=== PATIENT | male | born 1935 | race Caucasian/White ===

== ENCOUNTER 2019-06-03 00:05 | Inpatient (IN) ==
[2019-06-03] MEDS ORDERED: RAPID SEQUENCE INDUCTION BAG ONE (00:14)
[2019-06-03] MEDS ORDERED: FUROSEMIDE 40 MG/4 ML VIAL IV STA (00:21)
[2019-06-03] MEDS ORDERED: PROPOFOL IV EMULSION 10 MG/ML 100 ML VIAL IV ONE (00:23)
[2019-06-03] MEDS ORDERED: NITROGLYCERIN/D5W 100MCG/ML 250 ML IV SCH (00:30)
[2019-06-03 00:42] LABS: iSTAT Creatinine 1.4 mg/dl (0.6-1.3); iSTAT Hemoglobin 9.9 g/dl (14.0-18.0); iSTAT Ionized Calcium 1.07 mmol/l (1.12-1.32); iSTAT Potassium 4.6 mEq/L (3.3-5.0)
[2019-06-03] MEDS: fentaNYL citrate 100 MCG/2 ML VIAL IV PRN ×3 (00:52→12:24)
[2019-06-03 01:09] LABS: INR 1.2 (0.9-1.1); Prothrombin Time 12.4 Seconds (9.0-12.0)
[2019-06-03 01:23] LABS: Alanine Aminotransferase 19 U/L (12-78); Aspartate Aminotransferase 37 U/L (15-37); BUN Creatinine Ratio 28.3 (10-20); Blood Urea Nitrogen 41 mg/dl (7-18); Calcium 7.8 mg/dl (8.5-10.1); Carbon Dioxide 30 mmol/L (21-32); Chloride 108 mmol/L (98-107); Est GFR (African American) 51.2; Est GFR (Non-African American) 44.2; Glucose 177 mg/dl (70-99); Lipase 38 U/L (73-393); Magnesium 2.7 mg/dl (1.8-2.4); Potassium 4.4 mmol/L (3.5-5.1); Sodium 145 mmol/L (136-145)
[2019-06-03 01:24] LABS: Hematocrit (blood only) 32.5 % (42-52); Hemoglobin 9.6 g/dL (14.0-18.0); Mean Corpuscular Hemoglobin 31.9 pg (25-34); Mean Corpuscular Hgb Conc 29.5 g/dL (32-36); Platelet Count 308 K/uL (130-400); Red Blood Count 3.01 M/uL (4.7-6.1); White Blood Count 15.62 K/uL (4.8-10.8)
[2019-06-03 01:38] LABS: Albumin Globulin Ratio 0.5 (0.9-2); Alkaline Phosphatase 201 U/L (45-117); Bilirubin,Total 0.4 mg/dl (0.2-1); Globulin 4.1 gm/dl (2.5-4.0); NT Pro B Type Natriuretic Pept > 35000 pg/ml (0-1800); Total Protein 6.1 gm/dl (6.4-8.2); Troponin I 0.136 ng/ml (0-0.045)
[2019-06-03 01:41] LABS: ALC (manual) 7.87 K/uL (1.2-3.4); ANC (manual) 6.94 K/uL (1.4-6.5); Basophils # (manual) 0.14 K/uL (0-0.2); Basophils % (manual) 0.9 %; Eosinophils # (manual) 0.41 K/uL (0-0.5); Eosinophils % (manual) 2.6 %; Large Granular Lymph # (manua 4.48 K/uL; Large Granular Lymph % (manual) 28.7 %; Lymphocytes # (manual) 3.39 K/uL (1.2-3.4); Lymphocytes % (manual) 21.7 %; Monocytes # (manual) 0.27 K/uL (0.11-0.59); Monocytes % (manual) 1.7 %; Neutrophils # (manual) 6.94 K/uL (1.4-6.5); Neutrophils % (manual) 44.4 %; Polychromasia 1+
[2019-06-03] MEDS ORDERED: VANCOMYCIN CONSULT ACTIVE PRN (01:41)
[2019-06-03] MEDS ORDERED: CEFEPIME 2,000 MG/20 ML VIAL IV STA (01:41)
[2019-06-03] MEDS ORDERED: VANCOMYCIN CONSULT ACTIVE ONE (01:41)
[2019-06-03] MEDS ORDERED: VANCOMYCIN HCL 1,750 MG in SODIUM CHLORIDE 0.9% 500 ML IV ONE (01:41)
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
[2019-06-03] MEDS ORDERED: OPTIRAY 320 125ml IV PRN (03:46)
[2019-06-03] MEDS ORDERED: ICU PROTOCOL FOR HYPERGLYCEMIA PRN (04:07)
[2019-06-03] MEDS ORDERED: ALBUMIN 5% 250 ML IV ONE (04:07)
[2019-06-03] MEDS ORDERED: LIDOCAINE 2% JELLY 5 ML TUBE ONE (04:28)
[2019-06-03] MEDS ORDERED: CEFEPIME CONSULT ACTIVE PRN (04:54)
[2019-06-03] MEDS: PROPOFOL 1,000 MG/100 ML VIAL IV SCH ×3 (05:02→12:12)
[2019-06-03] MEDS ORDERED: ALBUMIN 25% 50 ML IV ONE (05:13)
--- NOTE | 2019-06-03 05:59 | XRay Report ---
XR chest 1V portable CLINICAL HISTORY: 83 years-old Male presenting with post intubation. TECHNIQUE: Portable supine AP view of the chest was obtained. COMPARISON: 04/19/2019. FINDINGS: Endotracheal tube terminates in the midthoracic trachea over 5 cm from the erwin. Prominence of the superior mediastinal contour may in part relate to supine technique. Atherosclerosis and prominence o f the thoracic aorta. Cardiac silhouette mildly enlarged. Severe diffuse opacities in both lungs. Mod erate bilateral pleural effusions. No pneumothorax. Degenerative changes of the thoracic spine. IMPRESSION: 1. Appropriately positioned endotracheal tube. 2. Severe bilateral pulmonary infiltrates. This could represent severe edema, multifocal pneumonia, or diffuse alveolar damage. 3. Moderate bilateral pleural effusions. Electronically signed by: Ivan Estrada M.D. 06/03/2019 5:58 AM
--- NOTE | 2019-06-03 06:51 | Critical Care Consultation ---
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 (Manual) (0-0.2) K/uL Large Granular Lymphs % # Lrg Granular Lymphs K/uL Blood Smear Review Polychromasia PT (9.0-12.0) Seconds INR (0.9-1.1) Sample Site POC pH (7.35-7.45) POC pCO2 (35-46) mmHg POC pO2 (80-95) mmHg POC HCO3 (19-24) jocelyn/L POC Base Excess (-9-1.8) jocelyn/L ABG pH (Temp Correct) (7.35-7.45) ABG pCO2 (Temp Corrct (35-46) mmHg POC ABG pO2 at Pt Temp POC ABG O2 Sat (90-95) % Jose Test O2 Delivery Device POC O2 Rate Minute Ventilation Tidal Volume PEEP POC Sodium (135-144) mEq/L Sodium (136-145) mmol/L POC Potassium (3.3-5.0) mEq/L Potassium (3.5-5.1) mmol/L POC Chloride (101-112) mEq/L Chloride (98-107) mmol/L Carbon Dioxide (21-32) mmol/L POC Total CO2 (24-31) mEq/l Anion Gap (3-11) POC Anion Gap (16-25) mmol/L POC BUN (7-18) mg/dl BUN (7-18) mg/dl Creatinine (0.6-1.4) mg/dl POC Creatinine (0.6-1.3) mg/dl Est Cr Clr Drug Dosing Est GFR ( Amer) Est GFR (Non-Af Amer) BUN/Creatinine Ratio (10-20) Glucose (70-99) mg/dl POC Glucose (70-99) POC Glucose (other) (70-99) mg/dl POC Lactic Acid Steve (0.90-1.70) mmol/L Lactate (0.4-2.0) mmol/L Calcium (8.5-10.1) mg/dl POC Ioniz Calcium Ca (1.12-1.32) mmol/l Phosphorus (2.5-4.9) mg/dl Magnesium (1.8-2.4) mg/dl Iron 24 L (35-175) mcg/dl TIBC 115 L (250-450) mcg/dl Transferrin 99 L (200-360) mg/dl Ferritin 632.8 H (8-388) ng/ml Total Bilirubin (0.2-1) mg/dl AST (15-37) U/L ALT (12-78) U/L Alkaline Phosphatase (45-117) U/L Lactate Dehydrogenase (87-241) U/L Troponin I (0-0.045) ng/ml NT-Pro-B Natriuret Pep (0-1800) pg/ml Total Protein (6.4-8.2) gm/dl Albumin (3.4-5.0) gm/dl Globulin (2.5-4.0) gm/dl Albumin/Globulin Ratio (0.9-2) Prealbumin (20-40) mg/dl Lipase (73-393) U/L Vitamin B12 466 (211-911) pg/ml Folate (>5.38) ng/ml TSH (0.300-4.500) uIu/ml Free T4 (0.8-1.6) ng/dl Free T3 (2.3-4.2) pg/ml Random Cortisol mcg/dl Pleural Fluid Source Pleural Color Pleural Appearance Pleural pH (7.3-7.4) Pleural WBC /uL Pleural RBC /uL Pleural Polynuclear % % Pleural Mononuclear % % Pleural Total Protein g/dl Pleural LDH U/L Pleural Glucose mg/dl Nasal Screen MRSA (PCR) (Negative) Thyroid Antimicrosomal Thyroglobulin Antibody Blood Type Antibody Screen 06/03/19 06/03/19 06/03/19 Range/Units 11:29 11:29 11:13 WBC (4.8-10.8) K/uL RBC (4.7-6.1) M/uL Hgb (14.0-18.0) g/dL POC Hgb (14.0-18.0) g/dl Hct (42-52) % POC Hct (42-52) % MCV (80-100) fL MCH (25-34) pg MCHC (32-36) g/dL RDW Std Deviation (36.4-46.3) fL RDW Coeff of Roger (11.5-14.5) % Plt Count (130-400) K/uL MPV (7.4-10.4) fL Immature Gran % (Auto) % Neut % (Auto) % Lymph % (Auto) % [place] % (Auto) % Eos % (Auto) % Baso % (Auto) % Reticulocyte % (Auto) (0.5-2.0) % Immature Gran # (Auto) (0.00-0.02) K/uL Neut # (Auto) (1.4-6.5) K/uL Lymph # (Auto) (1.2-3.4) K/uL [place] # (Auto) (0.11-0.59) K/uL Eos # (Auto) (0-0.5) K/uL Baso # (Auto) (0-0.2) K/uL Reticulocyte # (0.02-0.10) 10^6/uL Neutrophils % (Manual) % Lymphocytes % (Manual) % Monocytes % (Manual) % Eosinophils % (Manual) % Basophils % (Manual) % Neutrophils # (Manual) (1.4-6.5) K/uL Total Absolute Neuts (1.4-6.5) K/uL Lymphocytes # (Manual) (1.2-3.4) K/uL Total Abs Lymphocytes (1.2-3.4) K/uL Monocytes # (Manual) (0.11-0.59) K/uL Eosinophils # (Manual) (0-0.5) K/uL Basophils # (Manual) (0-0.2) K/uL Large Granular Lymphs % # Lrg Granular Lymphs K/uL Blood Smear Review Polychromasia PT (9.0-12.0) Seconds INR (0.9-1.1) Sample Site POC pH (7.35-7.45) POC pCO2 (35-46) mmHg POC pO2 (80-95) mmHg POC HCO3 (19-24) jocelyn/L POC Base Excess (-9-1.8) jocelyn/L ABG pH (Temp Correct) (7.35-7.45) ABG pCO2 (Temp Corrct (35-46) mmHg POC ABG pO2 at Pt Temp POC ABG O2 Sat (90-95) % Jose Test O2 Delivery Device POC O2 Rate Minute Ventilation Tidal Volume PEEP POC Sodium (135-144) mEq/L Sodium (136-145) mmol/L POC Potassium (3.3-5.0) mEq/L Potassium (3.5-5.1) mmol/L POC Chloride (101-112) mEq/L Chloride (98-107) mmol/L Carbon Dioxide (21-32) mmol/L POC Total CO2 (24-31) mEq/l Anion Gap (3-11) POC Anion Gap (16-25) mmol/L POC BUN (7-18) mg/dl BUN (7-18) mg/dl Creatinine (0.6-1.4) mg/dl POC Creatinine (0.6-1.3) mg/dl Est Cr Clr Drug Dosing Est GFR ( Amer) Est GFR (Non-Af Amer) BUN/Creatinine Ratio (10-20) Glucose (70-99) mg/dl POC Glucose 96 (70-99) POC Glucose (other) (70-99) mg/dl POC Lactic Acid Steve (0.90-1.70) mmol/L Lactate (0.4-2.0) mmol/L Calcium (8.5-10.1) mg/dl POC Ioniz Calcium Ca (1.12-1.32) mmol/l Phosphorus 4.4 (2.5-4.9) mg/dl Magnesium (1.8-2.4) mg/dl Iron (35-175) mcg/dl TIBC (250-450) mcg/dl Transferrin (200-360) mg/dl Ferritin (8-388) ng/ml Total Bilirubin (0.2-1) mg/dl AST (15-37) U/L ALT (12-78) U/L Alkaline Phosphatase (45-117) U/L Lactate Dehydrogenase (87-241) U/L Troponin I 0.190 H* (0-0.045) ng/ml NT-Pro-B Natriuret Pep (0-1800) pg/ml Total Protein (6.4-8.2) gm/dl Albumin (3.4-5.0) gm/dl Globulin (2.5-4.0) gm/dl Albumin/Globulin Ratio (0.9-2) Prealbumin (20-40) mg/dl Lipase (73-393) U/L Vitamin B12 (211-911) pg/ml Folate 8.88 (>5.38) ng/ml TSH (0.300-4.500) uIu/ml Free T4 0.56 L (0.8-1.6) ng/dl Free T3 (2.3-4.2) pg/ml Random Cortisol mcg/dl Pleural Fluid Source Pleural Color Pleural Appearance Pleural pH (7.3-7.4) Pleural WBC /uL Pleural RBC /uL Pleural Polynuclear % % Pleural Mononuclear % % Pleural Total Protein g/dl Pleural LDH U/L Pleural Glucose mg/dl Nasal Screen MRSA (PCR) (Negative) Thyroid Antimicrosomal Thyroglobulin Antibody Blood Type Antibody Screen 06/03/19 06/03/19 06/03/19 Range/Units 10:53 10:53 07:23 WBC (4.8-10.8) K/uL RBC (4.7-6.1) M/uL Hgb (14.0-18.0) g/dL POC Hgb (14.0-18.0) g/dl Hct (42-52) % POC Hct (42-52) % MCV (80-100) fL MCH (25-34) pg MCHC (32-36) g/dL RDW Std Deviation (36.4-46.3) fL RDW Coeff of Roger (11.5-14.5) % Plt Count (130-400) K/uL MPV (7.4-10.4) fL Immature Gran % (Auto) % Neut % (Auto) % Lymph % (Auto) % [place] % (Auto) % Eos % (Auto) % Baso % (Auto) % Reticulocyte % (Auto) (0.5-2.0) % Immature Gran # (Auto) (0.00-0.02) K/uL Neut # (Auto) (1.4-6.5) K/uL Lymph # (Auto) (1.2-3.4) K/uL [place] # (Auto) (0.11-0.59) K/uL Eos # (Auto) (0-0.5) K/uL Baso # (Auto) (0-0.2) K/uL Reticulocyte # (0.02-0.10) 10^6/uL Neutrophils % (Manual) % Lymphocytes % (Manual) % Monocytes % (Manual) % Eosinophils % (Manual) % Basophils % (Manual) % Neutrophils # (Manual) (1.4-6.5) K/uL Total Absolute Neuts (1.4-6.5) K/uL Lymphocytes # (Manual) (1.2-3.4) K/uL Total Abs Lymphocytes (1.2-3.4) K/uL Monocytes # (Manual) (0.11-0.59) K/uL Eosinophils # (Manual) (0-0.5) K/uL Basophils # (Manual) (0-0.2) K/uL Large Granular Lymphs % # Lrg Granular Lymphs K/uL Blood Smear Review Polychromasia PT (9.0-12.0) Seconds INR (0.9-1.1) Sample Site Art Line POC pH 7.49 H (7.35-7.45) POC pCO2 37 (35-46) mmHg POC pO2 67 L (80-95) mmHg POC HCO3 28 H (19-24) jocelyn/L POC Base Excess 5.0 H (-9-1.8) jocelyn/L ABG pH (Temp Correct) 7.521 H* (7.35-7.45) ABG pCO2 (Temp Corrct 34 L (35-46) mmHg POC ABG pO2 at Pt Temp 58 POC ABG O2 Sat 95.0 (90-95) % Jose Test NA O2 Delivery Device Ventilator POC O2 Rate 14 Minute Ventilation 7.0 Tidal Volume 550 PEEP 5 POC Sodium (135-144) mEq/L Sodium (136-145) mmol/L POC Potassium (3.3-5.0) mEq/L Potassium (3.5-5.1) mmol/L POC Chloride (101-112) mEq/L Chloride (98-107) mmol/L Carbon Dioxide (21-32) mmol/L POC Total CO2 29 (24-31) mEq/l Anion Gap (3-11) POC Anion Gap (16-25) mmol/L POC BUN (7-18) mg/dl BUN (7-18) mg/dl Creatinine (0.6-1.4) mg/dl POC Creatinine (0.6-1.3) mg/dl Est Cr Clr Drug Dosing Est GFR ( Amer) Est GFR (Non-Af Amer) BUN/Creatinine Ratio (10-20) Glucose (70-99) mg/dl POC Glucose (70-99) POC Glucose (other) (70-99) mg/dl POC Lactic Acid Steve (0.90-1.70) mmol/L Lactate (0.4-2.0) mmol/L Calcium (8.5-10.1) mg/dl POC Ioniz Calcium Ca (1.12-1.32) mmol/l Phosphorus (2.5-4.9) mg/dl Magnesium (1.8-2.4) mg/dl Iron (35-175) mcg/dl TIBC (250-450) mcg/dl Transferrin (200-360) mg/dl Ferritin (8-388) ng/ml Total Bilirubin (0.2-1) mg/dl AST (15-37) U/L ALT (12-78) U/L Alkaline Phosphatase (45-117) U/L Lactate Dehydrogenase (87-241) U/L Troponin I (0-0.045) ng/ml NT-Pro-B Natriuret Pep (0-1800) pg/ml Total Protein (6.4-8.2) gm/dl Albumin (3.4-5.0) gm/dl Globulin (2.5-4.0) gm/dl Albumin/Globulin Ratio (0.9-2) Prealbumin (20-40) mg/dl Lipase (73-393) U/L Vitamin B12 (211-911) pg/ml Folate (>5.38) ng/ml TSH (0.300-4.500) uIu/ml Free T4 (0.8-1.6) ng/dl Free T3 (2.3-4.2) pg/ml Random Cortisol 37.69 mcg/dl Pleural Fluid Source Pleural Color Pleural Appearance Pleural pH (7.3-7.4) Pleural WBC /uL Pleural RBC /uL Pleural Polynuclear % % Pleural Mononuclear % % Pleural Total Protein g/dl Pleural LDH U/L Pleural Glucose mg/dl Nasal Screen MRSA (PCR) (Negative) Thyroid Antimicrosomal Pending Thyroglobulin Antibody Pending Blood Type Antibody Screen 06/03/19 06/03/19 06/03/19 Range/Units 07:00 06:50 06:50 WBC 8.47 (4.8-10.8) K/uL RBC 2.39 L (4.7-6.1) M/uL Hgb 7.5 L (14.0-18.0) g/dL POC Hgb (14.0-18.0) g/dl Hct 24.9 L (42-52) % POC Hct (42-52) % MCV 104.2 H (80-100) fL MCH 31.4 (25-34) pg MCHC 30.1 L (32-36) g/dL RDW Std Deviation 65.6 H (36.4-46.3) fL RDW Coeff of Roger 17.2 H (11.5-14.5) % Plt Count 188 (130-400) K/uL MPV 10.9 H (7.4-10.4) fL Immature Gran % (Auto) 0.9 % Neut % (Auto) 75.7 % Lymph % (Auto) 17.4 % [place] % (Auto) 5.7 % Eos % (Auto) 0.1 % Baso % (Auto) 0.2 % Reticulocyte % (Auto) (0.5-2.0) % Immature Gran # (Auto) 0.08 H (0.00-0.02) K/uL Neut # (Auto) 6.41 (1.4-6.5) K/uL Lymph # (Auto) 1.47 (1.2-3.4) K/uL [place] # (Auto) 0.48 (0.11-0.59) K/uL Eos # (Auto) 0.01 (0-0.5) K/uL Baso # (Auto) 0.02 (0-0.2) K/uL Reticulocyte # (0.02-0.10) 10^6/uL Neutrophils % (Manual) % Lymphocytes % (Manual) % Monocytes % (Manual) % Eosinophils % (Manual) % Basophils % (Manual) % Neutrophils # (Manual) (1.4-6.5) K/uL Total Absolute Neuts (1.4-6.5) K/uL Lymphocytes # (Manual) (1.2-3.4) K/uL Total Abs Lymphocytes (1.2-3.4) K/uL Monocytes # (Manual) (0.11-0.59) K/uL Eosinophils # (Manual) (0-0.5) K/uL Basophils # (Manual) (0-0.2) K/uL Large Granular Lymphs % # Lrg Granular Lymphs K/uL Blood Smear Review Polychromasia PT (9.0-12.0) Seconds INR (0.9-1.1) Sample Site POC pH (7.35-7.45) POC pCO2 (35-46) mmHg POC pO2 (80-95) mmHg POC HCO3 (19-24) jocelyn/L POC Base Excess (-9-1.8) jocelyn/L ABG pH (Temp Correct) (7.35-7.45) ABG pCO2 (Temp Corrct (35-46) mmHg POC ABG pO2 at Pt Temp POC ABG O2 Sat (90-95) % Jose Test O2 Delivery Device POC O2 Rate Minute Ventilation Tidal Volume PEEP POC Sodium (135-144) mEq/L Sodium 147 H (136-145) mmol/L POC Potassium (3.3-5.0) mEq/L Potassium 4.5 (3.5-5.1) mmol/L POC Chloride (101-112) mEq/L Chloride 110 H (98-107) mmol/L Carbon Dioxide 32 (21-32) mmol/L POC Total CO2 (24-31) mEq/l Anion Gap 5.0 (3-11) POC Anion Gap (16-25) mmol/L POC BUN (7-18) mg/dl BUN 44 H (7-18) mg/dl Creatinine 1.38 (0.6-1.4) mg/dl POC Creatinine (0.6-1.3) mg/dl Est Cr Clr Drug Dosing 45.7 Est GFR ( Amer) 54.8 Est GFR (Non-Af Amer) 47.3 BUN/Creatinine Ratio 31.8 H (10-20) Glucose 110 H (70-99) mg/dl POC Glucose (70-99) POC Glucose (other) (70-99) mg/dl POC Lactic Acid Steve (0.90-1.70) mmol/L Lactate 1.8 (0.4-2.0) mmol/L Calcium 8.0 L (8.5-10.1) mg/dl POC Ioniz Calcium Ca (1.12-1.32) mmol/l Phosphorus (2.5-4.9) mg/dl Magnesium (1.8-2.4) mg/dl Iron (35-175) mcg/dl TIBC (250-450) mcg/dl Transferrin (200-360) mg/dl Ferritin (8-388) ng/ml Total Bilirubin 0.4 (0.2-1) mg/dl AST 28 (15-37) U/L ALT 14 (12-78) U/L Alkaline Phosphatase 159 H (45-117) U/L Lactate Dehydrogenase (87-241) U/L Troponin I (0-0.045) ng/ml NT-Pro-B Natriuret Pep (0-1800) pg/ml Total Protein 5.1 L (6.4-8.2) gm/dl Albumin 1.9 L (3.4-5.0) gm/dl Globulin 3.2 (2.5-4.0) gm/dl Albumin/Globulin Ratio 0.6 L (0.9-2) Prealbumin (20-40) mg/dl Lipase (73-393) U/L Vitamin B12 (211-911) pg/ml Folate (>5.38) ng/ml TSH (0.300-4.500) uIu/ml Free T4 (0.8-1.6) ng/dl Free T3 (2.3-4.2) pg/ml Random Cortisol mcg/dl Pleural Fluid Source Pleural Color Pleural Appearance Pleural pH (7.3-7.4) Pleural WBC /uL Pleural RBC /uL Pleural Polynuclear % % Pleural Mononuclear % % Pleural Total Protein g/dl Pleural LDH U/L Pleural Glucose mg/dl Nasal Screen MRSA (PCR) (Negative) Thyroid Antimicrosomal Thyroglobulin Antibody Blood Type Antibody Screen 06/03/19 06/03/19 06/03/19 Range/Units 00:30 00:26 00:25 WBC (4.8-10.8) K/uL RBC (4.7-6.1) M/uL Hgb (14.0-18.0) g/dL POC Hgb 9.9 L (14.0-18.0) g/dl Hct (42-52) % POC Hct 29 L (42-52) % MCV (80-100) fL MCH (25-34) pg MCHC (32-36) g/dL RDW Std Deviation (36.4-46.3) fL RDW Coeff of Roger (11.5-14.5) % Plt Count (130-400) K/uL MPV (7.4-10.4) fL Immature Gran % (Auto) % Neut % (Auto) % Lymph % (Auto) % [place] % (Auto) % Eos % (Auto) % Baso % (Auto) % Reticulocyte % (Auto) (0.5-2.0) % Immature Gran # (Auto) (0.00-0.02) K/uL Neut # (Auto) (1.4-6.5) K/uL Lymph # (Auto) (1.2-3.4) K/uL [place] # (Auto) (0.11-0.59) K/uL Eos # (Auto) (0-0.5) K/uL Baso # (Auto) (0-0.2) K/uL Reticulocyte # (0.02-0.10) 10^6/uL Neutrophils % (Manual) % Lymphocytes % (Manual) % Monocytes % (Manual) % Eosinophils % (Manual) % Basophils % (Manual) % Neutrophils # (Manual) (1.4-6.5) K/uL Total Absolute Neuts (1.4-6.5) K/uL Lymphocytes # (Manual) (1.2-3.4) K/uL Total Abs Lymphocytes (1.2-3.4) K/uL Monocytes # (Manual) (0.11-0.59) K/uL Eosinophils # (Manual) (0-0.5) K/uL Basophils # (Manual) (0-0.2) K/uL Large Granular Lymphs % # Lrg Granular Lymphs K/uL Blood Smear Review Polychromasia PT (9.0-12.0) Seconds INR (0.9-1.1) Sample Site POC pH (7.35-7.45) POC pCO2 (35-46) mmHg POC pO2 (80-95) mmHg POC HCO3 (19-24) jocelyn/L POC Base Excess (-9-1.8) jocelyn/L ABG pH (Temp Correct) (7.35-7.45) ABG pCO2 (Temp Corrct (35-46) mmHg POC ABG pO2 at Pt Temp POC ABG O2 Sat (90-95) % Jose Test O2 Delivery Device POC O2 Rate Minute Ventilation Tidal Volume PEEP POC Sodium 142 (135-144) mEq/L Sodium (136-145) mmol/L POC Potassium 4.6 (3.3-5.0) mEq/L Potassium (3.5-5.1) mmol/L POC Chloride 105 (101-112) mEq/L Chloride (98-107) mmol/L Carbon Dioxide (21-32) mmol/L POC Total CO2 29 (24-31) mEq/l Anion Gap (3-11) POC Anion Gap 13.0 L (16-25) mmol/L POC BUN 54 H (7-18) mg/dl BUN (7-18) mg/dl Creatinine (0.6-1.4) mg/dl POC Creatinine 1.4 H (0.6-1.3) mg/dl Est Cr Clr Drug Dosing Est GFR ( Amer) Est GFR (Non-Af Amer) BUN/Creatinine Ratio (10-20) Glucose (70-99) mg/dl POC Glucose (70-99) POC Glucose (other) 179 H (70-99) mg/dl POC Lactic Acid Steve 3.22 H (0.90-1.70) mmol/L Lactate (0.4-2.0) mmol/L Calcium (8.5-10.1) mg/dl POC Ioniz Calcium Ca 1.07 L (1.12-1.32) mmol/l Phosphorus (2.5-4.9) mg/dl Magnesium (1.8-2.4) mg/dl Iron (35-175) mcg/dl TIBC (250-450) mcg/dl Transferrin (200-360) mg/dl Ferritin (8-388) ng/ml Total Bilirubin (0.2-1) mg/dl AST (15-37) U/L ALT (12-78) U/L Alkaline Phosphatase (45-117) U/L Lactate Dehydrogenase (87-241) U/L Troponin I (0-0.045) ng/ml NT-Pro-B Natriuret Pep (0-1800) pg/ml Total Protein (6.4-8.2) gm/dl Albumin (3.4-5.0) gm/dl Globulin (2.5-4.0) gm/dl Albumin/Globulin Ratio (0.9-2) Prealbumin (20-40) mg/dl Lipase (73-393) U/L Vitamin B12 (211-911) pg/ml Folate (>5.38) ng/ml TSH (0.300-4.500) uIu/ml Free T4 (0.8-1.6) ng/dl Free T3 (2.3-4.2) pg/ml Random Cortisol mcg/dl Pleural Fluid Source Pleural Color Pleural Appearance Pleural pH (7.3-7.4) Pleural WBC /uL Pleural RBC /uL Pleural Polynuclear % % Pleural Mononuclear % % Pleural Total Protein g/dl Pleural LDH U/L Pleural Glucose mg/dl Nasal Screen MRSA (PCR) (Negative) Thyroid Antimicrosomal Thyroglobulin Antibody Blood Type A Positive Antibody Screen NEGATIVE 06/03/19 06/03/19 06/03/19 Range/Units 00:24 00:24 00:24 WBC 15.62 H (4.8-10.8) K/uL RBC 3.01 L (4.7-6.1) M/uL Hgb 9.6 L (14.0-18.0) g/dL POC Hgb (14.0-18.0) g/dl Hct 32.5 L (42-52) % POC Hct (42-52) % MCV 108.0 H (80-100) fL MCH 31.9 (25-34) pg MCHC 29.5 L (32-36) g/dL RDW Std Deviation (36.4-46.3) fL RDW Coeff of Roger (11.5-14.5) % Plt Count 308 (130-400) K/uL MPV (7.4-10.4) fL Immature Gran % (Auto) % Neut % (Auto) % Lymph % (Auto) % [place] % (Auto) % Eos % (Auto) % Baso % (Auto) % Reticulocyte % (Auto) (0.5-2.0) % Immature Gran # (Auto) (0.00-0.02) K/uL Neut # (Auto) (1.4-6.5) K/uL Lymph # (Auto) (1.2-3.4) K/uL [place] # (Auto) (0.11-0.59) K/uL Eos # (Auto) (0-0.5) K/uL Baso # (Auto) (0-0.2) K/uL Reticulocyte # (0.02-0.10) 10^6/uL Neutrophils % (Manual) 44.4 % Lymphocytes % (Manual) 21.7 % Monocytes % (Manual) 1.7 % Eosinophils % (Manual) 2.6 % Basophils % (Manual) 0.9 % Neutrophils # (Manual) 6.94 H (1.4-6.5) K/uL Total Absolute Neuts 6.94 H (1.4-6.5) K/uL Lymphocytes # (Manual) 3.39 (1.2-3.4) K/uL Total Abs Lymphocytes 7.87 H (1.2-3.4) K/uL Monocytes # (Manual) 0.27 (0.11-0.59) K/uL Eosinophils # (Manual) 0.41 (0-0.5) K/uL Basophils # (Manual) 0.14 (0-0.2) K/uL Large Granular Lymphs 28.7 % # Lrg Granular Lymphs 4.48 K/uL Blood Smear Review Pending Polychromasia 1+ PT 12.4 H (9.0-12.0) Seconds INR 1.2 H (0.9-1.1) Sample Site POC pH (7.35-7.45) POC pCO2 (35-46) mmHg POC pO2 (80-95) mmHg POC HCO3 (19-24) jocelyn/L POC Base Excess (-9-1.8) jocelyn/L ABG pH (Temp Correct) (7.35-7.45) ABG pCO2 (Temp Corrct (35-46) mmHg POC ABG pO2 at Pt Temp POC ABG O2 Sat (90-95) % Jose Test O2 Delivery Device POC O2 Rate Minute Ventilation Tidal Volume PEEP POC Sodium (135-144) mEq/L Sodium 145 (136-145) mmol/L POC Potassium (3.3-5.0) mEq/L Potassium 4.4 (3.5-5.1) mmol/L POC Chloride (101-112) mEq/L Chloride 108 H (98-107) mmol/L Carbon Dioxide 30 (21-32) mmol/L POC Total CO2 (24-31) mEq/l Anion Gap 7.0 (3-11) POC Anion Gap (16-25) mmol/L POC BUN (7-18) mg/dl BUN 41 H (7-18) mg/dl Creatinine 1.46 H (0.6-1.4) mg/dl POC Creatinine (0.6-1.3) mg/dl Est Cr Clr Drug Dosing Not Reportable Est GFR ( Amer) 51.2 Est GFR (Non-Af Amer) 44.2 BUN/Creatinine Ratio 28.3 H (10-20) Glucose 177 H (70-99) mg/dl POC Glucose (70-99) POC Glucose (other) (70-99) mg/dl POC Lactic Acid Steve (0.90-1.70) mmol/L Lactate (0.4-2.0) mmol/L Calcium 7.8 L (8.5-10.1) mg/dl POC Ioniz Calcium Ca (1.12-1.32) mmol/l Phosphorus (2.5-4.9) mg/dl Magnesium 2.7 H (1.8-2.4) mg/dl Iron (35-175) mcg/dl TIBC (250-450) mcg/dl Transferrin (200-360) mg/dl Ferritin (8-388) ng/ml Total Bilirubin 0.4 (0.2-1) mg/dl AST 37 (15-37) U/L ALT 19 (12-78) U/L Alkaline Phosphatase 201 H (45-117) U/L Lactate Dehydrogenase (87-241) U/L Troponin I 0.136 H* (0-0.045) ng/ml NT-Pro-B Natriuret Pep > 16226 H (0-1800) pg/ml Total Protein 6.1 L (6.4-8.2) gm/dl Albumin 2.0 L (3.4-5.0) gm/dl Globulin 4.1 H (2.5-4.0) gm/dl Albumin/Globulin Ratio 0.5 L (0.9-2) Prealbumin (20-40) mg/dl Lipase 38 L (73-393) U/L Vitamin B12 (211-911) pg/ml Folate (>5.38) ng/ml TSH 59.900 H (0.300-4.500) uIu/ml Free T4 (0.8-1.6) ng/dl Free T3 (2.3-4.2) pg/ml Random Cortisol mcg/dl Pleural Fluid Source Pleural Color Pleural Appearance Pleural pH (7.3-7.4) Pleural WBC /uL Pleural RBC /uL Pleural Polynuclear % % Pleural Mononuclear % % Pleural Total Protein g/dl Pleural LDH U/L Pleural Glucose mg/dl Nasal Screen MRSA (PCR) (Negative) Thyroid Antimicrosomal Thyroglobulin Antibody Blood Type Antibody Screen Medications Administered Current Inpatient Medications Enoxaparin Sodium (Lovenox) 40 mg SQ Q24H [facility] Stop: 07/03/19 07:59 Last Admin: 06/03/19 08:42 Dose: 40 mg Documented by: Fentanyl Citrate (Fentanyl Citrate) 50 mcg IV Q15M PRN PRN Reason: Pain Stop: 06/17/19 00:35 Last Admin: 06/03/19 12:24 Dose: 50 mcg Documented by: Propofol (Diprivan) 1,000 mg in 100 mls @ 10.764 mls/hr IV .Q9H18M [facility]; Protocol Stop: 06/06/19 00:29 Last Titration: 06/03/19 17:48 Dose: 12 mcg/kg/min, 6.5 mls/hr Documented by: Nitroglycerin/Dextrose (Nitroglycerin/D5w 100 Mcg/Ml) 250 mls @ 0 mls/hr IV .Q0M [facility]; Protocol Stop: 07/03/19 00:29 Last Titration: 06/03/19 10:24 Dose: 0 mcg/min, 0 mls/hr Documented by: Famotidine 20 mg/ Syringe 5 mls @ 2.5 mls/min IV BID [facility] Stop: 07/03/19 08:59 Last Admin: 06/03/19 10:17 Dose: 2.5 mls/min Documented by: Vancomycin HCl 1,500 mg/ (Sodium Chloride) 530 mls @ 200 mls/hr IV Q24H [facility]; Protocol Stop: 06/09/19 21:59 Cefepime HCl 2,000 mg/ Syringe 20 mls @ 5 mls/min IV Q12H [facility]; Protocol Stop: 06/10/19 13:59 Last Admin: 06/03/19 14:48 Dose: 5 mls/min Documented by: Levothyroxine Sodium 200 mcg/ (Syringe) 10 mls @ 5 mls/min IV ONE ONE Stop: 06/04/19 11:01 Last Admin: 06/03/19 12:55 Dose: 5 mls/min Documented by: Levothyroxine Sodium 50 mcg/ (Syringe) 2.5 mls @ 2 mls/min IV DAILY@0900 [facility] Stop: 07/04/19 08:59 Ioversol (Optiray 320 125ml) 119 ml IV ONCE PRN PRN Reason: Interaction Checking Stop: 06/07/19 03:45 Last Admin: 06/03/19 03:48 Dose: 119 ml Documented by: Liothyronine Sodium (Cytomel) 5 mcg PO QAM [facility] Stop: 07/03/19 11:14 Last Admin: 06/03/19 14:47 Dose: 5 mcg Documented by: Miscellaneous (Icu Protocol For Hyperglycemia) 1 ea N/A PRN PRN; Protocol PRN Reason: Hyperglycemia Protocol Stop: 06/05/19 04:06 Miscellaneous Information (Consult) 1 ea N/A UD PRN PRN Reason: Consult Stop: 07/03/19 01:40 Miscellaneous Information (Cefepime Consult Active) 1 ea N/A UD PRN PRN Reason: Consult Stop: 07/03/19 04:53 Nutritional Formula (Peptamen Intense Vhp 1.0 Niranjan) 1,000 ml OG UD [facility]; Protocol Stop: 07/03/19 11:14 PG Care Time/CCT Total # of Minutes Spent Total Time Spent with Patient: Total time spent is greater than 50% in coordination of care (as documented) at patient's floor/unit and/or counseling patient: Critical Care Time: Yes Total Critical Care Time: 85 Resident Activity Tracking Resident Involvement: Resident Care Provided Care Provided: Adult Hospital Medicine (ICU: Myxedema coma, intubated, anasarca)
[2019-06-03] MEDS ORDERED: methylPREDNISolone 80 MG in SYRINGE 0 ML IV ONE (07:00)
[2019-06-03 07:10] LABS: Mean Corpuscular Hgb Conc 30.1 g/dL (32-36); Mean Platelet Volume 10.9 fL (7.4-10.4); Platelet Count 188 K/uL (130-400)
--- NOTE | 2019-06-03 07:31 | CT Scan Report ---
CT angio chest PE protocol CLINICAL HISTORY: 83 years-old Male presenting with shortness of breath, respiratory distress, intuba tion, clinical concern for pulmonary embolus. TECHNIQUE: Multidetector CT angiography of the chest was performed after administration of intravenou s contrast. 3-D volumetric and/or maximum intensity projection (MIP) images were subsequently reconst ructed for review. IV contrast: 119 mL of Optiray 320. One or more dose lowering techniques were used consistent with the principles of ALARA (as low as reasonably achievable), including automatic expos ure control, mA or kV adjustment to individual patient size, and/or use of iterative reconstruction. COMPARISON: Noncontrast CT chest from 04/19/2019. CT DOSE (mGy.cm): The estimated cumulative dose is 690.05 mGy.cm. FINDINGS: Formal Service Waiter topogram: Diffuse pulmonary opacities. Endotracheal tube terminates in the midthoracic trachea. Nasogastric tube descends below the diaphragm terminating in the proximal stomach. Cholecystectomy c lips. Pulmonary vasculature: The study is suboptimal for the assessment of the pulmonary vascular tree secondary to respiratory mo tion artifact. Allowing for limited image quality, no central filling defect to suggest pulmonary emb olus. Main pulmonary artery is not enlarged. No flattening of the interventricular septum. No intraca rdiac filling defect. No reflux of contrast into the hepatic veins. Remaining chest: Soft tissues: Grossly normal thyroid. Diffuse body wall edema, which is severe. No gross lymphadenopa thy. The degree of diffuse edema degrades evaluation for lymphadenopathy. Atherosclerosis of the aort a. Multichamber enlargement of the heart. Coronary artery and aortic valve calcification. Large bilat eral simple-appearing pleural effusions. Extensive calcifications in the liver suggest a history of g ranulomatous disease. Pneumobilia may relate to prior cholecystectomy. Lungs and airways: No pneumothorax. Endotracheal tube terminates in the midthoracic trachea. Debris n oted in the right bronchus intermedius. Narrow caliber bronchi may in part relate to an expiratory ph ase of respiration. Prominence of pulmonary vasculature relative to to adjacent bronchi. No interlobu lar septal thickening at the aerated upper lobes. Extensive consolidation volume loss most pronounced in the lower lobes, which are almost completely collapsed. There is also significant dependent conso lidation in the posterior apical upper lobes, right greater than left. Remaining aerated lung demonst rates scattered groundglass opacity. Musculoskeletal: Degenerative changes of the spine. IMPRESSION: 1. Allowing for suboptimal image quality, no evidence of pulmonary embolus. 2. Large bilateral pleural effusions with severe passive atelectasis resulting in limited lung aerat ion. 3. Cardiomegaly with volume overload and congestive change. Moderate pulmonary edema. 4. Severe body wall edema relates to volume overload. 5. It is not possible to exclude pneumonia in the more dense focal consolidation in the posterior ap ical right upper lobe. 6. Appropriately positioned tubes. 7. Debris in the bronchus intermedius. This could raise concern for aspiration. Electronically signed by: Ivan Estrada M.D. 06/03/2019 7:30 AM
[2019-06-03 07:37] LABS: iSTAT Art Bld Gas pCO2 Correct 34 mmHg (35-46); iSTAT Art Bld Gas pH Corrected 7.521 (7.35-7.45); iSTAT Arterial Blood Gas HCO3 28 meg/L (19-24); iSTAT Arterial Blood Gas pCO2 37 mmHg (35-46); iSTAT Arterial Blood Gas pH 7.49 (7.35-7.45); iSTAT Arterial Blood Gas pO2 67 mmHg (80-95); iSTAT Arterial Blood Gas pO2 C 58; iSTAT Carbon Dioxide 29 mEq/l (24-31); iSTAT Site Art Line
[2019-06-03 07:44] LABS: Albumin Level 1.9 gm/dl (3.4-5.0); BUN Creatinine Ratio 31.8 (10-20); Creatinine Clr Calc Pharmacy 45.7 ml/min; Est GFR (African American) 54.8; Est GFR (Non-African American) 47.3; Potassium 4.5 mmol/L (3.5-5.1)
[2019-06-03 07:47] LABS: Albumin Globulin Ratio 0.6 (0.9-2); Bilirubin,Total 0.4 mg/dl (0.2-1); Globulin 3.2 gm/dl (2.5-4.0); Total Protein 5.1 gm/dl (6.4-8.2)
[2019-06-03 08:00] LABS: Basophils # (auto) 0.02 K/uL (0-0.2); Basophils % (auto) 0.2 %; Eosinophils # (auto) 0.01 K/uL (0-0.5); Eosinophils % (auto) 0.1 %; Hematocrit (blood only) 24.9 % (42-52); Hemoglobin 7.5 g/dL (14.0-18.0); Immature Granulocytes # (auto) 0.08 K/uL (0.00-0.02); Immature Granulocytes % (auto) 0.9 %; Lymphocytes # (auto) 1.47 K/uL (1.2-3.4); Lymphocytes % (auto) 17.4 %; Mean Corpuscular Hemoglobin 31.4 pg (25-34); Mean Corpuscular Volume 104.2 fL (80-100); Monocytes # (auto) 0.48 K/uL (0.11-0.59); Monocytes % (auto) 5.7 %; Neutrophils # (auto) 6.41 K/uL (1.4-6.5); Neutrophils % (auto) 75.7 %; RDW Coefficient of Variation 17.2 % (11.5-14.5); RDW Standard Deviation 65.6 fL (36.4-46.3); Red Blood Count 2.39 M/uL (4.7-6.1); White Blood Count 8.47 K/uL (4.8-10.8)
--- NOTE | 2019-06-03 08:38 | XRay Report ---
XR chest 1V portable CLINICAL HISTORY: 83 years-old Male presenting with pulmonary edema. TECHNIQUE: Portable upright AP view of the chest was obtained. COMPARISON: 06/03/2019. FINDINGS: Endotracheal tube again terminates in the midthoracic trachea approximately 4 cm from the erwin. Kody ogastric tube descends below the diaphragm, terminus not visualized. Numerous overlying external lead s degrade image quality. The cardiac silhouette is largely obscured. Lung volumes have decreased from prior with increasing large bilateral pleural effusions. Severe diffuse pulmonary opacities bilatera lly. Degenerative changes of the thoracic spine. Upper abdomen normal. IMPRESSION: 1. Appropriately positioned tubes. 2. Severe diffuse pulmonary infiltrates, likely pulmonary edema versus less likely multifocal pneumo thu or diffuse alveolar damage. 3. Increasing large bilateral pleural effusions with worsening lung aeration. Electronically signed by: Ivan Estrada M.D. 06/03/2019 8:36 AM
[2019-06-03] MEDS: ENOXAPARIN INJ 40 MG/0.4 ML SYR SQ SCH (08:42)
--- NOTE | 2019-06-03 08:46 | Pharmacy Report ---
Pharmacy Abx Initial Consult - Date of Service June 03, 2019 - Pharmacy Dosing Scope Date of Consult: 06/03/19 Consultation requested by: Dr. David Kidd Pharmacy is consulted to initiate Vancomycin and Cefepime IV/PO dosing therapy, order appropriate labs and adjust drug dose/frequency. - Subjective The patient is a 83 year old M admitted on 06/03/19 02:55. - Objective Height: 5 ft 9 in Weight: 89.7 kg Vital Signs (Past 12hrs): Vital Signs Temp Pulse Resp BP Pulse Ox 06/03/19 07:46 53 L 14 97 06/03/19 07:01 49 L 129/70 95 06/03/19 07:00 47 L 94 06/03/19 06:46 46 L 136/66 94 06/03/19 06:31 48 L 130/74 94 06/03/19 06:30 48 L 93 06/03/19 06:16 49 L 140/73 94 06/03/19 06:01 50 L 130/72 92 06/03/19 06:00 51 L 92 06/03/19 05:52 50 L 139/70 98 06/03/19 05:45 45 L 130/66 98 06/03/19 05:43 34.7 C L 06/03/19 05:30 52 L 92 06/03/19 05:05 51 L 14 96 06/03/19 05:00 50 L 96 06/03/19 04:55 55 L 124/71 90 06/03/19 04:42 52 L 125/67 95 06/03/19 04:30 51 L 93 06/03/19 04:03 69 128/76 90 06/03/19 04:01 62 14 93 06/03/19 04:00 64 86 L 06/03/19 03:57 14 06/03/19 03:53 61 06/03/19 03:15 53 L 101/63 99 06/03/19 03:00 56 L 102/61 99 06/03/19 02:45 60 93/62 L 99 06/03/19 02:30 64 127/76 97 06/03/19 02:20 72 98 06/03/19 02:15 62 115/68 99 06/03/19 02:10 62 99/63 L 98 06/03/19 02:05 62 98/60 L 97 06/03/19 02:00 65 89/61 L 97 06/03/19 01:58 67 14 100 06/03/19 01:55 68 92/61 L 97 06/03/19 01:50 67 100/64 98 06/03/19 01:45 67 102/63 100 06/03/19 01:40 65 126/70 100 06/03/19 01:35 77 104/72 100 06/03/19 01:30 66 14 107/62 98 06/03/19 01:25 72 0 L 91/59 L 95 06/03/19 01:20 78 0 L 90/58 L 98 06/03/19 01:15 75 20 106/61 100 06/03/19 01:10 73 16 101/61 100 06/03/19 01:05 75 9 L 110/62 100 06/03/19 01:00 78 16 112/62 100 06/03/19 00:55 83 16 128/69 100 06/03/19 00:50 101 H 20 142/86 H 96 06/03/19 00:45 85 22 136/76 100 06/03/19 00:40 96 H 17 144/80 H 100 06/03/19 00:37 107 H 19 90 06/03/19 00:35 114 H 21 149/88 H 89 L 06/03/19 00:34 109 H 19 143/85 H 06/03/19 00:30 107 H 21 135/76 100 06/03/19 00:25 104 H 18 130/80 99 06/03/19 00:22 117 H 13 89 L 06/03/19 00:20 120 H 17 143/87 H 93 06/03/19 00:19 121 H 17 149/91 H 95 06/03/19 00:16 190 H 29 H 91 06/03/19 00:14 116 H 15 158/83 H 38 L 06/03/19 00:13 119 H 12 46 L 06/02/19 23:59 36.3 C L 118 H 15 140/89 52 L Lab Results (24hrs): Laboratory Tests (24 Hours) 06/03/19 06/03/19 06/03/19 07:00 06:50 00:24 WBC 8.47 Neut # (Auto) 6.41 Creatinine 1.38 1.46 H Est Cr Clr Drug Dosing 45.7 Not Reportable 06/03/19 00:24 WBC 15.62 H Neut # (Auto) Creatinine Est Cr Clr Drug Dosing Micro Results: Laboratory Tests 06/03/19 Unknown Nasal Screen MRSA (PCR) Negative 06/03/19 00:24 Aerobic Blood Culture - Pending Blood Anaerobic Blood Culture - Pending 06/03/19 00:26 Aerobic Blood Culture - Pending Blood Anaerobic Blood Culture - Pending - Risk Factors for Resistance * Hospitalization for 48 hours or more within the past 90 days * Immunocompromised (chemotherapy) - Assessment & Plan Assessment 83 year old M admitted for ARDS vs PNA PMHx significant for pancreatic cancer s/p Whipple in 10/2018, R CORINNE in 03/2019 Patient is currently receiving chemotherapy MRSA nasal swab is negative, will continue vanc for now in case of false negative WBCs down (15.6-->8.5) Blood cultures pending Plan Vancomycin and Cefepime for treatment of ARDS vs PNA Vancomycin IV * Estimated PK Parameters: Vd 0.65 L/kg, Tai 0.042 hr-1, t1/2 16.5 hr * Loading dose: 1750 mg (19.5 mg/kg) * Maintenance dose: 1500 mg IV (16.7 mg/kg) every 24 hours * Goal trough level for PNA : 15 to 20 mcg/mL * No labs ordered as of now in case patient's renal function improves and necessitates a frequency change Cefepime * 2 g dose received in ED. Will continue 2 g IV every 12 hours. Target dose is 2 g IV every 8 hours to cover Pseudomonas. Renal function between CrCl 30 - 60 mL/min changes interval to q12h. Pharmacy will continue to follow and will adjust dose/frequency as necessary. Thank you.
[2019-06-03] MEDS ORDERED: FAMOTIDINE 20 MG TAB PO SCH (09:00)
[2019-06-03] MEDS ORDERED: ETOMIDATE 2 MG/ML 20 ML VIAL IV ONE (09:29)
[2019-06-03] MEDS: FAMOTIDINE 20 MG in SYRINGE 3 ML IV SCH ×2 (10:17→21:40)
[2019-06-03] MEDS ORDERED: HYDROCORTISONE SOD SUCCINATE 100 MG/2 ML VIAL IV STA (10:30)
[2019-06-03] MEDS ORDERED: CONSULT PHARMACY STA (10:32)
[2019-06-03] MEDS ORDERED: HYDROCORTISONE SOD 100 MG in SYRINGE 0 ML IV ONE (11:05)
--- NOTE | 2019-06-03 11:06 | Family Medicine Progress Note ---
Date of Service June 03, 2019 Assessment & Plan (1) Respiratory failure: Patient is an 83 year old male with PMHx Pancreatic cancer that presented initially with worsening SOB and increasing O2 demand. Acute Hypoxic Respiratory Failure -Patient O2 dependant at home on 2L -Intubated with PEEP of 10 titrating down. -Propofol for sedation. -Currently intubated, Vent settings at 14 BPM, 2L, 40% FIO2, PEEP 5. -Continue IV Vanc/Cefepime, ?aminoglycoside secondary to recent hospitalization at end of March for right hip arthroplasty. -Currently in ICU, will continue to follow. Bilateral Pleural Effusion -CTA in AM revealed Large bilateral pleural effusions with severe passive atelectasis resulting in limited lung aeration. -Leukocytosis of 15.6 in ED, trending down, currently 5.83 -Lactic acid 3.2 in ED, continue to trend. -ICU plan for Pleural drainage. 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 -ICU repleting with IV T4 and oral T3 currently. -Random cortisol pending. -100mg IV hydrocortisone empirically administered with 50mg q8h. -Will continue to follow ICU. Elevated Troponin -0.136 on presentation, 0.190 at 11:29 - continue to trend. -Nitroglycerin drip currently running -JESSIE conducted -Left ventricular systolic function moderately reduced -Mild Aortic regurgitation -Mild Mitral regurgitation -Mild to moderate tricuspid regurgitation -RV pressure elevated -Large left pleural effusion -EF 30-35% Hypoalbuminemia -History of known poor PO intake. -Albumin of 2.0 on presentation -Was given albumin this AM. -Nutrition consult was placed. -Will follow ICU for protein replenishment with Peptamen VHP. Hx Pancreatic Cancer -Had Whipple procedure in October of 2018 -Currently undergoing chemotherapy HLD -currently holding statin HTN -currently holding antihypertensives FEN/GI - Intubated DVT - Enoxaparin Code - Full (2) Bilateral pleural effusion: (3) Myxedema coma: (4) Elevated troponin: (5) Hypoalbuminemia: (6) Pancreatic cancer: (7) HTN (hypertension): (8) HLD (hyperlipidemia): Supervising Physician Co-Signing Physician Notes I saw the patient concurrent with the resident physician and discussed the plan of care. I confirmed ca portions of the history and physical exam. I agree with the impression and plan as noted above. Also discussed the case with the critical care team. In sum critically ill 83-year-old male with past medical history significant for pancreatic cancer status post Whipple procedure presenting to the hospital overnight with hypoxic respiratory failure as well as hypothermia, inappropriate bradycardia, diffuse anasarca, marked TSH elevation beyond that of expected for acute illness, low T3/T4 all suggestive of exiting coma. He also has a markedly low pre-albumin which I suspect is secondary to cachexia of malignancy. Intravenous levothyroxine and stress dose steroids have been started; thoracentesis has been recommended pending informed consent from family. Patient is being actively managed by critical care team; will continue to follow. Subjective Patient is an 83 year old male with PMHx Pancreatic Cancer s/p Whipple Procedure 11/01/18 and undergoing chemotherapy who presented initially with respiratory failure. He is O2 dependant at home, requiring 2L and according to previous notes and his son's account the patient was complaining of Dyspnea and SOB the day prior. Increase in his O2 had no effect and EMS was alerted bringing the patient into the ED on CPAP. Patient reportedly lost consciousness shortly after arrival and was intubated. He is currently intubated in the ICU and sedated with propofol. Patient also has ongoing hypothermic protocol as his temps had decreased to 34.7C. Review of Systems Review of Systems: Unobtainable due to endotracheal tube and Unobtainable due to reduced consciousness Physical Exam Constitutional: + altered mental status (Sedated and Intubated) Respiratory: Auscultation: + diminished lung sounds Vent Settings: 14BPM, 2L 40% FIO2, PEEP 5. Cardiovascular: Rate/Rhythm: regular rate and + bradycardic Heart Sounds: no murmur Skin: no jaundice Psychiatric: Orientation: + not alert Results & Data Vital Signs (Past 12 Hours) Vital Signs Temp Pulse Resp BP BP Pulse Ox 06/03/19 09:46 52 L 102/63 97 06/03/19 09:45 52 L 97 06/03/19 09:31 51 L 114/55 L 98 06/03/19 09:30 51 L 97 06/03/19 09:16 49 L 115/57 L 98 06/03/19 09:15 51 L 98 06/03/19 09:01 50 L 119/59 L 98 06/03/19 09:00 49 L 99 06/03/19 08:46 52 L 138/67 99 06/03/19 08:45 52 L 98 06/03/19 08:31 51 L 128/65 99 06/03/19 08:30 49 L 99 06/03/19 08:16 47 L 126/64 98 06/03/19 08:15 48 L 98 06/03/19 08:01 50 L 123/65 97 06/03/19 08:00 34.8 C L 50 L 14 134/90 97 06/03/19 07:46 47 L 14 122/63 97 06/03/19 07:45 49 L 98 06/03/19 07:31 46 L 134/68 97 06/03/19 07:30 47 L 97 06/03/19 07:16 49 L 134/70 97 06/03/19 07:15 46 L 96 06/03/19 07:01 49 L 129/70 95 06/03/19 07:00 47 L 94 06/03/19 06:46 46 L 136/66 94 06/03/19 06:31 48 L 130/74 94 06/03/19 06:30 48 L 93 06/03/19 06:16 49 L 140/73 94 06/03/19 06:01 50 L 130/72 92 06/03/19 06:00 51 L 92 06/03/19 05:52 50 L 139/70 98 06/03/19 05:45 45 L 130/66 98 06/03/19 05:43 34.7 C L 06/03/19 05:30 52 L 92 06/03/19 05:05 51 L 14 96 06/03/19 05:00 50 L 96 06/03/19 04:55 55 L 124/71 90 06/03/19 04:42 52 L 125/67 95 06/03/19 04:30 51 L 93 06/03/19 04:03 69 128/76 90 06/03/19 04:01 62 14 93 06/03/19 04:00 64 86 L 06/03/19 03:57 14 06/03/19 03:53 61 06/03/19 03:15 53 L 101/63 99 06/03/19 03:00 56 L 102/61 99 06/03/19 02:45 60 93/62 L 99 06/03/19 02:30 64 127/76 97 06/03/19 02:20 72 98 06/03/19 02:15 62 115/68 99 06/03/19 02:10 62 99/63 L 98 06/03/19 02:05 62 98/60 L 97 06/03/19 02:00 65 89/61 L 97 06/03/19 01:58 67 14 100 06/03/19 01:55 68 92/61 L 97 06/03/19 01:50 67 100/64 98 06/03/19 01:45 67 102/63 100 06/03/19 01:40 65 126/70 100 06/03/19 01:35 77 104/72 100 06/03/19 01:30 66 14 107/62 98 06/03/19 01:25 72 0 L 91/59 L 95 06/03/19 01:20 78 0 L 90/58 L 98 06/03/19 01:15 75 20 106/61 100 06/03/19 01:10 73 16 101/61 100 06/03/19 01:05 75 9 L 110/62 100 06/03/19 01:00 78 16 112/62 100 06/03/19 00:55 83 16 128/69 100 06/03/19 00:50 101 H 20 142/86 H 96 06/03/19 00:45 85 22 136/76 100 06/03/19 00:40 96 H 17 144/80 H 100 06/03/19 00:37 107 H 19 90 06/03/19 00:35 114 H 21 149/88 H 89 L 06/03/19 00:34 109 H 19 143/85 H 06/03/19 00:30 107 H 21 135/76 100 06/03/19 00:25 104 H 18 130/80 99 06/03/19 00:22 117 H 13 89 L 06/03/19 00:20 120 H 17 143/87 H 93 06/03/19 00:19 121 H 17 149/91 H 95 06/03/19 00:16 190 H 29 H 91 06/03/19 00:14 116 H 15 158/83 H 38 L 06/03/19 00:13 119 H 12 46 L 06/02/19 23:59 36.3 C L 118 H 15 140/89 52 L Laboratory Results Abnormal lab results 06/03/19 06/03/19 06/03/19 Range/Units 00:24 00:24 00:24 WBC 15.62 H (4.8-10.8) K/uL RBC 3.01 L (4.7-6.1) M/uL Hgb 9.6 L (14.0-18.0) g/dL POC Hgb (14.0-18.0) g/dl Hct 32.5 L (42-52) % POC Hct (42-52) % MCV 108.0 H (80-100) fL MCHC 29.5 L (32-36) g/dL RDW Std Deviation (36.4-46.3) fL RDW Coeff of Roger (11.5-14.5) % MPV (7.4-10.4) fL Immature Gran # (Auto) (0.00-0.02) K/uL Neutrophils # (Manual) 6.94 H (1.4-6.5) K/uL Total Absolute Neuts 6.94 H (1.4-6.5) K/uL Total Abs Lymphocytes 7.87 H (1.2-3.4) K/uL PT 12.4 H (9.0-12.0) Seconds INR 1.2 H (0.9-1.1) POC pH (7.35-7.45) POC pO2 (80-95) mmHg POC HCO3 (19-24) jocelyn/L POC Base Excess (-9-1.8) jocelyn/L ABG pH (Temp Correct) (7.35-7.45) ABG pCO2 (Temp Corrct (35-46) mmHg Sodium (136-145) mmol/L Chloride 108 H (98-107) mmol/L POC Anion Gap (16-25) mmol/L POC BUN (7-18) mg/dl BUN 41 H (7-18) mg/dl Creatinine 1.46 H (0.6-1.4) mg/dl POC Creatinine (0.6-1.3) mg/dl BUN/Creatinine Ratio 28.3 H (10-20) Glucose 177 H (70-99) mg/dl POC Glucose (other) (70-99) mg/dl POC Lactic Acid Steve (0.90-1.70) mmol/L Calcium 7.8 L (8.5-10.1) mg/dl POC Ioniz Calcium Ca (1.12-1.32) mmol/l Magnesium 2.7 H (1.8-2.4) mg/dl Alkaline Phosphatase 201 H (45-117) U/L Troponin I 0.136 H* (0-0.045) ng/ml NT-Pro-B Natriuret Pep > 47121 H (0-1800) pg/ml Total Protein 6.1 L (6.4-8.2) gm/dl Albumin 2.0 L (3.4-5.0) gm/dl Globulin 4.1 H (2.5-4.0) gm/dl Albumin/Globulin Ratio 0.5 L (0.9-2) Lipase 38 L (73-393) U/L TSH 59.900 H (0.300-4.500) uIu/ml Free T3 (2.3-4.2) pg/ml 06/03/19 06/03/19 06/03/19 Range/Units 00:26 00:30 06:50 WBC (4.8-10.8) K/uL RBC 2.39 L (4.7-6.1) M/uL Hgb 7.5 L (14.0-18.0) g/dL POC Hgb 9.9 L (14.0-18.0) g/dl Hct 24.9 L (42-52) % POC Hct 29 L (42-52) % MCV 104.2 H (80-100) fL MCHC 30.1 L (32-36) g/dL RDW Std Deviation 65.6 H (36.4-46.3) fL RDW Coeff of Roger 17.2 H (11.5-14.5) % MPV 10.9 H (7.4-10.4) fL Immature Gran # (Auto) 0.08 H (0.00-0.02) K/uL Neutrophils # (Manual) (1.4-6.5) K/uL Total Absolute Neuts (1.4-6.5) K/uL Total Abs Lymphocytes (1.2-3.4) K/uL PT (9.0-12.0) Seconds INR (0.9-1.1) POC pH (7.35-7.45) POC pO2 (80-95) mmHg POC HCO3 (19-24) jocelyn/L POC Base Excess (-9-1.8) jocelyn/L ABG pH (Temp Correct) (7.35-7.45) ABG pCO2 (Temp Corrct (35-46) mmHg Sodium (136-145) mmol/L Chloride (98-107) mmol/L POC Anion Gap 13.0 L (16-25) mmol/L POC BUN 54 H (7-18) mg/dl BUN (7-18) mg/dl Creatinine (0.6-1.4) mg/dl POC Creatinine 1.4 H (0.6-1.3) mg/dl BUN/Creatinine Ratio (10-20) Glucose (70-99) mg/dl POC Glucose (other) 179 H (70-99) mg/dl POC Lactic Acid Steve 3.22 H (0.90-1.70) mmol/L Calcium (8.5-10.1) mg/dl POC Ioniz Calcium Ca 1.07 L (1.12-1.32) mmol/l Magnesium (1.8-2.4) mg/dl Alkaline Phosphatase (45-117) U/L Troponin I (0-0.045) ng/ml NT-Pro-B Natriuret Pep (0-1800) pg/ml Total Protein (6.4-8.2) gm/dl Albumin (3.4-5.0) gm/dl Globulin (2.5-4.0) gm/dl Albumin/Globulin Ratio (0.9-2) Lipase (73-393) U/L TSH (0.300-4.500) uIu/ml Free T3 (2.3-4.2) pg/ml 06/03/19 06/03/19 06/03/19 Range/Units 07:00 07:23 Unknown WBC (4.8-10.8) K/uL RBC (4.7-6.1) M/uL Hgb (14.0-18.0) g/dL POC Hgb (14.0-18.0) g/dl Hct (42-52) % POC Hct (42-52) % MCV (80-100) fL MCHC (32-36) g/dL RDW Std Deviation (36.4-46.3) fL RDW Coeff of Roger (11.5-14.5) % MPV (7.4-10.4) fL Immature Gran # (Auto) (0.00-0.02) K/uL Neutrophils # (Manual) (1.4-6.5) K/uL Total Absolute Neuts (1.4-6.5) K/uL Total Abs Lymphocytes (1.2-3.4) K/uL PT (9.0-12.0) Seconds INR (0.9-1.1) POC pH 7.49 H (7.35-7.45) POC pO2 67 L (80-95) mmHg POC HCO3 28 H (19-24) jocelyn/L POC Base Excess 5.0 H (-9-1.8) jocelyn/L ABG pH (Temp Correct) 7.521 H* (7.35-7.45) ABG pCO2 (Temp Corrct 34 L (35-46) mmHg Sodium 147 H (136-145) mmol/L Chloride 110 H (98-107) mmol/L POC Anion Gap (16-25) mmol/L POC BUN (7-18) mg/dl BUN 44 H (7-18) mg/dl Creatinine (0.6-1.4) mg/dl POC Creatinine (0.6-1.3) mg/dl BUN/Creatinine Ratio 31.8 H (10-20) Glucose 110 H (70-99) mg/dl POC Glucose (other) (70-99) mg/dl POC Lactic Acid Steve (0.90-1.70) mmol/L Calcium 8.0 L (8.5-10.1) mg/dl POC Ioniz Calcium Ca (1.12-1.32) mmol/l Magnesium (1.8-2.4) mg/dl Alkaline Phosphatase 159 H (45-117) U/L Troponin I (0-0.045) ng/ml NT-Pro-B Natriuret Pep (0-1800) pg/ml Total Protein 5.1 L (6.4-8.2) gm/dl Albumin 1.9 L (3.4-5.0) gm/dl Globulin (2.5-4.0) gm/dl Albumin/Globulin Ratio 0.6 L (0.9-2) Lipase (73-393) U/L TSH (0.300-4.500) uIu/ml Free T3 1.70 L (2.3-4.2) pg/ml Medications Administered Current Inpatient Medications Enoxaparin Sodium (Lovenox) 40 mg SQ Q24H FOR[facility], [facility]1983 Stop: 07/03/19 07:59 Last Admin: 06/03/19 08:42 Dose: 40 mg Documented by: Fentanyl Citrate (Fentanyl Citrate) 50 mcg IV Q15M PRN PRN Reason: Pain Stop: 06/17/19 00:35 Last Admin: 06/03/19 02:31 Dose: 50 mcg Documented by: Propofol (Diprivan) 1,000 mg in 100 mls @ 10.764 mls/hr IV .Q9H18M DELIO; Protocol Stop: 06/06/19 00:29 Last Titration: 06/03/19 07:10 Dose: 20 mcg/kg/min, 10.8 mls/hr Documented by: Nitroglycerin/Dextrose (Nitroglycerin/D5w 100 Mcg/Ml) 250 mls @ 0 mls/hr IV .Q0M DELIO; Protocol Stop: 07/03/19 00:29 Last Titration: 06/03/19 10:24 Dose: 0 mcg/min, 0 mls/hr Documented by: Famotidine 20 mg/ Syringe 5 mls @ 2.5 mls/min IV BID DELIO Stop: 07/03/19 08:59 Last Admin: 06/03/19 10:17 Dose: 2.5 mls/min Documented by: Vancomycin HCl 1,500 mg/ (Sodium Chloride) 530 mls @ 200 mls/hr IV Q24H DELIO; Protocol Stop: 06/09/19 21:59 Cefepime HCl 2,000 mg/ Syringe 20 mls @ 5 mls/min IV Q12H DELIO; Protocol Stop: 06/10/19 13:59 Levothyroxine Sodium 200 mcg/ (Syringe) 10 mls @ 5 mls/min IV ONE ONE Stop: 06/04/19 11:01 Levothyroxine Sodium 50 mcg/ (Syringe) 2.5 mls @ 2 mls/min IV DAILY@0900 [facility], [facility]1983 Stop: 07/04/19 08:59 Hydrocortisone Sodium (Succinate 50 mg/ Syringe) 1 mls @ 4 mls/min IV Q8H DELIO Stop: 07/03/19 19:59 Ioversol (Optiray 320 125ml) 119 ml IV ONCE PRN PRN Reason: Interaction Checking Stop: 06/07/19 03:45 Last Admin: 06/03/19 03:48 Dose: 119 ml Documented by: Liothyronine Sodium (Cytomel) 5 mcg PO QAM DELIO Stop: 07/03/19 11:14 Miscellaneous (Icu Protocol For Hyperglycemia) 1 ea N/A PRN PRN; Protocol PRN Reason: Hyperglycemia Protocol Stop: 06/05/19 04:06 Miscellaneous Information (Consult) 1 ea N/A UD PRN PRN Reason: Consult Stop: 07/03/19 01:40 Miscellaneous Information (Cefepime Consult Active) 1 ea N/A UD PRN PRN Reason: Consult Stop: 07/03/19 04:53 Nutritional Formula (Peptamen Intense Vhp 1.0 Niranjan) 1,000 ml OG UD [facility], [facility]; Protocol Stop: 07/03/19 11:14 PG Care Time/CCT Total # of Minutes Spent Total Time Spent with Patient: Total time spent is greater than 50% in coordination of care (as documented) at patient's floor/unit and/or counseling patient: Resident Activity Tracking Resident Involvement: Resident Care Provided Care Provided: Adult Hospital Medicine (1) Respiratory failure Chronicity: acute Respiratory failure complication: hypoxia Qualified Code(s): J96.01 - Acute respiratory failure with hypoxia
[2019-06-03] MEDS ORDERED: PEPTAMEN INTENSE VHP 1.0 CAL 1,000 ML BAG OG SCH (11:15)
[2019-06-03 11:38] LABS: Reticulocyte % 1.9 % (0.5-2.0); Reticulocytes # 0.05 10^6/uL (0.02-0.10)
[2019-06-03 12:00] LABS: Ferritin 632.8 ng/ml (8-388)
[2019-06-03 12:11] LABS: Phosphorus 4.4 mg/dl (2.5-4.9); T4 Free Thyroxine 0.56 ng/dl (0.8-1.6); Troponin I 0.19 ng/ml (0-0.045)
--- NOTE | 2019-06-03 13:30 | Procedure Note ---
Procedure Note Date of Service June 03, 2019 Procedure Date: Noted above Critical Care Medicine Point of Care Bedside Ultrasound Procedure: Limited Bedside Lung Ultrasound Indication: Hypoxic respiratory failure Attending: Winter Mcgee DO Resident/Physician Enterprise Integration Architect: Winter Post Organs Examined: Lung BLUE point (upper), BLUE point (lower), Phrenic Point (axillary), PLAPS point (posterior) A lines visualized: Absent, Hemithorax: Bilateral B lines visualized: Present, Hemithorax: Bilateral posterior lung Lung Sliding: Present, Hemithorax: Bilateral Tissue-like Sign: Present, Hemithorax: Bilateral Shred Sign: Absent, Hemithorax: Bilateral Quad Sign: Present, Hemithorax: Bilateral Sinusoid Sign: Present, Hemithorax: Bilateral Type of effusions: Simple, Hemithorax: Bilateral Interpleural distance: Greater than 2 cm Impression: Bilateral simple appearing pleural effusions with significant compression of lung tissue with greater than 2 cm interpleural distance Images obtained are saved for permanent record Coding CPT Codes Pulmonary/Thoracic - Pulmonary and Thoracic: US, Chest, real time with imaging documentation ([id number])
--- NOTE | 2019-06-03 13:36 | Procedure Note ---
Procedure Note Date of Service June 03, 2019 Procedure Date: noted above Procedure: Thoracentesis with subsequent pleural drainage Pre-procedure Diagnosis: Acute hypoxic respiratory failure, bilateral pleural effusions, known pancreatic cancer without metastases history Post-procedure Diagnosis: same as above Prior to Procedure: Informed Consent: The risks, benefits, indications, potential complications, and alternatives were explained to the patient's son, Lincoln via telephone and informed consent obtained. Attending Staff: Espinoza Mcgee DO Resident/Physician Urgent Care Nurse Practitioner: Sincere Indications: The patient is a 83-year-old male patient with acute hypoxia, compressive atelectasis, pancreatitis status post Whipple without known me tastatic disease of his underlying pancreatic cancer requiring thoracentesis The identity of the patient was confirmed and a bedside time out was performed. Description of Procedure: Patient positioned, the right posterior axillary line was prepped with chlorhexidine and draped in usual sterile fashion. Ultrasound guidance was used and appropriate fluid pocket was identified. 4 mL of 1% Lidocaine without epinephrine was used to anesthetize the area. A needle was introduced into the pleural space and fluid removed, to send for analysis. After introduction of a 8.5 Sudanese tube the remainder of the chest cavity was drained of fluid Total Fluid Removed: 2000 ml Color of Fluid: Light yellow Sent for: Gram Stain, culture, cell count, glucose, protein, LDH, pleural pH Complications: None Estimated blood loss: Trace Images obtained are saved for permanent record Post procedure chest x-ray has been ordered Coding CPT Codes Pulmonary/Thoracic - Pulmonary and Thoracic: Thoracentesis w/o imaging ([id number]) Pulmonary/Thoracic - Pulmonary and Thoracic: Pleural drainage w/o imaging ([id number])
--- NOTE | 2019-06-03 13:58 | Procedure Note ---
Procedure Note Date of Service June 03, 2019 Procedure Date: noted above Procedure: Thoracentesis with subsequent pleural drainage Pre-procedure Diagnosis: Acute hypoxic respiratory failure, bilateral pleural effusions, known pancreatic cancer without metastases history Post-procedure Diagnosis: same as above Prior to Procedure: Informed Consent: The risks, benefits, indications, potential complications, and alternatives were explained to the patient's son, Lincoln via telephone and informed consent obtained. Attending Staff: Espinoza Mcgee DO Resident/Physician Cloth Coverer: Sincere Indications: The patient is a 83-year-old male patient with acute hypoxia, compressive atelectasis, pancreatitis status post Whipple without known met astatic disease of his underlying pancreatic cancer requiring thoracentesis The identity of the patient was confirmed and a bedside time out was performed. Description of Procedure: Patient positioned, the left posterior axillary line was prepped with chlorhexidine and draped in usual sterile fashion. Ultrasound guidance was used and appropriate fluid pocket was identified. 4 mL of 1% Lidocaine without epinephrine was used to anesthetize the area. A needle was introduced into the pleural space and fluid removed, to send for analysis. After introduction of a 8.5 Frisian tube the remainder of the chest cavity was drained of fluid Total Fluid Removed: 300 ml Color of Fluid: yellow Sent for: Cytology Complications: None Estimated blood loss: Trace Images obtained are saved for permanent record Post procedure chest x-ray has been ordered Supervising Physician Co-Signing Physician Notes I was physically present and assisted with the entire procedure. Coding CPT Codes Pulmonary/Thoracic - Pulmonary and Thoracic: Thoracentesis w/o imaging ([id number]) Pulmonary/Thoracic - Pulmonary and Thoracic: Pleural drainage w/o imaging ([id number]) Resident Activity Tracking Resident Involvement: Resident Care Provided Care Provided: Adult Hospital Medicine (ICU Procedure. thoracocentisis and pleural fluid drainage )
[2019-06-03 14:00] LABS: Glucose Pleural Fluid 105 mg/dl
--- NOTE | 2019-06-03 14:00 | XRay Report ---
XR chest 1V portable CLINICAL HISTORY: 83 years-old Male presenting with s/p right thoracentesis. TECHNIQUE: Portable upright AP view of the chest was obtained. COMPARISON: 06/03/2019 at 7:01 AM. FINDINGS: Endotracheal tube terminates in the midthoracic trachea approximately 6 cm from the erwin. Nasogastr ic tube terminates below the diaphragm. Atherosclerosis of the aortic arch. Cardiac silhouette mildly enlarged. Small left pleural effusion significantly decreased in size from prior. Resolved right ple ural effusion. No pneumothorax. Significantly improved aeration of the lungs and significantly decrea sed bilateral pulmonary opacities. Degenerative changes of the thoracic spine. IMPRESSION: 1. No pneumothorax status post right thoracentesis. Resolved right pleural effusion. 2. Small layering left pleural effusion with left basilar atelectasis. 3. Resolved prior additional bilateral pulmonary opacities. 4. Mild cardiomegaly. Electronically signed by: Ivan Estrada M.D. 06/03/2019 1:59 PM
[2019-06-03 14:07] LABS: LDH Pleural Fluid 88 U/L; Total Protein Pleural Fluid 1.2 g/dl
[2019-06-03 14:22] LABS: Appearance Pleural Fluid CLEAR; Color Pleural Fluid STRAW; Mononuclear WBC Pleural 75.8 %; Polynuclear WBC Pleural 24.2 %; RBC Pleural Fluid (A) < 3000 /uL; Source Pleural Fluid RIGHT LUNG; WBC Pleural Fluid (A) 100 /uL
[2019-06-03 14:33] LABS: Basophils # (auto) 0.01 K/uL (0-0.2); Basophils % (auto) 0.2 %; Eosinophils # (auto) 0.01 K/uL (0-0.5); Eosinophils % (auto) 0.2 %; Hematocrit (blood only) 25.7 % (42-52); Immature Granulocytes # (auto) 0.03 K/uL (0.00-0.02); Immature Granulocytes % (auto) 0.5 %; Lymphocytes # (auto) 0.94 K/uL (1.2-3.4); Lymphocytes % (auto) 16.1 %; Mean Corpuscular Hemoglobin 32.3 pg (25-34); Mean Corpuscular Hgb Conc 31.1 g/dL (32-36); Mean Corpuscular Volume 103.6 fL (80-100); Mean Platelet Volume 11.1 fL (7.4-10.4); Monocytes # (auto) 0.14 K/uL (0.11-0.59); Monocytes % (auto) 2.4 %; Neutrophils % (auto) 80.6 %; Platelet Count 218 K/uL (130-400); RDW Coefficient of Variation 17.4 % (11.5-14.5); RDW Standard Deviation 66.5 fL (36.4-46.3); Red Blood Count 2.48 M/uL (4.7-6.1); White Blood Count 5.83 K/uL (4.8-10.8)
[2019-06-03] MEDS: LIOTHYRONINE SODIUM 5 MCG TAB PO SCH (14:47)
[2019-06-03] MEDS: CEFEPIME 2,000 MG in SYRINGE 7.5 ML IV SCH (14:48)
--- NOTE | 2019-06-03 17:23 | XRay Report ---
XR chest 1V portable CLINICAL HISTORY: 83 years-old Male presenting with S/P Thoracentesis. TECHNIQUE: Portable upright AP view of the chest was obtained. COMPARISON: 06/03/2019 at 1:27 PM. FINDINGS: Nasogastric tube descends below the diaphragm terminating in the stomach, side hole likely at or abov e the GE junction. Interval placement of a weighted feeding catheter, which is located within the rig ht lung. External leads project over the thorax to grating evaluation. Cardiac silhouette remains enl arged. Right lung and pleural space grossly clear. Small left pleural effusion with left basilar opac ity. No pneumothorax. Degenerative changes of the thoracic spine. Cholecystectomy clips noted. IMPRESSION: 1. Weighted feeding catheter within the right lung. Repositioning is necessary immediately. 2. Nasogastric tube terminates proximally in the stomach; advancement recommended. 3. Left pleural effusion and basilar atelectasis. 4. Cardiomegaly with mild volume overload. Electronically signed by: Ivan Estrada M.D. 06/03/2019 5:21 PM
--- NOTE | 2019-06-03 17:42 | XRay Report ---
XR KUB/Abdomen 1 view CLINICAL HISTORY: 83 years-old Male presenting with feeding tube (coresafe) placement.. TECHNIQUE: Single supine view of the abdomen was obtained. COMPARISON: Chest x-ray performed earlier the same day at 5:00 PM. FINDINGS: There has been repositioning of the weighted feeding catheter, which is now appropriately positioned within the gastric lumen. The nasogastric tube is also positioned within the gastric lumen with sideh ole at the GE junction or just within the gastric lumen. Cardiac silhouette remains enlarged. Left pleural effusion and left basilar opacity. Cholecystectomy clips. Calcifications projecting over the left upper quadrant likely splenic granulom as. Degenerative changes of the spine. IMPRESSION: 1. Intragastric location of the weighted feeding catheter after repositioning. 2. Nasogastric tube and sidehole likely within the gastric lumen. 3. Left pleural effusion and left basilar atelectasis. Electronically signed by: Ivan Estrada M.D. 06/03/2019 5:40 PM
[2019-06-03] MEDS ORDERED: HYDROCORTISONE SOD 50 MG in SYRINGE 0 ML IV SCH (20:00)
[2019-06-03 21:20] LABS: Phosphorus 5.7 mg/dl (2.5-4.9); Troponin I 0.103 ng/ml (0-0.045)
[2019-06-03] MEDS ORDERED: VANCOMYCIN HCL 1,500 MG in SODIUM CHLORIDE 0.9% 500 ML IV SCH (22:00)
[2019-06-04] MEDS: CEFEPIME 2,000 MG in SYRINGE 7.5 ML IV SCH (01:25)
--- NOTE | 2019-06-04 01:56 | Critical Care Progress Note ---
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 Pleural Appearance Pleural pH (7.3-7.4) Pleural WBC /uL Pleural RBC /uL Pleural Polynuclear % % Pleural Mononuclear % % Pleural Total Protein g/dl Pleural LDH U/L Pleural Glucose mg/dl Nasal Screen MRSA (PCR) (Negative) Thyroid Antimicrosomal Thyroglobulin Antibody Bld Cult Staph aureus PCR Blood Culture MRSA PCR Blood Type Antibody Screen 06/03/19 06/03/19 06/03/19 Range/Units 10:53 10:53 07:23 WBC (4.8-10.8) K/uL RBC (4.7-6.1) M/uL Hgb (14.0-18.0) g/dL Hct (42-52) % MCV (80-100) fL MCH (25-34) pg MCHC (32-36) g/dL RDW Std Deviation (36.4-46.3) fL RDW Coeff of Roger (11.5-14.5) % Plt Count (130-400) K/uL MPV (7.4-10.4) fL Immature Gran % (Auto) % Neut % (Auto) % Lymph % (Auto) % [place] % (Auto) % Eos % (Auto) % Baso % (Auto) % Reticulocyte % (Auto) (0.5-2.0) % Immature Gran # (Auto) (0.00-0.02) K/uL Neut # (Auto) (1.4-6.5) K/uL Lymph # (Auto) (1.2-3.4) K/uL [place] # (Auto) (0.11-0.59) K/uL Eos # (Auto) (0-0.5) K/uL Baso # (Auto) (0-0.2) K/uL Reticulocyte # (0.02-0.10) 10^6/uL Sample Site Art Line POC pH 7.49 H (7.35-7.45) POC pCO2 37 (35-46) mmHg POC pO2 67 L (80-95) mmHg POC HCO3 28 H (19-24) jocelyn/L POC Total CO2 29 (24-31) mEq/l POC Base Excess 5.0 H (-9-1.8) jocelyn/L ABG pH (Temp Correct) 7.521 H* (7.35-7.45) ABG pCO2 (Temp Corrct 34 L (35-46) mmHg POC ABG pO2 at Pt Temp 58 POC ABG O2 Sat 95.0 (90-95) % Jose Test NA O2 Delivery Device Ventilator POC O2 Rate 14 Minute Ventilation 7.0 Tidal Volume 550 PEEP 5 Sodium (136-145) mmol/L Potassium (3.5-5.1) mmol/L Chloride (98-107) mmol/L Carbon Dioxide (21-32) mmol/L Anion Gap (3-11) BUN (7-18) mg/dl Creatinine (0.6-1.4) mg/dl Est Cr Clr Drug Dosing ml/min Est GFR ( Amer) Est GFR (Non-Af Amer) BUN/Creatinine Ratio (10-20) Glucose (70-99) mg/dl POC Glucose (70-99) Lactate (0.4-2.0) mmol/L Calcium (8.5-10.1) mg/dl Phosphorus (2.5-4.9) mg/dl Iron (35-175) mcg/dl TIBC (250-450) mcg/dl Transferrin (200-360) mg/dl Ferritin (8-388) ng/ml Total Bilirubin (0.2-1) mg/dl AST (15-37) U/L ALT (12-78) U/L Alkaline Phosphatase (45-117) U/L Lactate Dehydrogenase (87-241) U/L Troponin I (0-0.045) ng/ml Total Protein (6.4-8.2) gm/dl Albumin (3.4-5.0) gm/dl Globulin (2.5-4.0) gm/dl Albumin/Globulin Ratio (0.9-2) Prealbumin (20-40) mg/dl Vitamin B12 (211-911) pg/ml Folate (>5.38) ng/ml Free T4 (0.8-1.6) ng/dl Free T3 (2.3-4.2) pg/ml Random Cortisol 37.69 mcg/dl Pleural Fluid Source Pleural Color Pleural Appearance Pleural pH (7.3-7.4) Pleural WBC /uL Pleural RBC /uL Pleural Polynuclear % % Pleural Mononuclear % % Pleural Total Protein g/dl Pleural LDH U/L Pleural Glucose mg/dl Nasal Screen MRSA (PCR) (Negative) Thyroid Antimicrosomal Pending Thyroglobulin Antibody Pending Bld Cult Staph aureus PCR Blood Culture MRSA PCR Blood Type Antibody Screen 06/03/19 06/03/19 06/03/19 Range/Units 07:00 06:50 06:50 WBC 8.47 (4.8-10.8) K/uL RBC 2.39 L (4.7-6.1) M/uL Hgb 7.5 L (14.0-18.0) g/dL Hct 24.9 L (42-52) % MCV 104.2 H (80-100) fL MCH 31.4 (25-34) pg MCHC 30.1 L (32-36) g/dL RDW Std Deviation 65.6 H (36.4-46.3) fL RDW Coeff of Roger 17.2 H (11.5-14.5) % Plt Count 188 (130-400) K/uL MPV 10.9 H (7.4-10.4) fL Immature Gran % (Auto) 0.9 % Neut % (Auto) 75.7 % Lymph % (Auto) 17.4 % [place] % (Auto) 5.7 % Eos % (Auto) 0.1 % Baso % (Auto) 0.2 % Reticulocyte % (Auto) (0.5-2.0) % Immature Gran # (Auto) 0.08 H (0.00-0.02) K/uL Neut # (Auto) 6.41 (1.4-6.5) K/uL Lymph # (Auto) 1.47 (1.2-3.4) K/uL [place] # (Auto) 0.48 (0.11-0.59) K/uL Eos # (Auto) 0.01 (0-0.5) K/uL Baso # (Auto) 0.02 (0-0.2) K/uL Reticulocyte # (0.02-0.10) 10^6/uL Sample Site POC pH (7.35-7.45) POC pCO2 (35-46) mmHg POC pO2 (80-95) mmHg POC HCO3 (19-24) jocelyn/L POC Total CO2 (24-31) mEq/l POC Base Excess (-9-1.8) jocelyn/L ABG pH (Temp Correct) (7.35-7.45) ABG pCO2 (Temp Corrct (35-46) mmHg POC ABG pO2 at Pt Temp POC ABG O2 Sat (90-95) % Jose Test O2 Delivery Device POC O2 Rate Minute Ventilation Tidal Volume PEEP Sodium 147 H (136-145) mmol/L Potassium 4.5 (3.5-5.1) mmol/L Chloride 110 H (98-107) mmol/L Carbon Dioxide 32 (21-32) mmol/L Anion Gap 5.0 (3-11) BUN 44 H (7-18) mg/dl Creatinine 1.38 (0.6-1.4) mg/dl Est Cr Clr Drug Dosing 45.7 ml/min Est GFR ( Amer) 54.8 Est GFR (Non-Af Amer) 47.3 BUN/Creatinine Ratio 31.8 H (10-20) Glucose 110 H (70-99) mg/dl POC Glucose (70-99) Lactate 1.8 (0.4-2.0) mmol/L Calcium 8.0 L (8.5-10.1) mg/dl Phosphorus (2.5-4.9) mg/dl Iron (35-175) mcg/dl TIBC (250-450) mcg/dl Transferrin (200-360) mg/dl Ferritin (8-388) ng/ml Total Bilirubin 0.4 (0.2-1) mg/dl AST 28 (15-37) U/L ALT 14 (12-78) U/L Alkaline Phosphatase 159 H (45-117) U/L Lactate Dehydrogenase (87-241) U/L Troponin I (0-0.045) ng/ml Total Protein 5.1 L (6.4-8.2) gm/dl Albumin 1.9 L (3.4-5.0) gm/dl Globulin 3.2 (2.5-4.0) gm/dl Albumin/Globulin Ratio 0.6 L (0.9-2) Prealbumin (20-40) mg/dl Vitamin B12 (211-911) pg/ml Folate (>5.38) ng/ml Free T4 (0.8-1.6) ng/dl Free T3 (2.3-4.2) pg/ml Random Cortisol mcg/dl Pleural Fluid Source Pleural Color Pleural Appearance Pleural pH (7.3-7.4) Pleural WBC /uL Pleural RBC /uL Pleural Polynuclear % % Pleural Mononuclear % % Pleural Total Protein g/dl Pleural LDH U/L Pleural Glucose mg/dl Nasal Screen MRSA (PCR) (Negative) Thyroid Antimicrosomal Thyroglobulin Antibody Bld Cult Staph aureus PCR Blood Culture MRSA PCR Blood Type Antibody Screen 06/03/19 06/03/19 Range/Units 00:26 00:25 WBC (4.8-10.8) K/uL RBC (4.7-6.1) M/uL Hgb (14.0-18.0) g/dL Hct (42-52) % MCV (80-100) fL MCH (25-34) pg MCHC (32-36) g/dL RDW Std Deviation (36.4-46.3) fL RDW Coeff of Roger (11.5-14.5) % Plt Count (130-400) K/uL MPV (7.4-10.4) fL Immature Gran % (Auto) % Neut % (Auto) % Lymph % (Auto) % [place] % (Auto) % Eos % (Auto) % Baso % (Auto) % Reticulocyte % (Auto) (0.5-2.0) % Immature Gran # (Auto) (0.00-0.02) K/uL Neut # (Auto) (1.4-6.5) K/uL Lymph # (Auto) (1.2-3.4) K/uL [place] # (Auto) (0.11-0.59) K/uL Eos # (Auto) (0-0.5) K/uL Baso # (Auto) (0-0.2) K/uL Reticulocyte # (0.02-0.10) 10^6/uL Sample Site POC pH (7.35-7.45) POC pCO2 (35-46) mmHg POC pO2 (80-95) mmHg POC HCO3 (19-24) jocelyn/L POC Total CO2 (24-31) mEq/l POC Base Excess (-9-1.8) jocelyn/L ABG pH (Temp Correct) (7.35-7.45) ABG pCO2 (Temp Corrct (35-46) mmHg POC ABG pO2 at Pt Temp POC ABG O2 Sat (90-95) % Jose Test O2 Delivery Device POC O2 Rate Minute Ventilation Tidal Volume PEEP Sodium (136-145) mmol/L Potassium (3.5-5.1) mmol/L Chloride (98-107) mmol/L Carbon Dioxide (21-32) mmol/L Anion Gap (3-11) BUN (7-18) mg/dl Creatinine (0.6-1.4) mg/dl Est Cr Clr Drug Dosing ml/min Est GFR ( Amer) Est GFR (Non-Af Amer) BUN/Creatinine Ratio (10-20) Glucose (70-99) mg/dl POC Glucose (70-99) Lactate (0.4-2.0) mmol/L Calcium (8.5-10.1) mg/dl Phosphorus (2.5-4.9) mg/dl Iron (35-175) mcg/dl TIBC (250-450) mcg/dl Transferrin (200-360) mg/dl Ferritin (8-388) ng/ml Total Bilirubin (0.2-1) mg/dl AST (15-37) U/L ALT (12-78) U/L Alkaline Phosphatase (45-117) U/L Lactate Dehydrogenase (87-241) U/L Troponin I (0-0.045) ng/ml Total Protein (6.4-8.2) gm/dl Albumin (3.4-5.0) gm/dl Globulin (2.5-4.0) gm/dl Albumin/Globulin Ratio (0.9-2) Prealbumin (20-40) mg/dl Vitamin B12 (211-911) pg/ml Folate (>5.38) ng/ml Free T4 (0.8-1.6) ng/dl Free T3 (2.3-4.2) pg/ml Random Cortisol mcg/dl Pleural Fluid Source Pleural Color Pleural Appearance Pleural pH (7.3-7.4) Pleural WBC /uL Pleural RBC /uL Pleural Polynuclear % % Pleural Mononuclear % % Pleural Total Protein g/dl Pleural LDH U/L Pleural Glucose mg/dl Nasal Screen MRSA (PCR) (Negative) Thyroid Antimicrosomal Thyroglobulin Antibody Bld Cult Staph aureus PCR Pending Blood Culture MRSA PCR Pending Blood Type A Positive Antibody Screen NEGATIVE Medications Administered Current Inpatient Medications Enoxaparin Sodium (Lovenox) 40 mg SQ Q24H [facility] Stop: 07/03/19 07:59 Last Admin: 06/03/19 08:42 Dose: 40 mg Documented by: Fentanyl Citrate (Fentanyl Citrate) 50 mcg IV Q15M PRN PRN Reason: Pain Stop: 06/17/19 00:35 Last Admin: 06/03/19 12:24 Dose: 50 mcg Documented by: Propofol (Diprivan) 1,000 mg in 100 mls @ 10.764 mls/hr IV .Q9H18M [facility]; Protocol Stop: 06/06/19 00:29 Last Titration: 06/03/19 21:59 Dose: Infused Documented by: Nitroglycerin/Dextrose (Nitroglycerin/D5w 100 Mcg/Ml) 250 mls @ 0 mls/hr IV .Q0M [facility]; Protocol Stop: 07/03/19 00:29 Last Titration: 06/03/19 18:42 Dose: Infused Documented by: Famotidine 20 mg/ Syringe 5 mls @ 2.5 mls/min IV BID [facility]IO Stop: 07/03/19 08:59 Last Admin: 06/03/19 21:40 Dose: 2.5 mls/min Documented by: Vancomycin HCl 1,500 mg/ (Sodium Chloride) 530 mls @ 200 mls/hr IV Q24H [facility]; Protocol Stop: 06/09/19 21:59 Last Infusion: 06/04/19 00:19 Dose: Infused Documented by: Cefepime HCl 2,000 mg/ Syringe 20 mls @ 5 mls/min IV Q12H [facility]; Protocol Stop: 06/10/19 13:59 Last Admin: 06/04/19 01:25 Dose: 5 mls/min Documented by: Levothyroxine Sodium 200 mcg/ (Syringe) 10 mls @ 5 mls/min IV ONE ONE Stop: 06/04/19 11:01 Last Admin: 06/03/19 12:55 Dose: 5 mls/min Documented by: Levothyroxine Sodium 50 mcg/ (Syringe) 2.5 mls @ 2 mls/min IV DAILY@0900 [facility] Stop: 07/04/19 08:59 Ioversol (Optiray 320 125ml) 119 ml IV ONCE PRN PRN Reason: Interaction Checking Stop: 06/07/19 03:45 Last Admin: 06/03/19 03:48 Dose: 119 ml Documented by: Liothyronine Sodium (Cytomel) 5 mcg PO QAM [facility] Stop: 07/03/19 11:14 Last Admin: 06/03/19 14:47 Dose: 5 mcg Documented by: Miscellaneous ([facility] Protocol For Hyperglycemia) 1 ea N/A PRN PRN; Protocol PRN Reason: Hyperglycemia Protocol Stop: 06/05/19 04:06 Miscellaneous Information (Consult) 1 ea N/A UD PRN PRN Reason: Consult Stop: 07/03/19 01:40 Miscellaneous Information (Cefepime Consult Active) 1 ea N/A UD PRN PRN Reason: Consult Stop: 07/03/19 04:53 Nutritional Formula (Peptamen Intense Vhp 1.0 Niranjan) 1,000 ml OG UD [facility]IO; Protocol Stop: 07/03/19 11:14 PG Care Time/CCT Total # of Minutes Spent Total Time Spent with Patient: Total time spent is greater than 50% in coordination of care (as documented) at patient's floor/unit and/or counseling patient: Resident Activity Tracking Resident Involvement: Resident Care Provided Care Provided: Adult Hospital Medicine ([facility] )
[2019-06-04 02:56] LABS: Basophils # (auto) 0.01 K/uL (0-0.2); Basophils % (auto) 0.1 %; Hemoglobin 9.3 g/dL (14.0-18.0); Immature Granulocytes # (auto) 0.11 K/uL (0.00-0.02); Immature Granulocytes % (auto) 1.3 %; Lymphocytes # (auto) 1.11 K/uL (1.2-3.4); Lymphocytes % (auto) 13.6 %; Mean Corpuscular Hemoglobin 32.2 pg (25-34); Mean Corpuscular Volume 103.8 fL (80-100); Monocytes # (auto) 0.21 K/uL (0.11-0.59); Monocytes % (auto) 2.6 %; Neutrophils # (auto) 6.72 K/uL (1.4-6.5); Neutrophils % (auto) 82.4 %; Platelet Count 248 K/uL (130-400); RDW Coefficient of Variation 17.4 % (11.5-14.5); RDW Standard Deviation 66.8 fL (36.4-46.3); Red Blood Count 2.89 M/uL (4.7-6.1); White Blood Count 8.16 K/uL (4.8-10.8)
[2019-06-04 03:15] LABS: Albumin Level 1.7 gm/dl (3.4-5.0); BUN Creatinine Ratio 31.7 (10-20); Calcium 7.8 mg/dl (8.5-10.1); Creatinine Clr Calc Pharmacy 40.7 ml/min; Est GFR (African American) 47.6; Est GFR (Non-African American) 41.1; Potassium 5.3 mmol/L (3.5-5.1)
[2019-06-04 03:21] LABS: Albumin Globulin Ratio 0.5 (0.9-2); Bilirubin,Total 0.4 mg/dl (0.2-1); Globulin 3.3 gm/dl (2.5-4.0); Phosphorus 6.1 mg/dl (2.5-4.9)
[2019-06-04 04:33] LABS: Appearance Urine Cloudy (Clear); Bilirubin Urine Negative (Negative); Blood Urine 2+ (Negative); Color Urine Yellow; Epithelial Cell Urine Auto >30 /lpf (0-5); Glucose Urine UA Negative (Negative); Ketones Urine 1+ (Negative); Leukocyte Esterase Urine 2+ (Negative); Nitrite Urine Negative (Negative); Protein Urine 1+ (Negative); Specific Gravity Urine 1.042 (1.000-1.030); Urobilinogen Urine Negative (Negative); WBC Urine Automated >30 /hpf (0-5)
[2019-06-04 04:52] LABS: Bacteria Urine Automated 1+ (Negative)
[2019-06-04] MEDS ORDERED: IMPACT LIQD 1.0 CAL 1,000 ML BAG NG SCH (06:30)
[2019-06-04] MEDS ORDERED: PHARMACY GLYCEMIC MGMT CONSULT PRN (06:51)
--- NOTE | 2019-06-04 08:28 | Emergency Department Note ---
Entered by Iglesia Perez acting as a scribe for Mitzi Ybarra DO History of Present Illness General Chief complaint: Respiratory Distress Stated complaint: respiratory distress, fluid retention Time Seen by Provider: 06/03/19 00:21 Source: EMS (soil sampler) History of Present Illness Onset (ago): hour(s) (prior to arrival) Location: chest (respiratory issues) Pain Consistency: + other (worsening) Relieved By: + none Associated symptoms: + shortness of breath Treatments prior to arrival: other (CPAP) The patient is an 83 year old M who presents to the Emergency Room with complaints of worsening respiratory issues that started prior to arrival. The HPI was provided by the soil sampler. The soil sampler states that the patient is normally on 2L of oxygen at home. He adds that the patients son increased the patients oxygen to 3L due to the patient experiencing worsening shortness of breath. The soil sampler adds that the patient was originally talking to him and was awake. He notes that the patient now, on CPAP, has an oxygen saturation of 50-60%. The soil sampler adds that the patient has a systolic pressure of 170 in the ambulance. The soil sampler states that the patient has a history of a hip fracture, pancreatic cancer, and fluid retention. 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 The soil sampler adds that the patient is now cancer free after receiving chemotherapy. The patients HPI is limited due to his current condition. Home Medications Home Medications Medication Instructions Recorded Confirmed Type amlodipine 5 mg PO DAILY 09/12/18 06/03/19 History lisinopril 20 mg PO DAILY 09/12/18 06/03/19 History simvastatin 40 mg PO HS 09/12/18 06/03/19 History furosemide 40 mg PO DAILY 04/19/19 06/03/19 History ferrous sulfate 325 mg PO TID 06/03/19 06/03/19 History torsemide 50 mg PO DAILY 06/03/19 06/03/19 History Allergies Allergy/AdvReac Type Severity Reaction Status Date / Time No Known Allergies Allergy Unverified 06/03/19 01:31 Past Med/Surg History Medical History HTN (hypertension) (Chronic) HLD (hyperlipidemia) (Chronic) Fluid retention (Chronic) Pancreatic cancer (Resolved) Family History Other Family history non-contributory Social History Preferred Language: Congolese Communication Ability: Unable Beliefs That Will Affect Care: None Current Living Situation: Alone Other Information That Helps Us Care for You: No Feels Safe at Home: Yes Smoking Status: Light tobacco smoker Hx Alcohol Use: No Hx Substance Use: No Review of Systems See HPI for pertinent positives & negatives. The patients ROS is limited due to his current condition. Physical Exam Vital Signs Vital Signs - 24 hr 06/02/19 23:59 06/03/19 00:13 06/03/19 00:14 Temperature 97.3 F L Temperature Source Oral Sepsis Recent Fever Within 48 Hours No Sepsis New/Unexplained Change in Mental Status Yes Sepsis Action Taken by Nursing No Action Required End-Tidal CO2 Pulse Rate 118 H 119 H 116 H Pulse Rate from SpO2 Sensor 119 H 116 H Respiratory Rate 15 12 15 Respiratory Effort / Characteristics Other Respiratory Depth Shallow Respiratory Pattern Irregular Blood Pressure 140/89 158/83 H Blood Pressure Mean 106 108 Blood Pressure Position Lying Pulse Oximetry 52 L 46 L 38 L Oxygen Delivery Method Mechanical Vent Fraction of Inspired Oxygen 06/03/19 00:16 06/03/19 00:19 06/03/19 00:20 Temperature Temperature Source Sepsis Recent Fever Within 48 Hours Sepsis New/Unexplained Change in Mental Status Sepsis Action Taken by Nursing End-Tidal CO2 Pulse Rate 190 H 121 H 120 H Pulse Rate from SpO2 Sensor 104 H 121 H 119 H Respiratory Rate 29 H 17 17 Respiratory Effort / Characteristics Respiratory Depth Respiratory Pattern Blood Pressure 149/91 H 143/87 H Blood Pressure Mean 110 105 Blood Pressure Position Pulse Oximetry 91 95 93 Oxygen Delivery Method Fraction of Inspired Oxygen 06/03/19 00:22 06/03/19 00:25 06/03/19 00:30 Temperature Temperature Source Sepsis Recent Fever Within 48 Hours Sepsis New/Unexplained Change in Mental Status Sepsis Action Taken by Nursing End-Tidal CO2 Pulse Rate 117 H 104 H 107 H Pulse Rate from SpO2 Sensor 118 H 104 H 107 H Respiratory Rate 13 18 21 Respiratory Effort / Characteristics Respiratory Depth Respiratory Pattern Blood Pressure 130/80 135/76 Blood Pressure Mean 96 95 Blood Pressure Position Pulse Oximetry 89 L 99 100 Oxygen Delivery Method Fraction of Inspired Oxygen 06/03/19 00:34 06/03/19 00:35 06/03/19 00:37 Temperature Temperature Source Sepsis Recent Fever Within 48 Hours Sepsis New/Unexplained Change in Mental Status Sepsis Action Taken by Nursing End-Tidal CO2 Pulse Rate 109 H 114 H 107 H Pulse Rate from SpO2 Sensor 109 H 115 H 107 H Respiratory Rate 19 21 19 Respiratory Effort / Characteristics Respiratory Depth Respiratory Pattern Blood Pressure 143/85 H 149/88 H Blood Pressure Mean 104 108 Blood Pressure Position Pulse Oximetry 89 L 90 Oxygen Delivery Method Fraction of Inspired Oxygen 06/03/19 00:40 06/03/19 00:45 06/03/19 00:50 Temperature Temperature Source Sepsis Recent Fever Within 48 Hours Sepsis New/Unexplained Change in Mental Status Sepsis Action Taken by Nursing End-Tidal CO2 Pulse Rate 96 H 85 101 H Pulse Rate from SpO2 Sensor 97 H 85 101 H Respiratory Rate 17 22 20 Respiratory Effort / Characteristics Respiratory Depth Respiratory Pattern Blood Pressure 144/80 H 136/76 142/86 H Blood Pressure Mean 101 96 104 Blood Pressure Position Pulse Oximetry 100 100 96 Oxygen Delivery Method Fraction of Inspired Oxygen 06/03/19 00:55 06/03/19 01:00 06/03/19 01:05 Temperature Temperature Source Sepsis Recent Fever Within 48 Hours Sepsis New/Unexplained Change in Mental Status Sepsis Action Taken by Nursing End-Tidal CO2 Pulse Rate 83 78 75 Pulse Rate from SpO2 Sensor 83 78 75 Respiratory Rate 16 16 9 L Respiratory Effort / Characteristics Respiratory Depth Respiratory Pattern Blood Pressure 128/69 112/62 110/62 Blood Pressure Mean 88 78 78 Blood Pressure Position Pulse Oximetry 100 100 100 Oxygen Delivery Method Fraction of Inspired Oxygen 06/03/19 01:10 06/03/19 01:15 06/03/19 01:20 Temperature Temperature Source Sepsis Recent Fever Within 48 Hours Sepsis New/Unexplained Change in Mental Status Sepsis Action Taken by Nursing End-Tidal CO2 Pulse Rate 73 75 78 Pulse Rate from SpO2 Sensor 72 74 78 Respiratory Rate 16 20 0 L Respiratory Effort / Characteristics Respiratory Depth Respiratory Pattern Blood Pressure 101/61 106/61 90/58 L Blood Pressure Mean 74 76 68 Blood Pressure Position Pulse Oximetry 100 100 98 Oxygen Delivery Method Fraction of Inspired Oxygen 06/03/19 01:25 06/03/19 01:30 06/03/19 01:35 Temperature Temperature Source Sepsis Recent Fever Within 48 Hours Sepsis New/Unexplained Change in Mental Status Sepsis Action Taken by Nursing End-Tidal CO2 47 Pulse Rate 72 66 77 Pulse Rate from SpO2 Sensor 73 65 77 Respiratory Rate 0 L 14 Respiratory Effort / Characteristics Respiratory Depth Respiratory Pattern Blood Pressure 91/59 L 107/62 104/72 Blood Pressure Mean 69 77 82 Blood Pressure Position Pulse Oximetry 95 98 100 Oxygen Delivery Method Fraction of Inspired Oxygen 06/03/19 01:40 06/03/19 01:45 06/03/19 01:50 Temperature Temperature Source Sepsis Recent Fever Within 48 Hours Sepsis New/Unexplained Change in Mental Status Sepsis Action Taken by Nursing End-Tidal CO2 44 35 33 Pulse Rate 65 67 67 Pulse Rate from SpO2 Sensor 66 68 69 Respiratory Rate Respiratory Effort / Characteristics Respiratory Depth Respiratory Pattern Blood Pressure 126/70 102/63 100/64 Blood Pressure Mean 88 76 76 Blood Pressure Position Pulse Oximetry 100 100 98 Oxygen Delivery Method Fraction of Inspired Oxygen 06/03/19 01:55 06/03/19 01:58 06/03/19 02:00 Temperature Temperature Source Sepsis Recent Fever Within 48 Hours Sepsis New/Unexplained Change in Mental Status Sepsis Action Taken by Nursing End-Tidal CO2 35 38 35 Pulse Rate 68 67 65 Pulse Rate from SpO2 Sensor 67 64 Respiratory Rate 14 Respiratory Effort / Characteristics Respiratory Depth Respiratory Pattern Blood Pressure 92/61 L 89/61 L Blood Pressure Mean 71 70 Blood Pressure Position Pulse Oximetry 97 100 97 Oxygen Delivery Method Fraction of Inspired Oxygen 50 06/03/19 02:05 06/03/19 02:10 06/03/19 02:15 Temperature Temperature Source Sepsis Recent Fever Within 48 Hours Sepsis New/Unexplained Change in Mental Status Sepsis Action Taken by Nursing End-Tidal CO2 34 34 35 Pulse Rate 62 62 62 Pulse Rate from SpO2 Sensor 63 62 62 Respiratory Rate Respiratory Effort / Characteristics Respiratory Depth Respiratory Pattern Blood Pressure 98/60 L 99/63 L 115/68 Blood Pressure Mean 72 75 83 Blood Pressure Position Pulse Oximetry 97 98 99 Oxygen Delivery Method Fraction of Inspired Oxygen 06/03/19 02:20 06/03/19 02:30 06/03/19 02:45 Temperature Temperature Source Sepsis Recent Fever Within 48 Hours Sepsis New/Unexplained Change in Mental Status Sepsis Action Taken by Nursing End-Tidal CO2 33 37 32 Pulse Rate 72 64 60 Pulse Rate from SpO2 Sensor 59 L 62 61 Respiratory Rate Respiratory Effort / Characteristics Respiratory Depth Respiratory Pattern Blood Pressure 127/76 93/62 L Blood Pressure Mean 93 72 Blood Pressure Position Pulse Oximetry 98 97 99 Oxygen Delivery Method Fraction of Inspired Oxygen 06/03/19 03:00 06/03/19 03:15 Temperature Temperature Source Sepsis Recent Fever Within 48 Hours Sepsis New/Unexplained Change in Mental Status Sepsis Action Taken by Nursing End-Tidal CO2 31 30 Pulse Rate 56 L 53 L Pulse Rate from SpO2 Sensor 55 L 52 L Respiratory Rate Respiratory Effort / Characteristics Respiratory Depth Respiratory Pattern Blood Pressure 102/61 101/63 Blood Pressure Mean 74 75 Blood Pressure Position Pulse Oximetry 99 99 Oxygen Delivery Method Fraction of Inspired Oxygen GENERAL: alert, well appearing, well nourished, no distress, non-toxic EYE EXAM: normal conjunctiva, PERRL and EOM's grossly intact OROPHARYNX: no exudate, no erythema, lips, buccal mucosa, and tongue normal and mucous membranes are moist NECK: supple, no nuchal rigidity, no adenopathy, non-tender LUNGS: Diffuse bilateral rales, irregular almost agonal breathing. Normal chest wall mechanics, irregular breathing, almost agonal HEART: no murmurs, S1 normal and S2 normal ABDOMEN: abdomen soft, non-tender, normo-active bowel sounds, no masses, no rebound or guarding. Well healed surgical scars. : penile and scrotal edema noted BACK: Back is symmetrical on inspection and there is no deformity, no midline tenderness, no CVA tenderness. SKIN: no rashes and no bruising, no petechiae UPPER EXTREMITIES: upper extremities are grossly normal. Edema noted bilaterally, normal distal pulses. LOWER EXTREMITIES: Edema noted bilaterally, normal distal pulses. No deformities or evidence of trauma. NEURO EXAM: GCS 3 Procedures Intubation Time out performed: No sedative: Etomidate Mg Given: 20 Laryngoscope: Osvaldo ET Tube Size: 7.5 ET Tube Uncuffed: No Tube Secured Depth (cm): 24 Tube Secured Location: lips Tube Placement Confirmation: visualized tube passing through cords, equal breath sounds bilaterally, no breath sounds over epigastrium and confirmation by capnometry Patient Tolerated Procedure: no complications Course 0008: The patient was evaluated in room A1. A complete history and physical exam was performed. 0040: I talked with the patient's son in the ED waiting room. 0050: I re-checked the patient. 0149: I re-checked the patient and he is looking better. 0201: I reviewed the patient's case with Dr. Gimenez, [facility] Hospitalist. He will evaluate the patient for further management. 0331: I reviewed the patient's case with Dr. Mcgee, [employer] [place] [facility]. Consultations Consultation #1: I reviewed the patient's case with Dr. Gimenez, [facility] Hospitalist. He will evaluate the patient for further management. Time: 02:01 Consultation #2: I reviewed the patient's case with Dr. Mcgee, [employer] [place] [facility]. Time: 03:31 Administered Medications Enoxaparin Sodium (Lovenox) 40 mg SQ Q24H DELIO Stop: 07/03/19 07:59 Last Admin: 06/03/19 08:42 Dose: 40 mg Documented by: [id number] Fentanyl Citrate (Fentanyl Citrate) 50 mcg IV Q15M PRN PRN Reason: Pain Stop: 06/17/19 00:35 Last Admin: 06/03/19 12:24 Dose: 50 mcg Documented by: [id number] Admin: 06/03/19 02:31 Dose: 50 mcg Documented by: [id number] Admin: 06/03/19 00:52 Dose: 50 mcg Documented by: [id number] Propofol (Diprivan) 1,000 mg in 100 mls @ 10.764 mls/hr IV .Q9H18M DELOI; Protocol Stop: 06/06/19 00:29 Last Titration: 06/03/19 21:59 Dose: 0 mcg/kg/min, 0 mls/hr Documented by: [id number] Titration: 06/03/19 18:34 Dose: 0 mcg/kg/min, 0 mls/hr Documented by: [id number] Titration: 06/03/19 18:28 Dose: 5 mcg/kg/min, 2.7 mls/hr Documented by: [id number] Titration: 06/03/19 17:48 Dose: 12 mcg/kg/min, 6.5 mls/hr Documented by: [id number] Admin: 06/03/19 12:12 Dose: 20 mcg/kg/min, 10.8 mls/hr Documented by: [id number] Cosigned by: [id number] Titration: 06/03/19 12:12 Dose: 20 mcg/kg/min, 10.8 mls/hr Documented by: [id number] Cosigned by: [id number] Titration: 06/03/19 07:10 Dose: 20 mcg/kg/min, 10.8 mls/hr Documented by: [id number] Titration: 06/03/19 06:00 Dose: 20 mcg/kg/min, 10.8 mls/hr Documented by: [id number] Admin: 06/03/19 05:27 Dose: 35 mcg/kg/min, 18.8 mls/hr Documented by: [id number] Cosigned by: [id number] Admin: 06/03/19 05:02 Dose: Not Given Documented by: [id number] Nitroglycerin/Dextrose (Nitroglycerin/D5w 100 Mcg/Ml) 250 mls @ 0 mls/hr IV .Q0M DELIO; Protocol Stop: 07/03/19 00:29 Last Titration: 06/03/19 18:42 Dose: 0 mcg/min, 0 mls/hr Documented by: [id number] Titration: 06/03/19 10:24 Dose: 0 mcg/min, 0 mls/hr Documented by: [id number] Titration: 06/03/19 07:10 Dose: 5 mcg/min, 3 mls/hr Documented by: [id number] Cosigned by: [id number] Admin: 06/03/19 01:22 Dose: 5 mcg/min, 3 mls/hr Documented by: [id number] Cosigned by: [id number] Famotidine 20 mg/ Syringe 5 mls @ 2.5 mls/min IV BID DELIO Stop: 07/03/19 08:59 Last Admin: 06/03/19 21:40 Dose: 2.5 mls/min Documented by: [id number] Admin: 06/03/19 10:17 Dose: 2.5 mls/min Documented by: [id number] Vancomycin HCl 1,500 mg/ (Sodium Chloride) 530 mls @ 200 mls/hr IV Q24H DELIO; Protocol Stop: 06/09/19 21:59 Last Infusion: 06/04/19 00:19 Dose: 0 mls/hr Documented by: [id number] Admin: 06/03/19 21:40 Dose: 200 mls/hr Documented by: [id number] Cefepime HCl 2,000 mg/ Syringe 20 mls @ 5 mls/min IV Q12H DELIO; Protocol Stop: 06/10/19 13:59 Last Admin: 06/04/19 01:25 Dose: 5 mls/min Documented by: [id number] Admin: 06/03/19 14:48 Dose: 5 mls/min Documented by: [id number] Levothyroxine Sodium 200 mcg/ (Syringe) 10 mls @ 5 mls/min IV ONE ONE Stop: 06/04/19 11:01 Last Admin: 06/03/19 12:55 Dose: 5 mls/min Documented by: [id number] Ioversol (Optiray 320 125ml) 119 ml IV ONCE PRN PRN Reason: Interaction Checking Stop: 06/07/19 03:45 Last Admin: 06/03/19 03:48 Dose: 119 ml Documented by: [id number] Liothyronine Sodium (Cytomel) 5 mcg PO QAM DELIO Stop: 07/03/19 11:14 Last Admin: 06/03/19 14:47 Dose: 5 mcg Documented by: [id number] Discontinued Medications Furosemide (Lasix) 40 mg IV NOW STA Stop: 06/03/19 00:22 Last Admin: 06/03/19 01:21 Dose: 40 mg Documented by: [id number] Vancomycin HCl 1,750 mg/ (Sodium Chloride) 535 mls @ 200 mls/hr IV NOW ONE Stop: 06/03/19 04:21 Last Infusion: 06/03/19 05:00 Dose: 0 mls/hr Documented by: [id number] Admin: 06/03/19 02:15 Dose: 200 mls/hr Documented by: [id number] Cefepime HCl (Maxipime) 2,000 mg in 20 mls @ 5 mls/min IV NOW STA; Protocol Stop: 06/03/19 01:44 Last Admin: 06/03/19 02:05 Dose: 5 mls/min Documented by: [id number] Albumin Human (Albumin 5%) 250 mls @ 50 mls/hr IV ONE ONE Stop: 06/03/19 09:06 Last Admin: 06/03/19 05:40 Dose: Not Given Documented by: [id number] Albumin Human (Albumin 25%) 50 mls @ 50 mls/hr IV ONE ONE Stop: 06/03/19 06:12 Last Infusion: 06/03/19 06:23 Dose: 0 mls/hr Documented by: [id number] Admin: 06/03/19 05:26 Dose: 50 mls/hr Documented by: [id number] Methylprednisolone 80 mg/ (Syringe) 1.28 mls @ 1.5 mls/min IV ONCE ONE Stop: 06/03/19 07:01 Last Admin: 06/03/19 08:42 Dose: 1.5 mls/min Documented by: [id number] Hydrocortisone Sodium (Succinate 100 mg/ Syringe) 2 mls @ 4 mls/min IV ONE ONE Stop: 06/03/19 11:06 Last Admin: 06/03/19 12:23 Dose: 4 mls/min Documented by: [id number] Lidocaine HCl (Xylocaine Jely 2%) Confirm Administered Dose 5 ml .ROUTE .STK-MED ONE Stop: 06/03/19 04:29 Last Admin: 06/03/19 05:27 Dose: 5 ml Documented by: [id number] Miscellaneous () Confirm Administered Dose 1 ea .ROUTE .STK-MED ONE Stop: 06/03/19 00:15 Last Admin: 06/03/19 01:17 Dose: 1 ea Documented by: [id number] Miscellaneous Information (Consult) 1 ea N/A UD ONE Stop: 06/03/19 01:42 Last Admin: 06/03/19 05:02 Dose: Not Given Documented by: [id number] Propofol (Diprivan) Confirm Administered Dose 1,000 mg IV .STK-MED ONE Stop: 06/03/19 00:24 Last Admin: 06/03/19 01:19 Dose: 1,000 mg Documented by: [id number] Cosigned by: [id number] Medical Decision Making Differential Diagnosis Differential diagnosis: Etiologies such as infections, reactive airway disease, pneumonia, pneumothorax, COPD, CHF, cardiac ischemia, pulmonary embolism, musculoskeletal, gastrointestinal, as well as others were entertained. Medical Records Attestation: I reviewed the patient's medical records. Home Medications Current Medication List: was personally reviewed by ma Laboratory Data Attestation: I reviewed the patient's lab results. Result diagrams: 06/04/19 02:39 06/04/19 02:39 Lab Results 06/03/19 06/03/19 06/03/19 Range/Units 00:24 00:24 00:24 WBC 15.62 H (4.8-10.8) K/uL RBC 3.01 L (4.7-6.1) M/uL Hgb 9.6 L (14.0-18.0) g/dL POC Hgb (14.0-18.0) g/dl Hct 32.5 L (42-52) % POC Hct (42-52) % MCV 108.0 H (80-100) fL MCH 31.9 (25-34) pg MCHC 29.5 L (32-36) g/dL Plt Count 308 (130-400) K/uL Neutrophils % (Manual) 44.4 % Lymphocytes % (Manual) 21.7 % Monocytes % (Manual) 1.7 % Eosinophils % (Manual) 2.6 % Basophils % (Manual) 0.9 % Neutrophils # (Manual) 6.94 H (1.4-6.5) K/uL Total Absolute Neuts 6.94 H (1.4-6.5) K/uL Lymphocytes # (Manual) 3.39 (1.2-3.4) K/uL Total Abs Lymphocytes 7.87 H (1.2-3.4) K/uL Monocytes # (Manual) 0.27 (0.11-0.59) K/uL Eosinophils # (Manual) 0.41 (0-0.5) K/uL Basophils # (Manual) 0.14 (0-0.2) K/uL Large Granular Lymphs 28.7 % # Lrg Granular Lymphs 4.48 K/uL Polychromasia 1+ PT 12.4 H (9.0-12.0) Seconds INR 1.2 H (0.9-1.1) POC Sodium (135-144) mEq/L Sodium 145 (136-145) mmol/L POC Potassium (3.3-5.0) mEq/L Potassium 4.4 (3.5-5.1) mmol/L POC Chloride (101-112) mEq/L Chloride 108 H (98-107) mmol/L Carbon Dioxide 30 (21-32) mmol/L POC Total CO2 (24-31) mEq/l Anion Gap 7.0 (3-11) POC Anion Gap (16-25) mmol/L POC BUN (7-18) mg/dl BUN 41 H (7-18) mg/dl Creatinine 1.46 H (0.6-1.4) mg/dl POC Creatinine (0.6-1.3) mg/dl Est Cr Clr Drug Dosing Not Reportable Est GFR ( Amer) 51.2 Est GFR (Non-Af Amer) 44.2 BUN/Creatinine Ratio 28.3 H (10-20) Glucose 177 H (70-99) mg/dl POC Glucose (other) (70-99) mg/dl POC Lactic Acid Steve (0.90-1.70) mmol/L Calcium 7.8 L (8.5-10.1) mg/dl POC Ioniz Calcium Ca (1.12-1.32) mmol/l Magnesium 2.7 H (1.8-2.4) mg/dl Total Bilirubin 0.4 (0.2-1) mg/dl AST 37 (15-37) U/L ALT 19 (12-78) U/L Alkaline Phosphatase 201 H (45-117) U/L Troponin I 0.136 H* (0-0.045) ng/ml NT-Pro-B Natriuret Pep > 06860 H (0-1800) pg/ml Total Protein 6.1 L (6.4-8.2) gm/dl Albumin 2.0 L (3.4-5.0) gm/dl Globulin 4.1 H (2.5-4.0) gm/dl Albumin/Globulin Ratio 0.5 L (0.9-2) Lipase 38 L (73-393) U/L TSH 59.900 H (0.300-4.500) uIu/ml Bld Cult Staph aureus PCR (Negative) Blood Culture MRSA PCR (Negative) Blood Type Antibody Screen 06/03/19 06/03/19 06/03/19 Range/Units 00:25 00:26 00:26 WBC (4.8-10.8) K/uL RBC (4.7-6.1) M/uL Hgb (14.0-18.0) g/dL POC Hgb 9.9 L (14.0-18.0) g/dl Hct (42-52) % POC Hct 29 L (42-52) % MCV (80-100) fL MCH (25-34) pg MCHC (32-36) g/dL Plt Count (130-400) K/uL Neutrophils % (Manual) % Lymphocytes % (Manual) % Monocytes % (Manual) % Eosinophils % (Manual) % Basophils % (Manual) % Neutrophils # (Manual) (1.4-6.5) K/uL Total Absolute Neuts (1.4-6.5) K/uL Lymphocytes # (Manual) (1.2-3.4) K/uL Total Abs Lymphocytes (1.2-3.4) K/uL Monocytes # (Manual) (0.11-0.59) K/uL Eosinophils # (Manual) (0-0.5) K/uL Basophils # (Manual) (0-0.2) K/uL Large Granular Lymphs % # Lrg Granular Lymphs K/uL Polychromasia PT (9.0-12.0) Seconds INR (0.9-1.1) POC Sodium 142 (135-144) mEq/L Sodium (136-145) mmol/L POC Potassium 4.6 (3.3-5.0) mEq/L Potassium (3.5-5.1) mmol/L POC Chloride 105 (101-112) mEq/L Chloride (98-107) mmol/L Carbon Dioxide (21-32) mmol/L POC Total CO2 29 (24-31) mEq/l Anion Gap (3-11) POC Anion Gap 13.0 L (16-25) mmol/L POC BUN 54 H (7-18) mg/dl BUN (7-18) mg/dl Creatinine (0.6-1.4) mg/dl POC Creatinine 1.4 H (0.6-1.3) mg/dl Est Cr Clr Drug Dosing Est GFR ( Amer) Est GFR (Non-Af Amer) BUN/Creatinine Ratio (10-20) Glucose (70-99) mg/dl POC Glucose (other) 179 H (70-99) mg/dl POC Lactic Acid Steve (0.90-1.70) mmol/L Calcium (8.5-10.1) mg/dl POC Ioniz Calcium Ca 1.07 L (1.12-1.32) mmol/l Magnesium (1.8-2.4) mg/dl Total Bilirubin (0.2-1) mg/dl AST (15-37) U/L ALT (12-78) U/L Alkaline Phosphatase (45-117) U/L Troponin I (0-0.045) ng/ml NT-Pro-B Natriuret Pep (0-1800) pg/ml Total Protein (6.4-8.2) gm/dl Albumin (3.4-5.0) gm/dl Globulin (2.5-4.0) gm/dl Albumin/Globulin Ratio (0.9-2) Lipase (73-393) U/L TSH (0.300-4.500) uIu/ml Bld Cult Staph aureus PCR Negative (Negative) Blood Culture MRSA PCR Negative (Negative) Blood Type A Positive Antibody Screen NEGATIVE 06/03/19 Range/Units 00:30 WBC (4.8-10.8) K/uL RBC (4.7-6.1) M/uL Hgb (14.0-18.0) g/dL POC Hgb (14.0-18.0) g/dl Hct (42-52) % POC Hct (42-52) % MCV (80-100) fL MCH (25-34) pg MCHC (32-36) g/dL Plt Count (130-400) K/uL Neutrophils % (Manual) % Lymphocytes % (Manual) % Monocytes % (Manual) % Eosinophils % (Manual) % Basophils % (Manual) % Neutrophils # (Manual) (1.4-6.5) K/uL Total Absolute Neuts (1.4-6.5) K/uL Lymphocytes # (Manual) (1.2-3.4) K/uL Total Abs Lymphocytes (1.2-3.4) K/uL Monocytes # (Manual) (0.11-0.59) K/uL Eosinophils # (Manual) (0-0.5) K/uL Basophils # (Manual) (0-0.2) K/uL Large Granular Lymphs % # Lrg Granular Lymphs K/uL Polychromasia PT (9.0-12.0) Seconds INR (0.9-1.1) POC Sodium (135-144) mEq/L Sodium (136-145) mmol/L POC Potassium (3.3-5.0) mEq/L Potassium (3.5-5.1) mmol/L POC Chloride (101-112) mEq/L Chloride (98-107) mmol/L Carbon Dioxide (21-32) mmol/L POC Total CO2 (24-31) mEq/l Anion Gap (3-11) POC Anion Gap (16-25) mmol/L POC BUN (7-18) mg/dl BUN (7-18) mg/dl Creatinine (0.6-1.4) mg/dl POC Creatinine (0.6-1.3) mg/dl Est Cr Clr Drug Dosing Est GFR ( Amer) Est GFR (Non-Af Amer) BUN/Creatinine Ratio (10-20) Glucose (70-99) mg/dl POC Glucose (other) (70-99) mg/dl POC Lactic Acid Steve 3.22 H (0.90-1.70) mmol/L Calcium (8.5-10.1) mg/dl POC Ioniz Calcium Ca (1.12-1.32) mmol/l Magnesium (1.8-2.4) mg/dl Total Bilirubin (0.2-1) mg/dl AST (15-37) U/L ALT (12-78) U/L Alkaline Phosphatase (45-117) U/L Troponin I (0-0.045) ng/ml NT-Pro-B Natriuret Pep (0-1800) pg/ml Total Protein (6.4-8.2) gm/dl Albumin (3.4-5.0) gm/dl Globulin (2.5-4.0) gm/dl Albumin/Globulin Ratio (0.9-2) Lipase (73-393) U/L TSH (0.300-4.500) uIu/ml Bld Cult Staph aureus PCR (Negative) Blood Culture MRSA PCR (Negative) Blood Type Antibody Screen Imaging Data Attestation: I personally reviewed and interpreted this imaging study as fol lows: My Impression: XR Chest: ET tube is in good position, diffuse bilateral pulmonary edema ECG Data Attestation: I personally reviewed and interpreted this ECG as follows: Indication: SOB/dyspnea Rate (beats per minute): 99 Rhythm: sinus rhythm Findings: + other (normal axis, normal intervals); no ectopy Blood Pressure Blood Pressure Findings: Normal blood pressure Blood Pressure Disposition: did not require urgent referral MDM Narrative This is an elderly male who presented via EMS with CPAP in place who was still hypoxic with abnormal respirations and increased respiratory effort and was unresponsive. Patient emergently intubated successfully and oxygenation began to improve. Upon the addition of medications, patient's blood pressure improved also. Patient's chest x-ray appears markings most consistent with bilateral pulmonary edema. Patient with multiple other lab abnormalities some of which do appear chronic in nature. I do not suspect bacteremia/sepsis, however given leukocytosis and respiratory failure patient was also covered with antibiotics. No prior history of congestive heart failure. Patient's creatinine is well- appearing despite reported prior chronic kidney disease, however patient does have hypoalbuminemia. I suspect these 2 factors are likely contributing to his edema also. I do not suspect PE, patient was sent for CT angiography as a precaution. This was still pending at the time of my discussion with hospitalist for additional evaluation management. Case also discussed with the ski patroller, Dr. Mcgee for additional ICU evaluation. Patient's son was updated in the patient's critical condition and need for additional inpatient treatment. He verbalized understanding was in agreement with plan. Patient was noted to have an elevated TSH. Son denied prior history of any thyroid dysfunction. This will require additional evaluation as an inpatient. Impression & Plan Respiratory failure, Pulmonary edema, Anasarca, Elevated troponin, Anemia, Elevated TSH Critical Care Time Critical Care Time: Yes I have personally spent 60 minutes of critical care time in the direct management of this patient. This includes bedside care, interpretation of diagnostic studies, and testing, discussion with consultants, patient, and family members, and other required patient management activities. This 60 minutes is in excess of all separately billable procedures. Discharge Plan Visit Data *Final* Discharge Date/Time: 06/03/19 03:13 Chief Complaint: Respiratory Distress Stated Complaint: respiratory distress, fluid retention ED Provider: Mitzi Ybarra Discharge Problem: Respiratory failure, Pulmonary edema, Anasarca, Elevated troponin, Anemia, Elevated TSH Patient Disposition: Admitted As Inpatient Discharge Instructions Interventions: ED Discharge Assessment Last Done: 06/03/19 03:13 Discharge Problem: Respiratory failure Qualifiers: Chronicity: acute Respiratory failure complication: hypoxia Qualified Code(s): J96.01 - Acute respiratory failure with hypoxia Pulmonary edema Qualifiers: Chronicity: acute Qualified Code(s): J81.0 - Acute pulmonary edema Anemia Qualifiers: Anemia type: unspecified type Qualified Code(s): D64.9 - Anemia, unspecified The scribe's documentation has been prepared under my direction and personally reviewed by me in its entirety. I confirm that the note above accurately reflects all work, treatment, procedures, and medical decision making performed by me.
[2019-06-04] MEDS: FAMOTIDINE 20 MG in SYRINGE 3 ML IV SCH (08:32)
[2019-06-04] MEDS: LIOTHYRONINE SODIUM 5 MCG TAB PO SCH (08:32)
[2019-06-04] MEDS: ENOXAPARIN INJ 40 MG/0.4 ML SYR SQ SCH (08:32)
[2019-06-04] MEDS ORDERED: LEVOTHYROXINE SODIUM 50 MCG in SYRINGE 0 ML IV SCH (09:00)
[2019-06-04 09:30] LABS: Albumin Level 1.8 gm/dl (3.4-5.0); BUN Creatinine Ratio 30.4 (10-20); Creatinine Clr Calc Pharmacy 37.5 ml/min; Est GFR (African American) 43.8; Est GFR (Non-African American) 37.8; Potassium 4.8 mmol/L (3.5-5.1)
[2019-06-04 09:33] LABS: Albumin Globulin Ratio 0.5 (0.9-2); Bilirubin,Total 0.4 mg/dl (0.2-1); Globulin 3.7 gm/dl (2.5-4.0); Phosphorus 6.3 mg/dl (2.5-4.9); Total Protein 5.5 gm/dl (6.4-8.2)
[2019-06-04] MEDS ORDERED: LEVOTHYROXINE SODIUM 200 MCG in SYRINGE 0 ML IV ONE (11:00)
--- NOTE | 2019-06-04 12:04 | Ultrasound Report ---
BILATERAL LOWER EXTREMITY VENOUS DOPPLER CLINICAL HISTORY: Lower extremity edema. Concern for deep venous thrombus. COMPARISON STUDY: No previous studies for comparison. TECHNIQUE: Sonography of the deep venous system of the bilateral lower extremities was performed. Co mpression and augmentation were evaluated. FINDINGS: The bilateral common femoral, superficial femoral and popliteal veins were compressible. A ugmentation was normal. Flow was shown within the deep calf vessels. Bilateral lower extremity edema was noted. IMPRESSION: No evidence of deep venous thrombus within the bilateral lower extremities. Electronically signed by: Sidney Colby M.D. 06/04/2019 12:03 PM
[2019-06-04] MEDS ORDERED: SULBACTAM SOD IM SCH (15:00)
[2019-06-04] MEDS ORDERED: AMPICILLIN IM SCH (15:00)
--- NOTE | 2019-06-04 15:27 | Family Medicine Progress Note ---
Date of Service June 04, 2019 Assessment & Plan (1) Respiratory failure: Patient is an 83 year old male with PMHx Pancreatic cancer that presented initially with worsening SOB and increasing O2 demand. Acute Hypoxic Respiratory Failure -Patient O2 dependant at home on 2L -Patient Extubated around 20:00 the night before, doing very well on 2L NC currently. -Patient does note PND when laying flat, but does well while seated upright. -Downgrade from ICU to Med/Surg. Bilateral Pleural Effusion -Initial CTA revealed Large bilateral pleural effusions with severe passive atelectasis resulting in limited lung aeration. -Leukocytosis of 15.6 in ED, Resolved currently 8.16 -R sided Thoracocentesis in the ICU yesterday - Lights Criteria negative, transudative effusion. -Chest CT post Thoracocentesis still shows L sided Pleural effusion. 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 -Repleting with IV T4 and oral T3 currently. Bacteremia due to Gram+ -Patient had 2 blood cultures return positive -Gram + Cocci and Gram + Bacilli -Although patient has no white count, is afebrile, and is not tachycardic, will treat empirically at this time due to 2 positive cultures and considering initial clinical presentation. -Unasyn 3g IM Q6H ordered. Elevated Troponin -0.136 on presentation, 0.190 at 11:29 on 06/03/19, 0.103 this AM. -EKG showed no changes -Elevated troponin likely secondary to demand during initial respiratory fail ure. -JESSIE conducted -Left ventricular systolic function moderately reduced -Mild Aortic regurgitation -Mild Mitral regurgitation -Mild to moderate tricuspid regurgitation -RV pressure elevated -Large left pleural effusion -EF 30-35% Hypoalbuminemia/Anasarca -History of known poor PO intake. -Albumin of 2.0 on presentation -Nutrition consult was placed. -Switched from Peptamen VHP to Vital for tube feeding, patient tolerating well. -Also encourage patient to continue eating normal diet with high protein intake. -Venous doppler was ordered to R/O DVT - Negative. -Consider possible PEG tube in future since patient has difficulties taking in enough calories. Hx Pancreatic Cancer -Had Whipple procedure in October of 2018 -Currently undergoing chemotherapy HLD -currently holding statin HTN -currently holding antihypertensives FEN/GI - Regular Diet and Feeding Tube Vital DVT - Enoxaparin Code - Full (2) Bilateral pleural effusion: (3) Myxedema coma: (4) Anasarca: (5) Bacteremia due to Gram-positive bacteria: (6) Elevated troponin: (7) Hypoalbuminemia: (8) Pancreatic cancer: (9) HTN (hypertension): (10) HLD (hyperlipidemia): Supervising Physician Co-Signing Physician Notes I saw the patient independent of the resident physician and confirmed ca portion history and physical exam. I agree with the impression and plan as noted above. The patient is extubated, seated in the chair at bedside; he is markedly improved compared to yesterday; he is eating breakfast. Acute hypoxic respiratory failure, status post therapeutic thoracentesis Marked improvement; maintaining appropriate saturations on room air Chest x-ray in a.m. Myxedema coma Continue T4, T3 supplementation Consider transitioning to oral supplementation tomorrow IV hydrocortisone discontinued subsequent to normal random cortisol. Positive blood cultures x2 Treatment was withheld at the thought that the one positive blood culture was likely contaminant, however 2/ raises concern especially in setting of recent orthopedic surgery/prosthetic Will cover for gram positives until cultures and sensitivities are finalized. Cachexia of malignancy Nutritional supplementation Consider nutrition consult Subjective Patient is an 83 year old male with PMHx Pancreatic Cancer s/p Whipple Procedure 11/01/18 and undergoing chemotherapy who presented initially with respiratory failure. Patient doing significantly better this AM. He was extubated around 20:00 the night prior and has been awake and talkative since. Patient notes that he has been able to breath fairly well this morning and sitting upright. His only real complaint and concern at this time is the edema. He is in good spirits and glad the [employer] won the game yesterday. Review of Systems Constitutional: no fever and no chills Eyes: no eye pain and no worsening vision Ear, Nose, Mouth, Throat: no ear pain, no tinnitus and no dizziness Respiratory: + problem reported (paroxysmal nocturnal dyspnea); no cough, no dyspnea and no pain on inspiration Cardiovascular: + paroxysmal nocturnal dyspnea and + edema; no chest pain, no radiating jaw, neck or arm pain, no dyspnea and no calf pain Gastrointestinal: no abdominal pain, no nausea and no vomiting Genitourinary: no dysuria (Dowd Cath in place) Physical Exam Constitutional: + thin, cooperative, + malnourished and + underweight; no acute distress and not ill appearing ENMT: Ears: no hearing impairment Respiratory: normal respiratory effort (2L O2); does not use accessory muscles Auscultation: + diminished lung sounds (Lower L lung flowers) Cardiovascular: Rate/Rhythm: regular rate and regular rhythm Extremities: + edema; no calf tenderness Gastrointestinal (Abdomen): Inspection/Auscultation: abdomen normal to inspection and normal bowel sounds; abdomen not distended Percussion/Palpation: abdomen soft; abdomen nontender Psychiatric: Orientation: alert and oriented x 3 Eye Contact: good eye contact Speech: normal rate/rhythm/volume of speech Affect: euthymic affect Thought Process: goal directed thought process and clear/coherent thought process Results & Data Vital Signs (Past 12 Hours) Vital Signs Pulse BP Pulse Ox 06/04/19 10:01 69 130/96 100 06/04/19 10:00 70 100 06/04/19 09:31 69 130/63 100 06/04/19 09:30 66 100 06/04/19 09:01 76 133/67 99 06/04/19 09:00 80 98 06/04/19 08:31 79 125/78 98 06/04/19 08:30 71 97 06/04/19 08:01 75 135/67 92 06/04/19 08:00 84 125/81 94 06/04/19 07:31 75 134/64 95 06/04/19 07:30 81 94 06/04/19 07:01 66 121/58 L 94 06/04/19 07:00 71 94 06/04/19 06:31 70 124/55 L 96 06/04/19 06:30 67 94 06/04/19 06:03 66 95 06/04/19 06:02 68 122/61 96 06/04/19 06:00 68 96 06/04/19 05:32 69 123/67 95 06/04/19 05:30 72 95 06/04/19 05:01 69 125/66 95 06/04/19 05:00 66 95 06/04/19 04:31 69 125/67 97 06/04/19 04:30 67 96 06/04/19 04:01 69 123/66 96 06/04/19 04:00 67 96 06/04/19 03:31 66 123/63 97 06/04/19 03:30 62 97 06/04/19 03:01 60 124/58 L 97 06/04/19 03:00 61 97 06/04/19 02:41 68 126/71 96 06/04/19 02:30 87 89 L 06/04/19 02:01 68 126/64 96 06/04/19 02:00 75 97 06/04/19 01:31 75 130/60 98 06/04/19 01:30 72 95 06/04/19 01:01 66 124/59 L 99 06/04/19 01:00 67 99 Laboratory Results Abnormal lab results 06/03/19 06/04/19 06/04/19 Range/Units 20:49 00:23 02:39 RBC (4.7-6.1) M/uL Hgb (14.0-18.0) g/dL Hct (42-52) % MCV (80-100) fL MCHC (32-36) g/dL RDW Std Deviation (36.4-46.3) fL RDW Coeff of Roger (11.5-14.5) % MPV (7.4-10.4) fL Immature Gran # (Auto) (0.00-0.02) K/uL Neut # (Auto) (1.4-6.5) K/uL Lymph # (Auto) (1.2-3.4) K/uL Sodium 146 H (136-145) mmol/L Potassium 5.3 H D (3.5-5.1) mmol/L Chloride 109 H (98-107) mmol/L BUN 49 H (7-18) mg/dl Creatinine 1.55 H (0.6-1.4) mg/dl BUN/Creatinine Ratio 31.7 H (10-20) Glucose 114 H (70-99) mg/dl POC Glucose 105 H (70-99) Calcium 7.8 L (8.5-10.1) mg/dl Phosphorus 5.7 H D 6.1 H (2.5-4.9) mg/dl Alkaline Phosphatase 155 H (45-117) U/L Troponin I 0.103 H* (0-0.045) ng/ml Total Protein 5.0 L (6.4-8.2) gm/dl Albumin 1.7 L (3.4-5.0) gm/dl Albumin/Globulin Ratio 0.5 L (0.9-2) Urine Appearance (Clear) Ur Specific [place] (1.000-1.030) Urine Protein (Negative) Urine Ketones (Negative) Urine Blood (Negative) Ur Leukocyte Esterase (Negative) Urine WBC (Auto) (0-5) /hpf Urine RBC (Auto) (0-4) /hpf U Hyaline Cast (Auto) (0-5) /lpf U Epithel Cells (Auto) (0-5) /lpf Urine Bacteria (Auto) (Negative) 06/04/19 06/04/19 06/04/19 Range/Units 02:39 05:56 08:36 RBC 2.89 L (4.7-6.1) M/uL Hgb 9.3 L (14.0-18.0) g/dL Hct 30.0 L (42-52) % MCV 103.8 H (80-100) fL MCHC 31.0 L (32-36) g/dL RDW Std Deviation 66.8 H (36.4-46.3) fL RDW Coeff of Roger 17.4 H (11.5-14.5) % MPV 11.0 H (7.4-10.4) fL Immature Gran # (Auto) 0.11 H (0.00-0.02) K/uL Neut # (Auto) 6.72 H (1.4-6.5) K/uL Lymph # (Auto) 1.11 L (1.2-3.4) K/uL Sodium (136-145) mmol/L Potassium (3.5-5.1) mmol/L Chloride 110 H (98-107) mmol/L BUN 50 H (7-18) mg/dl Creatinine 1.66 H (0.6-1.4) mg/dl BUN/Creatinine Ratio 30.4 H (10-20) Glucose 127 H (70-99) mg/dl POC Glucose 112 H (70-99) Calcium 8.0 L (8.5-10.1) mg/dl Phosphorus 6.3 H (2.5-4.9) mg/dl Alkaline Phosphatase 178 H (45-117) U/L Troponin I (0-0.045) ng/ml Total Protein 5.5 L (6.4-8.2) gm/dl Albumin 1.8 L (3.4-5.0) gm/dl Albumin/Globulin Ratio 0.5 L (0.9-2) Urine Appearance (Clear) Ur Specific [place] (1.000-1.030) Urine Protein (Negative) Urine Ketones (Negative) Urine Blood (Negative) Ur Leukocyte Esterase (Negative) Urine WBC (Auto) (0-5) /hpf Urine RBC (Auto) (0-4) /hpf U Hyaline Cast (Auto) (0-5) /lpf U Epithel Cells (Auto) (0-5) /lpf Urine Bacteria (Auto) (Negative) 06/04/19 Range/Units Unknown RBC (4.7-6.1) M/uL Hgb (14.0-18.0) g/dL Hct (42-52) % MCV (80-100) fL MCHC (32-36) g/dL RDW Std Deviation (36.4-46.3) fL RDW Coeff of Roger (11.5-14.5) % MPV (7.4-10.4) fL Immature Gran # (Auto) (0.00-0.02) K/uL Neut # (Auto) (1.4-6.5) K/uL Lymph # (Auto) (1.2-3.4) K/uL Sodium (136-145) mmol/L Potassium (3.5-5.1) mmol/L Chloride (98-107) mmol/L BUN (7-18) mg/dl Creatinine (0.6-1.4) mg/dl BUN/Creatinine Ratio (10-20) Glucose (70-99) mg/dl POC Glucose (70-99) Calcium (8.5-10.1) mg/dl Phosphorus (2.5-4.9) mg/dl Alkaline Phosphatase (45-117) U/L Troponin I (0-0.045) ng/ml Total Protein (6.4-8.2) gm/dl Albumin (3.4-5.0) gm/dl Albumin/Globulin Ratio (0.9-2) Urine Appearance Cloudy A (Clear) Ur Specific [place] 1.042 H (1.000-1.030) Urine Protein 1+ H (Negative) Urine Ketones 1+ H (Negative) Urine Blood 2+ H (Negative) Ur Leukocyte Esterase 2+ H (Negative) Urine WBC (Auto) >30 H (0-5) /hpf Urine RBC (Auto) 10-30 H (0-4) /hpf U Hyaline Cast (Auto) 10-30 H (0-5) /lpf U Epithel Cells (Auto) >30 H (0-5) /lpf Urine Bacteria (Auto) 1+ H (Negative) Medications Administered Current Inpatient Medications Enoxaparin Sodium (Lovenox) 40 mg SQ Q24H [facility] Stop: 07/03/19 07:59 Last Admin: 06/04/19 08:32 Dose: 40 mg Documented by: Levothyroxine Sodium 50 mcg/ (Syringe) 2.5 mls @ 2 mls/min IV DAILY@0900 [facility] Stop: 07/04/19 08:59 Last Admin: 06/04/19 09:32 Dose: 2 mls/min Documented by: Ampicillin Sodium/Sulbactam Sodium 3,000 mg/ Sodium Chloride 108 mls @ 216 mls/hr IV Q6H [facility] Stop: 06/18/19 15:59 Liothyronine Sodium (Cytomel) 5 mcg PO QAM [facility] Stop: 07/03/19 11:14 Last Admin: 06/04/19 08:32 Dose: 5 mcg Documented by: Nutritional Formula (Peptamen Intense Vhp 1.0 Niranjan) 1,000 ml ND UD [facility]; Protocol Stop: 07/04/19 17:59 PG Care Time/CCT Total # of Minutes Spent Total Time Spent with Patient: Total time spent is greater than 50% in coordination of care (as documented) at patient's floor/unit and/or counseling patient: Resident Activity Tracking Resident Involvement: Resident Care Provided Care Provided: Adult Hospital Medicine (1) Respiratory failure Chronicity: acute Respiratory failure complication: hypoxia Qualified Code(s): J96.01 - Acute respiratory failure with hypoxia
[2019-06-04] MEDS: AMPICILLIN/SULBACTAM SOD 3,000 MG in 0.9 % SODIUM CHLORIDE 100 ML IV SCH ×2 (15:58→21:57)
[2019-06-04] MEDS: PEPTAMEN INTENSE VHP 1.0 CAL 1,000 ML BAG ND SCH (18:01)
[2019-06-05] MEDS ORDERED: ALBUT/IPRATROP 3MG/0.5MG NEB 3 ML VIAL NEB STA (01:10)
[2019-06-05] MEDS ORDERED: FUROSEMIDE 40 MG/4 ML VIAL IV STA ×2 (01:35→04:20)
[2019-06-05] MEDS ORDERED: methylPREDNISolone 80 MG in SYRINGE 0 ML IV STA (01:35)
[2019-06-05] MEDS: AMPICILLIN/SULBACTAM SOD 3,000 MG in 0.9 % SODIUM CHLORIDE 100 ML IV SCH ×4 (04:03→21:36)
[2019-06-05 05:41] LABS: Basophils # (auto) 0.01 K/uL (0-0.2); Basophils % (auto) 0.1 %; Hematocrit (blood only) 28.7 % (42-52); Hemoglobin 8.9 g/dL (14.0-18.0); Immature Granulocytes # (auto) 0.15 K/uL (0.00-0.02); Immature Granulocytes % (auto) 1.7 %; Lymphocytes # (auto) 0.86 K/uL (1.2-3.4); Mean Corpuscular Hemoglobin 32.4 pg (25-34); Mean Corpuscular Volume 104.4 fL (80-100); Mean Platelet Volume 11.1 fL (7.4-10.4); Monocytes # (auto) 0.26 K/uL (0.11-0.59); Neutrophils # (auto) 7.35 K/uL (1.4-6.5); Neutrophils % (auto) 85.2 %; Platelet Count 257 K/uL (130-400); RDW Coefficient of Variation 17.9 % (11.5-14.5); RDW Standard Deviation 67.8 fL (36.4-46.3); Red Blood Count 2.75 M/uL (4.7-6.1); White Blood Count 8.63 K/uL (4.8-10.8)
[2019-06-05] MEDS ORDERED: CHLORASEPTIC 1.4% SOLN 180 ML BTL MT PRN (05:54)
[2019-06-05] MEDS ORDERED: COUGH DROP (SUGAR FREE) LOZ 24 LOZ/1 BOX BUCCAL PRN (05:54)
[2019-06-05 06:02] LABS: Albumin Level 1.6 gm/dl (3.4-5.0); BUN Creatinine Ratio 38.1 (10-20); Calcium 7.6 mg/dl (8.5-10.1); Creatinine Clr Calc Pharmacy 39.6 ml/min; Est GFR (African American) 46.9; Est GFR (Non-African American) 40.4; Potassium 4.7 mmol/L (3.5-5.1)
[2019-06-05 06:05] LABS: Albumin Globulin Ratio 0.5 (0.9-2); Bilirubin,Total 0.3 mg/dl (0.2-1); Globulin 3.1 gm/dl (2.5-4.0); Total Protein 4.7 gm/dl (6.4-8.2)
--- NOTE | 2019-06-05 06:32 | XRay Report ---
XR chest 1V portable CLINICAL HISTORY: desaturation, increased WOB pain. Dyspnea. COMPARISON STUDY: 06/03/2019 FINDINGS: Findings of progressive pulmonary edema versus congestive failure. Small bilateral pleural effusions. IMPRESSION: Progressive components of pulmonary edema/congestive failure. Feeding tube within the mi d stomach. The above report was generated using voice recognition software. It may contain grammatical, syntax or spelling errors. Electronically signed by: Jc Osorio M.D. 06/05/2019 6:31 AM
--- NOTE | 2019-06-05 07:18 | XRay Report ---
XR chest 1V portable CLINICAL HISTORY: 83 years-old Male presenting with pleural effusion L. TECHNIQUE: Portable upright AP view of the chest was obtained. COMPARISON: 06/05/2019 at 1:08 AM. FINDINGS: Feeding catheter descends below the diaphragm, terminus not visualized. Atherosclerosis and prominenc e of the thoracic aorta. Cardiac silhouette moderately enlarged. Extensive mid to basilar opacities b ilaterally. Bronchial wall cuffing and interstitial prominence. Bilateral moderate layering pleural e ffusions as on prior exam. No pneumothorax. Degenerative changes of the thoracic spine. Upper abdomen normal. IMPRESSION: 1. Cardiomegaly with pulmonary edema and moderate bilateral layering pleural effusions. Findings are unchanged from prior. Electronically signed by: Ivan Estrada M.D. 06/05/2019 7:17 AM
[2019-06-05] MEDS: ENOXAPARIN INJ 40 MG/0.4 ML SYR SQ SCH (08:17)
[2019-06-05] MEDS: LIOTHYRONINE SODIUM 5 MCG TAB PO SCH (08:18)
[2019-06-05 10:17] LABS: iSTAT Arterial Blood Gas pCO2 47 mmHg (35-46); iSTAT Arterial Blood Gas pH 7.41 (7.35-7.45)
[2019-06-05 10:18] LABS: iSTAT Arterial Blood Gas HCO3 30 meg/L (19-24); iSTAT Arterial Blood Gas pO2 74 mmHg (80-95); iSTAT Carbon Dioxide 31 mEq/l (24-31); iSTAT Sample Type Arterial
--- NOTE | 2019-06-05 10:18 | Family Medicine Progress Note ---
Date of Service June 05, 2019 Assessment & Plan (1) Acute respiratory failure with hypoxia: Acute Respiratory Failure with Hypoxia due to mixed disease etiology; admitted for shortness of breath. See below for specific etiology plan breakdowns. 1) CHF with low ejection fraction - JESSIE shows EF of 30-35% - mild Aortic+Mitral+Tricuspid regurg - elevated right ventricular pressures likely 2/2 pulmonary vascular congestion and edema - Adding 40 Lasix BID to daily regimen to help offload pleural fluid - Will consider adding spironolactone and lisinopril back to regimen in a few days if patient tolerates increased Lasix - does not appear to be intravascularly dry at this time, will try to balance intravascular support with extravascular fluid depletion - will add - concern for maintaining renal function [BUN/Cr of 60/1.57 today]. Cr appears to be at baseline for now. - strict I/O's 2) Hypothyroidism/Myxedema Coma - TSH of 59.9, T4 0.56, T3 1.70 on presentation - supplementing levothyroxine; now on 100 PO QD - unsure of etiology of MC; possibly 2/2 chemotherapy regimen. Abnormal for presentation this late in life without acute aggravation of disorder 3) Anasarca/Hypoproteinemia - Albumin of 2 - mainstay of treatment is to increase protein levels and nutritional status - Dietary consult in place - TPN through NG tube and PO diet as tolerated - PEG tube placement is an option prior to discharge however given patient's recent arthroplasty and prior abdominal surgeries would need to be an open surgery and I am not certain the patient has the reserve to recover from another surgery at this point 4) Bilateral Pleural Effusion - thoracentesis in MICU drained fluid from right side, chest CT afterwards showed L pleural effusion still present - Light's criteria negative. Transudative effusion on par with above disease processes - O2 dependent at home on 2L NC - currently maintaining proper saturation on 4L NC Diet: Tube feeds + Heart Healthy diet as tolerated DVT PPX: Lovenox 40 subQ daily Present on Admission?: Yes (2) Pancreatic cancer: - s/p Whipple procedure Oct 2018, currently undergoing chemotherapy outpatient. (3) Bacteremia due to Gram-positive bacteria: - 2 tubes of positive blood cultures - G+ cocci in clusters and G+ bacilli - possibly contamination in both tubes, unlikely to grow 2 different strains in blood - Pt has no WBC, fever, chills - G+ coverage with Unasyn until RAYMOND concentrations or specific bugs identified (4) HLD (hyperlipidemia): - holding statin for now (5) HTN (hypertension): - on amlodipine and lisinopril at home for HTN management - holding HTNive medications at this point - considering adding lisinopril and spironolactone this week depending on patient response to diuresis (6) Myxedema coma: (7) Hypoalbuminemia: (8) Anasarca: (9) Pulmonary edema: (10) Bilateral pleural effusion: Supervising Physician Co-Signing Physician Notes I personally examined the patient and verified all ca points of history and exam, discussed case, and agree with decision making with Dr Junior. Breathing feeling better than before but still not great. Answered all questions the best my ability, than his daughter arrives and answer all of her questions to the best my ability as well. He notices breathing more whenever he tries to sleep. Vitals noted, in general he is awake and alert pleasant no distress. HEENT normal cephalic atraumatic mucous members moist. Lungs show diffuse coarse rales throughout, no accessory muscle use good effort. Skin shows no rashes no pallor or icterus. NG tube in place without any local breakdown. Pulmonary edema/acute hypoxic respiratory failure -Edema appears to be due to acute on chronic systolic CHF, anasarca/protein malnutrition mediated edema, and myxedema mediated edema -Diuresis best as possible, follow blood pressures and creatinine -Continue to re-nourished as best as possible -Continue Synthroid Hypothyroidism/myxedema -Change Synthroid to p.o., given that he will not be able to go home with IV, need to ensure he tolerates. DC Cytomel since there is very little evidence the T3 is of long-term benefit. Severe protein calorie malnutrition -Continue to encourage oral intake, continue tube feeds for now, give consideration to whether or not he may need a surgical G-tube, although obviously this will be highly complicated given his anatomy as well as his se verely malnourished state -Consider appetite stimulant Systolic congestive heart failure -See above, diuresis. Once he is approaching more euvolemic, give consideration to Entresto versus lisinopril and Aldactone Otherwise as above Subjective 83 yo complicated gentleman who was admitted to the hospital for shortness of breath. Overnight he was experiencing increasing SOB on oxygen, was given 2 doses of 40 mg IV lasix which helped his symptoms. This morning he says breathing during the day is fine but at nighttime he does have worsening shortness of breath despite laying in the same position. Denies chest pain, pleuritic pain, pain with deep breaths. Always feels like he is not getting enough oxygen. Tolerating PO diet, is attempting to eat as much as he can to increase his protein levels. Review of Systems Constitutional: + weakness; no fever and no chills Respiratory: + dyspnea; no cough, no pain on inspiration, no pain with cough and no sputum production Cardiovascular: + paroxysmal nocturnal dyspnea and + edema; no chest pain and no calf pain Gastrointestinal: no abdominal pain, no heartburn, no nausea, no vomiting, no cramping, no constipation, no diarrhea/loose stools and no blood in stools Physical Exam Constitutional: Pleasant overweight elderly man sitting up in bed, in no acute distress however stops talking mid-sentence to catch breath despite being on 4 L NC. Respiratory: + respiratory distress, + labored breathing and + audible wheezes; + abnormal respiratory effort, no retractions, does not use accessory muscles, no cough and + not able to speak in complete sentence Auscultation: + crackles and + rhonchi; no wheezes Rhonchorous breath sounds in upper lobes of both lungs, with diffuse prominent crackles throughout bilateral middle and lower lobes. Cardiovascular: Rate/Rhythm: regular rate and regular rhythm Heart Sounds: no click, no gallop and no murmur Extremities: + edema (4+ edema to hips bilaterally, diffuse edema and swelling of body) and + varicosities; no calf tenderness Gastrointestinal (Abdomen): Inspection/Auscultation: + abdomen distended Percussion/Palpation: abdomen soft (tense stomach due to distension); abdomen nontender, no guarding and abdomen not rigid Results & Data Vital Signs (Past 12 Hours) Vital Signs Temp Pulse Resp BP Pulse Ox 06/05/19 07:34 36.3 C L 69 17 158/89 H 97 06/05/19 01:32 72 20 95 06/04/19 23:16 36.7 C 69 20 137/71 96 Laboratory Results WBC 8.63 K/uL (4.8-10.8) 06/05/19 04:44 RBC 2.75 M/uL (4.7-6.1) L 06/05/19 04:44 Hgb 8.9 g/dL (14.0-18.0) L 06/05/19 04:44 POC Hgb 9.9 g/dl (14.0-18.0) L 06/03/19 00:26 Hct 28.7 % (42-52) L 06/05/19 04:44 POC Hct 29 % (42-52) L 06/03/19 00:26 MCV 104.4 fL (80-100) H 06/05/19 04:44 MCH 32.4 pg (25-34) 06/05/19 04:44 MCHC 31.0 g/dL (32-36) L 06/05/19 04:44 RDW Std Deviation 67.8 fL (36.4-46.3) H 06/05/19 04:44 RDW Coeff of Roger 17.9 % (11.5-14.5) H 06/05/19 04:44 Plt Count 257 K/uL (130-400) 06/05/19 04:44 MPV 11.1 fL (7.4-10.4) H 06/05/19 04:44 Immature Gran % (Auto) 1.7 % 06/05/19 04:44 Neut % (Auto) 85.2 % 06/05/19 04:44 Lymph % (Auto) 10.0 % 06/05/19 04:44 [place] % (Auto) 3.0 % 06/05/19 04:44 Eos % (Auto) 0.0 % 06/05/19 04:44 Baso % (Auto) 0.1 % 06/05/19 04:44 Reticulocyte % (Auto) 1.9 % (0.5-2.0) 06/03/19 11:29 Immature Gran # (Auto) 0.15 K/uL (0.00-0.02) H 06/05/19 04:44 Neut # (Auto) 7.35 K/uL (1.4-6.5) H 06/05/19 04:44 Lymph # (Auto) 0.86 K/uL (1.2-3.4) L 06/05/19 04:44 [place] # (Auto) 0.26 K/uL (0.11-0.59) 06/05/19 04:44 Eos # (Auto) 0.00 K/uL (0-0.5) 06/05/19 04:44 Baso # (Auto) 0.01 K/uL (0-0.2) 06/05/19 04:44 Reticulocyte # 0.05 10^6/uL (0.02-0.10) 06/03/19 11:29 Neutrophils % (Manual) 44.4 % 06/03/19 00:24 Lymphocytes % (Manual) 21.7 % 06/03/19 00:24 Monocytes % (Manual) 1.7 % 06/03/19 00:24 Eosinophils % (Manual) 2.6 % 06/03/19 00:24 Basophils % (Manual) 0.9 % 06/03/19 00:24 Neutrophils # (Manual) 6.94 K/uL (1.4-6.5) H 06/03/19 00:24 Total Absolute Neuts 6.94 K/uL (1.4-6.5) H 06/03/19 00:24 Lymphocytes # (Manual) 3.39 K/uL (1.2-3.4) 06/03/19 00:24 Total Abs Lymphocytes 7.87 K/uL (1.2-3.4) H 06/03/19 00:24 Monocytes # (Manual) 0.27 K/uL (0.11-0.59) 06/03/19 00:24 Eosinophils # (Manual) 0.41 K/uL (0-0.5) 06/03/19 00:24 Basophils # (Manual) 0.14 K/uL (0-0.2) 06/03/19 00:24 Large Granular Lymphs 28.7 % 06/03/19 00:24 # Lrg Granular Lymphs 4.48 K/uL 06/03/19 00:24 Blood Smear Review 06/03/19 00:24 Polychromasia 1+ 06/03/19 00:24 PT 12.4 Seconds (9.0-12.0) H 06/03/19 00:24 INR 1.2 (0.9-1.1) H 06/03/19 00:24 Specimen Type Arterial 06/03/19 02:29 Sample Site Art Line 06/03/19 07:23 POC pH 7.49 (7.35-7.45) H 06/03/19 07:23 POC pCO2 37 mmHg (35-46) 06/03/19 07:23 POC pO2 67 mmHg (80-95) L 06/03/19 07:23 POC HCO3 28 jocelyn/L (19-24) H 06/03/19 07:23 POC Total CO2 29 mEq/l (24-31) 06/03/19 07:23 POC Base Excess 5.0 jocelyn/L (-9-1.8) H 06/03/19 07:23 ABG pH (Temp Correct) 7.521 (7.35-7.45) H* 06/03/19 07:23 ABG pCO2 (Temp Corrct 34 mmHg (35-46) L 06/03/19 07:23 POC ABG pO2 at Pt Temp 58 06/03/19 07:23 POC ABG O2 Sat 95.0 % (90-95) 06/03/19 07:23 Jose Test NA 06/03/19 07:23 O2 Delivery Device Ventilator 06/03/19 07:23 POC O2 Rate 14 06/03/19 07:23 Minute Ventilation 7.0 06/03/19 07:23 Tidal Volume 550 06/03/19 07:23 PEEP 5 06/03/19 07:23 POC Sodium 142 mEq/L (135-144) 06/03/19 00:26 Sodium 146 mmol/L (136-145) H 06/05/19 04:44 POC Potassium 4.6 mEq/L (3.3-5.0) 06/03/19 00:26 Potassium 4.7 mmol/L (3.5-5.1) 06/05/19 04:44 POC Chloride 105 mEq/L (101-112) 06/03/19 00:26 Chloride 110 mmol/L (98-107) H 06/05/19 04:44 Carbon Dioxide 28 mmol/L (21-32) 06/05/19 04:44 POC Total CO2 29 mEq/l (24-31) 06/03/19 00:26 Anion Gap 8.0 (3-11) 06/05/19 04:44 POC Anion Gap 13.0 mmol/L (16-25) L 06/03/19 00:26 POC BUN 54 mg/dl (7-18) H 06/03/19 00:26 BUN 60 mg/dl (7-18) H 06/05/19 04:44 Creatinine 1.57 mg/dl (0.6-1.4) H 06/05/19 04:44 POC Creatinine 1.4 mg/dl (0.6-1.3) H 06/03/19 00:26 Est Cr Clr Drug Dosing 39.6 ml/min 06/05/19 04:44 Est GFR ( Amer) 46.9 06/05/19 04:44 Est GFR (Non-Af Amer) 40.4 06/05/19 04:44 BUN/Creatinine Ratio 38.1 (10-20) H 06/05/19 04:44 Glucose 144 mg/dl (70-99) H 06/05/19 04:44 POC Glucose 112 (70-99) H 06/04/19 05:56 POC Glucose (other) 179 mg/dl (70-99) H 06/03/19 00:26 POC Lactic Acid Steve 3.22 mmol/L (0.90-1.70) H 06/03/19 00:30 Lactate 1.3 mmol/L (0.4-2.0) 06/04/19 02:39 Calcium 7.6 mg/dl (8.5-10.1) L 06/05/19 04:44 POC Ioniz Calcium Ca 1.07 mmol/l (1.12-1.32) L 06/03/19 00:26 Phosphorus 5.8 mg/dl (2.5-4.9) H 06/04/19 19:18 Magnesium 2.7 mg/dl (1.8-2.4) H 06/03/19 00:24 Iron 24 mcg/dl (35-175) L 06/03/19 11:29 TIBC 115 mcg/dl (250-450) L 06/03/19 11:29 Transferrin 99 mg/dl (200-360) L 06/03/19 11:29 Ferritin 632.8 ng/ml (8-388) H 06/03/19 11:29 Total Bilirubin 0.3 mg/dl (0.2-1) 06/05/19 04:44 AST 25 U/L (15-37) 06/05/19 04:44 ALT 15 U/L (12-78) 06/05/19 04:44 Alkaline Phosphatase 158 U/L (45-117) H 06/05/19 04:44 Lactate Dehydrogenase 268 U/L (87-241) H 06/03/19 13:29 Troponin I 0.103 ng/ml (0-0.045) H* 06/03/19 20:49 NT-Pro-B Natriuret Pep > 61222 pg/ml (0-1800) H 06/03/19 00:24 Total Protein 4.7 gm/dl (6.4-8.2) L 06/05/19 04:44 Albumin 1.6 gm/dl (3.4-5.0) L 06/05/19 04:44 Globulin 3.1 gm/dl (2.5-4.0) 06/05/19 04:44 Albumin/Globulin Ratio 0.5 (0.9-2) L 06/05/19 04:44 Prealbumin 7.1 mg/dl (20-40) L 06/03/19 13:29 Lipase 38 U/L (73-393) L 06/03/19 00:24 Vitamin B12 466 pg/ml (211-911) 06/03/19 11:29 Folate 8.88 ng/ml (>5.38) 06/03/19 11:29 TSH 59.900 uIu/ml (0.300-4.500) H 06/03/19 00:24 Free T4 0.56 ng/dl (0.8-1.6) L 06/03/19 11:29 Free T3 1.70 pg/ml (2.3-4.2) L 06/03/19 Unknown Random Cortisol 37.69 mcg/dl 06/03/19 10:53 Urine Color Yellow 06/04/19 Unknown Urine Appearance Cloudy (Clear) A 06/04/19 Unknown Urine pH 5.0 (4.5-7.5) 06/04/19 Unknown Ur Specific [place] 1.042 (1.000-1.030) H 06/04/19 Unknown Urine Protein 1+ (Negative) H 06/04/19 Unknown Urine Glucose (UA) Negative (Negative) 06/04/19 Unknown Urine Ketones 1+ (Negative) H 06/04/19 Unknown Urine Blood 2+ (Negative) H 06/04/19 Unknown Urine Nitrite Negative (Negative) 06/04/19 Unknown Urine Bilirubin Negative (Negative) 06/04/19 Unknown Urine Urobilinogen Negative (Negative) 06/04/19 Unknown Ur Leukocyte Esterase 2+ (Negative) H 06/04/19 Unknown Urine WBC (Auto) >30 /hpf (0-5) H 06/04/19 Unknown Urine RBC (Auto) 10-30 /hpf (0-4) H 06/04/19 Unknown U Hyaline Cast (Auto) 10-30 /lpf (0-5) H 06/04/19 Unknown U Epithel Cells (Auto) >30 /lpf (0-5) H 06/04/19 Unknown Urine Bacteria (Auto) 1+ (Negative) H 06/04/19 Unknown Ur Renal Epithelial Cell Not Reportable 06/04/19 Unknown Pleural Fluid Source RIGHT LUNG 06/03/19 13:00 Pleural Color STRAW 06/03/19 13:00 Pleural Appearance CLEAR 06/03/19 13:00 Pleural pH 7.51 (7.3-7.4) H 06/03/19 13:00 Pleural WBC 100 /uL 06/03/19 13:00 Pleural RBC < 3000 /uL 06/03/19 13:00 Pleural Polynuclear % 24.2 % 06/03/19 13:00 Pleural Mononuclear % 75.8 % 06/03/19 13:00 Pleural Total Protein 1.2 g/dl 06/03/19 13:00 Pleural LDH 88 U/L 06/03/19 13:00 Pleural Glucose 105 mg/dl 06/03/19 13:00 Nasal Screen MRSA (PCR) Negative (Negative) 06/03/19 Unknown Bld Cult Staph aureus PCR Negative (Negative) 06/03/19 00:26 Blood Culture MRSA PCR Negative (Negative) 06/03/19 00:26 Blood Type A Positive 06/03/19 00:25 Antibody Screen NEGATIVE 06/03/19 00:25 PG Care Time/CCT Total # of Minutes Spent Total Time Spent with Patient: Total time spent is greater than 50% in coordination of care (as documented) at patient's floor/unit and/or counseling patient: Resident Activity Tracking Resident Involvement: Resident Care Provided Care Provided: Adult Hospital Medicine (1) Pulmonary edema Chronicity: acute Qualified Code(s): J81.0 - Acute pulmonary edema
[2019-06-05] MEDS: LEVOTHYROXINE SODIUM 100 MCG TABLET PO SCH (10:20)
[2019-06-05] MEDS ORDERED: Nursing to Pharmacy Communication ONE (14:41)
[2019-06-05] MEDS: FUROSEMIDE 40 MG in SYRINGE 0 ML IV SCH (16:49)
[2019-06-05] MEDS: PEPTAMEN INTENSE VHP 1.0 CAL 1,000 ML BAG ND SCH (19:27)
[2019-06-05] MEDS ORDERED: VANCOMYCIN TROUGH ONE (21:30)
[2019-06-05] MEDS: ALBUTEROL 0.083% NEBU SOLN 3 ML VIAL NEB PRN (23:20)
[2019-06-06] MEDS ORDERED: FUROSEMIDE 40 MG/4 ML VIAL IV STA
[2019-06-06] MEDS: PEPTAMEN INTENSE VHP 1.0 CAL 1,000 ML BAG ND SCH ×2 (00:05→18:32)
[2019-06-06] MEDS ORDERED: FUROSEMIDE 40 MG in SYRINGE 0 ML IV ONE (00:15)
[2019-06-06] MEDS: AMPICILLIN/SULBACTAM SOD 3,000 MG in 0.9 % SODIUM CHLORIDE 100 ML IV SCH ×3 (03:44→11:01)
[2019-06-06] MEDS ORDERED: LEVOTHYROXINE SODIUM 100 MCG TABLET PO SCH (06:30)
[2019-06-06 06:33] LABS: Hematocrit (blood only) 29.6 % (42-52); Hemoglobin 8.6 g/dL (14.0-18.0); Mean Corpuscular Hgb Conc 29.1 g/dL (32-36); Mean Corpuscular Volume 106.9 fL (80-100); Mean Platelet Volume 11.1 fL (7.4-10.4); Platelet Count 237 K/uL (130-400); RDW Coefficient of Variation 17.4 % (11.5-14.5); RDW Standard Deviation 67.4 fL (36.4-46.3); Red Blood Count 2.77 M/uL (4.7-6.1); White Blood Count 9.38 K/uL (4.8-10.8)
[2019-06-06 06:47] LABS: Creatinine Clr Calc Pharmacy 39.8 ml/min; Est GFR (African American) 46.9; Est GFR (Non-African American) 40.4
[2019-06-06] MEDS: LEVOTHYROXINE SODIUM 100 MCG TABLET PO SCH (07:05)
[2019-06-06] MEDS: ENOXAPARIN INJ 40 MG/0.4 ML SYR SQ SCH (08:17)
[2019-06-06] MEDS: FUROSEMIDE 40 MG in SYRINGE 0 ML IV SCH ×2 (08:18→16:50)
--- NOTE | 2019-06-06 10:49 | Family Medicine Progress Note ---
Date of Service June 06, 2019 Assessment & Plan (1) Acute respiratory failure with hypoxia: Acute Respiratory Failure with Hypoxia due to mixed disease etiology; admitted for shortness of breath. See below for specific etiology plan breakdowns. 1) CHF with low ejection fraction - JESSIE shows EF of 30-35% - mild Aortic+Mitral+Tricuspid regurg - elevated right ventricular pressures likely 2/2 pulmonary vascular congestion and edema - Increasing Lasix to 80 BID tomorrow, following BMP daily and monitoring Cr. - Will consider adding spironolactone and lisinopril back to regimen in a few days if patient tolerates increased Lasix - does not appear to be intravascularly dry at this time, will try to balance intravascular support with extravascular fluid depletion - will add - concern for maintaining renal function [BUN/Cr of 60/1.57 today]. Cr appears to be at baseline for now. - (-404 mL for visit) 2) Hypothyroidism/Myxedema Coma - TSH of 59.9, T4 0.56, T3 1.70 on presentation - supplementing levothyroxine; now on 100 PO QD - unsure of etiology of MC; possibly 2/2 chemotherapy regimen. Abnormal for presentation this late in life without acute aggravation of disorder 3) Anasarca/Hypoproteinemia - Albumin of 2 - mainstay of treatment is to increase protein levels and nutritional status - Dietary consult in place - TPN through NG tube and PO diet as tolerated - PEG tube placement is an option prior to discharge however given patient's recent arthroplasty and prior abdominal surgeries would need to be an open surgery and I am not certain the patient has the reserve to recover from another surgery at this point - added lipase enzymes per dietary recommendation (3 tabs 16,000 U per meal) 4) Bilateral Pleural Effusion - thoracentesis in MICU drained fluid from right side, chest CT afterwards showed L pleural effusion still present - Light's criteria negative. Transudative effusion on par with above disease processes - O2 dependent at home on 2L NC - currently maintaining proper saturation on 4L NC Diet: Tube feeds + Heart Healthy diet as tolerated DVT PPX: Lovenox 40 subQ daily (2) Pancreatic cancer: - s/p Whipple procedure Oct 2018, currently undergoing chemotherapy outpatient. (3) Bacteremia due to Gram-positive bacteria: - 2 tubes of positive blood cultures; re-culture on 06/04 has no growth. - Likely to be given contamination given lack of symptoms and negative re- culture - stopped unasyn (4) HLD (hyperlipidemia): - holding statin for now (5) HTN (hypertension): - on amlodipine and lisinopril at home for HTN management - holding HTNive medications at this point - considering adding lisinopril and spironolactone this week depending on patient response to diuresis (6) Myxedema coma: (7) Hypoalbuminemia: (8) Anasarca: (9) Pulmonary edema: (10) Bilateral pleural effusion: Supervising Physician Co-Signing Physician Notes I personally examined the patient and verified all ca points of history and exam, discussed case, and agree with decision making with Dr Junior. still having some late at night difficulty breathing. in directed questioning it seems he does try to lay down more when he settles. Vitals noted, in general he is awake and alert pleasant no distress. HEENT normal cephalic atraumatic mucous members moist. breathing unlabored no accessory muscles good effort. no NGT breakdown. Pulmonary edema/acute hypoxic respiratory failure -Edema appears to be due to acute on chronic systolic CHF, anasarca/protein malnutrition mediated edema, and myxedema mediated edema -Diuresis best as possible, follow blood pressures and creatinine (increase diuretics) -Continue to re-nourishe as best as possible -Continue Synthroid Hypothyroidism/myxedema -continue Synthroid to p.o., given that he will not be able to go home with IV, need to ensure he tolerates. DC'd Cytomel since there is very little evidence the T3 is of long-term benefit. Severe protein calorie malnutrition -Continue to encourage oral intake, continue tube feeds for now, give consideration to whether or not he may need a surgical G-tube, although obviously this will be highly complicated given his anatomy as well as his severely malnourished state - he and i both prefer to hold off on this if possible, right now eating ~50% of his tray so continue to encourage. -add pancreatic enzyme supplement (appreciate RD suggestion!) -Consider appetite stimulant Systolic congestive heart failure -See above, diuresis. Once he is approaching more euvolemic, give consideration to Entresto versus lisinopril and Aldactone Otherwise as above Subjective overnight: Continues to have SOB episodes during nighttime. Did not improve with breathing treatment, felt much better after lasix 40 IV. Might need midnight lasix dose to maintain breathing status overnight. This morning: breathing improves at 5/6 AM when he is able to sit up straight. Is able to keep food down with nausea, however has limited appetite. No change in symptoms otherwise. Had extensive discussion regarding goals of care. Pt wants to be able to go home, "be free", and possibly hold down a job that allows him to leave the house for a few hours at a time. Also discussed that if his appetite doesn't improve, leaving the hospital with tube feeds vs. getting a peg tube is an option, however he is unlikely to bounce back from an open peg placement at this time. Patient remains guardedly optimistic as we discuss plans for offloading fluid and helping his breathing symptoms, and acknowledges that removing fluid from the rest of his body will be a longer process. Review of Systems Constitutional: no fever, no chills, no body aches, no fatigue and no increased appetite Respiratory: + dyspnea; no cough, no pain on inspiration and no pain with cough Cardiovascular: + edema; no chest pain and no palpitations Gastrointestinal: + early satiety; no abdominal pain, no nausea and no change in bowel habits Physical Exam Constitutional: + ill appearing, + well hydrated, + frail appearing, cooperative, comfortable and + overweight Respiratory: + respiratory distress, + labored breathing and + audible wheezes (audible crackling of fluid when patient takes deep breaths); + abnormal respiratory effort, no retractions, does not use accessory muscles, no cough and + not able to speak in complete sentence Auscultation: + crackles (diffuse crackles bilaterally from mid to lower lobes) and + rhonchi; + lungs not clear to auscultation Cardiovascular: Rate/Rhythm: regular rate and regular rhythm Heart Sounds: no abnormal opening sounds, no click, no gallop and no murmur Extremities: + edema (4+ pitting edema to hips BL) and + varicosities; no calf tenderness Results & Data Vital Signs (Past 12 Hours) Vital Signs Temp Pulse Resp BP Pulse Ox 06/06/19 07:02 36.4 C 68 16 156/82 H 96 06/05/19 23:20 68 20 93 06/05/19 22:59 36.5 C 74 18 160/70 H 90 Laboratory Results WBC 9.38 K/uL (4.8-10.8) 06/06/19 06:08 RBC 2.77 M/uL (4.7-6.1) L 06/06/19 06:08 Hgb 8.6 g/dL (14.0-18.0) L 06/06/19 06:08 POC Hgb 9.9 g/dl (14.0-18.0) L 06/03/19 00:26 Hct 29.6 % (42-52) L 06/06/19 06:08 POC Hct 29 % (42-52) L 06/03/19 00:26 MCV 106.9 fL (80-100) H 06/06/19 06:08 MCH 31.0 pg (25-34) 06/06/19 06:08 MCHC 29.1 g/dL (32-36) L 06/06/19 06:08 RDW Std Deviation 67.4 fL (36.4-46.3) H 06/06/19 06:08 RDW Coeff of Roger 17.4 % (11.5-14.5) H 06/06/19 06:08 Plt Count 237 K/uL (130-400) 06/06/19 06:08 MPV 11.1 fL (7.4-10.4) H 06/06/19 06:08 Immature Gran % (Auto) 1.7 % 06/05/19 04:44 Neut % (Auto) 85.2 % 06/05/19 04:44 Lymph % (Auto) 10.0 % 06/05/19 04:44 Mcdowell % (Auto) 3.0 % 06/05/19 04:44 Eos % (Auto) 0.0 % 06/05/19 04:44 Baso % (Auto) 0.1 % 06/05/19 04:44 Reticulocyte % (Auto) 1.9 % (0.5-2.0) 06/03/19 11:29 Immature Gran # (Auto) 0.15 K/uL (0.00-0.02) H 06/05/19 04:44 Neut # (Auto) 7.35 K/uL (1.4-6.5) H 06/05/19 04:44 Lymph # (Auto) 0.86 K/uL (1.2-3.4) L 06/05/19 04:44 Mcdowell # (Auto) 0.26 K/uL (0.11-0.59) 06/05/19 04:44 Eos # (Auto) 0.00 K/uL (0-0.5) 06/05/19 04:44 Baso # (Auto) 0.01 K/uL (0-0.2) 06/05/19 04:44 Reticulocyte # 0.05 10^6/uL (0.02-0.10) 06/03/19 11:29 Neutrophils % (Manual) 44.4 % 06/03/19 00:24 Lymphocytes % (Manual) 21.7 % 06/03/19 00:24 Monocytes % (Manual) 1.7 % 06/03/19 00:24 Eosinophils % (Manual) 2.6 % 06/03/19 00:24 Basophils % (Manual) 0.9 % 06/03/19 00:24 Neutrophils # (Manual) 6.94 K/uL (1.4-6.5) H 06/03/19 00:24 Total Absolute Neuts 6.94 K/uL (1.4-6.5) H 06/03/19 00:24 Lymphocytes # (Manual) 3.39 K/uL (1.2-3.4) 06/03/19 00:24 Total Abs Lymphocytes 7.87 K/uL (1.2-3.4) H 06/03/19 00:24 Monocytes # (Manual) 0.27 K/uL (0.11-0.59) 06/03/19 00:24 Eosinophils # (Manual) 0.41 K/uL (0-0.5) 06/03/19 00:24 Basophils # (Manual) 0.14 K/uL (0-0.2) 06/03/19 00:24 Large Granular Lymphs 28.7 % 06/03/19 00:24 # Lrg Granular Lymphs 4.48 K/uL 06/03/19 00:24 Blood Smear Review 06/03/19 00:24 Polychromasia 1+ 06/03/19 00:24 PT 12.4 Seconds (9.0-12.0) H 06/03/19 00:24 INR 1.2 (0.9-1.1) H 06/03/19 00:24 Specimen Type Arterial 06/03/19 02:29 Sample Site Art Line 06/03/19 07:23 POC pH 7.49 (7.35-7.45) H 06/03/19 07:23 POC pCO2 37 mmHg (35-46) 06/03/19 07:23 POC pO2 67 mmHg (80-95) L 06/03/19 07:23 POC HCO3 28 jocelyn/L (19-24) H 06/03/19 07:23 POC Total CO2 29 mEq/l (24-31) 06/03/19 07:23 POC Base Excess 5.0 jocelyn/L (-9-1.8) H 06/03/19 07:23 ABG pH (Temp Correct) 7.521 (7.35-7.45) H* 06/03/19 07:23 ABG pCO2 (Temp Corrct 34 mmHg (35-46) L 06/03/19 07:23 POC ABG pO2 at Pt Temp 58 06/03/19 07:23 POC ABG O2 Sat 95.0 % (90-95) 06/03/19 07:23 Jose Test NA 06/03/19 07:23 O2 Delivery Device Ventilator 06/03/19 07:23 POC O2 Rate 14 06/03/19 07:23 Minute Ventilation 7.0 06/03/19 07:23 Tidal Volume 550 06/03/19 07:23 PEEP 5 06/03/19 07:23 POC Sodium 142 mEq/L (135-144) 06/03/19 00:26 Sodium 146 mmol/L (136-145) H 06/06/19 09:57 POC Potassium 4.6 mEq/L (3.3-5.0) 06/03/19 00:26 Potassium 4.7 mmol/L (3.5-5.1) 06/06/19 09:57 POC Chloride 105 mEq/L (101-112) 06/03/19 00:26 Chloride 109 mmol/L (98-107) H 06/06/19 09:57 Carbon Dioxide 31 mmol/L (21-32) 06/06/19 09:57 POC Total CO2 29 mEq/l (24-31) 06/03/19 00:26 Anion Gap 6.0 (3-11) 06/06/19 09:57 POC Anion Gap 13.0 mmol/L (16-25) L 06/03/19 00:26 POC BUN 54 mg/dl (7-18) H 06/03/19 00:26 BUN 64 mg/dl (7-18) H 06/06/19 09:57 Creatinine 1.69 mg/dl (0.6-1.4) H 06/06/19 09:57 POC Creatinine 1.4 mg/dl (0.6-1.3) H 06/03/19 00:26 Est Cr Clr Drug Dosing 37.0 ml/min 06/06/19 09:57 Est GFR ( Amer) 42.9 06/06/19 09:57 Est GFR (Non-Af Amer) 37.0 06/06/19 09:57 BUN/Creatinine Ratio 38.0 (10-20) H 06/06/19 09:57 Glucose 149 mg/dl (70-99) H 06/06/19 09:57 POC Glucose 112 (70-99) H 06/04/19 05:56 POC Glucose (other) 179 mg/dl (70-99) H 06/03/19 00:26 POC Lactic Acid Steve 3.22 mmol/L (0.90-1.70) H 06/03/19 00:30 Lactate 1.3 mmol/L (0.4-2.0) 06/04/19 02:39 Calcium 7.6 mg/dl (8.5-10.1) L 06/06/19 09:57 POC Ioniz Calcium Ca 1.07 mmol/l (1.12-1.32) L 06/03/19 00:26 Phosphorus 5.8 mg/dl (2.5-4.9) H 06/04/19 19:18 Magnesium 2.7 mg/dl (1.8-2.4) H 06/03/19 00:24 Iron 24 mcg/dl (35-175) L 06/03/19 11:29 TIBC 115 mcg/dl (250-450) L 06/03/19 11:29 Transferrin 99 mg/dl (200-360) L 06/03/19 11:29 Ferritin 632.8 ng/ml (8-388) H 06/03/19 11:29 Total Bilirubin 0.3 mg/dl (0.2-1) 06/05/19 04:44 AST 25 U/L (15-37) 06/05/19 04:44 ALT 15 U/L (12-78) 06/05/19 04:44 Alkaline Phosphatase 158 U/L (45-117) H 06/05/19 04:44 Lactate Dehydrogenase 268 U/L (87-241) H 06/03/19 13:29 Troponin I 0.103 ng/ml (0-0.045) H* 06/03/19 20:49 NT-Pro-B Natriuret Pep > 76846 pg/ml (0-1800) H 06/03/19 00:24 Total Protein 4.7 gm/dl (6.4-8.2) L 06/05/19 04:44 Albumin 1.6 gm/dl (3.4-5.0) L 06/05/19 04:44 Globulin 3.1 gm/dl (2.5-4.0) 06/05/19 04:44 Albumin/Globulin Ratio 0.5 (0.9-2) L 06/05/19 04:44 Prealbumin 7.1 mg/dl (20-40) L 06/03/19 13:29 Lipase 38 U/L (73-393) L 06/03/19 00:24 Vitamin B12 466 pg/ml (211-911) 06/03/19 11:29 Folate 8.88 ng/ml (>5.38) 06/03/19 11:29 TSH 59.900 uIu/ml (0.300-4.500) H 06/03/19 00:24 Free T4 0.56 ng/dl (0.8-1.6) L 06/03/19 11:29 Free T3 1.70 pg/ml (2.3-4.2) L 06/03/19 Unknown Random Cortisol 37.69 mcg/dl 06/03/19 10:53 Specimen Hemolysis 06/06/19 09:57 Urine Color Yellow 06/04/19 Unknown Urine Appearance Cloudy (Clear) A 06/04/19 Unknown Urine pH 5.0 (4.5-7.5) 06/04/19 Unknown Ur Specific [place] 1.042 (1.000-1.030) H 06/04/19 Unknown Urine Protein 1+ (Negative) H 06/04/19 Unknown Urine Glucose (UA) Negative (Negative) 06/04/19 Unknown Urine Ketones 1+ (Negative) H 06/04/19 Unknown Urine Blood 2+ (Negative) H 06/04/19 Unknown Urine Nitrite Negative (Negative) 06/04/19 Unknown Urine Bilirubin Negative (Negative) 06/04/19 Unknown Urine Urobilinogen Negative (Negative) 06/04/19 Unknown Ur Leukocyte Esterase 2+ (Negative) H 06/04/19 Unknown Urine WBC (Auto) >30 /hpf (0-5) H 06/04/19 Unknown Urine RBC (Auto) 10-30 /hpf (0-4) H 06/04/19 Unknown U Hyaline Cast (Auto) 10-30 /lpf (0-5) H 06/04/19 Unknown U Epithel Cells (Auto) >30 /lpf (0-5) H 06/04/19 Unknown Urine Bacteria (Auto) 1+ (Negative) H 06/04/19 Unknown Ur Renal Epithelial Cell Not Reportable 06/04/19 Unknown Pleural Fluid Source RIGHT LUNG 06/03/19 13:00 Pleural Color STRAW 06/03/19 13:00 Pleural Appearance CLEAR 06/03/19 13:00 Pleural pH 7.51 (7.3-7.4) H 06/03/19 13:00 Pleural WBC 100 /uL 06/03/19 13:00 Pleural RBC < 3000 /uL 06/03/19 13:00 Pleural Polynuclear % 24.2 % 06/03/19 13:00 Pleural Mononuclear % 75.8 % 06/03/19 13:00 Pleural Total Protein 1.2 g/dl 06/03/19 13:00 Pleural LDH 88 U/L 06/03/19 13:00 Pleural Glucose 105 mg/dl 06/03/19 13:00 Nasal Screen MRSA (PCR) Negative (Negative) 06/03/19 Unknown Thyroid Antimicrosomal <1 IU/ML (<9) 06/03/19 10:53 Thyroglobulin Antibody <1 IU/ML (<OR=1) 06/03/19 10:53 Bld Cult Staph aureus PCR Negative (Negative) 06/03/19 00:26 Blood Culture MRSA PCR Negative (Negative) 06/03/19 00:26 Blood Type A Positive 06/03/19 00:25 Antibody Screen NEGATIVE 06/03/19 00:25 PG Care Time/CCT Total # of Minutes Spent Total Time Spent with Patient: Total time spent is greater than 50% in coordination of care (as documented) at patient's floor/unit and/or counseling patient: Resident Activity Tracking Resident Involvement: Resident Care Provided Care Provided: Adult Hospital Medicine (1) Pulmonary edema Chronicity: acute Qualified Code(s): J81.0 - Acute pulmonary edema
[2019-06-06 11:19] LABS: Calcium 7.6 mg/dl (8.5-10.1); Est GFR (African American) 42.9; Potassium 4.7 mmol/L (3.5-5.1)
[2019-06-06 11:31] LABS: Microsomal Ab <1 IU/ML (<9); Thyroglobulin Antibodies <1 IU/ML (<OR=1)
[2019-06-06] MEDS: PANCREAZE (LIPASE 16,800U) CAP PO SCH ×2 (12:29→16:50)
[2019-06-07] MEDS: LEVOTHYROXINE SODIUM 100 MCG TABLET PO SCH (05:59)
[2019-06-07] MEDS: [UNRECOGNIZED DRUG - REMARK] SCH (05:59)
[2019-06-07 06:44] LABS: BUN Creatinine Ratio 46.3 (10-20); Creatinine Clr Calc Pharmacy 42.5 ml/min; Est GFR (African American) 50.8; Est GFR (Non-African American) 43.8; Potassium 4.5 mmol/L (3.5-5.1)
[2019-06-07] MEDS: PANCREAZE (LIPASE 16,800U) CAP PO SCH ×3 (08:30→17:16)
[2019-06-07] MEDS: ENOXAPARIN INJ 40 MG/0.4 ML SYR SQ SCH (08:30)
[2019-06-07] MEDS: FUROSEMIDE 80 MG in SYRINGE 0 ML IV SCH ×2 (08:31→17:16)
[2019-06-07] MEDS: ALBUTEROL 0.083% NEBU SOLN 3 ML VIAL NEB PRN (09:15)
--- NOTE | 2019-06-07 12:43 | CT Scan Report ---
CT chest wo con CT DOSE: 642.27 mGycm HISTORY: hypoxia, concern for PNA + effusion TECHNIQUE: Multiaxial CT images of the chest were performed without contrast. A dose lowering techni que was utilized adhering to the principles of ALARA. COMPARISON: Chest 06/05/2019. Chest CTA 06/03/2019. FINDINGS: No pneumothorax. The central airways are patent. Interlobular septal thickening with scatte red patchy groundglass airspace opacities within the upper lobes and superior segment of the right lo wer lobe. This is consistent with pulmonary edema. This has improved in the interval. Nasogastric tub e appears to terminate below the diaphragm. The tip is not included on this study. No fractures withi n the visualized osseous structures. Calcified mediastinal lymph nodes again noted. The heart remains mildly enlarged. Multiple calcified granulomas within the visualized liver. Moderate bilateral pleur al effusions appear to be slightly decreased in size. Dense consolidation within the right lower lobe has improved. The dense consolidation within the left lower lobe persists. This is nonspecific but f avors compressive atelectasis from the pleural effusions. IMPRESSION: 1. Slight improvement in the moderate pulmonary edema, moderate bilateral pleural effusions, and bila teral airspace opacities as described above. 2. The nasogastric tube appears to terminate below the level the diaphragm. 3. Stable mild cardiomegaly. Electronically signed by: Wilfred Donahue M.D. 06/07/2019 12:41 PM
[2019-06-07 13:05] LABS: Allen Test Pos (Pos); Base Excess ABG 4.8 mEq/L (-9-1.8); HCO3 ABG 30 mmol/L (19-24); Oxygen Saturation ABG 92.5 % (90-95); PCO2 ABG 50 mmHg (35-46); PO2 ABG 71 mm/Hg (80-95)
--- NOTE | 2019-06-07 17:50 | Family Medicine Progress Note ---
Date of Service June 07, 2019 Assessment & Plan (1) Acute respiratory failure with hypoxia: Acute Respiratory Failure with Hypoxia due to mixed disease etiology; admitted for shortness of breath. See below for specific etiology plan breakdowns. 1) CHF with low ejection fraction - JESSIE shows EF of 30-35% - mild Aortic+Mitral+Tricuspid regurg - elevated right ventricular pressures likely 2/2 pulmonary vascular congestion and edema - Increased Lasix to 80 BID today. Cr stable at 1.4. Pt does not appear objectively dry. - Will consider adding spironolactone and lisinopril back to regimen in a few days if patient tolerates increased Lasix - does not appear to be intravascularly dry at this time, will try to balance intravascular support with extravascular fluid depletion - concern for maintaining renal function [BUN/Cr of 68/1.47 today]. Cr appears to be at baseline for now. - (-2325 mL for visit) 2) Hypothyroidism/Myxedema Coma - TSH of 59.9, T4 0.56, T3 1.70 on presentation - supplementing levothyroxine; now on 100 PO QD - unsure of etiology of MC; possibly 2/2 chemotherapy regimen. Abnormal for presentation this late in life without acute aggravation of disorder 3) Anasarca/Hypoproteinemia - Albumin of 2 - mainstay of treatment is to increase protein levels and nutritional status - Dietary consult in place - TPN through NG tube and PO diet as tolerated - PEG tube placement is an option prior to discharge however given patient's recent arthroplasty and prior abdominal surgeries would need to be an open surgery and I am not certain the patient has the reserve to recover from another surgery at this point - added lipase enzymes per dietary recommendation (3 tabs 16,000 U per meal) 4) Bilateral Pleural Effusion - thoracentesis in MICU drained fluid from right side, chest CT afterwards showed L pleural effusion still present - Light's criteria negative. Transudative effusion on par with above disease processes - O2 dependent at home on 2L NC - currently maintaining proper saturation on 4L NC - given concern for weakening costochondral muscles, ABG and chest CT wo contrast ordered to evaluate for parapneumonic effusion/developing PNA and hypercapnia indicative of weakening chest strength - ABG returned showing 7.40/50/71/30. This is more in line with chronic than acute metabolic change. - CT Chest showed moderate pulmonary edema, moderate BL pleural effusion with mild improvement from prior films Diet: Tube feeds + Heart Healthy diet as tolerated DVT PPX: Lovenox 40 subQ daily (2) Pancreatic cancer: - s/p Whipple procedure Oct 2018, currently undergoing chemotherapy outpatient. (3) Bacteremia due to Gram-positive bacteria: - 2 tubes of positive blood cultures; re-culture on 06/04 has no growth. - Likely to be given contamination given lack of symptoms and negative re- culture - stopped unasyn (4) HLD (hyperlipidemia): - holding statin for now (5) HTN (hypertension): - on amlodipine and lisinopril at home for HTN management - holding HTNive medications at this point - blood pressures have been increasing for the past 2 days, 175/77 today. - given the 2L of offloaded fluid and patient tolerating lasix well, i feel comfortable starting lisinopril at 10mg today which is half of his home dose (6) Myxedema coma: (7) Hypoalbuminemia: (8) Anasarca: (9) Pulmonary edema: (10) Bilateral pleural effusion: Supervising Physician Co-Signing Physician Notes I personally examined the patient and verified all ca points of history and exam, discussed case, and agree with decision making with Dr Junior. Feeling much better than whenever Dr. Junior saw him in the morning. Still very short of breath laying flat. CT scan reviewed with patient. Pulmonary edema/acute hypoxic respiratory failure -Edema appears to be due to acute on chronic systolic CHF, anasarca/protein malnutrition mediated edema, and myxedema mediated edema -Diuresis best as possible, follow blood pressures and creatininecontinue increased diuretics. -Continue to re-nourish as best as possible (p.o. intake has been reasonable, give consideration of appetite stimulant) -Continue Synthroid p.o. Hypothyroidism/myxedema -continue Synthroid to p.o., given that he will not be able to go home with IV, need to ensure he tolerates. Because of concern on short gut, while it would be far too soon to have meaningful change, we will likely check a TSH in the next day or 2 just to ensure that it is trending in the right direction on oral Synthroid. Severe protein calorie malnutrition -Continue to encourage oral intake, continue tube feeds for now, give consideration to whether or not he may need a surgical G-tube, although obviously this will be highly complicated given his anatomy as well as his severely malnourished state - he and i both prefer to hold off on this if possible, right now eating reasonably. -added pancreatic enzyme supplement (appreciate RD suggestion!) -Consider appetite stimulant Systolic congestive heart failure -See above, diuresis. Will initiate Entresto tonight, hopefully better afterload reduction may improve his diuresis. Otherwise as above Subjective Mr. Lira did not have any breathing trouble overnight which is an improvement. He attributes this to having sat upright in the chair to sleep, and says he slept on and off but at least breathed a little better. This morning he subjectively describes increased difficulty breathing. He continues to deny pleurisy, pleuritic chest pain, and dyspnea, but still has a feeling of general air hunger and not getting enough oxygen. Review of Systems Constitutional: no fever, no chills, no weakness and no increased appetite Respiratory: + cough and + wheezing; no pain on inspiration, no pain with cough and no sputum production Cardiovascular: + edema; no chest pain, no dyspnea, no palpitations and no calf pain Gastrointestinal: + early satiety; no abdominal pain, no bloating, no nausea, no vomiting, no pain with swallowing, no constipation and no diarrhea/loose stools Physical Exam Constitutional: + ill appearing, + well hydrated, + frail appearing, cooperative, comfortable and + overweight In general appears more weak this morning. Unsure if he is losing reserve energy or if it is due to poor sleep. Respiratory: + respiratory distress, + labored breathing and + audible wheezes (audible crackling of fluid when patient takes deep breaths); + abnormal respiratory effort, no retractions, does not use accessory muscles, no cough and + not able to speak in complete sentence Auscultation: + crackles (diffuse crackles bilaterally from mid to lower lobes) and + rhonchi; + lungs not clear to auscultation and no wheezes Cardiovascular: Rate/Rhythm: regular rate and regular rhythm Heart Sounds: no abnormal opening sounds, no click, no gallop and no murmur Extremities: + edema (4+ pitting edema to hips BL) and + varicosities; no calf tenderness Gastrointestinal (Abdomen): Inspection/Auscultation: + abdomen distended Percussion/Palpation: abdomen soft (tense stomach due to distension); abdomen nontender, no guarding and abdomen not rigid Results & Data Vital Signs (Past 12 Hours) Vital Signs Temp Pulse Resp BP BP Pulse Ox 06/07/19 15:00 36.7 C 74 20 175/77 H 93 06/07/19 09:18 74 18 95 06/07/19 07:26 36.4 C L 73 18 170/83 H 93 Laboratory Results WBC 9.38 K/uL (4.8-10.8) 06/06/19 06:08 RBC 2.77 M/uL (4.7-6.1) L 06/06/19 06:08 Hgb 8.6 g/dL (14.0-18.0) L 06/06/19 06:08 POC Hgb 9.9 g/dl (14.0-18.0) L 06/03/19 00:26 Hct 29.6 % (42-52) L 06/06/19 06:08 POC Hct 29 % (42-52) L 06/03/19 00:26 MCV 106.9 fL (80-100) H 06/06/19 06:08 MCH 31.0 pg (25-34) 06/06/19 06:08 MCHC 29.1 g/dL (32-36) L 06/06/19 06:08 RDW Std Deviation 67.4 fL (36.4-46.3) H 06/06/19 06:08 RDW Coeff of Roger 17.4 % (11.5-14.5) H 06/06/19 06:08 Plt Count 237 K/uL (130-400) 06/06/19 06:08 MPV 11.1 fL (7.4-10.4) H 06/06/19 06:08 Immature Gran % (Auto) 1.7 % 06/05/19 04:44 Neut % (Auto) 85.2 % 06/05/19 04:44 Lymph % (Auto) 10.0 % 06/05/19 04:44 [place] % (Auto) 3.0 % 06/05/19 04:44 Eos % (Auto) 0.0 % 06/05/19 04:44 Baso % (Auto) 0.1 % 06/05/19 04:44 Reticulocyte % (Auto) 1.9 % (0.5-2.0) 06/03/19 11:29 Immature Gran # (Auto) 0.15 K/uL (0.00-0.02) H 06/05/19 04:44 Neut # (Auto) 7.35 K/uL (1.4-6.5) H 06/05/19 04:44 Lymph # (Auto) 0.86 K/uL (1.2-3.4) L 06/05/19 04:44 [place] # (Auto) 0.26 K/uL (0.11-0.59) 06/05/19 04:44 Eos # (Auto) 0.00 K/uL (0-0.5) 06/05/19 04:44 Baso # (Auto) 0.01 K/uL (0-0.2) 06/05/19 04:44 Reticulocyte # 0.05 10^6/uL (0.02-0.10) 06/03/19 11:29 Neutrophils % (Manual) 44.4 % 06/03/19 00:24 Lymphocytes % (Manual) 21.7 % 06/03/19 00:24 Monocytes % (Manual) 1.7 % 06/03/19 00:24 Eosinophils % (Manual) 2.6 % 06/03/19 00:24 Basophils % (Manual) 0.9 % 06/03/19 00:24 Neutrophils # (Manual) 6.94 K/uL (1.4-6.5) H 06/03/19 00:24 Total Absolute Neuts 6.94 K/uL (1.4-6.5) H 06/03/19 00:24 Lymphocytes # (Manual) 3.39 K/uL (1.2-3.4) 06/03/19 00:24 Total Abs Lymphocytes 7.87 K/uL (1.2-3.4) H 06/03/19 00:24 Monocytes # (Manual) 0.27 K/uL (0.11-0.59) 06/03/19 00:24 Eosinophils # (Manual) 0.41 K/uL (0-0.5) 06/03/19 00:24 Basophils # (Manual) 0.14 K/uL (0-0.2) 06/03/19 00:24 Large Granular Lymphs 28.7 % 06/03/19 00:24 # Lrg Granular Lymphs 4.48 K/uL 06/03/19 00:24 Blood Smear Review 06/03/19 00:24 Polychromasia 1+ 06/03/19 00:24 PT 12.4 Seconds (9.0-12.0) H 06/03/19 00:24 INR 1.2 (0.9-1.1) H 06/03/19 00:24 Specimen Type Arterial 06/03/19 02:29 Sample Site Art Line 06/03/19 07:23 POC pH 7.49 (7.35-7.45) H 06/03/19 07:23 POC pCO2 37 mmHg (35-46) 06/03/19 07:23 POC pO2 67 mmHg (80-95) L 06/03/19 07:23 POC HCO3 28 jocelyn/L (19-24) H 06/03/19 07:23 POC Total CO2 29 mEq/l (24-31) 06/03/19 07:23 POC Base Excess 5.0 jocelyn/L (-9-1.8) H 06/03/19 07:23 ABG pH 7.40 (7.35-7.45) 06/07/19 12:52 ABG pH (Temp Correct) 7.521 (7.35-7.45) H* 06/03/19 07:23 ABG pCO2 50 mmHg (35-46) H 06/07/19 12:52 ABG pCO2 (Temp Corrct 34 mmHg (35-46) L 06/03/19 07:23 ABG pO2 71 mm/Hg (80-95) L 06/07/19 12:52 POC ABG pO2 at Pt Temp 58 06/03/19 07:23 ABG HCO3 30 mmol/L (19-24) H 06/07/19 12:52 POC ABG O2 Sat 95.0 % (90-95) 06/03/19 07:23 ABG O2 Saturation 92.5 % (90-95) 06/07/19 12:52 ABG Base Excess 4.8 mEq/L (-9-1.8) H 06/07/19 12:52 Jose Test Pos (Pos) 06/07/19 12:52 Barometric Pressure 738.0 mm/Hg 06/07/19 12:52 Oxygen Given 4L 06/07/19 12:52 O2 Delivery Device Ventilator 06/03/19 07:23 POC O2 Rate 14 06/03/19 07:23 Minute Ventilation 7.0 06/03/19 07:23 Tidal Volume 550 06/03/19 07:23 PEEP 5 06/03/19 07:23 POC Sodium 142 mEq/L (135-144) 06/03/19 00:26 Sodium 146 mmol/L (136-145) H 06/07/19 05:34 POC Potassium 4.6 mEq/L (3.3-5.0) 06/03/19 00:26 Potassium 4.5 mmol/L (3.5-5.1) 06/07/19 05:34 POC Chloride 105 mEq/L (101-112) 06/03/19 00:26 Chloride 111 mmol/L (98-107) H 06/07/19 05:34 Carbon Dioxide 31 mmol/L (21-32) 06/07/19 05:34 POC Total CO2 29 mEq/l (24-31) 06/03/19 00:26 Anion Gap 5.0 (3-11) 06/07/19 05:34 POC Anion Gap 13.0 mmol/L (16-25) L 06/03/19 00:26 POC BUN 54 mg/dl (7-18) H 06/03/19 00:26 BUN 68 mg/dl (7-18) H 06/07/19 05:34 Creatinine 1.47 mg/dl (0.6-1.4) H 06/07/19 05:34 POC Creatinine 1.4 mg/dl (0.6-1.3) H 06/03/19 00:26 Est Cr Clr Drug Dosing 42.5 ml/min 06/07/19 05:34 Est GFR ( Amer) 50.8 06/07/19 05:34 Est GFR (Non-Af Amer) 43.8 06/07/19 05:34 BUN/Creatinine Ratio 46.3 (10-20) H 06/07/19 05:34 Glucose 116 mg/dl (70-99) H 06/07/19 05:34 POC Glucose 112 (70-99) H 06/04/19 05:56 POC Glucose (other) 179 mg/dl (70-99) H 06/03/19 00:26 POC Lactic Acid Steve 3.22 mmol/L (0.90-1.70) H 06/03/19 00:30 Lactate 1.3 mmol/L (0.4-2.0) 06/04/19 02:39 Calcium 8.0 mg/dl (8.5-10.1) L 06/07/19 05:34 POC Ioniz Calcium Ca 1.07 mmol/l (1.12-1.32) L 06/03/19 00:26 Phosphorus 5.8 mg/dl (2.5-4.9) H 06/04/19 19:18 Magnesium 2.7 mg/dl (1.8-2.4) H 06/03/19 00:24 Iron 24 mcg/dl (35-175) L 06/03/19 11:29 TIBC 115 mcg/dl (250-450) L 06/03/19 11:29 Transferrin 99 mg/dl (200-360) L 06/03/19 11:29 Ferritin 632.8 ng/ml (8-388) H 06/03/19 11:29 Total Bilirubin 0.3 mg/dl (0.2-1) 06/05/19 04:44 AST 25 U/L (15-37) 06/05/19 04:44 ALT 15 U/L (12-78) 06/05/19 04:44 Alkaline Phosphatase 158 U/L (45-117) H 06/05/19 04:44 Lactate Dehydrogenase 268 U/L (87-241) H 06/03/19 13:29 Troponin I 0.103 ng/ml (0-0.045) H* 06/03/19 20:49 NT-Pro-B Natriuret Pep > 88347 pg/ml (0-1800) H 06/03/19 00:24 Total Protein 4.7 gm/dl (6.4-8.2) L 06/05/19 04:44 Albumin 1.6 gm/dl (3.4-5.0) L 06/05/19 04:44 Globulin 3.1 gm/dl (2.5-4.0) 06/05/19 04:44 Albumin/Globulin Ratio 0.5 (0.9-2) L 06/05/19 04:44 Prealbumin 7.1 mg/dl (20-40) L 06/03/19 13:29 Lipase 38 U/L (73-393) L 06/03/19 00:24 Vitamin B12 466 pg/ml (211-911) 06/03/19 11:29 Folate 8.88 ng/ml (>5.38) 06/03/19 11:29 TSH 59.900 uIu/ml (0.300-4.500) H 06/03/19 00:24 Free T4 0.56 ng/dl (0.8-1.6) L 06/03/19 11:29 Free T3 1.70 pg/ml (2.3-4.2) L 06/03/19 Unknown Random Cortisol 37.69 mcg/dl 06/03/19 10:53 Specimen Hemolysis 06/06/19 09:57 Urine Color Yellow 06/04/19 Unknown Urine Appearance Cloudy (Clear) A 06/04/19 Unknown Urine pH 5.0 (4.5-7.5) 06/04/19 Unknown Ur Specific [place] 1.042 (1.000-1.030) H 06/04/19 Unknown Urine Protein 1+ (Negative) H 06/04/19 Unknown Urine Glucose (UA) Negative (Negative) 06/04/19 Unknown Urine Ketones 1+ (Negative) H 06/04/19 Unknown Urine Blood 2+ (Negative) H 06/04/19 Unknown Urine Nitrite Negative (Negative) 06/04/19 Unknown Urine Bilirubin Negative (Negative) 06/04/19 Unknown Urine Urobilinogen Negative (Negative) 06/04/19 Unknown Ur Leukocyte Esterase 2+ (Negative) H 06/04/19 Unknown Urine WBC (Auto) >30 /hpf (0-5) H 06/04/19 Unknown Urine RBC (Auto) 10-30 /hpf (0-4) H 06/04/19 Unknown U Hyaline Cast (Auto) 10-30 /lpf (0-5) H 06/04/19 Unknown U Epithel Cells (Auto) >30 /lpf (0-5) H 06/04/19 Unknown Urine Bacteria (Auto) 1+ (Negative) H 06/04/19 Unknown Ur Renal Epithelial Cell Not Reportable 06/04/19 Unknown Pleural Fluid Source RIGHT LUNG 06/03/19 13:00 Pleural Color STRAW 06/03/19 13:00 Pleural Appearance CLEAR 06/03/19 13:00 Pleural pH 7.51 (7.3-7.4) H 06/03/19 13:00 Pleural WBC 100 /uL 06/03/19 13:00 Pleural RBC < 3000 /uL 06/03/19 13:00 Pleural Polynuclear % 24.2 % 06/03/19 13:00 Pleural Mononuclear % 75.8 % 06/03/19 13:00 Pleural Total Protein 1.2 g/dl 06/03/19 13:00 Pleural LDH 88 U/L 06/03/19 13:00 Pleural Glucose 105 mg/dl 06/03/19 13:00 Nasal Screen MRSA (PCR) Negative (Negative) 06/03/19 Unknown Stool Occult Bld Scrn Negative (Negative) 06/07/19 05:12 Thyroid Antimicrosomal <1 IU/ML (<9) 06/03/19 10:53 Thyroglobulin Antibody <1 IU/ML (<OR=1) 06/03/19 10:53 Bld Cult Staph aureus PCR Negative (Negative) 06/03/19 00:26 Blood Culture MRSA PCR Negative (Negative) 06/03/19 00:26 Blood Type A Positive 06/03/19 00:25 Antibody Screen NEGATIVE 06/03/19 00:25 PG Care Time/CCT Total # of Minutes Spent Total Time Spent with Patient: Total time spent is greater than 50% in coordination of care (as documented) at patient's floor/unit and/or counseling patient: Resident Activity Tracking Resident Involvement: Resident Care Provided Care Provided: Adult Hospital Medicine (1) Pulmonary edema Chronicity: acute Qualified Code(s): J81.0 - Acute pulmonary edema
[2019-06-07] MEDS ORDERED: LISINOPRIL 10 MG TAB PO SCH (18:30)
[2019-06-07] MEDS: PEPTAMEN INTENSE VHP 1.0 CAL 1,000 ML BAG ND SCH (18:35)
[2019-06-07] MEDS: NICOTINE 7 MG/24 HR TDSY TD SCH (19:11)
[2019-06-08 05:55] LABS: Hematocrit (blood only) 28.9 % (42-52); Hemoglobin 8.7 g/dL (14.0-18.0); Mean Corpuscular Hgb Conc 30.1 g/dL (32-36); Mean Corpuscular Volume 106.3 fL (80-100); Platelet Count 221 K/uL (130-400); RDW Coefficient of Variation 17.5 % (11.5-14.5); Red Blood Count 2.72 M/uL (4.7-6.1); White Blood Count 6.39 K/uL (4.8-10.8)
[2019-06-08] MEDS: LEVOTHYROXINE SODIUM 100 MCG TABLET PO SCH (06:07)
[2019-06-08] MEDS: [UNRECOGNIZED DRUG - REMARK] SCH (06:07)
[2019-06-08 06:27] LABS: BUN Creatinine Ratio 54.9 (10-20); Calcium 7.5 mg/dl (8.5-10.1); Creatinine Clr Calc Pharmacy 48.4 ml/min; Est GFR (African American) 59.4; Est GFR (Non-African American) 51.3; Potassium 4.4 mmol/L (3.5-5.1)
[2019-06-08] MEDS: ENOXAPARIN INJ 40 MG/0.4 ML SYR SQ SCH (07:49)
[2019-06-08] MEDS: FUROSEMIDE 80 MG in SYRINGE 0 ML IV SCH ×2 (07:50→17:04)
[2019-06-08] MEDS: NICOTINE 7 MG/24 HR TDSY TD SCH (07:52)
[2019-06-08] MEDS: PANCREAZE (LIPASE 16,800U) CAP PO SCH ×3 (07:52→17:04)
[2019-06-08] MEDS: ALBUT/IPRATROP 3MG/0.5MG NEB 3 ML VIAL NEB SCH ×4 (11:50→22:54)
[2019-06-08] MEDS: methylPREDNISolone 80 MG in SYRINGE 0 ML IV SCH ×2 (13:29→21:02)
[2019-06-08] MEDS: SACUBITRIL-VALSARTAN 24-26 MG TAB PO SCH ×2 (13:29→21:02)
[2019-06-08] MEDS ORDERED: LABETALOL HCL IV 5 MG/ML 20ML IV STA (16:45)
[2019-06-08] MEDS ORDERED: HydrALAZINE 10 MG TAB PO STA (16:59)
[2019-06-08] MEDS: PEPTAMEN INTENSE VHP 1.0 CAL 1,000 ML BAG ND SCH (19:10)
[2019-06-09] MEDS: ALBUT/IPRATROP 3MG/0.5MG NEB 3 ML VIAL NEB SCH ×6 (04:19→23:41)
[2019-06-09] MEDS: methylPREDNISolone 80 MG in SYRINGE 0 ML IV SCH ×3 (05:30→21:01)
[2019-06-09] MEDS: LEVOTHYROXINE SODIUM 100 MCG TABLET PO SCH (05:30)
[2019-06-09 06:20] LABS: BUN Creatinine Ratio 60.8 (10-20); Calcium 7.5 mg/dl (8.5-10.1); Creatinine Clr Calc Pharmacy 48.3 ml/min; Est GFR (African American) 66.2; Est GFR (Non-African American) 57.1
[2019-06-09] MEDS: [UNRECOGNIZED DRUG - REMARK] SCH (06:47)
--- NOTE | 2019-06-09 07:31 | Family Medicine Progress Note ---
Date of Service June 08, 2019 June 09, 2019 Assessment & Plan (1) Acute respiratory failure with hypoxia: Acute Respiratory Failure with Hypoxia due to mixed disease etiology; admitted for shortness of breath. See below for specific etiology plan breakdowns. 1) CHF with low ejection fraction - JESSIE shows EF of 30-35% - mild Aortic+Mitral+Tricuspid regurg - elevated right ventricular pressures likely 2/2 pulmonary vascular congestion and edema - Lasix to 80 BID. Pt does not appear objectively dry, however electrolytes appear to be slowly rising. May benefit from increased PO fluid intake. - Started Entresto today - does not appear to be intravascularly dry at this time, will try to balance intravascular support with extravascular fluid depletion - concern for maintaining renal function [BUN/Cr of 71/1.29 today]. Continuing to improve - (-4.5L for visit) 2) Hypothyroidism/Myxedema Coma - TSH of 59.9, T4 0.56, T3 1.70 on presentation - supplementing levothyroxine; now on 100 PO QD - unsure of etiology of MC; possibly 2/2 chemotherapy regimen. Abnormal for presentation this late in life without acute aggravation of disorder 3) Anasarca/Hypoproteinemia - Albumin of 2 - mainstay of treatment is to increase protein levels and nutritional status - Dietary consult in place - TPN through NG tube and PO diet as tolerated - PEG tube placement is an option prior to discharge however given patient's recent arthroplasty and prior abdominal surgeries would need to be an open surgery and I am not certain the patient has the reserve to recover from another surgery at this point - added lipase enzymes per dietary recommendation (3 tabs 16,000 U per meal) 4) Bilateral Pleural Effusion - thoracentesis in MICU drained fluid from right side, chest CT afterwards showed L pleural effusion still present - Light's criteria negative. Transudative effusion on par with above disease processes - O2 dependent at home on 2L NC - currently maintaining proper saturation on 4L NC - given concern for weakening costochondral muscles, ABG and chest CT wo contrast ordered to evaluate for parapneumonic effusion/developing PNA and hypercapnia indicative of weakening chest strength - ABG returned showing 7.40/50/71/30. This is more in line with chronic than acute metabolic change. - CT Chest showed moderate pulmonary edema, moderate BL pleural effusion with mild improvement from prior films Present on Admission?: Yes (2) Elevated TSH: (3) Bilateral pleural effusion: (4) Myxedema coma: (5) Hypoalbuminemia: (6) Pulmonary edema: (7) Anasarca: (8) Anemia: (9) HTN (hypertension): (10) HLD (hyperlipidemia): (11) Pancreatic cancer: Supervising Physician Co-Signing Physician Notes I personally examined the patient and verified all ca points of history and exam, discussed case, and agree with decision making with Dr Junior. Feeling better. Eating reasonably well. Vitals noted, in general he is awake and alert pleasant no distress. HEENT normocephalic atraumatic mucous membranes moist. Lungs were clear. No significant rales rhonchi or wheezes. Pulmonary edema/acute hypoxic respiratory failure -Edema appears to be due to acute on chronic systolic CHF, anasarca/protein malnutrition mediated edema, and myxedema mediated edema -Responding nicely to diuretics. Continue to follow -Continue to re-nourish as best as possible (p.o. intake has been reasonable, give consideration of appetite stimulant) -Continue Synthroid p.o. Hypothyroidism/myxedema -continue Synthroid to p.o. Because of concern on short gut, while it would be far too soon to have meaningful change, we will likely check a TSH soon just to ensure that it is trending in the right direction on oral Synthroid. Severe protein calorie malnutrition -Continue to encourage oral intake, continue tube feeds for now, but hopefully DC NG in the next day or 2 as his oral intake is improving. -Continue pancreatic enzyme supplement (appreciate RD suggestion!) -Consider appetite stimulant, but hopefully this will be needed. Systolic congestive heart failure -See above, diuresis. Tolerating Entresto. Continue to follow. Creatinine improving. Otherwise as above Subjective Patient does not subjectively appreciate any improvement in his condition from yesterday the . Still complaining of wheezing and general shortness of breath that is improved with sitting upright and being on nasal cannula. Has a cough but unable to expectorate any sputum. Denies any other symptomology. Review of Systems Constitutional: + weakness; no fever, no chills, no body aches and no increased appetite Respiratory: + cough and + dyspnea; no pain on inspiration, no pain with cough and no sputum production Cardiovascular: + edema; no chest pain Gastrointestinal: + early satiety; no abdominal pain, no nausea, no vomiting, no cramping, no constipation and no diarrhea/loose stools Physical Exam Constitutional: well developed, + thin, cooperative and comfortable Respiratory: + labored breathing and + cough; no retractions and does not use accessory muscles Auscultation: + wheezes; no crackles, no rhonchi and no pleural rub lungs bilaterally sound much much better from previous exams. No crackles apparent, lungs now sound like COPD lungs instead of being overloaded with fluid. Cardiovascular: Rate/Rhythm: regular rate and regular rhythm Heart Sounds: no abnormal opening sounds, no click, no gallop and no murmur Skin: + rash (redness on left forearm forming under location of previous wrapping) and + ulcer (Sacral ulcer documented by nursing) Results & Data Vital Signs (Past 12 Hours) Vital Signs Temp Pulse Resp BP BP Pulse Ox 06/09/19 07:17 36.5 C 69 18 177/78 H 100 06/08/19 23:00 36.3 C L 74 20 156/70 H 97 Laboratory Results WBC 6.39 K/uL (4.8-10.8) 06/08/19 05:15 RBC 2.72 M/uL (4.7-6.1) L 06/08/19 05:15 Hgb 8.7 g/dL (14.0-18.0) L 06/08/19 05:15 POC Hgb 9.9 g/dl (14.0-18.0) L 06/03/19 00:26 Hct 28.9 % (42-52) L 06/08/19 05:15 POC Hct 29 % (42-52) L 06/03/19 00:26 MCV 106.3 fL (80-100) H 06/08/19 05:15 MCH 32.0 pg (25-34) 06/08/19 05:15 MCHC 30.1 g/dL (32-36) L 06/08/19 05:15 RDW Std Deviation 67.0 fL (36.4-46.3) H 06/08/19 05:15 RDW Coeff of Roger 17.5 % (11.5-14.5) H 06/08/19 05:15 Plt Count 221 K/uL (130-400) 06/08/19 05:15 MPV 11.0 fL (7.4-10.4) H 06/08/19 05:15 Immature Gran % (Auto) 1.7 % 06/05/19 04:44 Neut % (Auto) 85.2 % 06/05/19 04:44 Lymph % (Auto) 10.0 % 06/05/19 04:44 [place] % (Auto) 3.0 % 06/05/19 04:44 Eos % (Auto) 0.0 % 06/05/19 04:44 Baso % (Auto) 0.1 % 06/05/19 04:44 Reticulocyte % (Auto) 1.9 % (0.5-2.0) 06/03/19 11:29 Immature Gran # (Auto) 0.15 K/uL (0.00-0.02) H 06/05/19 04:44 Neut # (Auto) 7.35 K/uL (1.4-6.5) H 06/05/19 04:44 Lymph # (Auto) 0.86 K/uL (1.2-3.4) L 06/05/19 04:44 [place] # (Auto) 0.26 K/uL (0.11-0.59) 06/05/19 04:44 Eos # (Auto) 0.00 K/uL (0-0.5) 06/05/19 04:44 Baso # (Auto) 0.01 K/uL (0-0.2) 06/05/19 04:44 Reticulocyte # 0.05 10^6/uL (0.02-0.10) 06/03/19 11:29 Neutrophils % (Manual) 44.4 % 06/03/19 00:24 Lymphocytes % (Manual) 21.7 % 06/03/19 00:24 Monocytes % (Manual) 1.7 % 06/03/19 00:24 Eosinophils % (Manual) 2.6 % 06/03/19 00:24 Basophils % (Manual) 0.9 % 06/03/19 00:24 Neutrophils # (Manual) 6.94 K/uL (1.4-6.5) H 06/03/19 00:24 Total Absolute Neuts 6.94 K/uL (1.4-6.5) H 06/03/19 00:24 Lymphocytes # (Manual) 3.39 K/uL (1.2-3.4) 06/03/19 00:24 Total Abs Lymphocytes 7.87 K/uL (1.2-3.4) H 06/03/19 00:24 Monocytes # (Manual) 0.27 K/uL (0.11-0.59) 06/03/19 00:24 Eosinophils # (Manual) 0.41 K/uL (0-0.5) 06/03/19 00:24 Basophils # (Manual) 0.14 K/uL (0-0.2) 06/03/19 00:24 Large Granular Lymphs 28.7 % 06/03/19 00:24 # Lrg Granular Lymphs 4.48 K/uL 06/03/19 00:24 Blood Smear Review 06/03/19 00:24 Polychromasia 1+ 06/03/19 00:24 PT 12.4 Seconds (9.0-12.0) H 06/03/19 00:24 INR 1.2 (0.9-1.1) H 06/03/19 00:24 Specimen Type Arterial 06/03/19 02:29 Sample Site Art Line 06/03/19 07:23 POC pH 7.49 (7.35-7.45) H 06/03/19 07:23 POC pCO2 37 mmHg (35-46) 06/03/19 07:23 POC pO2 67 mmHg (80-95) L 06/03/19 07:23 POC HCO3 28 jocelyn/L (19-24) H 06/03/19 07:23 POC Total CO2 29 mEq/l (24-31) 06/03/19 07:23 POC Base Excess 5.0 jocelyn/L (-9-1.8) H 06/03/19 07:23 ABG pH 7.40 (7.35-7.45) 06/07/19 12:52 ABG pH (Temp Correct) 7.521 (7.35-7.45) H* 06/03/19 07:23 ABG pCO2 50 mmHg (35-46) H 06/07/19 12:52 ABG pCO2 (Temp Corrct 34 mmHg (35-46) L 06/03/19 07:23 ABG pO2 71 mm/Hg (80-95) L 06/07/19 12:52 POC ABG pO2 at Pt Temp 58 06/03/19 07:23 ABG HCO3 30 mmol/L (19-24) H 06/07/19 12:52 POC ABG O2 Sat 95.0 % (90-95) 06/03/19 07:23 ABG O2 Saturation 92.5 % (90-95) 06/07/19 12:52 ABG Base Excess 4.8 mEq/L (-9-1.8) H 06/07/19 12:52 Jose Test Pos (Pos) 06/07/19 12:52 Barometric Pressure 738.0 mm/Hg 06/07/19 12:52 Oxygen Given 4L 06/07/19 12:52 O2 Delivery Device Ventilator 06/03/19 07:23 POC O2 Rate 14 06/03/19 07:23 Minute Ventilation 7.0 06/03/19 07:23 Tidal Volume 550 06/03/19 07:23 PEEP 5 06/03/19 07:23 POC Sodium 142 mEq/L (135-144) 06/03/19 00:26 Sodium 146 mmol/L (136-145) H 06/09/19 05:12 POC Potassium 4.6 mEq/L (3.3-5.0) 06/03/19 00:26 Potassium 4.0 mmol/L (3.5-5.1) 06/09/19 05:12 POC Chloride 105 mEq/L (101-112) 06/03/19 00:26 Chloride 110 mmol/L (98-107) H 06/09/19 05:12 Carbon Dioxide 30 mmol/L (21-32) 06/09/19 05:12 POC Total CO2 29 mEq/l (24-31) 06/03/19 00:26 Anion Gap 6.0 (3-11) 06/09/19 05:12 POC Anion Gap 13.0 mmol/L (16-25) L 06/03/19 00:26 POC BUN 54 mg/dl (7-18) H 06/03/19 00:26 BUN 72 mg/dl (7-18) H 06/09/19 05:12 Creatinine 1.18 mg/dl (0.6-1.4) 06/09/19 05:12 POC Creatinine 1.4 mg/dl (0.6-1.3) H 06/03/19 00:26 Est Cr Clr Drug Dosing 48.3 ml/min 06/09/19 05:12 Est GFR ( Amer) 66.2 06/09/19 05:12 Est GFR (Non-Af Amer) 57.1 06/09/19 05:12 BUN/Creatinine Ratio 60.8 (10-20) H 06/09/19 05:12 Glucose 193 mg/dl (70-99) H 06/09/19 05:12 POC Glucose 112 (70-99) H 06/04/19 05:56 POC Glucose (other) 179 mg/dl (70-99) H 06/03/19 00:26 POC Lactic Acid Steve 3.22 mmol/L (0.90-1.70) H 06/03/19 00:30 Lactate 1.3 mmol/L (0.4-2.0) 06/04/19 02:39 Calcium 7.5 mg/dl (8.5-10.1) L 06/09/19 05:12 POC Ioniz Calcium Ca 1.07 mmol/l (1.12-1.32) L 06/03/19 00:26 Phosphorus 5.8 mg/dl (2.5-4.9) H 06/04/19 19:18 Magnesium 2.7 mg/dl (1.8-2.4) H 06/03/19 00:24 Iron 24 mcg/dl (35-175) L 06/03/19 11:29 TIBC 115 mcg/dl (250-450) L 06/03/19 11:29 Transferrin 99 mg/dl (200-360) L 06/03/19 11:29 Ferritin 632.8 ng/ml (8-388) H 06/03/19 11:29 Total Bilirubin 0.3 mg/dl (0.2-1) 06/05/19 04:44 AST 25 U/L (15-37) 06/05/19 04:44 ALT 15 U/L (12-78) 06/05/19 04:44 Alkaline Phosphatase 158 U/L (45-117) H 06/05/19 04:44 Lactate Dehydrogenase 268 U/L (87-241) H 06/03/19 13:29 Troponin I 0.103 ng/ml (0-0.045) H* 06/03/19 20:49 NT-Pro-B Natriuret Pep > 77769 pg/ml (0-1800) H 06/03/19 00:24 Total Protein 4.7 gm/dl (6.4-8.2) L 06/05/19 04:44 Albumin 1.6 gm/dl (3.4-5.0) L 06/05/19 04:44 Globulin 3.1 gm/dl (2.5-4.0) 06/05/19 04:44 Albumin/Globulin Ratio 0.5 (0.9-2) L 06/05/19 04:44 Prealbumin 7.1 mg/dl (20-40) L 06/03/19 13:29 Lipase 38 U/L (73-393) L 06/03/19 00:24 Vitamin B12 466 pg/ml (211-911) 06/03/19 11:29 Folate 8.88 ng/ml (>5.38) 06/03/19 11:29 TSH 59.900 uIu/ml (0.300-4.500) H 06/03/19 00:24 Free T4 0.56 ng/dl (0.8-1.6) L 06/03/19 11:29 Free T3 1.70 pg/ml (2.3-4.2) L 06/03/19 Unknown Random Cortisol 37.69 mcg/dl 06/03/19 10:53 Specimen Hemolysis 06/06/19 09:57 Urine Color Yellow 06/04/19 Unknown Urine Appearance Cloudy (Clear) A 06/04/19 Unknown Urine pH 5.0 (4.5-7.5) 06/04/19 Unknown Ur Specific [place] 1.042 (1.000-1.030) H 06/04/19 Unknown Urine Protein 1+ (Negative) H 06/04/19 Unknown Urine Glucose (UA) Negative (Negative) 06/04/19 Unknown Urine Ketones 1+ (Negative) H 06/04/19 Unknown Urine Blood 2+ (Negative) H 06/04/19 Unknown Urine Nitrite Negative (Negative) 06/04/19 Unknown Urine Bilirubin Negative (Negative) 06/04/19 Unknown Urine Urobilinogen Negative (Negative) 06/04/19 Unknown Ur Leukocyte Esterase 2+ (Negative) H 06/04/19 Unknown Urine WBC (Auto) >30 /hpf (0-5) H 06/04/19 Unknown Urine RBC (Auto) 10-30 /hpf (0-4) H 06/04/19 Unknown U Hyaline Cast (Auto) 10-30 /lpf (0-5) H 06/04/19 Unknown U Epithel Cells (Auto) >30 /lpf (0-5) H 06/04/19 Unknown Urine Bacteria (Auto) 1+ (Negative) H 06/04/19 Unknown Ur Renal Epithelial Cell Not Reportable 06/04/19 Unknown Pleural Fluid Source RIGHT LUNG 06/03/19 13:00 Pleural Color STRAW 06/03/19 13:00 Pleural Appearance CLEAR 06/03/19 13:00 Pleural pH 7.51 (7.3-7.4) H 06/03/19 13:00 Pleural WBC 100 /uL 06/03/19 13:00 Pleural RBC < 3000 /uL 06/03/19 13:00 Pleural Polynuclear % 24.2 % 06/03/19 13:00 Pleural Mononuclear % 75.8 % 06/03/19 13:00 Pleural Total Protein 1.2 g/dl 06/03/19 13:00 Pleural LDH 88 U/L 06/03/19 13:00 Pleural Glucose 105 mg/dl 06/03/19 13:00 Nasal Screen MRSA (PCR) Negative (Negative) 06/03/19 Unknown Stool Occult Bld Scrn Negative (Negative) 06/07/19 05:12 Thyroid Antimicrosomal <1 IU/ML (<9) 06/03/19 10:53 Thyroglobulin Antibody <1 IU/ML (<OR=1) 06/03/19 10:53 Bld Cult Staph aureus PCR Negative (Negative) 06/03/19 00:26 Blood Culture MRSA PCR Negative (Negative) 06/03/19 00:26 Blood Type A Positive 06/03/19 00:25 Antibody Screen NEGATIVE 06/03/19 00:25 PG Care Time/CCT Total # of Minutes Spent Total Time Spent with Patient: Total time spent is greater than 50% in coordination of care (as documented) at patient's floor/unit and/or counseling patient: Resident Activity Tracking Resident Involvement: Resident Care Provided Care Provided: Adult Hospital Medicine (1) Anemia Anemia type: unspecified type Qualified Code(s): D64.9 - Anemia, unspecified (2) Pulmonary edema Chronicity: acute Qualified Code(s): J81.0 - Acute pulmonary edema
[2019-06-09] MEDS: ENOXAPARIN INJ 40 MG/0.4 ML SYR SQ SCH (07:46)
[2019-06-09] MEDS: SACUBITRIL-VALSARTAN 24-26 MG TAB PO SCH (07:46)
[2019-06-09] MEDS: PANCREAZE (LIPASE 16,800U) CAP PO SCH ×3 (07:46→17:30)
[2019-06-09] MEDS: NICOTINE 7 MG/24 HR TDSY TD SCH ×2 (07:47→08:23)
[2019-06-09] MEDS ORDERED: SACUBITRIL-VALSARTAN 24-26 MG TAB PO SCH (09:00)
[2019-06-09] MEDS: FUROSEMIDE 80 MG in SYRINGE 0 ML IV SCH ×2 (09:16→17:30)
--- NOTE | 2019-06-09 10:52 | Family Medicine Progress Note ---
Date of Service June 09, 2019 Assessment & Plan (1) Acute respiratory failure with hypoxia: Acute Respiratory Failure with Hypoxia due to mixed disease etiology; admitted for shortness of breath. See below for specific etiology plan breakdowns. 1) CHF with low ejection fraction - JESSIE shows EF of 30-35% - mild Aortic+Mitral+Tricuspid regurg - elevated right ventricular pressures likely 2/2 pulmonary vascular congestion and edema - Lasix to 80 BID. Pt does not appear objectively dry, however electrolytes appear to be slowly rising. May benefit from increased PO fluid intake. - Started Entresto yesterday - does not appear to be intravascularly dry at this time, will try to balance intravascular support with extravascular fluid depletion - concern for maintaining renal function [BUN/Cr of 72/1.18 today]. Continuing to improve - (-4.5L for visit) 2) Hypothyroidism/Myxedema Coma - TSH of 59.9, T4 0.56, T3 1.70 on presentation - supplementing levothyroxine; now on 100 PO QD - unsure of etiology of MC; possibly 2/2 chemotherapy regimen. Abnormal for presentation this late in life without acute aggravation of disorder - This weekend will order TSH to evaluate how well MC has improved on oral levothyroxine and if any changes need to be made 3) Anasarca/Hypoproteinemia - Albumin of 2 - mainstay of treatment is to increase protein levels and nutritional status - Dietary consult in place - TPN through NG tube and PO diet as tolerated - PEG tube placement is an option prior to discharge however given patient's recent arthroplasty and prior abdominal surgeries would need to be an open surgery and I am not certain the patient has the reserve to recover from another surgery at this point - added lipase enzymes per dietary recommendation (3 tabs 16,000 U per meal) - pt requires basal 1500 calories per day for daily nutrition. In order to supplement and gain weight+protein reserve, goal should be [id number] calories per day. Can supplement Ensure Plus drinks in between Heart Healthy Meals to increase healthy caloric intake. Patient prefers Howard flavor. 4) Bilateral Pleural Effusion - thoracentesis in MICU drained fluid from right side, chest CT afterwards showed L pleural effusion still present - Light's criteria negative. Transudative effusion on par with above disease processes - O2 dependent at home on 2L NC - currently maintaining proper saturation on 4L NC - given concern for weakening costochondral muscles, ABG and chest CT wo contrast ordered to evaluate for parapneumonic effusion/developing PNA and hypercapnia indicative of weakening chest strength - ABG returned showing 7.40/50/71/30. This is more in line with chronic than acute metabolic change. - CT Chest showed moderate pulmonary edema, moderate BL pleural effusion with mild improvement from prior films - Per physical exam appears to still be resolving and progressing. (2) Elevated TSH: (3) Bilateral pleural effusion: (4) Myxedema coma: (5) Hypoalbuminemia: (6) Pulmonary edema: (7) Anasarca: (8) Anemia: (9) HTN (hypertension): - Started on Entresto yesterday () - Blood pressure has been high the last 48 hours, added PRN Hydralazine 10 for pressures over 180/90 - Considering restarting amlodipine 10 in conjunction with Entresto (10) HLD (hyperlipidemia): - holding statin for now (11) Pancreatic cancer: - s/p Whipple procedure Oct 2018, currently undergoing chemotherapy outpatient. Supervising Physician Co-Signing Physician Notes I personally examined the patient and verified all ca points of history and exam, discussed case, and agree with decision making with Dr Junior. continues to feel better, breathing slowly getting better, eating fairly well. Vitals noted, in general he is awake and alert pleasant no distress. HEENT normocephalic atraumatic mucous membranes moist. Breathing unlabored no accessory muscles good effort. Pulmonary edema/acute hypoxic respiratory failure -Edema appears to be due to acute on chronic systolic CHF, anasarca/protein malnutrition mediated edema, and myxedema mediated edema -Responding well to diuretics. Continue to follow but is he continues to put out fluid, blood pressure remained stable and creatinine remains stable continue with IV diuresis -Continue to re-nourish as best as possible (p.o. intake has been reasonable, give consideration of appetite stimulant) -Continue Synthroid p.o. Hypothyroidism/myxedema -continue Synthroid to p.o. Because of concern on short gut, while it would be far too soon to have meaningful change, we will likely check a TSH tomorrow just to ensure that it is trending in the right direction on oral Synthroid. Severe protein calorie malnutrition -Continue to encourage oral intake, he is doing well enough we will cautiously stop NG tube (tube pulled by Dr. Junior with my supervision) -Continue pancreatic enzyme supplement (appreciate RD suggestion!) -Consider appetite stimulant, but hopefully this will be needed. Systolic congestive heart failure -See above, diuresis. Tolerating Entrestotitrate up. Continue to follow. Creatinine improving. Otherwise as above Subjective Mr. Lira today is feeling marginally better with his breathing. He still requires the nasal cannula, but continues to improve. Talked with him extensively about trying to control his blood pressure with Entresto and perhaps amlodipine today. Also talked extensively about the importance of increasing caloric intake for him and making sure he has 2000+ calories per day. He was understanding and amenable to this, and requested Howard Ensure between meals to help accomplish this. Review of Systems Constitutional: + weakness; no fever and no chills Respiratory: + cough and + dyspnea; no pain on inspiration, no pain with cough and no sputum production Cardiovascular: + edema; no chest pain and no calf pain Gastrointestinal: no abdominal pain, no nausea, no vomiting, no constipation and no diarrhea/loose stools Physical Exam Constitutional: cooperative, comfortable, + malnourished, + overweight and + edematous Pleasantly sitting up in his chair enjoying the sunshine. Considerably less trouble breathing and speaking, though he is on 6L NC which is higher than he previously has been. Respiratory: normal respiratory effort and able to speak in complete sentences; no respiratory distress, no retractions, does not use accessory muscles and no tripod positioning Auscultation: lungs clear to auscultation bilaterally and + wheezes; no crackles, no rales and no rhonchi Right lung has more expiratory wheezes than left but both clearing well with medication management and breathing treatments. Left lung middle lobe almost sounds clear at this point. Cardiovascular: Rate/Rhythm: regular rate and regular rhythm Heart Sounds: no abnormal opening sounds, no click, no gallop and no murmur Extremities: + edema; no calf tenderness Results & Data Vital Signs (Past 12 Hours) Vital Signs Temp Pulse Resp BP BP Pulse Ox 06/09/19 07:18 67 16 99 06/09/19 07:17 36.5 C 69 18 177/78 H 100 06/08/19 23:00 36.3 C L 74 20 156/70 H 97 Laboratory Results WBC 6.39 K/uL (4.8-10.8) 06/08/19 05:15 RBC 2.72 M/uL (4.7-6.1) L 06/08/19 05:15 Hgb 8.7 g/dL (14.0-18.0) L 06/08/19 05:15 POC Hgb 9.9 g/dl (14.0-18.0) L 06/03/19 00:26 Hct 28.9 % (42-52) L 06/08/19 05:15 POC Hct 29 % (42-52) L 06/03/19 00:26 MCV 106.3 fL (80-100) H 06/08/19 05:15 MCH 32.0 pg (25-34) 06/08/19 05:15 MCHC 30.1 g/dL (32-36) L 06/08/19 05:15 RDW Std Deviation 67.0 fL (36.4-46.3) H 06/08/19 05:15 RDW Coeff of Roger 17.5 % (11.5-14.5) H 06/08/19 05:15 Plt Count 221 K/uL (130-400) 06/08/19 05:15 MPV 11.0 fL (7.4-10.4) H 06/08/19 05:15 Immature Gran % (Auto) 1.7 % 06/05/19 04:44 Neut % (Auto) 85.2 % 06/05/19 04:44 Lymph % (Auto) 10.0 % 06/05/19 04:44 Kay % (Auto) 3.0 % 06/05/19 04:44 Eos % (Auto) 0.0 % 06/05/19 04:44 Baso % (Auto) 0.1 % 06/05/19 04:44 Reticulocyte % (Auto) 1.9 % (0.5-2.0) 06/03/19 11:29 Immature Gran # (Auto) 0.15 K/uL (0.00-0.02) H 06/05/19 04:44 Neut # (Auto) 7.35 K/uL (1.4-6.5) H 06/05/19 04:44 Lymph # (Auto) 0.86 K/uL (1.2-3.4) L 06/05/19 04:44 Kay # (Auto) 0.26 K/uL (0.11-0.59) 06/05/19 04:44 Eos # (Auto) 0.00 K/uL (0-0.5) 06/05/19 04:44 Baso # (Auto) 0.01 K/uL (0-0.2) 06/05/19 04:44 Reticulocyte # 0.05 10^6/uL (0.02-0.10) 06/03/19 11:29 Neutrophils % (Manual) 44.4 % 06/03/19 00:24 Lymphocytes % (Manual) 21.7 % 06/03/19 00:24 Monocytes % (Manual) 1.7 % 06/03/19 00:24 Eosinophils % (Manual) 2.6 % 06/03/19 00:24 Basophils % (Manual) 0.9 % 06/03/19 00:24 Neutrophils # (Manual) 6.94 K/uL (1.4-6.5) H 06/03/19 00:24 Total Absolute Neuts 6.94 K/uL (1.4-6.5) H 06/03/19 00:24 Lymphocytes # (Manual) 3.39 K/uL (1.2-3.4) 06/03/19 00:24 Total Abs Lymphocytes 7.87 K/uL (1.2-3.4) H 06/03/19 00:24 Monocytes # (Manual) 0.27 K/uL (0.11-0.59) 06/03/19 00:24 Eosinophils # (Manual) 0.41 K/uL (0-0.5) 06/03/19 00:24 Basophils # (Manual) 0.14 K/uL (0-0.2) 06/03/19 00:24 Large Granular Lymphs 28.7 % 06/03/19 00:24 # Lrg Granular Lymphs 4.48 K/uL 06/03/19 00:24 Blood Smear Review 06/03/19 00:24 Polychromasia 1+ 06/03/19 00:24 PT 12.4 Seconds (9.0-12.0) H 06/03/19 00:24 INR 1.2 (0.9-1.1) H 06/03/19 00:24 Specimen Type Arterial 06/03/19 02:29 Sample Site Art Line 06/03/19 07:23 POC pH 7.49 (7.35-7.45) H 06/03/19 07:23 POC pCO2 37 mmHg (35-46) 06/03/19 07:23 POC pO2 67 mmHg (80-95) L 06/03/19 07:23 POC HCO3 28 jocelyn/L (19-24) H 06/03/19 07:23 POC Total CO2 29 mEq/l (24-31) 06/03/19 07:23 POC Base Excess 5.0 jocelyn/L (-9-1.8) H 06/03/19 07:23 ABG pH 7.40 (7.35-7.45) 06/07/19 12:52 ABG pH (Temp Correct) 7.521 (7.35-7.45) H* 06/03/19 07:23 ABG pCO2 50 mmHg (35-46) H 06/07/19 12:52 ABG pCO2 (Temp Corrct 34 mmHg (35-46) L 06/03/19 07:23 ABG pO2 71 mm/Hg (80-95) L 06/07/19 12:52 POC ABG pO2 at Pt Temp 58 06/03/19 07:23 ABG HCO3 30 mmol/L (19-24) H 06/07/19 12:52 POC ABG O2 Sat 95.0 % (90-95) 06/03/19 07:23 ABG O2 Saturation 92.5 % (90-95) 06/07/19 12:52 ABG Base Excess 4.8 mEq/L (-9-1.8) H 06/07/19 12:52 Jose Test Pos (Pos) 06/07/19 12:52 Barometric Pressure 738.0 mm/Hg 06/07/19 12:52 Oxygen Given 4L 06/07/19 12:52 O2 Delivery Device Ventilator 06/03/19 07:23 POC O2 Rate 14 06/03/19 07:23 Minute Ventilation 7.0 06/03/19 07:23 Tidal Volume 550 06/03/19 07:23 PEEP 5 06/03/19 07:23 POC Sodium 142 mEq/L (135-144) 06/03/19 00:26 Sodium 146 mmol/L (136-145) H 06/09/19 05:12 POC Potassium 4.6 mEq/L (3.3-5.0) 06/03/19 00:26 Potassium 4.0 mmol/L (3.5-5.1) 06/09/19 05:12 POC Chloride 105 mEq/L (101-112) 06/03/19 00:26 Chloride 110 mmol/L (98-107) H 06/09/19 05:12 Carbon Dioxide 30 mmol/L (21-32) 06/09/19 05:12 POC Total CO2 29 mEq/l (24-31) 06/03/19 00:26 Anion Gap 6.0 (3-11) 06/09/19 05:12 POC Anion Gap 13.0 mmol/L (16-25) L 06/03/19 00:26 POC BUN 54 mg/dl (7-18) H 06/03/19 00:26 BUN 72 mg/dl (7-18) H 06/09/19 05:12 Creatinine 1.18 mg/dl (0.6-1.4) 06/09/19 05:12 POC Creatinine 1.4 mg/dl (0.6-1.3) H 06/03/19 00:26 Est Cr Clr Drug Dosing 48.3 ml/min 06/09/19 05:12 Est GFR ( Amer) 66.2 06/09/19 05:12 Est GFR (Non-Af Amer) 57.1 06/09/19 05:12 BUN/Creatinine Ratio 60.8 (10-20) H 06/09/19 05:12 Glucose 193 mg/dl (70-99) H 06/09/19 05:12 POC Glucose 112 (70-99) H 06/04/19 05:56 POC Glucose (other) 179 mg/dl (70-99) H 06/03/19 00:26 POC Lactic Acid Steve 3.22 mmol/L (0.90-1.70) H 06/03/19 00:30 Lactate 1.3 mmol/L (0.4-2.0) 06/04/19 02:39 Calcium 7.5 mg/dl (8.5-10.1) L 06/09/19 05:12 POC Ioniz Calcium Ca 1.07 mmol/l (1.12-1.32) L 06/03/19 00:26 Phosphorus 5.8 mg/dl (2.5-4.9) H 06/04/19 19:18 Magnesium 2.7 mg/dl (1.8-2.4) H 06/03/19 00:24 Iron 24 mcg/dl (35-175) L 06/03/19 11:29 TIBC 115 mcg/dl (250-450) L 06/03/19 11:29 Transferrin 99 mg/dl (200-360) L 06/03/19 11:29 Ferritin 632.8 ng/ml (8-388) H 06/03/19 11:29 Total Bilirubin 0.3 mg/dl (0.2-1) 06/05/19 04:44 AST 25 U/L (15-37) 06/05/19 04:44 ALT 15 U/L (12-78) 06/05/19 04:44 Alkaline Phosphatase 158 U/L (45-117) H 06/05/19 04:44 Lactate Dehydrogenase 268 U/L (87-241) H 06/03/19 13:29 Troponin I 0.103 ng/ml (0-0.045) H* 06/03/19 20:49 NT-Pro-B Natriuret Pep > 02350 pg/ml (0-1800) H 06/03/19 00:24 Total Protein 4.7 gm/dl (6.4-8.2) L 06/05/19 04:44 Albumin 1.6 gm/dl (3.4-5.0) L 06/05/19 04:44 Globulin 3.1 gm/dl (2.5-4.0) 06/05/19 04:44 Albumin/Globulin Ratio 0.5 (0.9-2) L 06/05/19 04:44 Prealbumin 7.1 mg/dl (20-40) L 06/03/19 13:29 Lipase 38 U/L (73-393) L 06/03/19 00:24 Vitamin B12 466 pg/ml (211-911) 06/03/19 11:29 Folate 8.88 ng/ml (>5.38) 06/03/19 11:29 TSH 59.900 uIu/ml (0.300-4.500) H 06/03/19 00:24 Free T4 0.56 ng/dl (0.8-1.6) L 06/03/19 11:29 Free T3 1.70 pg/ml (2.3-4.2) L 06/03/19 Unknown Random Cortisol 37.69 mcg/dl 06/03/19 10:53 Specimen Hemolysis 06/06/19 09:57 Urine Color Yellow 06/04/19 Unknown Urine Appearance Cloudy (Clear) A 06/04/19 Unknown Urine pH 5.0 (4.5-7.5) 06/04/19 Unknown Ur Specific Lynn 1.042 (1.000-1.030) H 06/04/19 Unknown Urine Protein 1+ (Negative) H 06/04/19 Unknown Urine Glucose (UA) Negative (Negative) 06/04/19 Unknown Urine Ketones 1+ (Negative) H 06/04/19 Unknown Urine Blood 2+ (Negative) H 06/04/19 Unknown Urine Nitrite Negative (Negative) 06/04/19 Unknown Urine Bilirubin Negative (Negative) 06/04/19 Unknown Urine Urobilinogen Negative (Negative) 06/04/19 Unknown Ur Leukocyte Esterase 2+ (Negative) H 06/04/19 Unknown Urine WBC (Auto) >30 /hpf (0-5) H 06/04/19 Unknown Urine RBC (Auto) 10-30 /hpf (0-4) H 06/04/19 Unknown U Hyaline Cast (Auto) 10-30 /lpf (0-5) H 06/04/19 Unknown U Epithel Cells (Auto) >30 /lpf (0-5) H 06/04/19 Unknown Urine Bacteria (Auto) 1+ (Negative) H 06/04/19 Unknown Ur Renal Epithelial Cell Not Reportable 06/04/19 Unknown Pleural Fluid Source RIGHT LUNG 06/03/19 13:00 Pleural Color STRAW 06/03/19 13:00 Pleural Appearance CLEAR 06/03/19 13:00 Pleural pH 7.51 (7.3-7.4) H 06/03/19 13:00 Pleural WBC 100 /uL 06/03/19 13:00 Pleural RBC < 3000 /uL 06/03/19 13:00 Pleural Polynuclear % 24.2 % 06/03/19 13:00 Pleural Mononuclear % 75.8 % 06/03/19 13:00 Pleural Total Protein 1.2 g/dl 06/03/19 13:00 Pleural LDH 88 U/L 06/03/19 13:00 Pleural Glucose 105 mg/dl 06/03/19 13:00 Nasal Screen MRSA (PCR) Negative (Negative) 06/03/19 Unknown Stool Occult Bld Scrn Negative (Negative) 06/07/19 05:12 Thyroid Antimicrosomal <1 IU/ML (<9) 06/03/19 10:53 Thyroglobulin Antibody <1 IU/ML (<OR=1) 06/03/19 10:53 Bld Cult Staph aureus PCR Negative (Negative) 06/03/19 00:26 Blood Culture MRSA PCR Negative (Negative) 06/03/19 00:26 Blood Type A Positive 06/03/19 00:25 Antibody Screen NEGATIVE 06/03/19 00:25 PG Care Time/CCT Total # of Minutes Spent Total Time Spent with Patient: Total time spent is greater than 50% in coordination of care (as documented) at patient's floor/unit and/or counseling patient: Resident Activity Tracking Resident Involvement: Resident Care Provided Care Provided: Adult Hospital Medicine (1) Anemia Anemia type: unspecified type Qualified Code(s): D64.9 - Anemia, unspecified (2) Pulmonary edema Chronicity: acute Qualified Code(s): J81.0 - Acute pulmonary edema
[2019-06-09] MEDS: guaiFENesin 600 MG TABCR PO SCH ×2 (11:48→20:53)
[2019-06-09] MEDS: PEPTAMEN INTENSE VHP 1.0 CAL 1,000 ML BAG ND SCH (19:35)
[2019-06-09] MEDS: SACUBITRIL-VALSARTAN 49/51 MG TAB PO SCH (21:08)
[2019-06-10] MEDS: ALBUT/IPRATROP 3MG/0.5MG NEB 3 ML VIAL NEB SCH ×6 (04:18→23:40)
[2019-06-10 05:51] LABS: Hematocrit (blood only) 28.1 % (42-52); Hemoglobin 8.7 g/dL (14.0-18.0); Mean Corpuscular Hemoglobin 31.9 pg (25-34); Mean Corpuscular Volume 102.9 fL (80-100); Mean Platelet Volume 11.1 fL (7.4-10.4); Platelet Count 222 K/uL (130-400); RDW Coefficient of Variation 17.4 % (11.5-14.5); RDW Standard Deviation 65.2 fL (36.4-46.3); Red Blood Count 2.73 M/uL (4.7-6.1); White Blood Count 8.26 K/uL (4.8-10.8)
[2019-06-10 06:19] LABS: BUN Creatinine Ratio 60.7 (10-20); Calcium 7.5 mg/dl (8.5-10.1); Creatinine Clr Calc Pharmacy 50.2 ml/min; Est GFR (Non-African American) 54.3; Potassium 3.6 mmol/L (3.5-5.1)
[2019-06-10] MEDS: LEVOTHYROXINE SODIUM 100 MCG TABLET PO SCH (06:43)
[2019-06-10] MEDS: methylPREDNISolone 80 MG in SYRINGE 0 ML IV SCH (06:43)
[2019-06-10] MEDS: FUROSEMIDE 80 MG in SYRINGE 0 ML IV SCH ×2 (07:59→16:38)
[2019-06-10] MEDS: SACUBITRIL-VALSARTAN 49/51 MG TAB PO SCH ×2 (07:59→21:15)
[2019-06-10] MEDS: guaiFENesin 600 MG TABCR PO SCH ×2 (07:59→21:15)
[2019-06-10] MEDS: ENOXAPARIN INJ 40 MG/0.4 ML SYR SQ SCH (07:59)
[2019-06-10] MEDS: PANCREAZE (LIPASE 16,800U) CAP PO SCH ×3 (08:00→16:38)
[2019-06-10] MEDS: NICOTINE 7 MG/24 HR TDSY TD SCH (08:00)
--- NOTE | 2019-06-10 11:15 | Family Medicine Progress Note ---
Date of Service June 10, 2019 Assessment & Plan (1) Acute respiratory failure with hypoxia: Acute Respiratory Failure with Hypoxia due to mixed disease etiology; admitted for shortness of breath. See below for specific etiology plan breakdowns. 1) CHF with low ejection fraction - JESSIE shows EF of 30-35% - mild Aortic+Mitral+Tricuspid regurg - elevated right ventricular pressures likely 2/2 pulmonary vascular congestion and edema - Lasix to 80 BID. Electrolytes improved with increased oral fluid intake - Entresto doubled to 49/51 - concern for maintaining renal function [BUN/Cr of 74/1.18 today]. Continuing to improve - (-5L for visit) 2) Hypothyroidism/Myxedema Coma - TSH of 59.9, T4 0.56, T3 1.70 on presentation - supplementing levothyroxine; now on 100 PO QD - unsure of etiology of MC; possibly 2/2 chemotherapy regimen. Abnormal for presentation this late in life without acute aggravation of disorder - TSH ordered will reexamine for improvement 3) Anasarca/Hypoproteinemia - Albumin of 2 - mainstay of treatment is to increase protein levels and nutritional status - Dietary consult in place - added lipase enzymes per dietary recommendation (3 tabs 16,000 U per meal) - pt requires basal 1500 calories per day for daily nutrition. In order to rose pplement and gain weight+protein reserve, goal should be [id number] calories per day. Can supplement Ensure Plus drinks in between Heart Healthy Meals to increase healthy caloric intake. Patient prefers [place] flavor. 4) Bilateral Pleural Effusion - thoracentesis in MICU drained fluid from right side, chest CT afterwards showed L pleural effusion still present - Light's criteria negative. Transudative effusion on par with above disease processes - O2 dependent at home on 2L NC - currently maintaining proper saturation on 4L NC - given concern for weakening costochondral muscles, ABG and chest CT wo contrast ordered to evaluate for parapneumonic effusion/developing PNA and hypercapnia indicative of weakening chest strength - ABG returned showing 7.40/50/71/30. This is more in line with chronic than acute metabolic change. - CT Chest showed moderate pulmonary edema, moderate BL pleural effusion with mild improvement from prior films - Per physical exam appears to still be resolving and progressing. (2) Elevated TSH: (3) Bilateral pleural effusion: (4) Myxedema coma: (5) Hypoalbuminemia: (6) Pulmonary edema: (7) Anasarca: (8) Anemia: (9) HTN (hypertension): - Entresto increased to 49/51 patient appears to be tolerating this new dose well (10) HLD (hyperlipidemia): - holding statin for now (11) Pancreatic cancer: - s/p Whipple procedure Oct 2018, currently undergoing chemotherapy outpatient. Supervising Physician Co-Signing Physician Notes I personally examined the patient and verified all ca points of history and exam, discussed case, and agree with decision making with Dr Junior. Breathing feeling fairly good. Discussed the high likelihood he will need home oxygen. Eating fairly well.. Vitals noted, in general he is awake and alert pleasant no distress. HEENT normocephalic atraumatic mucous membranes moist. Breathing unlabored no accessory muscles good effort. Pulmonary edema/acute hypoxic respiratory failure -Edema appears to be due to acute on chronic systolic CHF, anasarca/protein malnutrition mediated edema, and may be myxedema mediated edema -Responding well to diuretics. Creatinine is plateauedchange to oral diuretics -Continue to re-nourish as best as possible (p.o. intake has been reasonable, give consideration of appetite stimulant) -See below as it relates to thyroid Hypothyroidism/myxedema -TSH going from 60-2 over the course of a week please heavily against her hypothyroidism. Given the multifactorial reasons for his edema certainly he would not need to have had myxedema to explain his presentation. Seems highly unlikely he would normalize hypothyroidism quickly, even with aggressive treatment. Further in terms of risk and benefit, if he truly was hypothyroid and is now euthyroid and we stopped treatment, but follow TSH and symptoms closely, he would likely just become more lethargic at worst. Conversely if we continue thyroid management and this was simply an odd presentation of sick euthyroid and he becomes hyperthyroid, tachyarrhythmias would be more potentially harmfulbecause of all of this we will hold on further Synthroid, and asked that he have about a weekly TSH followed. It seems more likely with hindsight, and with this massive change in his TSH that he was suffering more from a sick euthyroid syndrome. Severe protein calorie malnutrition -Continue to encourage oral intake, he is doing well overall -Continue pancreatic enzyme supplement (appreciate RD suggestion!) -Consider appetite stimulant, but hopefully this will be needed. Thus far he is doing well enough not to need it Systolic congestive heart failure -See above, diuresis to be changed to oral. Tolerating Entrestocontinue. Continue to follow. Creatinine improving. Otherwise as above Subjective Continues to improve clinically. NG taken out yesterday, tolerating oral diet well. Attests to improved breathing. Wants to go home on Wednesday afternoon. Review of Systems Constitutional: no fever, no chills and no weakness Respiratory: no cough, no dyspnea and no pain on inspiration Cardiovascular: + paroxysmal nocturnal dyspnea and + edema; no chest pain, no palpitations and no calf pain Gastrointestinal: no abdominal pain, no nausea, no vomiting and no change in bowel habits Physical Exam Constitutional: well developed, + ill appearing, + well hydrated, + thin, + frail appearing, cooperative, comfortable, + malnourished, + overweight and + edematous Respiratory: normal respiratory effort, + cough and able to speak in complete sentences; no respiratory distress, no retractions, does not use accessory muscles and no tripod positioning Auscultation: lungs clear to auscultation bilaterally; no crackles, no rales, no rhonchi, no wheezes and no pleural rub Patient continues to improve with breathing status. Lungs sound remarkably clear bilaterally. Cardiovascular: Rate/Rhythm: regular rate and regular rhythm Heart Sounds: no abnormal opening sounds, no click, no gallop and no murmur Extremities: + edema and + varicosities; no calf tenderness Gastrointestinal (Abdomen): Inspection/Auscultation: + abdomen distended Percussion/Palpation: abdomen soft (tense stomach due to distension); abdomen nontender, no guarding and abdomen not rigid Skin: + rash (redness on left forearm forming under location of previous wrapping) and + ulcer (Sacral ulcer documented by nursing) Results & Data Vital Signs (Past 12 Hours) Vital Signs Temp Pulse Resp BP BP Pulse Ox 06/10/19 07:35 61 16 96 06/10/19 06:53 36.5 C 77 16 155/82 H 100 06/09/19 23:41 72 18 96 06/09/19 23:15 36.3 C L 68 16 148/67 H 94 Laboratory Results WBC 8.26 K/uL (4.8-10.8) 06/10/19 05:16 RBC 2.73 M/uL (4.7-6.1) L 06/10/19 05:16 Hgb 8.7 g/dL (14.0-18.0) L 06/10/19 05:16 POC Hgb 9.9 g/dl (14.0-18.0) L 06/03/19 00:26 Hct 28.1 % (42-52) L 06/10/19 05:16 POC Hct 29 % (42-52) L 06/03/19 00:26 MCV 102.9 fL (80-100) H 06/10/19 05:16 MCH 31.9 pg (25-34) 06/10/19 05:16 MCHC 31.0 g/dL (32-36) L 06/10/19 05:16 RDW Std Deviation 65.2 fL (36.4-46.3) H 06/10/19 05:16 RDW Coeff of Roger 17.4 % (11.5-14.5) H 06/10/19 05:16 Plt Count 222 K/uL (130-400) 06/10/19 05:16 MPV 11.1 fL (7.4-10.4) H 06/10/19 05:16 Immature Gran % (Auto) 1.7 % 06/05/19 04:44 Neut % (Auto) 85.2 % 06/05/19 04:44 Lymph % (Auto) 10.0 % 06/05/19 04:44 Carson % (Auto) 3.0 % 06/05/19 04:44 Eos % (Auto) 0.0 % 06/05/19 04:44 Baso % (Auto) 0.1 % 06/05/19 04:44 Reticulocyte % (Auto) 1.9 % (0.5-2.0) 06/03/19 11:29 Immature Gran # (Auto) 0.15 K/uL (0.00-0.02) H 06/05/19 04:44 Neut # (Auto) 7.35 K/uL (1.4-6.5) H 06/05/19 04:44 Lymph # (Auto) 0.86 K/uL (1.2-3.4) L 06/05/19 04:44 Carson # (Auto) 0.26 K/uL (0.11-0.59) 06/05/19 04:44 Eos # (Auto) 0.00 K/uL (0-0.5) 06/05/19 04:44 Baso # (Auto) 0.01 K/uL (0-0.2) 06/05/19 04:44 Reticulocyte # 0.05 10^6/uL (0.02-0.10) 06/03/19 11:29 Neutrophils % (Manual) 44.4 % 06/03/19 00:24 Lymphocytes % (Manual) 21.7 % 06/03/19 00:24 Monocytes % (Manual) 1.7 % 06/03/19 00:24 Eosinophils % (Manual) 2.6 % 06/03/19 00:24 Basophils % (Manual) 0.9 % 06/03/19 00:24 Neutrophils # (Manual) 6.94 K/uL (1.4-6.5) H 06/03/19 00:24 Total Absolute Neuts 6.94 K/uL (1.4-6.5) H 06/03/19 00:24 Lymphocytes # (Manual) 3.39 K/uL (1.2-3.4) 06/03/19 00:24 Total Abs Lymphocytes 7.87 K/uL (1.2-3.4) H 06/03/19 00:24 Monocytes # (Manual) 0.27 K/uL (0.11-0.59) 06/03/19 00:24 Eosinophils # (Manual) 0.41 K/uL (0-0.5) 06/03/19 00:24 Basophils # (Manual) 0.14 K/uL (0-0.2) 06/03/19 00:24 Large Granular Lymphs 28.7 % 06/03/19 00:24 # Lrg Granular Lymphs 4.48 K/uL 06/03/19 00:24 Blood Smear Review 06/03/19 00:24 Polychromasia 1+ 06/03/19 00:24 PT 12.4 Seconds (9.0-12.0) H 06/03/19 00:24 INR 1.2 (0.9-1.1) H 06/03/19 00:24 Specimen Type Arterial 06/03/19 02:29 Sample Site Art Line 06/03/19 07:23 POC pH 7.49 (7.35-7.45) H 06/03/19 07:23 POC pCO2 37 mmHg (35-46) 06/03/19 07:23 POC pO2 67 mmHg (80-95) L 06/03/19 07:23 POC HCO3 28 jocelyn/L (19-24) H 06/03/19 07:23 POC Total CO2 29 mEq/l (24-31) 06/03/19 07:23 POC Base Excess 5.0 jocelyn/L (-9-1.8) H 06/03/19 07:23 ABG pH 7.40 (7.35-7.45) 06/07/19 12:52 ABG pH (Temp Correct) 7.521 (7.35-7.45) H* 06/03/19 07:23 ABG pCO2 50 mmHg (35-46) H 06/07/19 12:52 ABG pCO2 (Temp Corrct 34 mmHg (35-46) L 06/03/19 07:23 ABG pO2 71 mm/Hg (80-95) L 06/07/19 12:52 POC ABG pO2 at Pt Temp 58 06/03/19 07:23 ABG HCO3 30 mmol/L (19-24) H 06/07/19 12:52 POC ABG O2 Sat 95.0 % (90-95) 06/03/19 07:23 ABG O2 Saturation 92.5 % (90-95) 06/07/19 12:52 ABG Base Excess 4.8 mEq/L (-9-1.8) H 06/07/19 12:52 Jose Test Pos (Pos) 06/07/19 12:52 Barometric Pressure 738.0 mm/Hg 06/07/19 12:52 Oxygen Given 4L 06/07/19 12:52 O2 Delivery Device Ventilator 06/03/19 07:23 POC O2 Rate 14 06/03/19 07:23 Minute Ventilation 7.0 06/03/19 07:23 Tidal Volume 550 06/03/19 07:23 PEEP 5 06/03/19 07:23 POC Sodium 142 mEq/L (135-144) 06/03/19 00:26 Sodium 144 mmol/L (136-145) 06/10/19 05:16 POC Potassium 4.6 mEq/L (3.3-5.0) 06/03/19 00:26 Potassium 3.6 mmol/L (3.5-5.1) 06/10/19 05:16 POC Chloride 105 mEq/L (101-112) 06/03/19 00:26 Chloride 108 mmol/L (98-107) H 06/10/19 05:16 Carbon Dioxide 33 mmol/L (21-32) H 06/10/19 05:16 POC Total CO2 29 mEq/l (24-31) 06/03/19 00:26 Anion Gap 3.0 (3-11) 06/10/19 05:16 POC Anion Gap 13.0 mmol/L (16-25) L 06/03/19 00:26 POC BUN 54 mg/dl (7-18) H 06/03/19 00:26 BUN 75 mg/dl (7-18) H 06/10/19 05:16 Creatinine 1.23 mg/dl (0.6-1.4) 06/10/19 05:16 POC Creatinine 1.4 mg/dl (0.6-1.3) H 06/03/19 00:26 Est Cr Clr Drug Dosing 50.2 ml/min 06/10/19 05:16 Est GFR ( Amer) 63.0 06/10/19 05:16 Est GFR (Non-Af Amer) 54.3 06/10/19 05:16 BUN/Creatinine Ratio 60.7 (10-20) H 06/10/19 05:16 Glucose 143 mg/dl (70-99) H 06/10/19 05:16 POC Glucose 112 (70-99) H 06/04/19 05:56 POC Glucose (other) 179 mg/dl (70-99) H 06/03/19 00:26 POC Lactic Acid Steve 3.22 mmol/L (0.90-1.70) H 06/03/19 00:30 Lactate 1.3 mmol/L (0.4-2.0) 06/04/19 02:39 Calcium 7.5 mg/dl (8.5-10.1) L 06/10/19 05:16 POC Ioniz Calcium Ca 1.07 mmol/l (1.12-1.32) L 06/03/19 00:26 Phosphorus 5.8 mg/dl (2.5-4.9) H 06/04/19 19:18 Magnesium 2.7 mg/dl (1.8-2.4) H 06/03/19 00:24 Iron 24 mcg/dl (35-175) L 06/03/19 11:29 TIBC 115 mcg/dl (250-450) L 06/03/19 11:29 Transferrin 99 mg/dl (200-360) L 06/03/19 11:29 Ferritin 632.8 ng/ml (8-388) H 06/03/19 11:29 Total Bilirubin 0.3 mg/dl (0.2-1) 06/05/19 04:44 AST 25 U/L (15-37) 06/05/19 04:44 ALT 15 U/L (12-78) 06/05/19 04:44 Alkaline Phosphatase 158 U/L (45-117) H 06/05/19 04:44 Lactate Dehydrogenase 268 U/L (87-241) H 06/03/19 13:29 Troponin I 0.103 ng/ml (0-0.045) H* 06/03/19 20:49 NT-Pro-B Natriuret Pep > 99145 pg/ml (0-1800) H 06/03/19 00:24 Total Protein 4.7 gm/dl (6.4-8.2) L 06/05/19 04:44 Albumin 1.6 gm/dl (3.4-5.0) L 06/05/19 04:44 Globulin 3.1 gm/dl (2.5-4.0) 06/05/19 04:44 Albumin/Globulin Ratio 0.5 (0.9-2) L 06/05/19 04:44 Prealbumin 7.1 mg/dl (20-40) L 06/03/19 13:29 Lipase 38 U/L (73-393) L 06/03/19 00:24 Vitamin B12 466 pg/ml (211-911) 06/03/19 11:29 Folate 8.88 ng/ml (>5.38) 06/03/19 11:29 TSH 2.020 uIu/ml (0.300-4.500) 06/10/19 05:16 Free T4 0.56 ng/dl (0.8-1.6) L 06/03/19 11:29 Free T3 1.70 pg/ml (2.3-4.2) L 06/03/19 Unknown Random Cortisol 37.69 mcg/dl 06/03/19 10:53 Specimen Hemolysis 06/06/19 09:57 Urine Color Yellow 06/04/19 Unknown Urine Appearance Cloudy (Clear) A 06/04/19 Unknown Urine pH 5.0 (4.5-7.5) 06/04/19 Unknown Ur Specific [place] 1.042 (1.000-1.030) H 06/04/19 Unknown Urine Protein 1+ (Negative) H 06/04/19 Unknown Urine Glucose (UA) Negative (Negative) 06/04/19 Unknown Urine Ketones 1+ (Negative) H 06/04/19 Unknown Urine Blood 2+ (Negative) H 06/04/19 Unknown Urine Nitrite Negative (Negative) 06/04/19 Unknown Urine Bilirubin Negative (Negative) 06/04/19 Unknown Urine Urobilinogen Negative (Negative) 06/04/19 Unknown Ur Leukocyte Esterase 2+ (Negative) H 06/04/19 Unknown Urine WBC (Auto) >30 /hpf (0-5) H 06/04/19 Unknown Urine RBC (Auto) 10-30 /hpf (0-4) H 06/04/19 Unknown U Hyaline Cast (Auto) 10-30 /lpf (0-5) H 06/04/19 Unknown U Epithel Cells (Auto) >30 /lpf (0-5) H 06/04/19 Unknown Urine Bacteria (Auto) 1+ (Negative) H 06/04/19 Unknown Ur Renal Epithelial Cell Not Reportable 06/04/19 Unknown Pleural Fluid Source RIGHT LUNG 06/03/19 13:00 Pleural Color STRAW 06/03/19 13:00 Pleural Appearance CLEAR 06/03/19 13:00 Pleural pH 7.51 (7.3-7.4) H 06/03/19 13:00 Pleural WBC 100 /uL 06/03/19 13:00 Pleural RBC < 3000 /uL 06/03/19 13:00 Pleural Polynuclear % 24.2 % 06/03/19 13:00 Pleural Mononuclear % 75.8 % 06/03/19 13:00 Pleural Total Protein 1.2 g/dl 06/03/19 13:00 Pleural LDH 88 U/L 06/03/19 13:00 Pleural Glucose 105 mg/dl 06/03/19 13:00 Nasal Screen MRSA (PCR) Negative (Negative) 06/03/19 Unknown Stool Occult Bld Scrn Negative (Negative) 06/07/19 05:12 Thyroid Antimicrosomal <1 IU/ML (<9) 06/03/19 10:53 Thyroglobulin Antibody <1 IU/ML (<OR=1) 06/03/19 10:53 Bld Cult Staph aureus PCR Negative (Negative) 06/03/19 00:26 Blood Culture MRSA PCR Negative (Negative) 06/03/19 00:26 Blood Type A Positive 06/03/19 00:25 Antibody Screen NEGATIVE 06/03/19 00:25 PG Care Time/CCT Total # of Minutes Spent Total Time Spent with Patient: Total time spent is greater than 50% in coordination of care (as documented) at patient's floor/unit and/or counseling patient: Resident Activity Tracking Resident Involvement: Resident Care Provided Care Provided: Adult Hospital Medicine (1) Anemia Anemia type: unspecified type Qualified Code(s): D64.9 - Anemia, unspecified (2) Pulmonary edema Chronicity: acute Qualified Code(s): J81.0 - Acute pulmonary edema
[2019-06-10] MEDS: methylPREDNISolone 60 MG in SYRINGE 0 ML IV SCH ×2 (14:44→21:15)
[2019-06-11] MEDS: ALBUT/IPRATROP 3MG/0.5MG NEB 3 ML VIAL NEB SCH ×4 (03:13→22:58)
[2019-06-11 05:37] LABS: BUN Creatinine Ratio 58.3 (10-20); Calcium 7.6 mg/dl (8.5-10.1); Creatinine Clr Calc Pharmacy 46.1 ml/min; Est GFR (African American) 56.8; Potassium 3.6 mmol/L (3.5-5.1)
[2019-06-11] MEDS: methylPREDNISolone 60 MG in SYRINGE 0 ML IV SCH (05:38)
[2019-06-11] MEDS: SACUBITRIL-VALSARTAN 49/51 MG TAB PO SCH ×2 (07:39→20:14)
[2019-06-11] MEDS: PANCREAZE (LIPASE 16,800U) CAP PO SCH ×3 (07:39→16:20)
[2019-06-11] MEDS: ENOXAPARIN INJ 40 MG/0.4 ML SYR SQ SCH (07:39)
[2019-06-11] MEDS: FUROSEMIDE 80 MG TAB PO SCH ×2 (07:40→16:20)
[2019-06-11] MEDS: guaiFENesin 600 MG TABCR PO SCH ×2 (07:40→20:14)
[2019-06-11] MEDS: NICOTINE 7 MG/24 HR TDSY TD SCH (07:40)
[2019-06-11] MEDS ORDERED: predniSONE 20 MG TAB PO SCH (08:15)
--- NOTE | 2019-06-11 08:51 | Family Medicine Progress Note ---
Date of Service June 11, 2019 Assessment & Plan (1) Acute respiratory failure with hypoxia: Acute Respiratory Failure with Hypoxia due to mixed disease etiology; admitted for shortness of breath. See below for specific etiology plan breakdowns. 1) CHF with low ejection fraction - JESSIE shows EF of 30-35% - mild Aortic+Mitral+Tricuspid regurg - elevated right ventricular pressures likely 2/2 pulmonary vascular congestion and edema - Entresto doubled to 49/51 -Lasix converted to 80 mg p.o. today from IV. - (-5L for visit) 2) Hypothyroidism/Myxedema Coma - TSH of 59.9, repeat TSH was in the normal range. As such stopped giving exogenous T4 patient will follow-up with primary care physician in regards to questionable hypothyroid state and any further need for medication. 3) Anasarca/Hypoproteinemia - Albumin of 2 - mainstay of treatment is to increase protein levels and nutritional status - Dietary consult in place - added lipase enzymes per dietary recommendation (3 tabs 16,000 U per meal) - pt requires basal 1500 calories per day for daily nutrition. In order to supplement and gain weight+protein reserve, goal should be 2877-0449 calories per day. Can supplement Ensure Plus drinks in between Heart Healthy Meals to increase healthy caloric intake. Patient prefers Mc[employer] flavor. 4) Bilateral Pleural Effusion - thoracentesis in MICU drained fluid from right side, chest CT afterwards showed L pleural effusion still present - Light's criteria negative. Transudative effusion on par with above disease processes - O2 dependent at home on 2L NC - currently maintaining proper saturation on 4L NC - given concern for weakening costochondral muscles, ABG and chest CT wo contrast ordered to evaluate for parapneumonic effusion/developing PNA and hypercapnia indicative of weakening chest strength - ABG returned showing 7.40/50/71/30. This is more in line with chronic than acute metabolic change. - CT Chest showed moderate pulmonary edema, moderate BL pleural effusion with mild improvement from prior films - Per physical exam appears to still be resolving and progressing. (2) Elevated TSH: (3) Bilateral pleural effusion: (4) Myxedema coma: (5) Hypoalbuminemia: (6) Pulmonary edema: (7) Anasarca: (8) Anemia: (9) HTN (hypertension): - Entresto increased to 49/51 patient appears to be tolerating this new dose well (10) HLD (hyperlipidemia): - holding statin for now (11) Pancreatic cancer: - s/p Whipple procedure Oct 2018, currently undergoing chemotherapy outpatient. Supervising Physician Co-Signing Physician Notes I personally examined the patient and verified all ca points of history and exam, discussed case, and agree with decision making with Dr Junior. resting comfortably. no new issues noted. sleeping when i arrive. Vitals noted, nad. HEENT normocephalic atraumatic mucous membranes moist. Breathing unlabored no accessory muscles good effort. Pulmonary edema/acute hypoxic respiratory failure -Edema appears to be due to acute on chronic systolic CHF, anasarca/protein malnutrition mediated edema, and may be myxedema mediated edema -Responding well to diuretics. Creatinine is plateauedchanged to oral diuretics - ongoing follow up / ongoing close outpt f/u -Continue to re-nourish as best as possible (p.o. intake has been reasonable, give consideration of appetite stimulant) -See below as it relates to thyroid Hypothyroidism/myxedema -TSH going from 60 to 2 over the course of a week pleads heavily against true hypothyroidism. Given the multifactorial reasons for his edema certainly he would not need to have had myxedema to explain his presentation. Seems highly unlikely he would normalize hypothyroidism quickly, even with aggressive treatment. Further in terms of risk and benefit, if he truly was hypothyroid and is now euthyroid and we stopped treatment, but follow TSH and symptoms closely, he would likely just become more lethargic at worst - and if clinically followed closely and TSH followed weekly until situation is totally clear, he'd likely actually have synthroid started before TSH even really reached a symptomatic level. Conversely, if we continue thyroid management and this was simply an odd presentation of sick euthyroid and he becomes hyperthyroid, tachyarrhythmias would be more potentially harmful in precipitating worsening CHFbecause of all of this we will hold on further Synthroid, and asked that he have about a weekly TSH followed. It seems more likely with hindsight, and with this massive change in his TSH that he was suffering more from an atypical sick euthyroid syndrome. Severe protein calorie malnutrition -Continue to encourage oral intake, he is doing well overall -Continue pancreatic enzyme supplement (appreciate RD suggestion!) -Consider appetite stimulant, but hopefully this will be needed. Thus far he is doing well enough not to need it Systolic congestive heart failure -See above, diuresis to be changed to oral. Tolerating Entrestocontinue. Continue to follow. Creatinine stable Otherwise as above Subjective Mr. Lira continues to improve today. He denies any shortness of breath, trouble breathing, chest pain. He has been able to tolerate managing an oral d iet and supplementing with Ensure/boost drinks to increase his caloric intake. He is in good spirits and looks forward to going home Wednesday afternoon. Review of Systems Constitutional: no fever, no chills, no fatigue and no weakness Respiratory: no cough, no dyspnea and no pain on inspiration Cardiovascular: + edema; no chest pain and no palpitations Gastrointestinal: no abdominal pain, no nausea and no vomiting Physical Exam Constitutional: Sitting comfortably in bed, in no acute distress and enjoying the sunshine. Respiratory: Lungs are clear to auscultation bilaterally no wheezes, rales, rhonchi, crackles. Much improved exam from initial examination in the hospital. While he continues to require oxygen supplementation he also required oxygen at home and is in no acute distress with breathing on 2 L supplemental flow. Cardiovascular: Regular rate and rhythm no murmurs, gallops, rubs appreciated. 4+ pitting edema to thighs still present bilaterally Results & Data Vital Signs (Past 12 Hours) Vital Signs Temp Pulse Resp BP Pulse Ox 06/11/19 07:23 72 16 98 06/11/19 07:13 36.6 C 74 16 133/71 98 06/11/19 03:14 70 16 97 06/10/19 23:41 80 16 98 06/10/19 23:15 36.7 C 79 16 135/71 98 Laboratory Results WBC 8.26 K/uL (4.8-10.8) 06/10/19 05:16 RBC 2.73 M/uL (4.7-6.1) L 06/10/19 05:16 Hgb 8.7 g/dL (14.0-18.0) L 06/10/19 05:16 POC Hgb 9.9 g/dl (14.0-18.0) L 06/03/19 00:26 Hct 28.1 % (42-52) L 06/10/19 05:16 POC Hct 29 % (42-52) L 06/03/19 00:26 MCV 102.9 fL (80-100) H 06/10/19 05:16 MCH 31.9 pg (25-34) 06/10/19 05:16 MCHC 31.0 g/dL (32-36) L 06/10/19 05:16 RDW Std Deviation 65.2 fL (36.4-46.3) H 06/10/19 05:16 RDW Coeff of Roger 17.4 % (11.5-14.5) H 06/10/19 05:16 Plt Count 222 K/uL (130-400) 06/10/19 05:16 MPV 11.1 fL (7.4-10.4) H 06/10/19 05:16 Immature Gran % (Auto) 1.7 % 06/05/19 04:44 Neut % (Auto) 85.2 % 06/05/19 04:44 Lymph % (Auto) 10.0 % 06/05/19 04:44 Alexander % (Auto) 3.0 % 06/05/19 04:44 Eos % (Auto) 0.0 % 06/05/19 04:44 Baso % (Auto) 0.1 % 06/05/19 04:44 Reticulocyte % (Auto) 1.9 % (0.5-2.0) 06/03/19 11:29 Immature Gran # (Auto) 0.15 K/uL (0.00-0.02) H 06/05/19 04:44 Neut # (Auto) 7.35 K/uL (1.4-6.5) H 06/05/19 04:44 Lymph # (Auto) 0.86 K/uL (1.2-3.4) L 06/05/19 04:44 Alexander # (Auto) 0.26 K/uL (0.11-0.59) 06/05/19 04:44 Eos # (Auto) 0.00 K/uL (0-0.5) 06/05/19 04:44 Baso # (Auto) 0.01 K/uL (0-0.2) 06/05/19 04:44 Reticulocyte # 0.05 10^6/uL (0.02-0.10) 06/03/19 11:29 Neutrophils % (Manual) 44.4 % 06/03/19 00:24 Lymphocytes % (Manual) 21.7 % 06/03/19 00:24 Monocytes % (Manual) 1.7 % 06/03/19 00:24 Eosinophils % (Manual) 2.6 % 06/03/19 00:24 Basophils % (Manual) 0.9 % 06/03/19 00:24 Neutrophils # (Manual) 6.94 K/uL (1.4-6.5) H 06/03/19 00:24 Total Absolute Neuts 6.94 K/uL (1.4-6.5) H 06/03/19 00:24 Lymphocytes # (Manual) 3.39 K/uL (1.2-3.4) 06/03/19 00:24 Total Abs Lymphocytes 7.87 K/uL (1.2-3.4) H 06/03/19 00:24 Monocytes # (Manual) 0.27 K/uL (0.11-0.59) 06/03/19 00:24 Eosinophils # (Manual) 0.41 K/uL (0-0.5) 06/03/19 00:24 Basophils # (Manual) 0.14 K/uL (0-0.2) 06/03/19 00:24 Large Granular Lymphs 28.7 % 06/03/19 00:24 # Lrg Granular Lymphs 4.48 K/uL 06/03/19 00:24 Blood Smear Review 06/03/19 00:24 Polychromasia 1+ 06/03/19 00:24 PT 12.4 Seconds (9.0-12.0) H 06/03/19 00:24 INR 1.2 (0.9-1.1) H 06/03/19 00:24 Specimen Type Arterial 06/03/19 02:29 Sample Site Art Line 06/03/19 07:23 POC pH 7.49 (7.35-7.45) H 06/03/19 07:23 POC pCO2 37 mmHg (35-46) 06/03/19 07:23 POC pO2 67 mmHg (80-95) L 06/03/19 07:23 POC HCO3 28 jocelyn/L (19-24) H 06/03/19 07:23 POC Total CO2 29 mEq/l (24-31) 06/03/19 07:23 POC Base Excess 5.0 jocelyn/L (-9-1.8) H 06/03/19 07:23 ABG pH 7.40 (7.35-7.45) 06/07/19 12:52 ABG pH (Temp Correct) 7.521 (7.35-7.45) H* 06/03/19 07:23 ABG pCO2 50 mmHg (35-46) H 06/07/19 12:52 ABG pCO2 (Temp Corrct 34 mmHg (35-46) L 06/03/19 07:23 ABG pO2 71 mm/Hg (80-95) L 06/07/19 12:52 POC ABG pO2 at Pt Temp 58 06/03/19 07:23 ABG HCO3 30 mmol/L (19-24) H 06/07/19 12:52 POC ABG O2 Sat 95.0 % (90-95) 06/03/19 07:23 ABG O2 Saturation 92.5 % (90-95) 06/07/19 12:52 ABG Base Excess 4.8 mEq/L (-9-1.8) H 06/07/19 12:52 Jose Test Pos (Pos) 06/07/19 12:52 Barometric Pressure 738.0 mm/Hg 06/07/19 12:52 Oxygen Given 4L 06/07/19 12:52 O2 Delivery Device Ventilator 06/03/19 07:23 POC O2 Rate 14 06/03/19 07:23 Minute Ventilation 7.0 06/03/19 07:23 Tidal Volume 550 06/03/19 07:23 PEEP 5 06/03/19 07:23 POC Sodium 142 mEq/L (135-144) 06/03/19 00:26 Sodium 144 mmol/L (136-145) 06/11/19 04:38 POC Potassium 4.6 mEq/L (3.3-5.0) 06/03/19 00:26 Potassium 3.6 mmol/L (3.5-5.1) 06/11/19 04:38 POC Chloride 105 mEq/L (101-112) 06/03/19 00:26 Chloride 107 mmol/L (98-107) 06/11/19 04:38 Carbon Dioxide 31 mmol/L (21-32) 06/11/19 04:38 POC Total CO2 29 mEq/l (24-31) 06/03/19 00:26 Anion Gap 6.0 (3-11) 06/11/19 04:38 POC Anion Gap 13.0 mmol/L (16-25) L 06/03/19 00:26 POC BUN 54 mg/dl (7-18) H 06/03/19 00:26 BUN 78 mg/dl (7-18) H 06/11/19 04:38 Creatinine 1.34 mg/dl (0.6-1.4) 06/11/19 04:38 POC Creatinine 1.4 mg/dl (0.6-1.3) H 06/03/19 00:26 Est Cr Clr Drug Dosing 46.1 ml/min 06/11/19 04:38 Est GFR ( Amer) 56.8 06/11/19 04:38 Est GFR (Non-Af Amer) 49.0 06/11/19 04:38 BUN/Creatinine Ratio 58.3 (10-20) H 06/11/19 04:38 Glucose 153 mg/dl (70-99) H 06/11/19 04:38 POC Glucose 112 (70-99) H 06/04/19 05:56 POC Glucose (other) 179 mg/dl (70-99) H 06/03/19 00:26 POC Lactic Acid Steve 3.22 mmol/L (0.90-1.70) H 06/03/19 00:30 Lactate 1.3 mmol/L (0.4-2.0) 06/04/19 02:39 Calcium 7.6 mg/dl (8.5-10.1) L 06/11/19 04:38 POC Ioniz Calcium Ca 1.07 mmol/l (1.12-1.32) L 06/03/19 00:26 Phosphorus 5.8 mg/dl (2.5-4.9) H 06/04/19 19:18 Magnesium 2.7 mg/dl (1.8-2.4) H 06/03/19 00:24 Iron 24 mcg/dl (35-175) L 06/03/19 11:29 TIBC 115 mcg/dl (250-450) L 06/03/19 11:29 Transferrin 99 mg/dl (200-360) L 06/03/19 11:29 Ferritin 632.8 ng/ml (8-388) H 06/03/19 11:29 Total Bilirubin 0.3 mg/dl (0.2-1) 06/05/19 04:44 AST 25 U/L (15-37) 06/05/19 04:44 ALT 15 U/L (12-78) 06/05/19 04:44 Alkaline Phosphatase 158 U/L (45-117) H 06/05/19 04:44 Lactate Dehydrogenase 268 U/L (87-241) H 06/03/19 13:29 Troponin I 0.103 ng/ml (0-0.045) H* 06/03/19 20:49 NT-Pro-B Natriuret Pep > 93408 pg/ml (0-1800) H 06/03/19 00:24 Total Protein 4.7 gm/dl (6.4-8.2) L 06/05/19 04:44 Albumin 1.6 gm/dl (3.4-5.0) L 06/05/19 04:44 Globulin 3.1 gm/dl (2.5-4.0) 06/05/19 04:44 Albumin/Globulin Ratio 0.5 (0.9-2) L 06/05/19 04:44 Prealbumin 7.1 mg/dl (20-40) L 06/03/19 13:29 Lipase 38 U/L (73-393) L 06/03/19 00:24 Vitamin B12 466 pg/ml (211-911) 06/03/19 11:29 Folate 8.88 ng/ml (>5.38) 06/03/19 11:29 TSH 2.020 uIu/ml (0.300-4.500) 06/10/19 05:16 Free T4 0.56 ng/dl (0.8-1.6) L 06/03/19 11:29 Free T3 1.70 pg/ml (2.3-4.2) L 06/03/19 Unknown Random Cortisol 37.69 mcg/dl 06/03/19 10:53 Specimen Hemolysis 06/06/19 09:57 Urine Color Yellow 06/04/19 Unknown Urine Appearance Cloudy (Clear) A 06/04/19 Unknown Urine pH 5.0 (4.5-7.5) 06/04/19 Unknown Ur Specific [place] 1.042 (1.000-1.030) H 06/04/19 Unknown Urine Protein 1+ (Negative) H 06/04/19 Unknown Urine Glucose (UA) Negative (Negative) 06/04/19 Unknown Urine Ketones 1+ (Negative) H 06/04/19 Unknown Urine Blood 2+ (Negative) H 06/04/19 Unknown Urine Nitrite Negative (Negative) 06/04/19 Unknown Urine Bilirubin Negative (Negative) 06/04/19 Unknown Urine Urobilinogen Negative (Negative) 06/04/19 Unknown Ur Leukocyte Esterase 2+ (Negative) H 06/04/19 Unknown Urine WBC (Auto) >30 /hpf (0-5) H 06/04/19 Unknown Urine RBC (Auto) 10-30 /hpf (0-4) H 06/04/19 Unknown U Hyaline Cast (Auto) 10-30 /lpf (0-5) H 06/04/19 Unknown U Epithel Cells (Auto) >30 /lpf (0-5) H 06/04/19 Unknown Urine Bacteria (Auto) 1+ (Negative) H 06/04/19 Unknown Ur Renal Epithelial Cell Not Reportable 06/04/19 Unknown Pleural Fluid Source RIGHT LUNG 06/03/19 13:00 Pleural Color STRAW 06/03/19 13:00 Pleural Appearance CLEAR 06/03/19 13:00 Pleural pH 7.51 (7.3-7.4) H 06/03/19 13:00 Pleural WBC 100 /uL 06/03/19 13:00 Pleural RBC < 3000 /uL 06/03/19 13:00 Pleural Polynuclear % 24.2 % 06/03/19 13:00 Pleural Mononuclear % 75.8 % 06/03/19 13:00 Pleural Total Protein 1.2 g/dl 06/03/19 13:00 Pleural LDH 88 U/L 06/03/19 13:00 Pleural Glucose 105 mg/dl 06/03/19 13:00 Nasal Screen MRSA (PCR) Negative (Negative) 06/03/19 Unknown Stool Occult Bld Scrn Negative (Negative) 06/07/19 05:12 Thyroid Antimicrosomal <1 IU/ML (<9) 06/03/19 10:53 Thyroglobulin Antibody <1 IU/ML (<OR=1) 06/03/19 10:53 Bld Cult Staph aureus PCR Negative (Negative) 06/03/19 00:26 Blood Culture MRSA PCR Negative (Negative) 06/03/19 00:26 Blood Type A Positive 06/03/19 00:25 Antibody Screen NEGATIVE 06/03/19 00:25 PG Care Time/CCT Total # of Minutes Spent Total Time Spent with Patient: Total time spent is greater than 50% in coordination of care (as documented) at patient's floor/unit and/or counseling patient: Resident Activity Tracking Resident Involvement: Resident Care Provided Care Provided: Adult Hospital Medicine (1) Anemia Anemia type: unspecified type Qualified Code(s): D64.9 - Anemia, unspecified (2) Pulmonary edema Chronicity: acute Qualified Code(s): J81.0 - Acute pulmonary edema
[2019-06-11] MEDS ORDERED: predniSONE 50 MG TAB PO SCH ×2 (09:00→21:00)
[2019-06-11] MEDS: predniSONE 20 MG TAB PO SCH (09:48)
[2019-06-11] MEDS ORDERED: DEXAMETHASONE PO ONE (15:31)
[2019-06-11] MEDS ORDERED: [UNRECOGNIZED DRUG - OTHER] PO ONE (15:31)
[2019-06-11] MEDS ORDERED: NYSTATIN PO ONE (15:31)
[2019-06-11] MEDS ORDERED: DIPHENHYDRAMINE PO ONE (15:31)
[2019-06-12] MEDS: ALBUT/IPRATROP 3MG/0.5MG NEB 3 ML VIAL NEB SCH ×3 (07:00→23:42)
[2019-06-12 07:13] LABS: Hematocrit (blood only) 29.6 % (42-52); Hemoglobin 9.3 g/dL (14.0-18.0); Mean Corpuscular Hemoglobin 32.3 pg (25-34); Mean Corpuscular Hgb Conc 31.4 g/dL (32-36); Mean Corpuscular Volume 102.8 fL (80-100); Mean Platelet Volume 11.1 fL (7.4-10.4); Platelet Count 220 K/uL (130-400); RDW Coefficient of Variation 17.7 % (11.5-14.5); RDW Standard Deviation 67.2 fL (36.4-46.3); Red Blood Count 2.88 M/uL (4.7-6.1); White Blood Count 7.46 K/uL (4.8-10.8)
[2019-06-12] MEDS: PANCREAZE (LIPASE 16,800U) CAP PO SCH ×3 (07:31→15:50)
[2019-06-12] MEDS: ENOXAPARIN INJ 40 MG/0.4 ML SYR SQ SCH (07:32)
[2019-06-12] MEDS: SACUBITRIL-VALSARTAN 49/51 MG TAB PO SCH ×2 (07:32→21:12)
[2019-06-12] MEDS: predniSONE 20 MG TAB PO SCH (07:33)
[2019-06-12] MEDS: FUROSEMIDE 80 MG TAB PO SCH (07:33)
[2019-06-12] MEDS: guaiFENesin 600 MG TABCR PO SCH ×2 (07:33→21:12)
[2019-06-12] MEDS: NICOTINE 7 MG/24 HR TDSY TD SCH (07:33)
[2019-06-12 08:01] LABS: Calcium 7.9 mg/dl (8.5-10.1); Creatinine Clr Calc Pharmacy 45.7 ml/min; Est GFR (African American) 56.3; Est GFR (Non-African American) 48.5; Potassium 3.4 mmol/L (3.5-5.1)
--- NOTE | 2019-06-12 13:37 | Family Medicine Progress Note ---
Date of Service June 12, 2019 Assessment & Plan (1) Acute respiratory failure with hypoxia: 83 y/o M presented with respiratory distress Acute Respiratory Failure with Hypoxia - improved Acute on chronic systolic CHF - Echo shows EF of 30-35% - mild Aortic+Mitral+Tricuspid regurg - elevated right ventricular pressures likely 2/2 pulmonary vascular congestion and edema - Entresto doubled to 49/51 -Lasix switched to PO - 80 mgs bid. will hold tonight dose due to concern of overdiuresis - (-5L for visit) Increasing BUN sec to overdiuresis - BUN increasing over last several days, currently 82 - Cr. 1.35 currently - Hold lasix tonight, follow. Bilateral Pleural Effusion - sec to malnutrition and ?fluid overload - transudate - thoracentesis in MICU drained fluid from right side, Anasarca/Hypoproteinemia Protein malnutrion sec to poor intake from recent whipples procedure - Albumin of 1.6 L (06/05) - ordered Albumin and prealbumin for tomorrow - increase protein levels and nutritional status - added lipase enzymes per dietary recommendation (3 tabs 16,000 U per meal) - pt requires basal 1500 calories per day for daily nutrition. In order to supplement and gain weight+protein reserve, goal should be 2614-6449 calories per day. Can supplement Ensure Plus drinks in between Heart Healthy Meals to increase healthy caloric intake. Patient prefers [place] flavor. Chronic respiratory failure 2L NC oxygen at baseline oxygen Hypothyroidism/Myxedema Coma - TSH of 59.9, repeat TSH was in the normal range. ?noncompliance. recheck as outpatient. Hypokalemia likely 2/2 poor oral intake - 3.4 today, repleted w/ 40 mEq PO KCl - will recheck value tomorrow DVT: Lovenox Code: full Diet: heart healthy (2) Bilateral pleural effusion: (3) Heart failure, systolic, acute on chronic: (4) Hypoalbuminemia: Supervising Physician Co-Signing Physician Notes Resident Physician Supervision Note: I independently interviewed and examined the patient and verified the ca histo ry and physical, reviewed labs and image studies, discussed the case with the resident Dr. Arreola and agree with the findings and care plan. Subjective Mr. Lira is doing, "okay" today. He states that he has not had any pain. He did not sleep well last night which he described as being due to leg swelling and sat in a chair most of the night. He did not have any questions, but mentioned that he was going to go home today and that his son was going to pick him up in the afternoon. I discussed with him today that we were taking over from the [facility] team and there were a few issues that we would like to evaluate further before discharge, patient was amenable to this. He has an appointment with Dr. Ag his PCP on Wednesday in the afternoon. Review of Systems Constitutional: no fever, no chills and no fatigue Respiratory: no cough denies shortness of breath Cardiovascular: no chest pain, no palpitations and no calf pain Gastrointestinal: no abdominal pain, no nausea and no vomiting Neurologic: + confusion Physical Exam Constitutional: + thin and comfortable Respiratory: lungs clear with decreased breath sounds at the bilateral lower lung flowers Results & Data Vital Signs (Past 12 Hours) Vital Signs Temp Pulse Resp BP Pulse Ox 06/12/19 07:36 36.6 C 84 18 162/74 H 91 06/12/19 07:00 72 20 90 PG Care Time/CCT Total # of Minutes Spent Total Time Spent with Patient: Total time spent is greater than 50% in coordination of care (as documented) at patient's floor/unit and/or counseling patient: Resident Activity Tracking Resident Involvement: Resident Care Provided Care Provided: Adult Hospital Medicine
[2019-06-12] MEDS ORDERED: POTASSIUM CHLORIDE 10 MEQ TABCR PO STA (15:09)
[2019-06-12 16:38] LABS: Appearance Urine Cloudy (Clear); Bacteria Urine Automated 1+ (Negative); Bilirubin Urine Negative (Negative); Blood Urine 2+ (Negative); Color Urine Yellow; Epithelial Cell Urine Auto >30 /lpf (0-5); Glucose Urine UA Negative (Negative); Ketones Urine Negative (Negative); Leukocyte Esterase Urine 3+ (Negative); Nitrite Urine Negative (Negative); Protein Urine 1+ (Negative); Specific Gravity Urine 1.017 (1.000-1.030); Urobilinogen Urine Negative (Negative); WBC Urine Automated >30 /hpf (0-5)
[2019-06-12] MEDS ORDERED: FUROSEMIDE ORAL SOLN 40 MG/5 ML UDP PO SCH (17:00)
[2019-06-13 06:56] LABS: Albumin Level 1.7 gm/dl (3.4-5.0); BUN Creatinine Ratio 63.7 (10-20); Calcium 7.7 mg/dl (8.5-10.1); Creatinine Clr Calc Pharmacy 49.4 ml/min; Est GFR (African American) 61.8; Est GFR (Non-African American) 53.3; Potassium 3.7 mmol/L (3.5-5.1)
[2019-06-13] MEDS: ALBUT/IPRATROP 3MG/0.5MG NEB 3 ML VIAL NEB SCH ×2 (07:02→15:49)
[2019-06-13 07:04] LABS: Prealbumin 11.3 mg/dl (20-40)
[2019-06-13] MEDS: predniSONE 20 MG TAB PO SCH (08:29)
[2019-06-13] MEDS: guaiFENesin 600 MG TABCR PO SCH (08:30)
[2019-06-13] MEDS: PANCREAZE (LIPASE 16,800U) CAP PO SCH ×2 (08:30→13:03)
[2019-06-13] MEDS: SACUBITRIL-VALSARTAN 49/51 MG TAB PO SCH (08:30)
[2019-06-13] MEDS: NICOTINE 7 MG/24 HR TDSY TD SCH (08:31)
[2019-06-13] MEDS: ENOXAPARIN INJ 40 MG/0.4 ML SYR SQ SCH (08:33)
[2019-06-13 11:23] VITALS: BP 149/82; PULSE 88; TEMP 98.1; O2SAT 90
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
== END 2019-06-13 17:27 | disposition home health service (06) | DRG 208 ==
LOC: ED 00:05 → SUATTDRO 02:55 → 1E 02:55 → 4W 06-04 10:52

== ENCOUNTER 2019-06-17 13:13 | Inpatient (IN) ==
[2019-06-17] MEDS ORDERED: SODIUM CHLORIDE 0.9% 250 ML IV PRN (13:27)
[2019-06-17] MEDS ORDERED: dilTIAZem HCl 5 MG/ML 5 ML VIAL IV STA (13:27)
[2019-06-17] MEDS ORDERED: FUROSEMIDE 40 MG/4 ML VIAL IV STA (13:28)
[2019-06-17] MEDS ORDERED: dilTIAZem HCl 5 MG/ML 5 ML VIAL IV ONE (13:29)
[2019-06-17] MEDS ORDERED: [UNRECOGNIZED DRUG - OTHER] ONE (13:49)
[2019-06-17] MEDS ORDERED: PHENYLEPHRINE ONE (13:49)
[2019-06-17] MEDS ORDERED: SODIUM CHLORIDE 0.9% 1000ML 500 ML IV ONE (14:02)
[2019-06-17 14:06] LABS: iSTAT Creatinine 1.7 mg/dl (0.6-1.3); iSTAT Hemoglobin 12.9 g/dl (14.0-18.0); iSTAT Ionized Calcium 1.06 mmol/l (1.12-1.32); iSTAT Potassium 3.3 mEq/L (3.3-5.0)
[2019-06-17] MEDS: PHENYLEPHRINE 100MCG/ML 5ML SYR IV PRN ×2 (14:09→14:43)
[2019-06-17] MEDS ORDERED: dilTIAZem HCL 125 MG in DEXTROSE 5% 100 ML IV SCH (14:15)
[2019-06-17] MEDS ORDERED: AMIODARONE / D5W 150 MG/100 ML BAG IV ONE (14:24)
[2019-06-17] MEDS ORDERED: POTASSIUM CHLORIDE / WTR 10 MEQ/100 ML PLCT IV ONE (14:24)
[2019-06-17] MEDS ORDERED: AMIODARONE 150MG / 100ML D5W IV ONE (14:25)
--- NOTE | 2019-06-17 14:28 | XRay Report ---
XR chest 1V portable HISTORY: Shortness of breath. COMPARISON: Chest 06/05/2019. FINDINGS: The heart remains mildly enlarged. A small left pleural effusion appears to have decreased in size. No pneumothorax. The mild interstitial pulmonary edema has improved. The right basilar densi ties/effusion have progressed. IMPRESSION: 1. Interval improvement in the pulmonary edema and small left pleural effusion. 2. The right basilar densities/effusion have increased in size. Electronically signed by: Wilfred Donahue M.D. 06/17/2019 2:27 PM
[2019-06-17 14:30] LABS: Hematocrit (blood only) 39.1 % (42-52); Hemoglobin 12.2 g/dL (14.0-18.0); Mean Corpuscular Hemoglobin 32.2 pg (25-34); Mean Corpuscular Hgb Conc 31.2 g/dL (32-36); Mean Corpuscular Volume 103.2 fL (80-100); RDW Coefficient of Variation 18.1 % (11.5-14.5); RDW Standard Deviation 68.2 fL (36.4-46.3); Red Blood Count 3.79 M/uL (4.7-6.1); White Blood Count 18.34 K/uL (4.8-10.8)
[2019-06-17 14:45] LABS: Mean Platelet Volume 12.1 fL (7.4-10.4); Platelet Count 116 K/uL (130-400)
[2019-06-17 14:46] LABS: Basophils # (auto) 0.02 K/uL (0-0.2); Basophils % (auto) 0.1 %; Echinocytes 2+; Immature Granulocytes # (auto) 0.08 K/uL (0.00-0.02); Immature Granulocytes % (auto) 0.4 %; Lymphocytes # (auto) 1.49 K/uL (1.2-3.4); Lymphocytes % (auto) 8.1 %; Monocytes # (auto) 0.74 K/uL (0.11-0.59); Neutrophils # (auto) 16.01 K/uL (1.4-6.5); Neutrophils % (auto) 87.4 %; Platelet Estimate Normal (Normal)
[2019-06-17] MEDS ORDERED: PHENYLEPHRINE HCL 10 MG in DEXTROSE 5% 250 ML IV SCH (14:47)
[2019-06-17 15:14] LABS: Albumin Level 1.6 gm/dl (3.4-5.0); BUN Creatinine Ratio 54.6 (10-20); Calcium 7.3 mg/dl (8.5-10.1); Creatinine Clr Calc Pharmacy 33.7 ml/min; Est GFR (African American) 42.9; Magnesium 2.3 mg/dl (1.8-2.4); Potassium 3.2 mmol/L (3.5-5.1)
[2019-06-17] MEDS ORDERED: ICU PROTOCOL FOR HYPERGLYCEMIA PRN ×2 (15:24→15:33)
[2019-06-17 15:26] LABS: Albumin Globulin Ratio 0.6 (0.9-2); Bilirubin,Total 0.4 mg/dl (0.2-1); Globulin 2.8 gm/dl (2.5-4.0); T4 Free Thyroxine 0.52 ng/dl (0.8-1.6); Thyroid Stimulating Hormone 8.24 uIu/ml (0.300-4.500); Total Protein 4.4 gm/dl (6.4-8.2); Troponin I 0.13 ng/ml (0-0.045)
[2019-06-17] MEDS ORDERED: VANCOMYCIN CONSULT ACTIVE PRN (15:30)
[2019-06-17] MEDS ORDERED: PIPERACILL/TAZOBAC CONSULT ACTIVE PRN (15:32)
[2019-06-17] MEDS ORDERED: PIPERACILLIN/TAZOBACTAM 4.5 GM/120 ML BAG IV STA (15:38)
[2019-06-17] MEDS ORDERED: POTASSIUM CHLORIDE / WTR 10 MEQ/100 ML PLCT IV STA (15:45)
[2019-06-17] MEDS ORDERED: VANCOMYCIN HCL 2,000 MG in SODIUM CHLORIDE 0.9% 500 ML IV ONE (15:45)
--- NOTE | 2019-06-17 15:46 | Emergency Department Note ---
Entered by Swathi Rajan acting as a scribe for Anita Vazquez MD History of Present Illness General Chief complaint: Respiratory Distress Stated complaint: respiratory distress Time Seen by Provider: 06/17/19 13:27 Source: patient and EMS History of Present Illness Onset (ago): hour(s) (this morning) Location: chest Pain Consistency: + other (episode) Maximum Pain Intensity: 0 Quality: + other (shortness of breath) Relieved By: + other (O2 15L) Associated symptoms: + other (diarrhea, low O2 saturation, atrial fibrillation) The patient is a 83 year old male that is presenting to the Emergency Room with complaints of an episode of severe respiratory distress that started this morning. The patient came to the ED via EMS. EMS reports that the patient lives at home and was found to have a low O2 saturation level by his home health aide. EMS states that he was given 15L O2 on route and his O2 saturation level improved into the low 90% range. EMS reports that the patient is in atrial fibrillation with RVR. The patient notes that he has had diarrhea for the past week but denies that it has been black or bloody. He denies taking any blood thinners. The HPI and ROS are limited secondary to the patient's respiratory distress. Home Medications Home Medications Medication Instructions Recorded Confirmed Type amlodipine 5 mg PO DAILY 09/12/18 06/17/19 History lisinopril 20 mg PO DAILY 09/12/18 06/17/19 History simvastatin 40 mg PO HS 09/12/18 06/17/19 History ferrous sulfate 325 mg PO TID 06/03/19 06/17/19 History torsemide 50 mg PO DAILY 06/03/19 06/17/19 History sacubitril-valsartan [Entresto] 1 tab PO BID 06/17/19 06/17/19 History Allergies Allergy/AdvReac Type Severity Reaction Status Date / Time No Known Allergies Allergy Unverified 06/03/19 01:31 Past Med/Surg History Medical History HTN (hypertension) (Chronic) HLD (hyperlipidemia) (Chronic) Fluid retention (Chronic) Pancreatic cancer (Resolved) Family History Other Family history non-contributory Social History Preferred Language: Vietnamese Communication Ability: Unable Beliefs That Will Affect Care: None Current Living Situation: Alone Feels Safe at Home: Yes Smoking Status: Unknown if ever smoked Hx Alcohol Use: No Hx Substance Use: No Review of Systems The HPI and ROS are limited secondary to the patient's respiratory distress. Physical Exam Vital Signs Vital Signs - 24 hr 06/17/19 13:20 06/17/19 13:22 06/17/19 13:26 Temperature 36.9 C Temperature Source Oral Sepsis Recent Fever Within 48 Hours No Sepsis New/Unexplained Change in Mental Status No Sepsis Action Taken by Nursing No Action Required Pulse Rate 180 H 142 H 158 H Pulse Rate from SpO2 Sensor 96 H 101 H Respiratory Rate 27 H 26 H 32 H Respiratory Effort / Characteristics Respiratory Depth Respiratory Pattern Blood Pressure 100/57 L 100/57 L Blood Pressure Mean 71 71 Pulse Oximetry 91 92 92 Oxygen Delivery Method BiPAP Non-rebreather BiPAP Oxygen Flow Rate 15 Fraction of Inspired Oxygen 06/17/19 13:30 06/17/19 13:35 06/17/19 13:40 Temperature Temperature Source Sepsis Recent Fever Within 48 Hours Sepsis New/Unexplained Change in Mental Status Sepsis Action Taken by Nursing Pulse Rate 166 H 172 H 132 H Pulse Rate from SpO2 Sensor 100 H 88 Respiratory Rate 19 24 17 Respiratory Effort / Characteristics Accessory Muscle Use Gasping/Agonal Respiratory Depth Shallow Respiratory Pattern Tachypnea Blood Pressure Blood Pressure Mean Pulse Oximetry 90 97 Oxygen Delivery Method BiPAP BiPAP Oxygen Flow Rate Fraction of Inspired Oxygen 100 06/17/19 13:43 06/17/19 13:45 06/17/19 13:46 Temperature Temperature Source Sepsis Recent Fever Within 48 Hours Sepsis New/Unexplained Change in Mental Status Sepsis Action Taken by Nursing Pulse Rate 135 H 142 H 138 H Pulse Rate from SpO2 Sensor 149 H 153 H Respiratory Rate 23 19 15 Respiratory Effort / Characteristics Respiratory Depth Respiratory Pattern Blood Pressure 73/54 L Blood Pressure Mean 56 60 Pulse Oximetry 90 Oxygen Delivery Method BiPAP Oxygen Flow Rate Fraction of Inspired Oxygen 06/17/19 13:50 06/17/19 13:58 06/17/19 14:00 Temperature Temperature Source Sepsis Recent Fever Within 48 Hours Sepsis New/Unexplained Change in Mental Status Sepsis Action Taken by Nursing Pulse Rate 141 H 132 H 152 H Pulse Rate from SpO2 Sensor 95 H 95 H 114 H Respiratory Rate 29 H 22 39 H Respiratory Effort / Characteristics Respiratory Depth Respiratory Pattern Blood Pressure Blood Pressure Mean Pulse Oximetry 94 92 96 Oxygen Delivery Method BiPAP BiPAP BiPAP Oxygen Flow Rate Fraction of Inspired Oxygen 06/17/19 14:01 06/17/19 14:04 06/17/19 14:06 Temperature Temperature Source Sepsis Recent Fever Within 48 Hours Sepsis New/Unexplained Change in Mental Status Sepsis Action Taken by Nursing Pulse Rate 144 H 146 H 158 H Pulse Rate from SpO2 Sensor 79 73 81 Respiratory Rate 22 25 H 18 Respiratory Effort / Characteristics Respiratory Depth Respiratory Pattern Blood Pressure 61/42 L 83/32 L 74/55 L Blood Pressure Mean 48 49 61 Pulse Oximetry 95 92 87 L Oxygen Delivery Method BiPAP BiPAP Oxygen Flow Rate Fraction of Inspired Oxygen 06/17/19 14:10 06/17/19 14:11 06/17/19 14:15 Temperature Temperature Source Sepsis Recent Fever Within 48 Hours Sepsis New/Unexplained Change in Mental Status Sepsis Action Taken by Nursing Pulse Rate 138 H 144 H 142 H Pulse Rate from SpO2 Sensor 80 78 86 Respiratory Rate 31 H 28 H 20 Respiratory Effort / Characteristics Respiratory Depth Respiratory Pattern Blood Pressure 92/63 L 109/66 Blood Pressure Mean 72 80 Pulse Oximetry 96 97 96 Oxygen Delivery Method BiPAP BiPAP BiPAP Oxygen Flow Rate Fraction of Inspired Oxygen 06/17/19 14:20 06/17/19 14:21 06/17/19 14:25 Temperature Temperature Source Sepsis Recent Fever Within 48 Hours Sepsis New/Unexplained Change in Mental Status Sepsis Action Taken by Nursing Pulse Rate 139 H 146 H 136 H Pulse Rate from SpO2 Sensor 93 H 93 H 98 H Respiratory Rate 20 24 19 Respiratory Effort / Characteristics Respiratory Depth Respiratory Pattern Blood Pressure 96/72 L Blood Pressure Mean 80 Pulse Oximetry 93 94 Oxygen Delivery Method BiPAP BiPAP Oxygen Flow Rate Fraction of Inspired Oxygen 06/17/19 14:29 06/17/19 14:30 06/17/19 14:32 Temperature Temperature Source Sepsis Recent Fever Within 48 Hours Sepsis New/Unexplained Change in Mental Status Sepsis Action Taken by Nursing Pulse Rate 150 H 148 H 130 H Pulse Rate from SpO2 Sensor 74 70 98 H Respiratory Rate 21 19 18 Respiratory Effort / Characteristics Respiratory Depth Respiratory Pattern Blood Pressure 82/57 L 82/46 L Blood Pressure Mean 65 58 Pulse Oximetry 98 99 98 Oxygen Delivery Method BiPAP BiPAP BiPAP Oxygen Flow Rate Fraction of Inspired Oxygen 06/17/19 14:33 06/17/19 14:35 06/17/19 14:40 Temperature Temperature Source Sepsis Recent Fever Within 48 Hours Sepsis New/Unexplained Change in Mental Status Sepsis Action Taken by Nursing Pulse Rate 135 H 151 H 129 H Pulse Rate from SpO2 Sensor 85 81 79 Respiratory Rate 21 22 25 H Respiratory Effort / Characteristics Respiratory Depth Respiratory Pattern Blood Pressure 100/73 109/88 Blood Pressure Mean 82 95 Pulse Oximetry 100 98 98 Oxygen Delivery Method BiPAP BiPAP BiPAP Oxygen Flow Rate Fraction of Inspired Oxygen 06/17/19 15:06 06/17/19 15:09 06/17/19 15:10 Temperature Temperature Source Sepsis Recent Fever Within 48 Hours Sepsis New/Unexplained Change in Mental Status Sepsis Action Taken by Nursing Pulse Rate 124 H 129 H 121 H Pulse Rate from SpO2 Sensor 101 H 165 H Respiratory Rate 19 17 20 Respiratory Effort / Characteristics Respiratory Depth Respiratory Pattern Blood Pressure 89/63 L 100/74 101/72 Blood Pressure Mean 71 82 81 Pulse Oximetry 90 90 Oxygen Delivery Method BiPAP BiPAP Oxygen Flow Rate Fraction of Inspired Oxygen 06/17/19 15:12 06/17/19 15:15 06/17/19 15:20 Temperature Temperature Source Sepsis Recent Fever Within 48 Hours Sepsis New/Unexplained Change in Mental Status Sepsis Action Taken by Nursing Pulse Rate 127 H 137 H 156 H Pulse Rate from SpO2 Sensor 180 H 190 H 192 H Respiratory Rate 17 21 23 Respiratory Effort / Characteristics Respiratory Depth Respiratory Pattern Blood Pressure 105/58 L 107/69 Blood Pressure Mean 73 81 Pulse Oximetry 89 L 90 90 Oxygen Delivery Method BiPAP BiPAP BiPAP Oxygen Flow Rate Fraction of Inspired Oxygen 06/17/19 15:25 06/17/19 15:30 06/17/19 15:31 Temperature Temperature Source Sepsis Recent Fever Within 48 Hours Sepsis New/Unexplained Change in Mental Status Sepsis Action Taken by Nursing Pulse Rate 136 H 134 H 141 H Pulse Rate from SpO2 Sensor 172 H 90 Respiratory Rate 20 22 19 Respiratory Effort / Characteristics Respiratory Depth Respiratory Pattern Blood Pressure 107/71 125/64 Blood Pressure Mean 83 84 Pulse Oximetry 91 97 Oxygen Delivery Method BiPAP BiPAP Oxygen Flow Rate Fraction of Inspired Oxygen 06/17/19 15:35 Temperature Temperature Source Sepsis Recent Fever Within 48 Hours Sepsis New/Unexplained Change in Mental Status Sepsis Action Taken by Nursing Pulse Rate 136 H Pulse Rate from SpO2 Sensor Respiratory Rate 19 Respiratory Effort / Characteristics Accessory Muscle Use Gasping/Agonal Respiratory Depth Shallow Respiratory Pattern Tachypnea Blood Pressure Blood Pressure Mean Pulse Oximetry 94 Oxygen Delivery Method BiPAP Oxygen Flow Rate Fraction of Inspired Oxygen 100 Vital signs reviewed. General: Chronically ill-appearing, in no significant distress. Diffuse anasarca. HEENT: No scleral icterus, PERRLA, neck supple. Atraumatic. Cardiovascular: Tachycardic rate and irregular rhythm, no extra sounds. Hypotensive. Pulmonary: Coarse breath sounds bilaterally. Hypoxic on non-room breather. Abdomen: Soft, nontender, positive bowel sounds. Rectal: Incontinent of stool. Black, formed, and guaiac positive. Musculoskeletal: Pitting edema to the flanks and buttocks bilaterally. Pitting edema to the bilateral lower extremities with dried stool present. Neurologic: Patient awake alert and oriented x 3, full strength in all 4 extr emities. Cranial nerves 2 through 12 grossly intact. Skin: Warm, dry, no rash Course 1324:The patient was evaluated in room B09. A complete history and physical examination was performed. Respiratory Care Team was called at this time for BiPAP. 1400: The patient was moved to room B01. Patient is full code. 1408: Patient is 74 systolic after a dose of Phenylephrine. A second dose of Phenylephrine will be given prior to starting Cardizem drip. 1415: Patient is 109 systolic after second dose of Phenylephrine. Cardizem drip is running currently. 1428: I talked to the patients son at this time who denies that the patient has any history of atrial fibrillation. He states that the patient is with [facility] for his primary care. He confirms that the patient is full code. 1431: I discussed the patients case with Dr. Mcgee, ICU, who will evaluate the patient further. 1500: I discussed the patients case with Dr. Pierre, who will evaluate the patient for further management and care. 1515: Upon reevaluation, the patient is resting comfortably. I discussed laboratory and radiographic results with the patient. He verbalized agreement of the treatment plan. The patient will be evaluated for further management and care. Consultations Consultation #1: I discussed the patients case with Dr. Mcgee, ICU, who will evaluate the patient further. Time: 14:31 Consultation #2: I discussed the patients case with Dr. Pierre, who will evaluate the patient for further management and care. Time: 15:00 Administered Medications Diltiazem HCl 125 mg/ Dextrose 125 mls @ 5 mls/hr IV .Q24H DELIO; Protocol Stop: 07/17/19 14:14 Last Titration: 06/17/19 14:40 Dose: 0 mg/hr, 0 mls/hr Documented by: [id number] Admin: 06/17/19 14:12 Dose: 5 mg/hr, 5 mls/hr Documented by: [id number] Cosigned by: [id number] Phenylephrine HCl 10 mg/ (Dextrose) 251 mls @ 126.81 mls/hr IV .Q1H59M DELIO; Protocol Stop: 07/17/19 14:46 Last Admin: 06/17/19 14:47 Dose: 1 mcg/kg/min, 126.8 mls/hr Documented by: [id number] Cosigned by: [id number] Discontinued Medications Amiodarone HCl/Dextrose (Nexterone / D5w) Confirm Administered Dose 150 mg IV .STK-MED ONE Stop: 06/17/19 14:26 Last Admin: 06/17/19 14:40 Dose: Not Given Documented by: [id number] Diltiazem HCl (Cardizem) 10 mg IV NOW STA Stop: 06/17/19 13:28 Last Admin: 06/17/19 13:34 Dose: 10 mg Documented by: [id number] Cosigned by: [id number] Diltiazem HCl (Cardizem) Confirm Administered Dose 25 mg IV .STK-MED ONE Stop: 06/17/19 13:30 Last Admin: 06/17/19 13:57 Dose: Not Given Documented by: [id number] Sodium Chloride (Nss 1000ml) 500 mls @ 999 mls/hr IV .Q31M ONE Stop: 06/17/19 14:32 Last Infusion: 06/17/19 14:47 Dose: 0 mls/hr, 0 mls/hr Documented by: [id number] Admin: 06/17/19 14:07 Dose: 999 mls/hr, 999 mls/hr Documented by: [id number] Amiodarone HCl/Dextrose (Nexterone / D5w) 150 mg in 100 mls @ 600 mls/hr IV ONE ONE Stop: 06/17/19 14:33 Last Infusion: 06/17/19 14:48 Dose: 0 mls/hr Documented by: [id number] Cosigned by: [id number] Admin: 06/17/19 14:37 Dose: 600 mls/hr Documented by: [id number] Cosigned by: [id number] Potassium Chloride (K Ge / Wtr) 10 meq in 100 mls @ 100 mls/hr IV ONE ONE Stop: 06/17/19 15:23 Last Admin: 06/17/19 14:32 Dose: 100 mls/hr Documented by: [id number] Phenylephrine HCl (Bobby-Synephrine Iv Push Ed Use) Confirm Administered Dose 100 mcg .ROUTE .STK-MED ONE Stop: 06/17/19 13:50 Last Admin: 06/17/19 13:57 Dose: 100 mcg Documented by: [id number] Cosigned by: [id number] Phenylephrine HCl (Bobby-Synephrine 500mcg/5ml) 100 mcg IV UD PRN PRN Reason: Hypotension Stop: 07/17/19 13:52 Last Admin: 06/17/19 14:43 Dose: 100 mcg Documented by: [id number] Cosigned by: [id number] Admin: 06/17/19 14:09 Dose: 100 mcg Documented by: [id number] Cosigned by: [id number] Medical Decision Making Differential Diagnosis Differential diagnoses includes but is not limited to pneumonia, bronchitis, COPD/Asthma exacerbation, pneumothorax, pulmonary embolism, congestive heart failure, acute coronary syndrome Medical Records Attestation: I reviewed the patient's medical records. Home Medications Current Medication List: was personally reviewed by me Laboratory Data Attestation: I reviewed the patient's lab results. Result diagrams: 06/17/19 13:51 06/17/19 14:26 Lab Results 06/17/19 06/17/19 06/17/19 Range/Units 13:51 13:51 14:26 WBC 18.34 H (4.8-10.8) K/uL RBC 3.79 L (4.7-6.1) M/uL Hgb 12.2 L (14.0-18.0) g/dL POC Hgb 12.9 L (14.0-18.0) g/dl Hct 39.1 L (42-52) % POC Hct 38 L (42-52) % MCV 103.2 H (80-100) fL MCH 32.2 (25-34) pg MCHC 31.2 L (32-36) g/dL RDW Std Deviation 68.2 H (36.4-46.3) fL RDW Coeff of Roger 18.1 H (11.5-14.5) % Plt Count 116 L (130-400) K/uL MPV 12.1 H (7.4-10.4) fL Immature Gran % (Auto) 0.4 % Neut % (Auto) 87.4 % Lymph % (Auto) 8.1 % [place] % (Auto) 4.0 % Eos % (Auto) 0.0 % Baso % (Auto) 0.1 % Immature Gran # (Auto) 0.08 H (0.00-0.02) K/uL Neut # (Auto) 16.01 H (1.4-6.5) K/uL Lymph # (Auto) 1.49 (1.2-3.4) K/uL [place] # (Auto) 0.74 H (0.11-0.59) K/uL Eos # (Auto) 0.00 (0-0.5) K/uL Baso # (Auto) 0.02 (0-0.2) K/uL Platelet Estimate Normal (Normal) Echinocytes 2+ POC Sodium 143 (135-144) mEq/L Sodium 146 H (136-145) mmol/L POC Potassium 3.3 (3.3-5.0) mEq/L Potassium 3.2 L (3.5-5.1) mmol/L POC Chloride 103 (101-112) mEq/L Chloride 109 H (98-107) mmol/L Carbon Dioxide 27 (21-32) mmol/L POC Total CO2 30 (24-31) mEq/l Anion Gap 10.0 (3-11) POC Anion Gap 15.0 L (16-25) mmol/L POC BUN 96 H (7-18) mg/dl BUN 92 H (7-18) mg/dl Creatinine 1.69 H (0.6-1.4) mg/dl POC Creatinine 1.7 H (0.6-1.3) mg/dl Est Cr Clr Drug Dosing 33.7 ml/min Est GFR ( Amer) 42.9 Est GFR (Non-Af Amer) 37.0 BUN/Creatinine Ratio 54.6 H (10-20) Glucose 161 H (70-99) mg/dl POC Glucose (other) 166 H (70-99) mg/dl Calcium 7.3 L (8.5-10.1) mg/dl POC Ioniz Calcium Ca 1.06 L (1.12-1.32) mmol/l Magnesium 2.3 (1.8-2.4) mg/dl Total Bilirubin 0.4 (0.2-1) mg/dl AST 26 (15-37) U/L ALT 32 (12-78) U/L Alkaline Phosphatase 145 H (45-117) U/L Troponin I 0.130 H* (0-0.045) ng/ml Total Protein 4.4 L (6.4-8.2) gm/dl Albumin 1.6 L (3.4-5.0) gm/dl Globulin 2.8 (2.5-4.0) gm/dl Albumin/Globulin Ratio 0.6 L (0.9-2) TSH 8.240 H (0.300-4.500) uIu/ml Free T4 0.52 L (0.8-1.6) ng/dl Blood Type Antibody Screen Crossmatch 06/17/19 Range/Units 14:26 WBC (4.8-10.8) K/uL RBC (4.7-6.1) M/uL Hgb (14.0-18.0) g/dL POC Hgb (14.0-18.0) g/dl Hct (42-52) % POC Hct (42-52) % MCV (80-100) fL MCH (25-34) pg MCHC (32-36) g/dL RDW Std Deviation (36.4-46.3) fL RDW Coeff of Roger (11.5-14.5) % Plt Count (130-400) K/uL MPV (7.4-10.4) fL Immature Gran % (Auto) % Neut % (Auto) % Lymph % (Auto) % [place] % (Auto) % Eos % (Auto) % Baso % (Auto) % Immature Gran # (Auto) (0.00-0.02) K/uL Neut # (Auto) (1.4-6.5) K/uL Lymph # (Auto) (1.2-3.4) K/uL [place] # (Auto) (0.11-0.59) K/uL Eos # (Auto) (0-0.5) K/uL Baso # (Auto) (0-0.2) K/uL Platelet Estimate (Normal) Echinocytes POC Sodium (135-144) mEq/L Sodium (136-145) mmol/L POC Potassium (3.3-5.0) mEq/L Potassium (3.5-5.1) mmol/L POC Chloride (101-112) mEq/L Chloride (98-107) mmol/L Carbon Dioxide (21-32) mmol/L POC Total CO2 (24-31) mEq/l Anion Gap (3-11) POC Anion Gap (16-25) mmol/L POC BUN (7-18) mg/dl BUN (7-18) mg/dl Creatinine (0.6-1.4) mg/dl POC Creatinine (0.6-1.3) mg/dl Est Cr Clr Drug Dosing ml/min Est GFR ( Amer) Est GFR (Non-Af Amer) BUN/Creatinine Ratio (10-20) Glucose (70-99) mg/dl POC Glucose (other) (70-99) mg/dl Calcium (8.5-10.1) mg/dl POC Ioniz Calcium Ca (1.12-1.32) mmol/l Magnesium (1.8-2.4) mg/dl Total Bilirubin (0.2-1) mg/dl AST (15-37) U/L ALT (12-78) U/L Alkaline Phosphatase (45-117) U/L Troponin I (0-0.045) ng/ml Total Protein (6.4-8.2) gm/dl Albumin (3.4-5.0) gm/dl Globulin (2.5-4.0) gm/dl Albumin/Globulin Ratio (0.9-2) TSH (0.300-4.500) uIu/ml Free T4 (0.8-1.6) ng/dl Blood Type A Positive Antibody Screen NEGATIVE Crossmatch See Detail Imaging Data Radiologist's Impression: Radiology results as stated below per my review and the radiologist's interpretation: XR chest 1V portable HISTORY: Shortness of breath. COMPARISON: Chest 06/05/2019. FINDINGS: The heart remains mildly enlarged. A small left pleural effusion appe ars to have decreased in size. No pneumothorax. The mild interstitial pulmonary edema has improved. The right basilar densities/effusion have progressed. IMPRESSION: 1. Interval improvement in the pulmonary edema and small left pleural effusion. 2. The right basilar densities/effusion have increased in size. Electronically signed by: Wilfred Donahue M.D. 06/17/2019 2:27 PM ECG Data Attestation: I personally reviewed and interpreted this ECG as follows: Indication: SOB/dyspnea Rate (beats per minute): 158 Rhythm: atrial fibrillation (with RVR) Findings: + other (aberrantly conducted complexes, QTC 505, t-wave abnormality in lateral leads); no ST depression, no ST elevation and no acute ischemic change Blood Pressure Blood Pressure Findings: Low blood pressure Impression & Plan Atrial fibrillation with RVR, Anasarca, CHF (congestive heart failure), GI bleed, Pancreatic cancer Discharge Plan Visit Data Chief Complaint: Respiratory Distress Stated Complaint: respiratory distress ED Provider: Anita Vazquez Discharge Problem: Atrial fibrillation with RVR, Anasarca, CHF (congestive heart failure), GI bleed, Pancreatic cancer Patient Disposition: Being Evaluated by Hospitalist Forms Stand Alone Forms: [facility] Prescriptions Prescriptions: No Action lisinopril 20 mg Tablet 20 mg PO DAILY RF: 0 amlodipine 5 mg Tablet 5 mg PO DAILY RF: 0 simvastatin 40 mg Tablet 40 mg PO HS RF: 0 ferrous sulfate 325 mg (65 mg iron) Tablet 325 mg PO TID RF: 0 torsemide 100 mg Tablet 50 mg PO DAILY RF: 0 Entresto 49-51 mg tablet 1 tab PO BID RF: 0 Referrals Referrals: Viraj Ag DO [Primary Care Provider] - The scribe's documentation has been prepared under my direction and personally reviewed by me in its entirety. I confirm that the note above accurately refle cts all work, treatment, procedures, and medical decision making performed by me.
[2019-06-17 15:50] LABS: INR 1.2 (0.9-1.1); Partial Thromboplastin Ratio 1.1; Partial Thromboplastin Time 29.3 Seconds (21.0-31.0); Prothrombin Time 12.6 Seconds (9.0-12.0)
[2019-06-17] MEDS ORDERED: POTASSIUM CHLORIDE 20 MEQ/15 ML UDC PO STA (15:50)
[2019-06-17] MEDS ORDERED: FUROSEMIDE 40 MG/4 ML VIAL IV ONE (15:53)
[2019-06-17] MEDS ORDERED: PHENYLEPHRINE HCL 20 MG in DEXTROSE 5% 500 ML IV SCH (16:00)
[2019-06-17] MEDS ORDERED: ESMOLOL BOLUS FROM BAG IV ONE ×3 (16:27→16:55)
[2019-06-17 16:40] LABS: Appearance Urine Clear (Clear); Bilirubin Urine Negative (Negative); Blood Urine Negative (Negative); Color Urine Yellow; Glucose Urine UA Negative (Negative); Ketones Urine Negative (Negative); Leukocyte Esterase Urine Negative (Negative); Nitrite Urine Negative (Negative); Protein Urine Negative (Negative); Specific Gravity Urine 1.018 (1.000-1.030); Urobilinogen Urine Negative (Negative)
[2019-06-17] MEDS ORDERED: ESMOLOL / NSS 2,500 MG/250 ML BAG IV SCH (17:00)
--- NOTE | 2019-06-17 17:47 | Critical Care Consultation ---
Date of Consultation June 17, 2019 Assessment & Plan (1) Atrial fibrillation with RVR: Reason Critically ill: 83 year old man in suspected cardiogenic shock requiring vasopressor medication and bipap Neuro: Patient awake alert and oriented x5 to person, place, time, situation, and the score of the [facility] ICU negative Will continue to assess Cardiovascular: Patient in cardiogenic shock with hypotension requiring pressor and afib with rvr Patient also with pulmonary edema from CHF exacerbation Chronic CHF past echo showing EF of 30-35% Discontinued diltiazem drip in emergency department, Stopped norepinephrine and started on phenylephrine and sent to ICU In ICU placed pads for cardioversion due to hemodynamic instability and esmolol bolus started Patient converted to sinus rhythm with esmolol bolus and pressure rapidly corrected Weaning off phenylephrine as tolerated Given 40 mg Lasix IV Will continue to diurese with Lasix 40 mg BID PO Respiratory: Acute on chronic hypoxemic respiratory failure Evidence for pulmonary edema and bilateral pleural effusions Diuresed with lasix and respiratory status improved. Now on 4L oxymask Renal: ANGELES on CKD III creatinine elevated to 1.69 Lactate also elevated to 3 likely result of hypotension and decreased perfusion, will continue to monitor and trend lactate ID: Unclear if infectious process and septic shock More likely all cardiogenic, however based on clinical status and possible respiratory source will treat for now Covering with Vanc and zosyn Ordered urinalysis GI: Patient appears to have melanotic loose stools hemoccult positive Hemoglobin 12.1 Will recheck q12h GI consulted Goals of Care: After long discussion with patient and son, they are aware that he is very sick and has pancreatic cancer that will likely only continue to get worse. That being said it is clearly his and his son's wishes to remain full code and continue the most aggressive course of treatment and to attempt to get strong enough again to resume chemotherapy. They were however willing to agree to a palliative consult. 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 Art was resident physician during care of patient. I separately evaluated patient for ca portions of the history and the exam. I was present during the critical portion of medical decision making, and I discussed the case with the resident. I generally agree with the findings and plan. Had extensive discussion with patient and patient's son who will be his medical decision-maker if he is unable to make decisions for himself. History of Present Illness Reason for Consultation: Patient in cardiogenic shock requiring Bipap and vasopressor medication Requesting Physician: Olive Vazquez MD Attending Physician: Vahe Pierre History of Present Illness Mr. Augie Lira is a 83 year old man with a past medical history significant for pancreatic adenocarcinoma [id number] status post whipple procedure, currently unable to receive any chemotherapy secondary to poor nutrition and hypoalbuminemia. He was recently discharged from this facility for CHF exacerbation and anasarca. An echo during that admission showed an EF of 30-35% and mild aortic, mitral, and tricuspid regurgitation. He also had bilateral large pleural effusions, both of these were tapped with via thoracentesis. Pathology unable to rule out malignant cells. He improved with aggressive diuresis (More than 6.5 L on the admission), was able to be extubated after less than 24 hours on vent. He has home O2 he uses at all times at 2.5 L. He presents similarly today, globally edematous and in hypoxemic respiratory failure. Today he also is in atrial fibrillation with RVR with rates as high as the 140's. Per son this is new for him and he has no history of atrial fibrillation in the past. Hypotensive in cardiogenic shock with blood pressure as low as 70's over 50's. Patient placed on bipap and started on diltiazem drip in Emergency department and ICU was consulted. Allergies Allergy/AdvReac Type Severity Reaction Status Date / Time No Known Allergies Allergy Unverified 06/03/19 01:31 Home Medications Home Medications Medication Instructions Recorded Confirmed Type amlodipine 5 mg PO DAILY 09/12/18 06/17/19 History lisinopril 20 mg PO DAILY 09/12/18 06/17/19 History simvastatin 40 mg PO HS 09/12/18 06/17/19 History ferrous sulfate 325 mg PO TID 06/03/19 06/17/19 History torsemide 50 mg PO DAILY 06/03/19 06/17/19 History sacubitril-valsartan [Entresto] 1 tab PO BID 06/17/19 06/17/19 History Patient History Medical History HTN (hypertension) (Chronic) HLD (hyperlipidemia) (Chronic) Fluid retention (Chronic) Pancreatic cancer (Resolved) Family History Other Family history non-contributory Social History Preferred Language: Polish Communication Ability: Effective Home Visit Field Care Manager Required: No Beliefs That Will Affect Care: None Current Living Situation: Family Feels Safe at Home: Yes Safety Concerns: Feels Safe At This Time Smoking Status: Never smoker Do You Dip or Chew Tobacco: No ; Second Hand Exposure: No ; Hx Alcohol Use: No Hx Substance Use: No Review of Systems Review of Systems: All systems reviewed & are unremarkable except as noted in HPI & below Physical Exam Constitutional: Constitutional: Ill appearing 83 year old that looks younger than stated age. In moderate distress on bipap Eyes: Pupils equal round and reactive to light, anicteric sclerae Neck: normal visual inspection Respiratory: + not able to speak in complete sentence Auscultation: + diminished lung sounds, + rales and + rhonchi; + lungs not clear to auscultation Rhoncorous lungs, decreased air entry bilateral lung bases. Cardiovascular: Rate/Rhythm: + tachycardic; + abnormal rate and + abnormal rhythm Heart Sounds: normal S1 and normal S2; no click, no gallop, no murmur and no cardiac rub Vessels: + JVD peripheral pulses present and weak Gastrointestinal (Abdomen): normal bowel sounds, soft, nontender, no hepatosplenomegaly Results & Data Vital Signs (Past 12 Hours) Vital Signs Temp Pulse Pulse Resp BP BP Pulse Ox 06/17/19 17:30 63 18 134/58 L 98 06/17/19 17:25 66 18 129/63 98 06/17/19 17:20 59 L 20 115/68 97 06/17/19 17:16 54 L 20 117/62 97 06/17/19 17:10 116 H 75/64 L 97 06/17/19 17:05 108 H 82/55 L 92 06/17/19 17:00 125 H 86/57 L 99 06/17/19 16:56 122 H 98 06/17/19 16:50 139 H 98 06/17/19 16:47 134 H 94 06/17/19 16:46 82/62 L 96 06/17/19 16:45 126 H 97 06/17/19 16:41 103/81 06/17/19 16:40 110 H 06/17/19 16:35 125 H 06/17/19 16:30 101/82 88 L 06/17/19 16:28 135 H 104/65 98 06/17/19 16:25 127 H 85 L 06/17/19 16:20 122 H 96 06/17/19 16:18 99 H 112/58 L 97 06/17/19 16:16 122 H 06/17/19 16:10 36.5 C 122 H 22 112/58 L 97 06/17/19 15:35 136 H 19 94 06/17/19 15:31 141 H 19 125/64 97 06/17/19 15:30 134 H 22 06/17/19 15:25 136 H 20 107/71 91 06/17/19 15:20 156 H 23 107/69 90 06/17/19 15:15 137 H 21 105/58 L 90 06/17/19 15:12 127 H 17 89 L 06/17/19 15:10 121 H 20 101/72 90 06/17/19 15:09 129 H 17 100/74 90 06/17/19 15:06 124 H 19 89/63 L 06/17/19 14:40 129 H 25 H 98 06/17/19 14:35 151 H 22 109/88 98 06/17/19 14:33 135 H 21 100/73 100 06/17/19 14:32 130 H 18 98 06/17/19 14:30 148 H 19 82/46 L 99 06/17/19 14:29 150 H 21 82/57 L 98 06/17/19 14:25 136 H 19 06/17/19 14:21 146 H 24 96/72 L 94 06/17/19 14:20 139 H 20 93 06/17/19 14:15 142 H 20 109/66 96 06/17/19 14:11 144 H 28 H 92/63 L 97 06/17/19 14:10 138 H 31 H 96 06/17/19 14:06 158 H 18 74/55 L 87 L 06/17/19 14:04 146 H 25 H 83/32 L 92 06/17/19 14:01 144 H 22 61/42 L 95 06/17/19 14:00 152 H 39 H 96 06/17/19 13:58 132 H 22 92 06/17/19 13:50 141 H 29 H 94 06/17/19 13:46 138 H 15 73/54 L 06/17/19 13:45 142 H 19 90 06/17/19 13:43 135 H 23 06/17/19 13:40 132 H 17 97 06/17/19 13:35 172 H 24 90 06/17/19 13:30 166 H 19 06/17/19 13:26 158 H 32 H 92 06/17/19 13:22 36.9 C 142 H 26 H 100/57 L 92 06/17/19 13:20 180 H 27 H 100/57 L 91 PG Care Time/CCT Total # of Minutes Spent Total Time Spent with Patient: Total time spent is greater than 50% in coordination of care (as documented) at patient's floor/unit and/or counseling patient: Critical Care Time: Yes I have personally spent 95 minutes of critical care time in the direct management of this patient. This is a life/limb threatening event. This includes time spent evaluating patient, direct bedside care, chart review, placing orders, interpretation of diagnostic studies, discussion with consultants, patient, and/or family members regarding treatment decisions, as well as other required patient management activities. This time is exclusive of all separately billable procedures, and teaching time and separate from and in addition to any other critical care service time. Resident Activity Tracking Resident Involvement: Resident Care Provided Care Provided: Adult [facility] Medicine
[2019-06-17] MEDS ORDERED: GLUCOSE 10 TABS/TUBE PO PRN (19:30)
[2019-06-17] MEDS ORDERED: CARBOHYDRATES FOR HYPOGLYCEMIA PO PRN (19:30)
[2019-06-17] MEDS ORDERED: GLUCAGON FOR INJ 1 MG VIAL IM PRN (19:30)
[2019-06-17] MEDS ORDERED: GLUCOSE 40% GEL 15 GM TUBE PO PRN (19:30)
[2019-06-17] MEDS ORDERED: DEXTROSE 50% 50 ML SYRINGE IV PRN (19:30)
[2019-06-17] MEDS: INSULIN ASPART 100 UNITS/ML 3 ML PEN SC SCH (20:53)
[2019-06-17] MEDS: PIPERACILLIN/TAZOBACTAM 3.375 GM in DEXTROSE 5% 100 ML IV SCH (21:07)
--- NOTE | 2019-06-17 22:40 | History & Physical Report ---
Date of Service June 17, 2019 Assessment & Plan (1) Acute respiratory failure with hypoxia: Patient is an 83 year old male with PMHx Pancreatic cancer that presented initially with worsening SOB and increasing O2 demand. Acute Hypoxic Respiratory Failure -patient returns to the hospital in RVR and anasarca. -Will admit to the ICU. Placed on BIPAP. -Patient O2 dependant at home on 2L -Patient will again chata to be diuresed. -lactic acid is also elevated. -this is likely exacerbated by his poor nutrional status, his cancer, and his poor EF. Will also discuss with cardiology. (2) Cardiogenic shock: Patient as noted above is here with anasarca, RVR A. fib elebvated lactic acidosis. Patient also appears to be in cardiogenic shock as his lactic acid is elevated. Blood pressure is low Patient was initally placed on norepin, this will be swithed to phenylephrine. Chronic CHF past echo showing EF of 30-35% Discontinued diltiazem drip in emergency department, Esmolol wwas also ordered by ICU. Given 40 mg Lasix IV Will continue to diurese with Lasix 40 mg BID PO (3) Anasarca: as stated in problem one. Patient no on pressors, will diurese. (4) Atrial fibrillation with RVR: Patient came in with above diagnosis. On diltiazem on admission. This was converted to esmolol. Later in the day, patient had converted back to sinus. (5) GI bleed: Patient is having dark stools. Hemboglonin is 12. will keep close monitoring of hemoglobin. Doubt hemoconcentration as patient has anasarca. (6) Pancreatic cancer: as noted above. - s/p Whipple procedure Oct 2018, not receiving treatment as outpatient currently due to poor nutritional status. (7) Pulmonary edema: as noted above (8) Bilateral pleural effusion: as noted above. (9) ARDS (adult respiratory distress syndrome): likely from problem 1 and 2. History of Present Illness Chief Complaint: Worsening edema and breathing. Primary Care Provider: Viraj Ag DO Mr. Lira is a 83 yo male withpast medical history significant for pancreatic adenocarcinoma T3N2M0 status post whipple procedure, currently unable to receive any chemotherapy secondary to poor nutrition and hypoalbuminemia. He was recently at [facility] for CHF exacerbation and ANASARCA, with large pleural effusions. He was found to have acute systolic heart failure. An echo during that admission showed an EF of 30-35%. His pleural effusions were tapped. Pathology unable to rule out malignant cells. He improved with aggressive diuresis (More than 6.5 L on the admission). Sadly patient returned with the same history, he again presents with anasarca and acute hypoxiemic respiratory failure. Today, his HR was elevated in the 140s with acute RVR. Per son this is new for him and he has no history of atrial fibrillation in the past. Hypotensive in cardiogenic shock with blood pressure as low as 70's over 50's. Patient placed on bipap and started on diltiazem drip in Emergency department. Once i WAS NOTIFIED, I consulted the security auditor. Allergies Allergy/AdvReac Type Severity Reaction Status Date / Time No Known Allergies Allergy Unverified 06/03/19 01:31 Home Medications Home Medications Medication Instructions Recorded Confirmed Type amlodipine 5 mg PO DAILY 09/12/18 06/17/19 History lisinopril 20 mg PO DAILY 09/12/18 06/17/19 History simvastatin 40 mg PO HS 09/12/18 06/17/19 History ferrous sulfate 325 mg PO TID 06/03/19 06/17/19 History torsemide 50 mg PO DAILY 06/03/19 06/17/19 History sacubitril-valsartan [Entresto] 1 tab PO BID 06/17/19 06/17/19 History Past Med/Surg History Medical History HTN (hypertension) (Chronic) HLD (hyperlipidemia) (Chronic) Fluid retention (Chronic) Pancreatic cancer (Resolved) Family History Other Family history non-contributory Social History Preferred Language: Estonian Communication Ability: Effective Anthropology Faculty Member Required: No Beliefs That Will Affect Care: None marital status: Single Current Living Situation: Family Feels Safe at Home: Yes Safety Concerns: Feels Safe At This Time Smoking Status: Never smoker Do You Dip or Chew Tobacco: No ; Second Hand Exposure: No ; Hx Alcohol Use: No Hx Substance Use: No Review of Systems Constitutional: + weakness; no fever and no body aches Eyes: no blind spots, no diplopia and no discharge Ear, Nose, Mouth, Throat: no tinnitus and no dizziness Respiratory: + dyspnea and + dyspnea on exertion Cardiovascular: + edema Gastrointestinal: + nausea and + diarrhea/loose stools Genitourinary: no dysuria and no urinary frequency Musculoskeletal: + swelling Integumentary: no rash and no non-healing lesions Psychiatric: no hopelessness Endocrine: no polydipsia and no cold intolerance Physical Exam Physical Exam: Constitutional: Constitutional: Ill appearing 83 year old that looks younger than stated age. In moderate distress on bipap Eyes: Pupils equal round and reactive to light, anicteric sclerae Neck: normal visual inspection Respiratory: Auscultation: + diminished lung sounds, + rales heard bilaterally, with Rhoncorous lungs, decreased air entry bilateral lung bases. Cardiovascular: Rate/Rhythm: + tachycardic; + abnormal rate and + abnormal rhythm Heart Sounds: normal S1 and normal S2; no click, no gallop, no murmur and no cardiac rub Vessels: + JVD peripheral pulses present and weak Gastrointestinal (Abdomen): normal bowel sounds, soft, nontender, no hepatosplenomegaly Ext: edema all the way up to the hips skin: no rashes Results & Data Vital Signs (Past 12 Hours) Vital Signs Temp Pulse Pulse Resp BP BP Pulse Ox 06/17/19 22:00 72 12 83/50 L 94 06/17/19 21:45 74 10 L 100/51 L 94 06/17/19 21:30 74 12 101/57 L 93 06/17/19 21:15 73 13 94/51 L 93 06/17/19 21:00 73 11 L 101/58 L 93 06/17/19 20:45 74 13 105/56 L 93 06/17/19 20:30 79 18 96/52 L 93 06/17/19 20:17 72 06/17/19 20:15 71 13 102/56 L 93 06/17/19 20:00 36.5 C 72 109/58 L 92 06/17/19 19:46 77 114/47 L 90 06/17/19 19:30 76 126/60 92 06/17/19 19:15 85 111/57 L 91 06/17/19 19:00 75 109/57 L 92 06/17/19 18:30 80 20 100/57 L 99 06/17/19 18:25 75 20 100 06/17/19 18:20 75 18 100 06/17/19 18:15 75 18 109/60 100 06/17/19 18:10 74 18 97/58 L 100 06/17/19 18:00 76 18 109/67 100 06/17/19 17:55 68 18 119/63 100 06/17/19 17:50 64 18 114/58 L 100 06/17/19 17:45 65 16 112/69 99 06/17/19 17:40 70 16 120/61 99 06/17/19 17:30 63 18 134/58 L 98 06/17/19 17:25 66 18 129/63 98 06/17/19 17:20 59 L 20 115/68 97 06/17/19 17:16 54 L 20 117/62 97 06/17/19 17:10 116 H 75/64 L 97 06/17/19 17:05 108 H 82/55 L 92 06/17/19 17:00 125 H 86/57 L 99 06/17/19 16:56 122 H 98 06/17/19 16:50 139 H 98 06/17/19 16:47 134 H 94 06/17/19 16:46 82/62 L 96 06/17/19 16:45 126 H 97 06/17/19 16:41 103/81 06/17/19 16:40 110 H 06/17/19 16:35 125 H 06/17/19 16:30 101/82 88 L 06/17/19 16:28 135 H 104/65 98 06/17/19 16:25 127 H 85 L 06/17/19 16:20 122 H 96 06/17/19 16:18 99 H 112/58 L 97 06/17/19 16:16 122 H 06/17/19 16:10 36.5 C 122 H 22 112/58 L 97 06/17/19 15:35 136 H 19 94 06/17/19 15:31 141 H 19 125/64 97 06/17/19 15:30 134 H 22 06/17/19 15:25 136 H 20 107/71 91 06/17/19 15:20 156 H 23 107/69 90 06/17/19 15:15 137 H 21 105/58 L 90 06/17/19 15:12 127 H 17 89 L 06/17/19 15:10 121 H 20 101/72 90 06/17/19 15:09 129 H 17 100/74 90 06/17/19 15:06 124 H 19 89/63 L 06/17/19 14:40 129 H 25 H 98 06/17/19 14:35 151 H 22 109/88 98 06/17/19 14:33 135 H 21 100/73 100 06/17/19 14:32 130 H 18 98 06/17/19 14:30 148 H 19 82/46 L 99 06/17/19 14:29 150 H 21 82/57 L 98 06/17/19 14:25 136 H 19 06/17/19 14:21 146 H 24 96/72 L 94 06/17/19 14:20 139 H 20 93 06/17/19 14:15 142 H 20 109/66 96 06/17/19 14:11 144 H 28 H 92/63 L 97 06/17/19 14:10 138 H 31 H 96 06/17/19 14:06 158 H 18 74/55 L 87 L 06/17/19 14:04 146 H 25 H 83/32 L 92 06/17/19 14:01 144 H 22 61/42 L 95 06/17/19 14:00 152 H 39 H 96 06/17/19 13:58 132 H 22 92 06/17/19 13:50 141 H 29 H 94 06/17/19 13:46 138 H 15 73/54 L 06/17/19 13:45 142 H 19 90 06/17/19 13:43 135 H 23 06/17/19 13:40 132 H 17 97 06/17/19 13:35 172 H 24 90 06/17/19 13:30 166 H 19 06/17/19 13:26 158 H 32 H 92 06/17/19 13:22 36.9 C 142 H 26 H 100/57 L 92 06/17/19 13:20 180 H 27 H 100/57 L 91 Code Status & VTE Plan VTE Prophylaxis Plan VTE Prophylaxis will be ordered: Yes Critical Care Time Critical Care Time: Yes Total Critical Care Time: 35 65 minutes PG Care Time/CCT Total # of Minutes Spent Total Time Spent with Patient: Total time spent is greater than 50% in coordination of care (as documented) at patient's floor/unit and/or counseling patient: Critical Care Time: Yes Total Critical Care Time: 35 (1) Pulmonary edema Chronicity: acute Qualified Code(s): J81.0 - Acute pulmonary edema
[2019-06-18 00:34] LABS: Hematocrit (blood only) 33.8 % (42-52); Hemoglobin 10.8 g/dL (14.0-18.0)
--- NOTE | 2019-06-18 03:26 | Critical Care Progress Note ---
Date of Service June 18, 2019 Assessment & Plan (1) Atrial fibrillation with RVR: Reason Critically ill: 83 year old man in suspected cardiogenic shock requiring vasopressor medication and bipap Neuro: CAM ICU negative No concerns for any neuro issues at this time Will continue to assess Cardiovascular: Patient initially was in atrial fibrillation with RVR in cardiogenic shock with hypotension requiring pressor support Patient also with pulmonary edema from CHF exacerbation Chronic CHF past echo showing EF of 30-35% Discontinued diltiazem drip in emergency department, Stopped norepinephrine and started on phenylephrine and sent to ICU In ICU placed pads for cardioversion due to hemodynamic instability and esmolol bolus started Patient converted to sinus rhythm with esmolol bolus and pressure rapidly corrected Able to wean off phenylephrine Given 40 mg Lasix IV Will continue to diurese with Lasix 20 mg BID IV Will check CXR this morning Paroxysmal atrial fibrillation -Systemic anticoagulation contraindicated at this time due to ongoing gastrointestinal losses -Weaned off vasoactive medication support -Being recently off beta-blockade and blood pressure reaching goal but not exceeding it it is premature to add beta-lela at this time Respiratory:` Acute on chronic hypoxemic respiratory failure Evidence for pulmonary edema and bilateral pleural effusions Diuresed with lasix and respiratory status improved. Now on 4L oxymask Will recheck CXR this morning -Bilateral pleural effusions which previously were found to be transudate of in nature, in the setting of severe protein calorie malnutrition I am hesitant to drain these effusions -If patient continues to have issues with compressive atelectasis and recurrent pleural effusions I would consider evaluation for Pleurx catheter placement for symptomatic drainage however this would be considered more than palliative care treatment as opposed to active medical treatment Renal: ANGELES on CKD III: Worsening creatinine elevated to 1.69 Lactate also elevated to 3 likely result of hypotension and decreased perfusion, will continue to monitor and trend lactate hypokalemic at 3.2 received 40 meq of potassium between ED and ICU -Continue to trend BMP twice daily -Patient would be agreeable with temporary hemodialysis this time should it be required ID: Unclear if infectious process and septic shock More likely all cardiogenic, however based on clinical status and possible respiratory source will treat for now Covering with Vanc and zosyn Urinalysis negative -MRSA swab negative will discontinue vancomycin today continue Zosyn GI: Gastrointestinal hemorrhage hemoccult positive: Performed in emergency department will not be found in laboratory results Hemoglobin 12.1 repeat decreased 2 g continue to trend Will recheck q12h GI consulted Dr. Tejada Severe protein calorie malnutrition Endocrine Status post Whipple will either need elemental feeds or pancreatic enzymes Previously found to be hypothyroid -Will not adjust levothyroxine at this point given recent atrial fibrillation Goals of Care: After long discussion with patient and son, they are aware that he is very sick and has pancreatic cancer that will likely only continue to get worse. That being said it is clearly his and his son's wishes to remain full code and continue the most aggressive course of treatment and to attempt to get strong enough again to resume chemotherapy. They were however willing to agree to a palliative consult. 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 Art was resident physician during care of patient. I separately evaluated patient for ca portions of the history and the exam. I was present during the critical portion of medical decision making, and I discussed the case with the resident. I generally agree with the findings and plan. Had extensive discussion with patient and patient's son who will be his medical decision-maker if he is unable to make decisions for himself. Subjective Mr. Lira resting comfortably this morning. Has been conversive and oriented. He's very upset that his TV provider dropped rachel so he can't watch [place]. Review of Systems Review of Systems: All systems reviewed & are unremarkable except as noted in HPI & below Physical Exam Physical Exam: Contitutional: Ill appearing 83 year old that looks younger than stated age. on bipap Eyes: Pupils equal round and reactive to light, anicteric sclerae Neck: normal visual inspection Respiratory: + not able to speak in complete sentence Auscultation: + diminished lung sounds, + rales and + rhonchi; + lungs not clear to auscultation Rhoncorous lungs, decreased air entry bilateral lung bases. Cardiovascular: Rate/Rhythm: Regular rate/regular rhythm Heart Sounds: normal S1 and normal S2; no click, no gallop, no murmur and no cardiac rub V essels: + JVD peripheral pulses present and weak Gastrointestinal (Abdomen): normal bowel sounds, soft, nontender, no hepatosplenomegaly Results & Data Vital Signs (Past 12 Hours) Vital Signs Temp Pulse Pulse Resp BP BP Pulse Ox 06/18/19 01:00 76 15 86/50 L 93 06/18/19 00:38 77 20 83/48 L 92 06/18/19 00:15 75 16 85/50 L 06/18/19 00:00 36.7 C 73 13 86/53 L 93 06/17/19 23:45 71 12 96/61 L 93 06/17/19 23:30 72 11 L 92/56 L 93 06/17/19 23:15 76 13 93/54 L 92 06/17/19 23:00 75 12 89/54 L 93 06/17/19 22:45 74 11 L 98/53 L 93 06/17/19 22:30 74 11 L 96/59 L 94 06/17/19 22:15 74 7 L 103/59 L 93 06/17/19 22:00 72 12 83/50 L 94 06/17/19 21:45 74 10 L 100/51 L 94 06/17/19 21:30 74 12 101/57 L 93 06/17/19 21:15 73 13 94/51 L 93 06/17/19 21:00 73 11 L 101/58 L 93 06/17/19 20:45 74 13 105/56 L 93 06/17/19 20:30 79 18 96/52 L 93 06/17/19 20:17 72 06/17/19 20:15 71 13 102/56 L 93 06/17/19 20:00 36.5 C 72 109/58 L 92 06/17/19 19:46 77 114/47 L 90 06/17/19 19:30 76 126/60 92 06/17/19 19:15 85 111/57 L 91 06/17/19 19:00 75 109/57 L 92 06/17/19 18:30 80 20 100/57 L 99 06/17/19 18:25 75 20 100 09/28/19 18:20 75 18 100 06/17/19 18:15 75 18 109/60 100 06/17/19 18:10 74 18 97/58 L 100 06/17/19 18:00 76 18 109/67 100 06/17/19 17:55 68 18 119/63 100 06/17/19 17:50 64 18 114/58 L 100 06/17/19 17:45 65 16 112/69 99 06/17/19 17:40 70 16 120/61 99 06/17/19 17:30 63 18 134/58 L 98 06/17/19 17:25 66 18 129/63 98 06/17/19 17:20 59 L 20 115/68 97 06/17/19 17:16 54 L 20 117/62 97 06/17/19 17:10 116 H 75/64 L 97 06/17/19 17:05 108 H 82/55 L 92 06/17/19 17:00 125 H 86/57 L 99 06/17/19 16:56 122 H 98 06/17/19 16:50 139 H 98 06/17/19 16:47 134 H 94 06/17/19 16:46 82/62 L 96 06/17/19 16:45 126 H 97 06/17/19 16:41 103/81 06/17/19 16:40 110 H 06/17/19 16:35 125 H 06/17/19 16:30 101/82 88 L 06/17/19 16:28 135 H 104/65 98 06/17/19 16:25 127 H 85 L 06/17/19 16:20 122 H 96 06/17/19 16:18 99 H 112/58 L 97 06/17/19 16:16 122 H 06/17/19 16:10 36.5 C 122 H 22 112/58 L 97 06/17/19 15:35 136 H 19 94 06/17/19 15:31 141 H 19 125/64 97 06/17/19 15:30 134 H 22 PG Care Time/CCT Total # of Minutes Spent Total Time Spent with Patient: Total time spent is greater than 50% in coordination of care (as documented) at patient's floor/unit and/or counseling patient: Critical Care Time: Yes Total Critical Care Time: 40 Resident Activity Tracking Resident Involvement: Resident Care Provided Care Provided: Adult [facility] Medicine
[2019-06-18 05:12] LABS: Albumin Level 1.3 gm/dl (3.4-5.0); BUN Creatinine Ratio 56.2 (10-20); Calcium 6.9 mg/dl (8.5-10.1); Creatinine Clr Calc Pharmacy 35.2 ml/min; Est GFR (African American) 42.3; Est GFR (Non-African American) 36.5; Potassium 3.2 mmol/L (3.5-5.1)
[2019-06-18 05:16] LABS: Bilirubin Direct 0.2 mg/dl (0-0.2); Bilirubin,Total 0.4 mg/dl (0.2-1); Phosphorus 5.7 mg/dl (2.5-4.9); Total Protein 3.8 gm/dl (6.4-8.2)
[2019-06-18 05:27] LABS: Hematocrit (blood only) 32.1 % (42-52); Hemoglobin 10.3 g/dL (14.0-18.0); Mean Corpuscular Hemoglobin 32.7 pg (25-34); Mean Corpuscular Hgb Conc 32.1 g/dL (32-36); Mean Corpuscular Volume 101.9 fL (80-100); Mean Platelet Volume 12.7 fL (7.4-10.4); Platelet Count 82 K/uL (130-400); RDW Coefficient of Variation 17.9 % (11.5-14.5); RDW Standard Deviation 66.6 fL (36.4-46.3); Red Blood Count 3.15 M/uL (4.7-6.1); White Blood Count 12.87 K/uL (4.8-10.8)
[2019-06-18] MEDS ORDERED: POTASSIUM CHLORIDE 20 MEQ TABCR PO STA (05:43)
[2019-06-18 05:45] LABS: Basophils # (auto) 0.01 K/uL (0-0.2); Basophils % (auto) 0.1 %; Echinocytes 1+; Immature Granulocytes # (auto) 0.05 K/uL (0.00-0.02); Immature Granulocytes % (auto) 0.4 %; Lymphocytes # (auto) 1.19 K/uL (1.2-3.4); Lymphocytes % (auto) 9.2 %; Monocytes # (auto) 0.41 K/uL (0.11-0.59); Monocytes % (auto) 3.2 %; Neutrophils # (auto) 11.21 K/uL (1.4-6.5); Neutrophils % (auto) 87.1 %
[2019-06-18] MEDS: PIPERACILLIN/TAZOBACTAM 3.375 GM in DEXTROSE 5% 100 ML IV SCH ×3 (06:22→23:07)
[2019-06-18] MEDS: POTASSIUM CHLORIDE / WTR 10 MEQ/100 ML PLCT IV SCH ×2 (06:23→08:29)
[2019-06-18] MEDS: FUROSEMIDE 40 MG in SYRINGE 0 ML IV SCH ×2 (07:26→16:11)
[2019-06-18] MEDS: INSULIN ASPART 100 UNITS/ML 3 ML PEN SC SCH ×4 (07:29→22:25)
--- NOTE | 2019-06-18 08:21 | XRay Report ---
SINGLE VIEW CHEST CLINICAL HISTORY: Hypoxemic respiratory failure. FINDINGS: An AP, portable, upright chest radiograph is compared to study dated 06/17/2019 and correlat ed with chest CT dated 06/07/2019. The examination is degraded by portable technique and patient rotat ion. The heart is enlarged noting atherosclerotic calcification of the thoracic aorta. There is pulmo nary vascular congestion with evidence of interstitial edema. This is modestly worsened from yesterda y. There are layering pleural effusions with bibasilar consolidation. Fluid is noted along the right minor fissure. No pneumothorax is seen. The skeletal structures are osteopenic. The bony thorax is gr ossly intact. Degenerative change is noted in the spine. IMPRESSION: 1. There is pulmonary vascular congestion with evidence of interstitial edema. This has modestly wors ened from yesterday. 2. Layering pleural effusions with bibasilar consolidation. This likely represents atelectasis. Corre late clinically for evidence of superimposed pneumonia. Electronically signed by: Asim Curran M.D. 06/18/2019 8:20 AM
[2019-06-18] MEDS ORDERED: FUROSEMIDE 20 MG in SYRINGE 0 ML IV SCH (09:00)
[2019-06-18] MEDS ORDERED: FUROSEMIDE 40 MG TAB PO SCH (09:00)
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
[2019-06-18 15:17] LABS: BUN Creatinine Ratio 55.3 (10-20); Calcium 7.2 mg/dl (8.5-10.1); Creatinine Clr Calc Pharmacy 33.3 ml/min; Est GFR (African American) 39.7; Est GFR (Non-African American) 34.3
[2019-06-18] MEDS ORDERED: VANCOMYCIN HCL 1,250 MG in SODIUM CHLORIDE 0.9% 250 ML IV SCH (16:00)
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
[2019-06-18] MEDS: FAMOTIDINE 20 MG in SYRINGE 3 ML IV SCH (22:20)
--- NOTE | 2019-06-18 23:05 | Hospitalist Progress Note ---
Date of Service June 18, 2019 Assessment & Plan (1) Acute respiratory failure with hypoxia: Patient is an 83 year old male with PMHx Pancreatic cancer that presented initially with worsening SOB and increasing O2 demand. Acute Hypoxic Respiratory Failure -patient returns to the hospital in RVR and anasarca. -Will admit to the ICU. Placed on BIPAP. -Patient O2 dependant at home on 2L -Patient will again chata to be diuresed. -lactic acid is also elevated. -this is likely exacerbated by his poor nutrional status, his cancer, and his poor EF. Will also discuss with cardiology. (2) Cardiogenic shock: Patient as noted above is here with anasarca, RVR A. fib elebvated lactic acidosis. Patient also appears to be in cardiogenic shock as his lactic acid is elevated. Blood pressure is low Patient was initally placed on norepin, this will be swithed to phenylephrine. Chronic CHF past echo showing EF of 30-35% Discontinued diltiazem drip in emergency department, On Esmolol Will continue to diurese with Lasix 40 mg IV BID Patient remains on phenylephrine today 06/18 (3) Anasarca: as stated in problem one. Patient no on pressors, will diurese. (4) Atrial fibrillation with RVR: Patient came in with above diagnosis. On diltiazem on admission. This was converted to esmolol. Later in the day of admission, patient had converted back to sinus. Patient remains in sinus on 06/18 (5) GI bleed: Patient is having dark stools. Hemboglonin is 10. will keep close monitoring of hemoglobin. Doubt hemoconcentration as patient has anasarca. (6) Pancreatic cancer: as noted above. - s/p Whipple procedure Oct 2018, not receiving treatment as outpatient currently due to poor nutritional status. (7) Pulmonary edema: as noted above (8) Bilateral pleural effusion: as noted above. (9) ARDS (adult respiratory distress syndrome): likely from problem 1 and 2. (10) Acute kidney failure: creatinine is normally 1.2, here is is near 1.7, likely contributed by low perfusion by problem 1 and 2. (11) Chronic renal failure, stage 3 (moderate): GFR is hovering around low 40s. will monitor (12) Acute upper gastrointestinal bleeding: Hemoglobin dropped from 12 to 10. Will continue to monitor. Consulted GI. Appreciate input. Will consult palliative care. Subjective 83 yo male is able to have conversation with me this evening. He states that he is unsure as to what to ultimately do in regards to his health, given how sick he is. Patient reports that he is open to a palliative care consult to discuss goals of care. Review of Systems Review of Systems: Constitutional: + weakness; no fever and no body aches Eyes: no blind spots, no diplopia and no discharge Ear, Nose, Mouth, Throat: no tinnitus and no dizziness Respiratory: + dyspnea and + dyspnea on exertion Cardiovascular: + edema Gastrointestinal: + nausea and + diarrhea/loose stools Genitourinary: no dysuria and no urinary frequency Musculoskeletal: + swelling Integumentary: no rash and no non-healing lesions Psychiatric: no hopelessness Endocrine: no polydipsia and no cold intolerance Physical Exam Physical Exam: Constitutional:83 year old that looks younger than stated age. He appears more comfortable on oxymask Eyes: Pupils equal round and reactive to light, anicteric sclerae Neck: normal visual inspection Respiratory: Auscultation: + diminished lung sounds, + decreased rales heard bilaterally, decreased air entry bilateral lung bases. Cardiovascular: RRR, Heart Sounds: normal S1 and normal S2; no click, no gallop, no murmur and no cardiac rub Gastrointestinal (Abdomen): normal bowel sounds, soft, nontender, no hepatosplenomegaly Ext: edema all the way up to the hips skin: no rashes Results & Data Vital Signs (Past 12 Hours) Vital Signs Pulse Resp BP Pulse Ox 06/18/19 11:30 76 18 99/52 L 95 PG Care Time/CCT Total # of Minutes Spent Total Time Spent with Patient: Total time spent is greater than 50% in coordination of care (as documented) at patient's floor/unit and/or counseling patient: (1) Pulmonary edema Chronicity: acute Qualified Code(s): J81.0 - Acute pulmonary edema
[2019-06-18 23:50] LABS: Hemoglobin 11.1 g/dL (14.0-18.0)
[2019-06-19 05:18] LABS: BUN Creatinine Ratio 50.8 (10-20); Calcium 7.2 mg/dl (8.5-10.1); Creatinine Clr Calc Pharmacy 29.4 ml/min; Est GFR (African American) 34.2; Est GFR (Non-African American) 29.5; Magnesium 2.1 mg/dl (1.8-2.4); Potassium 3.7 mmol/L (3.5-5.1)
[2019-06-19 05:19] LABS: Phosphorus 6.5 mg/dl (2.5-4.9)
[2019-06-19 05:29] LABS: Basophils # (auto) 0.02 K/uL (0-0.2); Basophils % (auto) 0.1 %; Echinocytes 1+; Hemoglobin 11.3 g/dL (14.0-18.0); Immature Granulocytes # (auto) 0.15 K/uL (0.00-0.02); Immature Granulocytes % (auto) 0.9 %; Lymphocytes # (auto) 1.62 K/uL (1.2-3.4); Lymphocytes % (auto) 9.3 %; Mean Corpuscular Hemoglobin 32.1 pg (25-34); Mean Corpuscular Hgb Conc 31.4 g/dL (32-36); Mean Corpuscular Volume 102.3 fL (80-100); Monocytes # (auto) 0.57 K/uL (0.11-0.59); Monocytes % (auto) 3.3 %; Neutrophils # (auto) 15.15 K/uL (1.4-6.5); Neutrophils % (auto) 86.4 %; Platelet Count 77 K/uL (130-400); Platelet Estimate Decreased (Normal); RDW Coefficient of Variation 18.5 % (11.5-14.5); RDW Standard Deviation 69.8 fL (36.4-46.3); Red Blood Count 3.52 M/uL (4.7-6.1); White Blood Count 17.51 K/uL (4.8-10.8)
[2019-06-19] MEDS: PIPERACILLIN/TAZOBACTAM 3.375 GM in DEXTROSE 5% 100 ML IV SCH (05:59)
--- NOTE | 2019-06-19 08:21 | XRay Report ---
XR chest 1V portable HISTORY: pleural effusion/ resp distress COMPARISON: Chest 06/18/2019. FINDINGS: No pneumothorax. The heart remains borderline enlarged. Perihilar airspace opacities and in terstitial thickening have slightly improved. Small bilateral pleural effusions persist. IMPRESSION: 1. Improvement in the airspace opacities and interstitial thickening suggestive of resolving pulmonar y edema. 2. Small bilateral pleural effusions persist. Electronically signed by: Wilfred Donahue M.D. 06/19/2019 8:19 AM
[2019-06-19] MEDS: FUROSEMIDE 40 MG in SYRINGE 0 ML IV SCH ×2 (08:50→16:23)
[2019-06-19] MEDS: INSULIN ASPART 100 UNITS/ML 3 ML PEN SC SCH ×2 (08:50→11:47)
[2019-06-19] MEDS: FAMOTIDINE 20 MG in SYRINGE 3 ML IV SCH (08:51)
--- NOTE | 2019-06-19 08:54 | Critical Care Progress Note ---
Date of Service June 19, 2019 Assessment & Plan (1) Atrial fibrillation with RVR: Reason Critically ill: Hypoxic respiratory failure Neuro: CAM ICU negative No concerns for any neuro issues at this time Will continue to assess Cardiovascular: Patient initially was in atrial fibrillation with RVR in cardiogenic shock with hypotension requiring pressor support, off pressor support since last 24 hrs Patient also with pulmonary edema from CHF exacerbation Chronic CHF past echo showing EF of 30-35% Discontinued diltiazem drip in emergency department, Stopped norepinephrine and started on phenylephrine and sent to ICU, Off Phenylephrine drip In ICU placed pads for cardioversion due to hemodynamic instability and esmolol bolus started Patient converted to sinus rhythm with esmolol bolus and pressure rapidly corrected CXR from today observed Paroxysmal atrial fibrillation -Systemic anticoagulation contraindicated at this time due to ongoing gastrointestinal losses -Weaned off vasoactive medication support - BP borderline hypotensive. goal MAP: 60 given patient's EF Respiratory: Acute on chronic hypoxemic respiratory failure Evidence for pulmonary edema and bilateral pleural effusions Diuresed with lasix and respiratory status improved. Now on 4L oxymask CXR this morning reviewed -Bilateral pleural effusions which previously were found to be transudate of in nature, in the setting of severe protein calorie malnutrition I am hesitan t to drain these effusions - Continue with BiPAP nightly and as needed shortness of breath. Patient will benefit from BiPAP given the patient ejection fraction is 30-35% patient has component of central sleep apnea. Renal: ANGELES on CKD III: Worsening creatinine elevated to 1.69 likely result of hypotension and decreased perfusion, will continue to monitor and trend lactate --> normalised Potassium 3.7 today patient is on Lasix for diuresis, creatinine is trending up gradually. Urine output not diagnosed in positive balance. Give 20 mg of potassium IV x1. - Hypernatraemia - likely sec to Lasix plus Zosyn being given in NS. ID: Unclear if infectious process and septic shock More likely all cardiogenic, however based on clinical status and possible respiratory source will treat for now Got 1 dose of vancomycin when patient presented to the ED. Zosyn changed to 3.175 every 12 hours. Urinalysis negative -MRSA swab negative will discontinue vancomycin today continue Zosyn GI: Gastrointestinal hemorrhage hemoccult positive: Performed in emergency department will not be found in laboratory results Hemoglobin 12.1 repeat decreased 2 g continue to trend Will recheck q12h GI consulted Dr. Terrell Severe protein calorie malnutrition Endocrine Status post Whipple will either need elemental feeds or pancreatic enzymes Previously found to be hypothyroid -Will not adjust levothyroxine at this point given recent atrial fibrillation Goals of Care: After long discussion with patient and son, they are aware that he is very sick and has pancreatic cancer that will likely only continue to get worse. That being said it is clearly his and his son's wishes to remain full code and continue the most aggressive course of treatment and to attempt to get strong en ough again to resume chemotherapy. Palliative care consult placed. Patient has very poor prognosis. Case discussed with cardiology as well which agrees with the poor prognosis. 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 No acute distress, no adverse events overnight. Did not use BiPAP overnight. Saturating well on oxygen mask. Denies any chest pain,No shortness of breath, no headache, no nausea, no vomiting. Patient is awake and alert and answers all the questions appropriately. Patient having loose bowel movement. An increasing WBC count C. difficile was ordered in the ER but the results are not back yet. We will make sure that has been ordered. Review of Systems Review of Systems: All systems reviewed & are unremarkable except as noted in HPI & below Negative. Physical Exam Physical Exam: Constitutional: No acute distress HEENT: EOMI, PERRLA, Dry mucous membranes Respiratory system: Decreased air entry bilaterally, NO wheeze, no rhonchi, +ve crackles b/l Lower lobes CVS: S1-S2 positive, no murmurs or gallops Abdomen: Soft, nontender, nondistended, positive bowel sounds x4 Extremities: +2 pulses bilaterally radialis/ dorsalis pedis, +3 pitting edema b/l LE, + 2 edema b/l UE, no cyanosis, anasarca Neuro: Awake alert oriented Psych: Normal mood and affect G/U: + christina catheter Skin: no rashes, warm and dry Results & Data Vital Signs (Past 12 Hours) Vital Signs Temp Pulse Resp BP Pulse Ox 06/19/19 07:00 78 14 95/48 L 92 06/19/19 06:00 77 16 95/52 L 96 06/19/19 05:00 73 11 L 89/45 L 97 06/19/19 04:00 36.5 C 76 12 86/45 L 90 06/19/19 03:00 83 20 82/46 L 96 06/19/19 02:00 75 12 81/44 L 99 06/19/19 01:00 78 21 90/55 L 06/19/19 00:00 36.5 C 77 17 98/54 L 97 06/18/19 23:00 78 20 95/47 L 98 06/18/19 22:00 77 13 90/47 L 97 06/18/19 21:00 74 11 L 102/53 L 100 Laboratory Results 06/19/19 04:53 06/19/19 04:53 Laboratory Tests 06/17/19 06/18/19 06/19/19 13:51 04:45 04:53 WBC 18.34 H 12.87 H 17.51 H Diagnostic Findings Chest x-ray reviewed from today: Still shows bilateral pleural effusions. There is hilar infiltrates as well. No significant change from previous chest x-ray from yesterday. Look at the CAT scan which was done earlier this month showed right lower lobe consolidation bilateral pleural effusion and groundglass opacities bilaterally. XR chest 1V portable HISTORY: pleural effusion/ resp distress COMPARISON: Chest 06/18/2019. FINDINGS: No pneumothorax. The heart remains borderline enlarged. Perihilar airspace opacities and interstitial thickening have slightly improved. Small bilateral pleural effusions persist. IMPRESSION: 1. Improvement in the airspace opacities and interstitial thickening suggestive of resolving pulmonary edema. 2. Small bilateral pleural effusions persist. Electronically signed by: Wilfred Donahue M.D. 06/19/2019 8:19 AM PG Care Time/CCT Total # of Minutes Spent Total Time Spent with Patient: Total time spent is greater than 50% in coordination of care (as documented) at patient's floor/unit and/or counseling patient: Critical Care Time: Yes Total Critical Care Time: 40
--- NOTE | 2019-06-19 09:07 | Cardiology Progress Note ---
Date of Service June 19, 2019 Subjective He is frail and weak. He denies any pain but he notes discomfort from the de gree of anasarca. He denies being short of breath or having chest pain although he appears short of breath talking with a oxygen mask on. Results & Data Vital Signs (Past 12 Hours) Vital Signs Temp Pulse Resp BP Pulse Ox 06/19/19 07:00 78 14 95/48 L 92 06/19/19 06:00 77 16 95/52 L 96 06/19/19 05:00 73 11 L 89/45 L 97 06/19/19 04:00 36.5 C 76 12 86/45 L 90 06/19/19 03:00 83 20 82/46 L 96 06/19/19 02:00 75 12 81/44 L 99 06/19/19 01:00 78 21 90/55 L 06/19/19 00:00 36.5 C 77 17 98/54 L 97 06/18/19 23:00 78 20 95/47 L 98 06/18/19 22:00 77 13 90/47 L 97 PHYSICAL EXAMINATION: HEENT: His carotid upstrokes felt better than an EF of 35%. There were no carotid bruits. His sclerae are anicteric. His jugular venous pressure is elevated. LUNGS: Decreased breath sounds in the bases bilaterally HEART: Regular rate and rhythm. Soft systolic ejection murmur at the right sternal border. ABDOMEN: Soft, nontender, nondistended. Positive bowel sounds. EXTREMITIES: He has marked pitting edema all the way to his hips bilaterally. PSYCHIATRIC: Could not be assessed. DIAGNOSTIC STUDIES: His echocardiogram from earlier this month, EF 30% to 35%, [id number] tricuspid regurgitation with mild pulmonary hypertension, mild mitral regurgitation. IMPRESSION: 1. Anasarca. 2. Marked hypoalbuminemia. 3. Moderate cardiomyopathy, question ischemic versus nonischemic. 4. Pancreatic cancer status post Whipple. 5. Atrial fibrillation with a rapid ventricular response, status post conversion to sinus rhythm with esmolol and Bobby-Synephrine. As discussed with the fish cake maker service as well as palliative care, we have been unable to diurese him. In fact his intake is great after than his output and he remains volume overloaded. With increasing his diuretics all we have done is worse in his renal function. I do not see a way that we are going to be able to diurese him without causing worsening renal failure. He is not a candidate for hemodialysis. Palliative care is currently seeing and I would recommend bridge to hospice. I did discuss with the fish cake maker of the family wants everything done we could consider giving him dobutamine but he likely would need amiodarone in order to maintain sinus rhythm. With dobutamine he will be at risk for having recurrent atrial fibrillation which is what he was seen in the emergency room for initially we know with atrial fibrillation he was hypotensive. We will continue to follow him
[2019-06-19] MEDS ORDERED: PIPERACILLIN/TAZOBACTAM 3.375 GM in DEXTROSE 5% 100 ML IV SCH (09:15)
--- NOTE | 2019-06-19 09:22 | Palliative Care Consultation ---
Date of Consultation June 19, 2019 Assessment & Plan (1) Goals of care, counseling/discussion: -83 year old male patient with PMH stage 3 pancreatic cancer s/p Whipple surgery in October 2018, previously on chemotherapy which had to be stopped due to anasarca, malnutrition, and poor performance status, HLD, htn, and others, presented to the hospital a few days ago with c/o SOB. He was found to be in Afib with RVR, admitted to telemetry unit. Patient became hypotensive and was sent to ICU for cardiogenic shock. He did convert to NSR with esmolol bolus, but required vasoactive medications to bring blood pressure up. Was started on norepinephrine, then switched to phenylephrine which has since been discontinued. Patient was recently here in hospital with heart failure and large BL pleural effusions. Echocardiogram at that time showed EF 30-35%. Now, patient remains in ICU. Lactate was 3, creatinine elevated at 1.69. Was started on Lasix 40mg BID, but creatinine has worsened and urine output has not improved. Lactate back to normal, but creatinine increased to 2.04. Patient remains with anasarca and albumin of 1.3. He is hypotensive with SBP in 80s. Was seen by cardiology this morning who said that patient could be started on dobutamine gtt, but would likely need to be on amiodarone as well to prevent further afib with RVR. Patient is not a dialysis candidate, but nephrology was consulted who likely do not have anything further to offer. Palliative care is consulted to discuss goals of care. -Met with patient this morning in room 109. He is lethargic, but does wake easily and is oriented x4. -Reviewed all of patient's medical conditions with him and the fact that he has several poor prognostic signs such as the low albumin, anasarca, weakness, heart and kidney disease. Patient verbalized understanding that he could be in an end of life situation. We broached the topic of what his wishes would be as far as goals of care and code status at this point. Patient would like to discuss further when his son Lincoln and daughter Karen can be present. Called Karen, family will be in between 2-2:30. -Patient would certainly qualify for hospice care should the patient and family decide to go that route. Patient lives alone but his son and daughter are there as much as they can be. patient would need 24/7 care in order to go home. Patient is ill enough though, that I would not be surprised if he would decline fast enough to not make it out of the hospital. Further plan to follow after speaking with maikol. (2) Pancreatic cancer: (3) Cardiogenic shock: (4) Acute kidney failure: (5) Acute upper gastrointestinal bleeding: (6) CHF (congestive heart failure): (7) Atrial fibrillation with RVR: (8) Anasarca: Supervising Physician Co-Signing Physician Notes Chart reviewed, patient seen and examined. Collaborated with YUAN Felix Met with patient and family on 2 separate occasions this afternoon. Patient's daughter Karen, son-in-law Gabriel and son Lincoln at bedside. Patient has another daughter who they do not have contact with, they only know she is in [place] somewhere. Patient stated he would want his son and daughter to make medical decisions, with his son being the primary decision-maker. Patient's son Lincoln, phone number is [phone] .Patient asking if tube feeds can be restarted and wanting to know from oncology if his cancer is still there. Family reports patient had a scan done towards the end of April. Nursing reports that an NG tube was attempted over the weekend but patient desatted with each attempt. Patient's blood pressure remains on the low side-was 86/45 during exam this a.m. Patient's creatinine continues to rise was 2.04 - urine output is diminishing rapidly-urine output on the was 1059cc, on the 319 cc and today 36 cc so far. Patient was seen by nephrology-patient is not a dialysis candidate due to his hypotension and multiple comorbidities. Discussed with family that patient's prognosis is several days to a week. Patient and family understand his prognosis-agreed to DNR status. Would recommend keeping the patient in the ICU overnight-assess in a.m. regarding transfer to the floor for comfort care. PE: Patient awake and alert, able to participate in conversation medical decision making HEENT: EOMI, hearing within normal limits Respirations: Unlabored, on O2 at 5 L via oxygen mask CV:RRR, lower extremity edema with anasarca Abdomen: Pitting of abdominal wall, nontender Extremities: Warm, pitting edema Neuro: Alert and oriented x4 Agree with above note, assessment and plan as per YUAN Felix. Will continue to follow and provide support to patient and family. History of Present Illness Reason for Consultation: Goals of care Requesting Physician: Dr. Joel Art Attending Physician: Adrian Negro MD History of Present Illness This 83 year old male patient with PMH stage 3 pancreatic cancer s/p Whipple surgery in October 2018, previously on chemotherapy which had to be stopped due to anasarca, malnutrition, and poor performance status, HLD, htn, and others, presented to the hospital a few days ago with c/o SOB. He was found to be in Afib with RVR, admitted to telemetry unit. Patient became hypotensive and was sent to ICU for cardiogenic shock. He did convert to NSR with esmolol bolus, but required vasoactive medications to bring blood pressure up. Was started on norepinephrine, then switched to phenylephrine which has since been discontinued. Patient was recently here in hospital with heart failure and large BL pleural effusions. Echocardiogram at that time showed EF 30-35%. Now, patient remains in ICU. Lactate was 3, creatinine elevated at 1.69. Was started on Lasix 40mg BID, but creatinine has worsened and urine output has not improved. Lactate back to normal, but creatinine increased to 2.04. Patient remains with anasarca and albumin of 1.3. He is hypotensive with SBP in 80s. Was seen by cardiology this morning who said that patient could be started on dobutamine gtt, but would likely need to be on amiodarone as well to prevent further afib with RVR. Patient is not a dialysis candidate, but nephrology was consulted who likely do not have anything further to offer. Palliative care is consulted to discuss goals of care. Thank you kindly for this consult. Palliative care team will follow as needed. Allergies Allergy/AdvReac Type Severity Reaction Status Date / Time No Known Allergies Allergy Unverified 06/03/19 01:31 Home Medications Home Medications Medication Instructions Recorded Confirmed Type amlodipine 5 mg PO DAILY 09/12/18 06/17/19 History lisinopril 20 mg PO DAILY 09/12/18 06/17/19 History simvastatin 40 mg PO HS 09/12/18 06/17/19 History ferrous sulfate 325 mg PO TID 06/03/19 06/17/19 History torsemide 50 mg PO DAILY 06/03/19 06/17/19 History sacubitril-valsartan [Entresto] 1 tab PO BID 06/17/19 06/17/19 History Patient History Medical History HTN (hypertension) (Chronic) HLD (hyperlipidemia) (Chronic) Fluid retention (Chronic) Pancreatic cancer (Resolved) Family History Other Family history non-contributory Social History Preferred Language: Yi Communication Ability: Effective Cultural Centre Manager Required: No Beliefs That Will Affect Care: None marital status: Single Current Living Situation: Family Feels Safe at Home: Yes Safety Concerns: Feels Safe At This Time Smoking Status: Never smoker Do You Dip or Chew Tobacco: No ; Second Hand Exposure: No ; Hx Alcohol Use: No Hx Substance Use: No Review of Systems Constitutional: + weakness Respiratory: + dyspnea on exertion Cardiovascular: + edema; no chest pain Gastrointestinal: no abdominal pain and no nausea Neurologic: no confusion Physical Exam Constitutional: + ill appearing and + cachectic ENMT: external ear and nose normal, oropharynx normal Ears: no hearing impairment Neck: normal visual inspection Respiratory: normal respiratory effort, lungs clear to auscultation Auscultation: + diminished lung sounds Cardiovascular: Extremities: + edema (+2 BLE edema; anasarca) Gastrointestinal (Abdomen): Inspection/Auscultation: abdomen normal to inspection and normal bowel sounds Percussion/Palpation: abdomen soft Neurologic: moves all extremities and awake Psychiatric: Orientation: alert and oriented x 3 Results & Data Vital Signs (Past 12 Hours) Vital Signs Temp Pulse Resp BP Pulse Ox 06/19/19 07:00 78 14 95/48 L 92 06/19/19 06:00 77 16 95/52 L 96 06/19/19 05:00 73 11 L 89/45 L 97 06/19/19 04:00 36.5 C 76 12 86/45 L 90 06/19/19 03:00 83 20 82/46 L 96 06/19/19 02:00 75 12 81/44 L 99 06/19/19 01:00 78 21 90/55 L 06/19/19 00:00 36.5 C 77 17 98/54 L 97 06/18/19 23:00 78 20 95/47 L 98 06/18/19 22:00 77 13 90/47 L 97 PG Care Time/CCT Prolonged Care Time Prolonged Care Time: Yes Total Prolonged Care Time: 45 Time Spent Midlevel 70 minutes with >50% of time spent at bedside with patient and ICU team discussing condition, GOC, and plan of care. Critical Care Time Prolonged Care Time Prolonged Care Time: Yes Total Prolonged Care Time: 45 120
[2019-06-19] MEDS: POTASSIUM CHLORIDE / WTR 10 MEQ/100 ML PLCT IV SCH ×2 (09:54→11:25)
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
[2019-06-19] MEDS: PANTOprazole 40 MG in SYRINGE 0 ML IV SCH ×2 (11:26→19:51)
[2019-06-19 11:54] LABS: Hematocrit (blood only) 36.9 % (42-52); Hemoglobin 11.5 g/dL (14.0-18.0)
[2019-06-19 13:24] LABS: Cdiff Antigen Positive
[2019-06-19 13:26] LABS: Cdiff Toxin A+B Positive Cdiff Toxin (Negative)
[2019-06-19] MEDS ORDERED: Nursing to Pharmacy Communication ONE (19:32)
--- NOTE | 2019-06-19 21:38 | Hospitalist Progress Note ---
Date of Service June 19, 2019 Assessment & Plan (1) Acute respiratory failure with hypoxia: 83 year old male with PMHx metastatic pancreatic cancer s/p whipple presented with shortness of breath due to new onset atrial fibrillation with RVR and developed hypotension. Converted to NSR with esmolol. Generalized anasarca due to pancreatic cancer and malnutrition with hypoalbuminemia - now with worsening renal function from probable ATN, diuretic use and hypoperfusion with hypotension. Very poor prognosis discussed by palliative care team with family and wished to be made DNR. Patient to be kept in ICU overnight if possible and reassessed in AM regarding transfer to floor for comfort care. (2) Cardiogenic shock: resolved now in NSR (3) Anasarca: doubtful benefit of lasix for symptom control therefore will d/c (4) Atrial fibrillation with RVR: paroxsmal (5) GI bleed: Forgoing further labs at this stage (6) Pancreatic cancer: as noted above. - s/p Whipple procedure Oct 2018, not receiving treatment as outpatient currently due to poor nutritional status. (7) Pulmonary edema: (8) Bilateral pleural effusion: (9) ARDS (adult respiratory distress syndrome): (10) Acute kidney failure: (11) Chronic renal failure, stage 3 (moderate): (12) Acute upper gastrointestinal bleeding: Subjective Patient seen in the ICU after palliative consult and subsequent discussions. No acute distress, no adverse events overnight. No chest pain, shortness of breath, abdominal pain, nausea or vomiting. Review of Systems Review of Systems: All systems reviewed & are unremarkable except as noted in HPI & below Physical Exam Constitutional: + ill appearing and + thin Respiratory: Auscultation: + rales (b/l anteriorly) Cardiovascular: Rate/Rhythm: regular rate and regular rhythm Heart Sounds: + murmur (systolic) Extremities: + edema (3+ all four extremities) Gastrointestinal (Abdomen): Inspection/Auscultation: normal bowel sounds Percussion/Palpation: abdomen soft; abdomen nontender Results & Data Vital Signs (Past 12 Hours) Vital Signs Temp Pulse Resp BP Pulse Ox 06/19/19 16:14 72 17 90/50 L 98 06/19/19 16:00 97.9 F 79 16 90/50 L 96 06/19/19 15:00 78 16 116/59 L 93 06/19/19 14:01 80 20 86/45 L 93 06/19/19 13:00 74 13 101/46 L 96 06/19/19 12:21 74 11 L 96/53 L 97 06/19/19 12:01 89 24 80/43 L 92 06/19/19 11:25 76 16 91/50 L 95 06/19/19 11:01 78 14 88/52 L 95 06/19/19 10:00 77 13 90/46 L 97 PG Care Time/CCT Total # of Minutes Spent Total Time Spent with Patient: Total time spent is greater than 50% in coordination of care (as documented) at patient's floor/unit and/or counseling patient: (1) Pulmonary edema Chronicity: acute Qualified Code(s): J81.0 - Acute pulmonary edema
--- NOTE | 2019-06-19 22:48 | Communication Note ---
Date of Service: June 19, 2019 Spoke with patient and family this evening, they are endorsing that they would like to move forward with comfort care and are not wanting furhter agressive treatment. He is declining all medications and testing at this time. He is C. Diff positive Resident Activity Tracking Resident Involvement: Resident Care Provided Care Provided: Adult [facility] Medicine
--- NOTE | 2019-06-20 08:42 | Nephrology Progress Note ---
Date of Service June 20, 2019 Assessment & Plan (1) Acute kidney failure: Chart reviewed this morning. Patient is oliguric. No labs drawn today. Family has chosen to pursue comfort measures. Will sign off. Please call if further Nephrology evaluation is needed (2) Chronic renal failure, stage 3 (moderate): (3) Cardiogenic shock: (4) Pancreatic cancer: (5) Malnutrition compromising bodily function: Results & Data Vital Signs (Past 12 Hours) Vital Signs Pulse Resp 06/20/19 04:00 79 11 L 06/20/19 03:00 82 22 06/20/19 02:00 77 13 06/20/19 01:00 80 19 06/20/19 00:00 76 12 06/19/19 23:00 79 14 PG Care Time/CCT Total # of Minutes Spent Total Time Spent with Patient: Total time spent is greater than 50% in coordination of care (as documented) at patient's floor/unit and/or counseling patient:
[2019-06-20] MEDS: MoRPHine SULFATE 2 MG/ML CARP IV PRN ×5 (08:58→20:49)
--- NOTE | 2019-06-20 09:20 | Critical Care Progress Note ---
Date of Service June 20, 2019 Assessment & Plan (1) Atrial fibrillation with RVR: Reason Critically ill: Hypoxic respiratory failure Neuro: CAM ICU negative No concerns for any neuro issues at this time Will continue to assess Cardiovascular: Patient initially was in atrial fibrillation with RVR in cardiogenic shock with hypotension requiring pressor support Patient also with pulmonary edema from CHF exacerbation Chronic CHF past echo showing EF of 30-35% Discontinued diltiazem drip in emergency department, Stopped norepinephrine and started on phenylephrine and sent to ICU, Off Ph enylephrine drip In ICU placed pads for cardioversion due to hemodynamic instability and esmolol bolus started Patient converted to sinus rhythm with esmolol bolus and pressure rapidly corrected CXR from today observed Paroxysmal atrial fibrillation -Systemic anticoagulation contraindicated at this time due to ongoing gastrointestinal losses -Weaned off vasoactive medication support - BP borderline hypotensive. goal MAP: 60 given patient's EF Currently declining further intervention Respiratory: Acute on chronic hypoxemic respiratory failure Evidence for pulmonary edema and bilateral pleural effusions Diuresed with lasix and respiratory status improved. Now on 5L oxymask but breathing comfortably Renal: Urine output has been poor .02 mls/kg/L ID: Unclear if infectious process and septic shock More likely all cardiogenic, however based on clinical status and possible respiratory source will treat for now Got 1 dose of vancomycin when patient presented to the ED. Zosyn changed to 3.175 every 12 hours. Urinalysis negative -MRSA swab negative will discontinue vancomycin today continue Zosyn C. Diff positive, but patient declining any treatment Patient declining further medication GI: Gastrointestinal hemorrhage hemoccult positive: Performed in emergency department will not be found in laboratory results Hemoglobin 12.1 repeat decreased 2 g continue to trend Patient declining all further blood draws Endocrine Status post Whipple will either need elemental feeds or pancreatic enzymes Previously found to be hypothyroid -Will not adjust levothyroxine at this point given recent atrial fibrillation Update: Patient now declining medications and lab draws Goals of Care: Family wishes patient to become full comfort care, will transfer patient up to fourth floor today under care of Dr. Negro. 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 Art was the resident-physician during care of patient. I separately evaluated patient for ca portions of the history and the exam. I was present during the critical portion of medical decision making, and I discussed the case with the resident. I generally agree with the findings and plan except for any additions/exceptions noted. Patient is DNR/DNI. Does not want any interventions to be taken. Does not want any medications. Patient and family understands and want to pursue the route of comfort care. We will downgrade the patient to private room. I have personally spent 30 minutes of critical care time in the direct management of this patient. This is a life/limb threatening event. This includes time spent evaluating patient, direct bedside care, chart review, placing orders, interpretation of diagnostic studies, discussion with consultants, patient, and/or family members regarding treatment decisions, as well as other required patient management activities. This time is exclusive of all separately billable procedures, and teaching time and separate from and in addition to any other critical care service time. Subjective Saw Mr. Lira this morning, he is in better spirits than yesterday, wanted to talk about the [employer] game and Trevin Sandor getting his first win. He desires to try to eat something. His daughter is present and both the patient and the daughter would like to transition to comfort care with possible hospice at home. Review of Systems Review of Systems: All systems reviewed & are unremarkable except as noted in HPI & below Physical Exam Physical Exam: Constitutional: No acute distress HEENT: EOMI, PERRLA, Dry mucous membranes Respiratory system: Decreased air entry bilaterally, NO wheeze, no rhonchi, +ve crackles b/l Lower lobes CVS: S1-S2 positive, no murmurs or gallops Abdomen: Soft, nontender Extremities: Peripheral pulses intact bilaterally, +3 pitting edema to b/l lower extremities Neuro: Awake alert oriented Psych: Depressed mood and affect G/U: + christina catheter, Edematous genitalia Results & Data Vital Signs (Past 12 Hours) Vital Signs Pulse Resp 06/20/19 04:00 79 11 L 06/20/19 03:00 82 22 06/20/19 02:00 77 13 06/20/19 01:00 80 19 06/20/19 00:00 76 12 06/19/19 23:00 79 14 Laboratory Results 06/19/19 11:41 06/19/19 04:53 Abnormal lab results 06/19/19 Range/Units 12:05 Stl C. diff Tox B Gene Positive Cdiff Gene H (Neg) Stl C.difficile Tox A&B Positive Cdiff Toxin A* (Negative) PG Care Time/CCT Total # of Minutes Spent Total Time Spent with Patient: Total time spent is greater than 50% in coordination of care (as documented) at patient's floor/unit and/or counseling patient: Critical Care Time: Yes Total Critical Care Time: 30 Resident Activity Tracking Resident Involvement: Resident Care Provided Care Provided: Adult Hospital Medicine
[2019-06-20] MEDS: PANTOprazole 40 MG in SYRINGE 0 ML IV SCH (09:42)
[2019-06-20] MEDS: INSULIN ASPART 100 UNITS/ML 3 ML PEN SC SCH (09:47)
[2019-06-20] MEDS ORDERED: SCOPOLAMINE 1.5 MG TDSY TD SCH (10:30)
--- NOTE | 2019-06-20 11:05 | Palliative Care Progress Note ---
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 Patient's number one request was to have pepsi. RETAIL EQUIPMENT ASSOCIATE was at bedside to try giving patient soda. Daughter valery Ibarra and grandson's at bedside as well. -Confirmed that the plan is strictly for comfort. No further lab draws. Given any and all medications required for patient to be comfortable. -Will increase morphine to 4mg IV Q1h PRN pain or SOB. -Lorazepam 0.5mg IV Q4h PRN anxiety/agitation. -Atropine 1% oph soln 4 drops SL Q1h PRN secretions. -Scop patch for secretions already ordered-- if patient develops dry mouth or confusion/agitation, take scop patch off. -Robinul 0.2mg IV Q4h PRN secretions. -Not stable for discharge at this time. Patient expected to in days. Urine output has dropped off. -Could be candidate for [facility] hospice, but was not appropriate time to bring up with family. Patient was extremely uncomfortable, family slightly stressed out. Support given and case management updated. -Will continue to follow. 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 Patient's number one request was to have pepsi. RETAIL EQUIPMENT ASSOCIATE was at bedside to try giving patient soda. Daughter valery Ibarra and grandson's at bedside as well. Review of Systems Review of Systems: + weakness + dyspnea and + dyspnea on exertion + edema; no chest pain no abdominal pain and no nausea no confusion Physical Exam Constitutional: + ill appearing and + cachectic ENMT: external ear and nose normal, oropharynx normal Ears: no hearing impairment Neck: normal visual inspection Respiratory: + labored breathing and + tachypneic Auscultation: + diminished lung sounds Cardiovascular: Extremities: + edema (+2 BLE edema; anasarca) Gastrointestinal (Abdomen): Inspection/Auscultation: abdomen normal to inspection and normal bowel sounds Percussion/Palpation: abdomen soft Neurologic: moves all extremities and awake Psychiatric: Orientation: alert and oriented x 3 Results & Data Vital Signs (Past 12 Hours) Vital Signs Pulse Resp 06/20/19 04:00 79 11 L 06/20/19 03:00 82 22 06/20/19 02:00 77 13 06/20/19 01:00 80 19 06/20/19 00:00 76 12 Supervising Physician Co-Signing Physician Notes Patient seen and examined, collaborated with YUAN Felix Patient is now on comfort care-has required PRN morphine as well as PRN Ativan and PRN atropine. Patient's daughter and sons at bedside. Patient recently received a PRN morphine and is less responsive but comfortable. PE: Appears comfortable Respirations: Unlabored CV: Regular rate, positive lower extremity edema Neuro: Less responsive Agree with above note, assessment and plan as per YUAN Felix. Will continue to follow and provide support to patient's family. Time Spent Midlevel 35 minutes with >50% of the time spent at bedside with patient and family discussing ICER MACHINE OPERATOR and EOL care.
[2019-06-20] MEDS: ATROPINE SULFATE 1% OP SOLN 5 ML BTL SL PRN ×3 (11:23→20:57)
[2019-06-20] MEDS: LORazepam 0.5 MG/1 ML VIAL IV PRN ×3 (11:26→19:28)
--- NOTE | 2019-06-20 14:44 | Hospitalist Progress Note ---
Date of Service June 20, 2019 Assessment & Plan (1) Need for comfort care: Ativan for agitation Morphine for dyspnea Scopolamine for secretions All other medications stopped at this time Can have comfort food if becomes more awake as per speech recommendations. (2) Acute respiratory failure with hypoxia: O2 for comfort Multifactorial from pulmonary edema, pleural effusions, ARDS (3) Cardiogenic shock: resolved now in NSR (4) Anasarca: secondary to malnutrition and pancreatic cancer (5) Atrial fibrillation with RVR: paroxysmal (6) GI bleed: Forgoing further labs at this stage Stopped pantoprazole (7) Pancreatic cancer: as noted above. - s/p Whipple procedure Oct 2018 (8) Pulmonary edema: (9) Bilateral pleural effusion: (10) ARDS (adult respiratory distress syndrome): (11) Acute kidney failure: (12) Chronic renal failure, stage 3 (moderate): (13) Acute upper gastrointestinal bleeding: (14) Discharge planning issues: Prognosis appears to be more hours than days given current status therefore hospice care not approached at this time pending patient stability. Will re-evaluate tomorrow. Appreciate palliative management. Subjective Patient was seen on [facility] now for comfort care only given severity of multiple conditions. Tried comfort feeding this morning but caused a lot of secretions and coughing. Seen by speech and reportedly did better with ice cream. Scopolamine patch on now for secretions. Patient received ativan and morphine earlier for agitation and shortness of breath. More comfortable when seen as per family. No questions or concerns from family at this time. Review of Systems Review of Systems: Unobtainable due to cognitive status Physical Exam Constitutional: + ill appearing and + cachectic Respiratory: + retractions, + uses accessory muscles and + abnormal respiratory pattern (bradypneic); no respiratory distress Auscultation: + rales (b/l anteriorly) Cardiovascular: Rate/Rhythm: regular rate and regular rhythm Heart Sounds: + murmur (systolic) Extremities: + edema (3+ all four extremities) Results & Data Vital Signs (Past 12 Hours) Vital Signs Pulse Resp 06/20/19 04:00 79 11 L 06/20/19 03:00 82 22 PG Care Time/CCT Total # of Minutes Spent Total Time Spent with Patient: Total time spent is greater than 50% in coordination of care (as documented) at patient's floor/unit and/or counseling patient: (1) Pulmonary edema Chronicity: acute Qualified Code(s): J81.0 - Acute pulmonary edema
[2019-06-20] MEDS: CHECK SCOPOLAMINE PATCH PLACEMENT SCH (16:14)
[2019-06-20] MEDS: GLYCOPYRROLATE 0.2 MG/ML VIAL IV PRN (18:39)
[2019-06-21] MEDS: ATROPINE SULFATE 1% OP SOLN 5 ML BTL SL PRN ×7 (08:21→22:09)
[2019-06-21] MEDS: CHECK SCOPOLAMINE PATCH PLACEMENT SCH ×3 (08:22→15:31)
[2019-06-21] MEDS: MoRPHine SULFATE 2 MG/ML CARP IV PRN (08:27)
--- NOTE | 2019-06-21 09:11 | Palliative Care Progress Note ---
Date of Service June 21, 2019 Assessment & Plan (1) Goals of care, counseling/discussion: -Patient remains on comfort measures. Pt stayed with him overnight. -Pt , son and daughter at the bedside during my encounter. -Patient did not receive any Morphine overnight. -Appears comfortable in no apparent distress with no facial grimacing. -Patient with audible secretions, Atropine just administered by nursing and encouraged increased use if needed. Patient does have a Scopalomine patch on and also receiving Robinul. -Patient not a GIP candidate as his symptoms are well managed. -Patient was on [facility] and patient with open mouth breathing. Family stated that in the past few months, the patient was very fixated on having his O2 on, so they felt he would feel comfortable leaving the O2 in place. We decreased his O2 from 4liters to 2 liters. -All questions answered. Anticipate the patient is in his last hours of life. -Please contact Palliative Care for any additional needs. -PPS: 10% (2) Pancreatic cancer: (3) Cardiogenic shock: (4) Acute kidney failure: (5) Acute upper gastrointestinal bleeding: (6) CHF (congestive heart failure): (7) Atrial fibrillation with RVR: (8) Anasarca: Subjective Patient remains on comfort measures. Pt stayed with him overnight. Patient did not receive any Morphine overnight. Pt unable to provide ROS due to being obtunded. Appears comfortable in no apparent distress with no facial grimacing. Please see A/P for further details. Review of Systems Review of Systems: Unobtainable due to reduced consciousness Physical Exam Constitutional: + ill appearing, + cachectic and comfortable Eyes: PERRL, conjunctivae normal, anicteric sclerae ENMT: Mouth fixed open Neck: trachea midline, no thyromegaly Respiratory: Auscultation: + diminished lung sounds Mouth fixed open. Periods of apnea. Stefano-wilson breathing Cardiovascular: RRR, no murmur, no edema Gastrointestinal (Abdomen): normal bowel sounds, soft, nontender, no hepatosplenomegaly Skin: + mottling (on bottom of feet) Psychiatric: Orientation: + not alert PG Care Time/CCT Total # of Minutes Spent Total Time Spent with Patient: Total time spent is greater than 50% in coordination of care (as documented) at patient's floor/unit and/or counseling patient: 35 Time Spent Midlevel Total time spent 35 minutes with > 50% of that time spent assessing the patient, discussing symptom management and end-of-life anticipation with the patients family.
[2019-06-21] MEDS: GLYCOPYRROLATE 0.2 MG/ML VIAL IV PRN ×2 (15:23→20:17)
[2019-06-22] MEDS: CHECK SCOPOLAMINE PATCH PLACEMENT SCH (00:03)
[2019-06-22] MEDS: ATROPINE SULFATE 1% OP SOLN 5 ML BTL SL PRN ×2 (00:03→05:43)
[2019-06-22] MEDS: MoRPHine SULFATE 2 MG/ML CARP IV PRN (00:20)
[2019-06-22] MEDS: GLYCOPYRROLATE 0.2 MG/ML VIAL IV PRN ×2 (00:23→05:41)
--- NOTE | 2019-06-22 01:10 | Hospitalist Progress Note ---
Date of Service June 21, 2019 Assessment & Plan (1) Need for comfort care: Ativan for agitation Morphine for dyspnea Scopolamine, atropine and glycopyrrolate for secretions All other medications stopped at this time (2) Acute respiratory failure with hypoxia: O2 for comfort (3) Discharge planning issues: Patient appears to be actively dying, not appropriate for hospice transfer. Appreciate palliative management. Subjective Patient seen in afternoon. Excessive gurgling despite atropine, scopolamine and glycopyrrolate. Suspect massive pulmonary edema developing. Morphine given in AM. Patient in no distress from secretions. Review of Systems Review of Systems: Unobtainable due to reduced consciousness Physical Exam Constitutional: + cachectic and + edematous; no acute distress Respiratory: + retractions, + uses accessory muscles and + abnormal respiratory pattern (bradypneic); no respiratory distress Cardiovascular: Extremities: + edema (3+ all four extremities) Neurologic: + obtunded Psychiatric: Orientation: + not alert PG Care Time/CCT Total # of Minutes Spent Total Time Spent with Patient: Total time spent is greater than 50% in coordination of care (as documented) at patient's floor/unit and/or counseling patient:
--- NOTE | 2019-06-22 07:48 | Death Summary ---
Date of Service June 22, 2019 Pronouncement Note Date and Time of Date of : 06/22/19 Time of : 07:34 PCOD Preliminary cause of : Acute respiratory failure Contributing Factors (1) Acute respiratory failure with hypoxia: (2) Malnutrition compromising bodily function: (3) Cardiogenic shock: (4) CHF (congestive heart failure): (5) Pancreatic cancer: (6) Respiratory failure: (7) Hypoalbuminemia: (8) Acute upper gastrointestinal bleeding: (9) Atrial fibrillation with RVR: (10) ARDS (adult respiratory distress syndrome): (11) Bilateral pleural effusion: Additional Data Confirmation of : no pulse, no respirations, no heart sounds and pupils fixed and dilated Family: at bedside Additional persons at bedside: other (nurse and ABSTRACTER) Attending/PCP notified?: Yes Attending physician: Adrian Negro MD Was code activated?: No Autopsy requested?: No workers compensation claims examiner notified?: No Organ bank notified?: No
== END 2019-06-22 07:34 | disposition expired | DRG 291 ==
LOC: ED 13:13 → 1E 15:24 → SUATTDRO 15:24 → 1E 16:21 → 4W 06-20 08:43